=== PATIENT | female | born 1930 | race Caucasian/White ===

== ENCOUNTER 2016-11-13 15:21 | Emergency (ER) | payer BC, MEDICARE ==
[~2016-11-13] VITALS: Ht 142.2 cm; Wt 127.0 kg
[~2016-11-13 15:21] MED LIST: ALBU0.63 NEB; ASPI-482 PO; ATOR10TA60 PO; ATOR40TA59 PO; CETI10CA PO; CLIN150C14 PO; DOXY100C14 PO; FLUT16SP2 NS; FLUT1DIS3 IH; FURO20TA3 PO; FURO40TA4 PO; LISI-334 PO; LISI-338 PO; METO1TAB7 PO; METO25TA4 PO; NIFE10CA48 PO; NITR0.3T SL; POLY500P14 MC; PRAS5TAB3 PO
--- NOTE | 2016-11-13 15:41 | PHYS DOC ---
Past Medical History Past Medical History: Angina, Asthma, CHF, COPD, High Cholesterol, Heart Disease, Hypertension, Renal Failure, Other Additional Past Medical Histor: seasonal allergies, pacemaker Past Surgical History: Appendectomy, Cholecystectomy, Hysterectomy, Other Additional Past Surgical Histo: bilat shoulders,renal stents,CARDIAC STENTS, PACEMAKER Alcohol Use: None Drug Use: None Adult General Chief Complaint Chief Complaint: LOWER EXT PAIN HPI HPI Patient is a 86 year old female who presents with 3 week history of worsening right leg pain extending from ankle to hip; worsened with weightbearing which is become increasingly difficult; denies history of trauma; recently placed on antibiotics doxycycline for some erythema to the skin of the lower leg anteriorly. She has evidence of prior ulcers that are well-healed with scabs. Denies any history of peripheral vascular disease other than "circulation problems ". Has had a prior cardiac catheter may have stents, and has history of CHF. Denies prior history of knee replacement or hip replacement/fracture repair. Review of Systems Review of Systems Constitutional: Denies fever or chills [] Eyes: Denies change in visual acuity, redness, or eye pain [] HENT: Denies nasal congestion or sore throat [] Respiratory: Denies cough or shortness of breath [] Cardiovascular: No additional information not addressed in HPI [] GI: Denies abdominal pain, nausea, vomiting, bloody stools or diarrhea [] : Denies dysuria or hematuria [] Musculoskeletal: Denies back pain or joint pain [] Integument: Denies rash or skin lesions [] Neurologic: Denies headache, focal weakness or sensory changes [] Endocrine: Denies polyuria or polydipsia All review systems are negative except as mentioned in the history of present illness. [] Allergies Allergies Allergies Coded Allergies Type Severity Reaction Last Updated Verified Penicillins Allergy Severe Anaphylaxis 09/08/15 Yes Sulfa (Sulfonamide Antibiotics) Allergy Intermediate 09/08/15 Yes codeine Adverse Reaction Intermediate 09/08/15 Yes Physical Exam Physical Exam Constitutional: Well developed, well nourished, no acute distress, non-toxic appearance. [] HENT: Normocephalic, atraumatic, bilateral external ears normal, oropharynx moist, no oral exudates, nose normal. [] Eyes: PERRLA, EOMI, conjunctiva normal, no discharge. [] Neck: Normal range of motion, no tenderness, supple, no stridor. [] Cardiovascular:Heart rate regular rhythm, no murmur [] Lungs & Thorax: Bilateral breath sounds clear to auscultation [] Abdomen: Bowel sounds normal, soft, no tenderness, no masses, no pulsatile masses. [] Skin: Warm, dry, no erythema, no rash. [] Back: No tenderness, no CVA tenderness. [] Extremities: No tenderness, no cyanosis, no clubbing, ROM intact, no edema. Except for right lower extremity: Patient appears to have some discomfort with movement of the ankle knee and hip but is difficult to discern which is really bothering her more. There are some chronic skin changes in the lower extremity consistent with some venous stasis. She is morbidly obese which also makes the exam more difficult. The skin and the foot is somewhat discolored which is considered chronic the right and left foot are warm to touch. No palpable pulses in the foot or ankle.] Neurologic: Alert and oriented X 3, normal motor function, normal sensory function, no focal deficits noted. [] Psychologic: Affect normal, judgement normal, mood normal. [] Current Patient Data Vital Signs Vital Signs Date Time Temp Pulse Resp B/P (MAP) Pulse Ox O2 Delivery O2 Flow Rate FiO2 11/13/16 18:19 65 216/80 (125) 99 Room Air 11/13/16 15:25 97.9 18 97.9 Lab Values Laboratory Tests Test 11/13/16 16:20 11/13/16 16:50 White Blood Count 10.7 x10^3/uL (4.0-11.0) Red Blood Count 4.28 x10^6/uL (3.50-5.40) Hemoglobin 12.5 g/dL (12.0-15.5) Hematocrit 37.8 % (36.0-47.0) Mean Corpuscular Volume 88 fL (79-100) Mean Corpuscular Hemoglobin 29 pg (25-35) Mean Corpuscular Hemoglobin Concent 33 g/dL (31-37) Red Cell Distribution Width 15.0 % (11.5-14.5) H Platelet Count 269 x10^3/uL (140-400) Neutrophils (%) (Auto) 71 % (31-73) Lymphocytes (%) (Auto) 16 % (24-48) L Monocytes (%) (Auto) 9 % (0-9) Eosinophils (%) (Auto) 4 % (0-3) H Basophils (%) (Auto) 1 % (0-3) Neutrophils # (Auto) 7.7 x10^3uL (1.8-7.7) Lymphocytes # (Auto) 1.7 x10^3/uL (1.0-4.8) Monocytes # (Auto) 1.0 x10^3/uL (0.0-1.1) Eosinophils # (Auto) 0.4 x10^3/uL (0.0-0.7) Basophils # (Auto) 0.1 x10^3/uL (0.0-0.2) Sodium Level 141 mmol/L (136-145) Potassium Level 4.9 mmol/L (3.5-5.1) Chloride Level 104 mmol/L (98-107) Carbon Dioxide Level 30 mmol/L (21-32) Anion Gap 7 (6-14) Blood Urea Nitrogen 40 mg/dL (7-20) H Creatinine 1.5 mg/dL (0.6-1.0) H Estimated GFR (Cockcroft-Gault) 32.9 BUN/Creatinine Ratio 27 (6-20) H Glucose Level 99 mg/dL (70-99) Calcium Level 9.1 mg/dL (8.5-10.1) Total Bilirubin 0.5 mg/dL (0.2-1.0) Aspartate Amino Transferase (AST) 15 U/L (15-37) Alanine Aminotransferase (ALT) 7 U/L (14-59) L Alkaline Phosphatase 74 U/L (46-116) Troponin I Quantitative < 0.017 ng/mL (0.000-0.055) Total Protein 6.7 g/dL (6.4-8.2) Albumin 3.3 g/dL (3.4-5.0) L Albumin/Globulin Ratio 1.0 (1.0-1.7) Laboratory Tests 11/13/16 16:20 Laboratory Tests 11/13/16 16:50 EKG EKG EKG [irregular rhythm rate of 98 no STEMI right bundle branch block QTC prolonged at 510 my interpretation Radiology/Procedures Radiology/Procedures Chest x-ray x-ray of pelvis right hip tib-fib femur: [All x-rays were negative for fracture there was DJD hip and knee and ankle Ultrasound venous of the right leg showed a Nguyen's cyst but no DVT Ultrasound of right lower extremity that arterial showed monophasic flow and lack of obvious lower imaging of the posterior tibia artery or dorsal pedal or artery however clinically the patient has a warm foot and is stable for outpatient follow-up of this problem.] Course & Med Decision Making Course & Med Decision Making Pertinent Labs and Imaging studies reviewed. (See chart for details) Since the entire right leg is hurting and she is having increasing trouble bearing weight we will x-ray the entire right leg including the hip and pelvis, we will ultrasound venous and arterial circulation of the right leg, and check labs. [] Dragon Disclaimer Dragon Disclaimer This electronic medical record was generated, in whole or in part, using a voice recognition dictation system. Departure Departure Impression: Primary Impression: Right leg pain Additional Impression: Synovial cyst of popliteal space [Nguyen], right knee Disposition: HOME, SELF-CARE Condition: STABLE Referrals: ALEXANDRIA PARKINSON (PCP) Additional Instructions: Please follow-up with your PCP get a referral to orthopedic surgery for evaluation of the Nguyen's cyst; please follow-up and get a referral from your PCP to vascular surgeon to consider options regarding decreased blood flow in that right lower extremity Scripts Oxycodone/Apap 5-325 (PERCOCET 5-325 MG TABLET) 1 Each Tablet 1 TAB PO QID for PAIN, #12 TAB Prov: MAIRA WHITEHEAD MD 11/13/16 Problem Qualifiers MAIRA WHITEHEAD MD Nov 13, 2016 15:41
[2016-11-13 16:29] LABS: BASO # 0.1 x10^3/uL (0.0-0.2); BASO % 1 % (0-3); EOS % 4 % (0-3); HEMATOCRIT 37.8 % (36.0-47.0); HEMOGLOBIN 12.5 g/dL (12.0-15.5); LYMPH # 1.7 x10^3/uL (1.0-4.8); LYMPH % 16 % (24-48); MEAN CORPUSCULAR HEMOGLOBIN 29 pg (25-35); MEAN CORPUSCULAR HGB CONC 33 g/dL (31-37); MEAN CORPUSCULAR VOLUME 88 fL (79-100); MONO % 9 % (0-9); NEUT % 71 % (31-73); PLATELET COUNT 269 x10^3/uL (140-400); RED BLOOD COUNT 4.28 x10^6/uL (3.50-5.40); WHITE BLOOD COUNT 10.7 x10^3/uL (4.0-11.0)
--- NOTE | 2016-11-13 16:30 | RAD ---
Pelvis with right hip, 3 views, 11/13/2016: History: Pain No fracture or dislocation is identified. The hip joint spaces are fairly well-maintained with mild marginal spurring. There are moderate scattered arterial calcifications. Degenerative changes are noted in the lumbar spine. IMPRESSION: No acute bony abnormality is detected. Right tibia and fibula, 2 views, 11/13/2016: There is patchy bony demineralization. No fracture is identified. There are mild degenerative changes at the knee joint and at the ankle joint. There appears to be a moderate size knee joint effusion. There is mild generalized subcutaneous edema. IMPRESSION: 1. Demineralization. 2. No acute bony abnormality is detected. 3. Degenerative changes at the knee and ankle.
--- NOTE | 2016-11-13 16:31 | RAD ---
Right femur, 2 views, 11/13/2016: History: Pain No fracture is identified. Moderate degenerative change is present at the knee. IMPRESSION: No acute right femoral abnormality is detected.
[2016-11-13 17:13] LABS: CALCIUM 9.1 mg/dL (8.5-10.1); CREATININE 1.5 mg/dL (0.6-1.0); GFR 32.9; POTASSIUM 4.9 mmol/L (3.5-5.1)
[2016-11-13 17:18] LABS: ALBUMIN 3.3 g/dL (3.4-5.0); TOTAL BILIRUBIN 0.5 mg/dL (0.2-1.0); TOTAL PROTEIN 6.7 g/dL (6.4-8.2)
[2016-11-13 18:19] VITALS: BP 216/80
--- NOTE | 2016-11-13 18:21 | RAD ---
Ultrasound right lower extremity Indication: rt leg pain/swelling. Limited by body habitus. Impression: Negative for thrombus RT leg. Nguyen's cyst 4.1cm. Technique: Multiple real-time grayscale images were obtained over the right lower extremity with use of color Doppler imaging. Static images were submitted for interpretation. Findings: There is no evidence for deep venous thrombosis. There is normal color fill-in on Doppler images. There is also normal response to compression and augmentation deep venous system. Spectral analysis is within normal limits. There is a popliteal fossa cyst that measures 4.1 x 1.2 x 2.2 cm in size. Impression: No evidence for deep venous thrombosis in the right lower extremity. Nguyen's cyst present measuring up to 4.1 cm. Electronically signed by: Luther Parker MD (11/13/2016 6:17 PM) [facility]
--- NOTE | 2016-11-13 18:46 | RAD ---
Ultrasound arterial doppler the right lower extremity Indication: RT leg pain/swelling. Impression:Limited by body habitus. Increase velocity RT SFA to 350cm/s. TECHNIQUE: Multiple real-time grayscale sonographic images are obtained over the right lower extremity with use of color Doppler imaging and spectral analysis. FINDINGS: There is biphasic waveform of the common femoral artery monophasic waveform of the deep femoral but no systolic acceleration delay. There is focal elevation of flow velocity in the proximal superficial femoral artery likely due to presence of atherosclerotic plaque resulting in moderate stenosis. Triphasic waveforms are noted in the mid and distal superficial femoral arteries however. Biphasic wave forms are noted in the popliteal artery with monophasic flow in the calf. Anterior tibial artery is not visualized. Dorsalis pedis artery is not visualized. IMPRESSION: There appears to be at least [id number] stenosis of the superficial femoral artery. There is nonvisualization of the anterior tibial and dorsalis pedis arteries which could be diminutive or occluded. Electronically signed by: Luther Parker MD (11/13/2016 6:43 PM) [facility]
[2016-11-13] MEDS ORDERED: OXYC-323 PO (19:50)
--- NOTE | 2016-11-13 20:39 | RAD ---
Single view chest Indication: ER PATIENT C/O RT LOWER EXTREMITY PAIN AND SWELLING. HX ANGINA, ASTHMA, CHF, COPD, HTN, RENAL FAILURE FINDINGS: Heart is enlarged. There is mild pulmonary vascular congestion. No pneumothorax or pleural effusion. IMPRESSION: Cardiomegaly with pulmonary vascular congestion. Electronically signed by: Luther Parker MD (11/13/2016 8:35 PM) [facility]
--- NOTE | 2016-11-14 06:38 | EKG ---
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
== END 2016-11-13 20:10 | disposition home or self-care (01) ==
LOC: ER 15:21
DX: M71.21 Synovial cyst of popliteal space [Baker], right knee (principal); J44.9 Chronic obstructive pulmonary disease, unspecified; E78.00 Pure hypercholesterolemia, unspecified; I13.0 Hypertensive heart and chronic kidney disease with heart failure and stage 1 through stage 4 chronic kidney disease, or unspecified chronic kidney disease; N18.9 Chronic kidney disease, unspecified; I50.9 Heart failure, unspecified; Z95.0 Presence of cardiac pacemaker; Z95.5 Presence of coronary angioplasty implant and graft; Z88.0 Allergy status to penicillin; Z90.49 Acquired absence of other specified parts of digestive tract; Z90.710 Acquired absence of both cervix and uterus; Z88.5 Allergy status to narcotic agent; Z88.2 Allergy status to sulfonamides
CPT/HCPCS: 36415; 71010; 73502; 73552; 73590; 80053; 84484; 85027; 93005; 93923; 93971; 99285-25

== ENCOUNTER 2016-11-26 10:20 | Inpatient (IN) | payer BC ==
[~2016-11-26] VITALS: Ht 147.3 cm; Wt 138.3 kg
[~2016-11-26 10:20] MED LIST changes: +OXYC-323 PO
--- NOTE | 2016-11-26 11:01 | EKG ---
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
[2016-11-26 11:26] LABS: BILIRUBIN,URINE NEGATIVE (NEG); GLUCOSE,URINE NEGATIVE (NEG); NITRITE,URINE NEGATIVE (NEG); PH,URINE 5.5; PROTEIN,URINE NEGATIVE (NEG-TRACE); UROBILINOGEN,URINE 0.2 mg/dL (0.2 mg/dL)
[2016-11-26 11:35] LABS: SQUAMOUS EPITHELIAL CELL,UR MANY /LPF
[2016-11-26 11:36] LABS: BACTERIA,URINE MANY /HPF (0-FEW); RBC,URINE OCC /HPF (0-2)
--- NOTE | 2016-11-26 11:38 | RAD ---
Indication shortness of breath. A single view of the chest was obtained and is compared to a study 13 days earlier. The study is limited by virtue of patient body habitus and lordotic positioning. There is generalized cardiomegaly similar. Gross congestive heart failure is not seen. There is increased density overlying the lower lung flores which is probably secondary to overlying soft tissues. A definite acute finding is not seen but again the study is limited. A two-view examination of the chest, in the department, should be considered. Postoperative changes about both shoulders are noted IMPRESSION: Limited study. No definite acute finding. A two-view examination of the chest, in the department, should be considered.
[2016-11-26 12:12] LABS: BASO % 0 % (0-3); EOS % 3 % (0-3); HEMATOCRIT 35.9 % (36.0-47.0); HEMOGLOBIN 11.7 g/dL (12.0-15.5); LYMPH # 1.4 x10^3/uL (1.0-4.8); LYMPH % 15 % (24-48); MEAN CORPUSCULAR HEMOGLOBIN 29 pg (25-35); MEAN CORPUSCULAR HGB CONC 33 g/dL (31-37); MEAN CORPUSCULAR VOLUME 88 fL (79-100); MONO % 8 % (0-9); NEUT % 73 % (31-73); PLATELET COUNT 267 x10^3/uL (140-400); RED BLOOD COUNT 4.07 x10^6/uL (3.50-5.40); RED CELL DISTRIBUTION WIDTH 15.1 % (11.5-14.5); WHITE BLOOD COUNT 9.1 x10^3/uL (4.0-11.0)
[2016-11-26 12:25] LABS: CALCIUM 8.7 mg/dL (8.5-10.1); CREATININE 1.6 mg/dL (0.6-1.0); GFR 30.6; POTASSIUM 5.1 mmol/L (3.5-5.1)
[2016-11-26 12:32] LABS: ALBUMIN 3.1 g/dL (3.4-5.0); ALBUMIN/GLOBULIN RATIO 0.8 (1.0-1.7); TOTAL BILIRUBIN 0.4 mg/dL (0.2-1.0); TOTAL PROTEIN 6.8 g/dL (6.4-8.2)
[2016-11-26] MEDS ORDERED: FUROSEMIDE 40 MG/4 ML VIAL. IVP ONE (13:15)
[2016-11-26] MEDS ORDERED: NITROGLYCERIN SUBLINGUAL 0.4 MG BOTTLE OF 25. SL PRN ×2 (14:00→19:30)
[2016-11-26] MEDS ORDERED: LISINOPRIL 10 MG TABLET PO ONE (14:00)
[2016-11-26] MEDS ORDERED: hydrALAZINE 20 MG/ML VIAL. IVP PRN (14:00)
[2016-11-26] MEDS ORDERED: ONDANSETRON PF 4 MG/2 ML VIAL. IV PRN (14:00)
[2016-11-26] MEDS ORDERED: ACETAMINOPHEN 325 MG TABLET. PO PRN (14:00)
--- NOTE | 2016-11-26 14:02 | RAD ---
Indication shortness of air. AP and lateral views were obtained. Note is made of a single portable examination earlier in the day and a previous single view examination 11/13/2016. Despite obtaining 2 views examination is compromised by patient body habitus. Cardiomegaly is unchanged. There is no gross congestive heart failure. Increased density overlying the lung bases is likely a reflection of overlying soft tissues. A definite acute finding in the chest is not seen. Significant pleural fluid is not suggested. No pneumothorax is seen. Calcified azygos nodes are noted. There is a bipolar cardiac pacing device and postoperative changes involving the shoulders are noted. IMPRESSION: Limited study. No definite acute finding seen
--- NOTE | 2016-11-26 15:43 | ED.ADGEN ---
Past Medical History Past Medical History: Angina, Asthma, CHF, COPD, High Cholesterol, Heart Disease, Hypertension, Renal Failure, Other Additional Past Medical Histor: seasonal allergies, pacemaker Past Surgical History: Appendectomy, Cholecystectomy, Hysterectomy, Other Additional Past Surgical Histo: bilat shoulders,renal stents,CARDIAC STENTS, PACEMAKER Alcohol Use: None Drug Use: None Adult General Chief Complaint Chief Complaint: SHORTNESS OF BREATH HPI HPI Patient is a 86 year old woman, history of CHF, COPD, hypertension, renal insufficiency, who presents to the emergency department via EMS with complaint of increased work of breathing and shortness of breath worsening over the past several days. Patient denies any heat exposure, denies any chest pain, any nausea or vomiting, any fevers or chills, any recent travel or surgery, any history of DVT or PE. She states that she's noted increasing swelling in her lower extremities over the past several days, and worsening shortness of breath. She states that she has been taking all medications as directed by her primary care provider and her sales route driver, Dr. Garza. No urinary complaints , or syncope, any lightheadedness or dizziness. States this feels like her congestive heart failure. Review of Systems Review of Systems Constitutional: Denies fever or chills. [] Eyes: Denies change in visual acuity. [] HENT: Denies nasal congestion or sore throat. [] Respiratory: Denies cough, increasing shortness of breath and lower extremity edema. Cardiovascular: Denies chest pain, complaining of increasing lower extremity edema.] GI: Denies abdominal pain, nausea, vomiting, bloody stools or diarrhea. [] : Denies dysuria. [] Musculoskeletal: Denies back pain or joint pain. [] Integument: Denies rash. [] Neurologic: Denies headache, focal weakness or sensory changes. [] Endocrine: Denies polyuria or polydipsia. [] Lymphatic: Denies swollen glands. [] Psychiatric: Denies depression or anxiety. [] Allergies Allergies Allergies Coded Allergies Type Severity Reaction Last Updated Verified Penicillins Allergy Severe Anaphylaxis 09/08/15 Yes Sulfa (Sulfonamide Antibiotics) Allergy Intermediate 09/08/15 Yes codeine Adverse Reaction Intermediate 09/08/15 Yes Physical Exam Physical Exam Constitutional: Well developed, well nourished, no acute distress, non-toxic appearance. [] HENT: Normocephalic, atraumatic, bilateral external ears normal, oropharynx moist, no oral exudates, nose normal. [] Eyes: PERRLA, EOMI, conjunctiva normal, no discharge. [] Neck: Normal range of motion, no tenderness, supple, no stridor. [] Cardiovascular:Heart rate regular rhythm, no murmur [] Lungs & Thorax: Bilateral breath sounds clear to auscultation [] Abdomen: Bowel sounds normal, soft, no tenderness, no masses, no pulsatile masses. [] Skin: Warm, dry, no erythema, no rash. [] Back: No tenderness, no CVA tenderness. [] Extremities: No tenderness, no cyanosis, no clubbing, ROM intact, no edema. [] Neurologic: Alert and oriented X 3, normal motor function, normal sensory function, no focal deficits noted. [] Psychologic: Affect normal, judgement normal, mood normal. [] Current Patient Data Vital Signs Vital Signs Date Time Temp Pulse Resp B/P (MAP) Pulse Ox O2 Delivery O2 Flow Rate FiO2 11/26/16 10:26 97.7 68 18 151/78 (102) 97 Room Air 97.7 Lab Values Laboratory Tests Test 11/26/16 11:17 11/26/16 12:00 Urine Collection Type Unknown Urine Color Other Urine Clarity Clear Urine pH 5.5 Urine Specific [place] <=1.005 Urine Protein Negative mg/dL (NEG-TRACE) Urine Glucose (UA) Negative mg/dL (NEG) Urine Ketones (Stick) Negative mg/dL (NEG) Urine Blood Negative (NEG) Urine Nitrite Negative (NEG) Urine Bilirubin Negative (NEG) Urine Urobilinogen Dipstick 0.2 mg/dL (0.2 mg/dL) Urine Leukocyte Esterase Moderate (NEG) Urine RBC Occ /HPF (0-2) Urine WBC 11-20 /HPF (0-4) Urine Squamous Epithelial Cells Many /LPF Urine Bacteria Many /HPF (0-FEW) Urine Mucus Slight /LPF White Blood Count 9.1 x10^3/uL (4.0-11.0) Red Blood Count 4.07 x10^6/uL (3.50-5.40) Hemoglobin 11.7 g/dL (12.0-15.5) L Hematocrit 35.9 % (36.0-47.0) L Mean Corpuscular Volume 88 fL (79-100) Mean Corpuscular Hemoglobin 29 pg (25-35) Mean Corpuscular Hemoglobin Concent 33 g/dL (31-37) Red Cell Distribution Width 15.1 % (11.5-14.5) H Platelet Count 267 x10^3/uL (140-400) Neutrophils (%) (Auto) 73 % (31-73) Lymphocytes (%) (Auto) 15 % (24-48) L Monocytes (%) (Auto) 8 % (0-9) Eosinophils (%) (Auto) 3 % (0-3) Basophils (%) (Auto) 0 % (0-3) Neutrophils # (Auto) 6.7 x10^3uL (1.8-7.7) Lymphocytes # (Auto) 1.4 x10^3/uL (1.0-4.8) Monocytes # (Auto) 0.7 x10^3/uL (0.0-1.1) Eosinophils # (Auto) 0.3 x10^3/uL (0.0-0.7) Basophils # (Auto) 0.0 x10^3/uL (0.0-0.2) Sodium Level 142 mmol/L (136-145) Potassium Level 5.1 mmol/L (3.5-5.1) Chloride Level 107 mmol/L (98-107) Carbon Dioxide Level 29 mmol/L (21-32) Anion Gap 6 (6-14) Blood Urea Nitrogen 41 mg/dL (7-20) H Creatinine 1.6 mg/dL (0.6-1.0) H Estimated GFR (Cockcroft-Gault) 30.6 BUN/Creatinine Ratio 26 (6-20) H Glucose Level 104 mg/dL (70-99) H Calcium Level 8.7 mg/dL (8.5-10.1) Total Bilirubin 0.4 mg/dL (0.2-1.0) Aspartate Amino Transferase (AST) 17 U/L (15-37) Alanine Aminotransferase (ALT) 20 U/L (14-59) Alkaline Phosphatase 62 U/L (46-116) Troponin I Quantitative < 0.017 ng/mL (0.000-0.055) MW-Zub-R-Type Natriuretic Peptide 2969 pg/mL (0-449) H Total Protein 6.8 g/dL (6.4-8.2) Albumin 3.1 g/dL (3.4-5.0) L Albumin/Globulin Ratio 0.8 (1.0-1.7) L Laboratory Tests 11/26/16 12:00 Laboratory Tests 11/26/16 12:00 EKG EKG EC: Rhythm, QTC of 473, QRS of 188, interpretation limited secondary to pacing, does not meet STEMI criteria. As interpreted by me. Radiology/Procedures Radiology/Procedures [][facility] [address] [place] [address] IMAGING REPORT Signed PATIENT: CHRISTIANO DE SOUZA ACCOUNT: [id number] : 1930 LOCATION: ER AGE: 86 SEX: F EXAM STATUS: REG ER ORD. PHYSICIAN: WOODY VARGAS DO REASON: SOB PROCEDURE: CHEST PA & LATERAL Indication shortness of air. AP and lateral views were obtained. Note is made of a single portable examination earlier in the day and a previous single view examination 11/13/2016. Despite obtaining 2 views examination is compromised by patient body habitus. Cardiomegaly is unchanged. There is no gross congestive heart failure. Increased density overlying the lung bases is likely a reflection of overlying soft tissues. A definite acute finding in the chest is not seen. Significant pleural fluid is not suggested. No pneumothorax is seen. Calcified azygos nodes are noted. There is a bipolar cardiac pacing device and postoperative changes involving the shoulders are noted. IMPRESSION: Limited study. No definite acute finding seen DICTATED and SIGNED BY: PETER GAMBOA MD DATE: 11/26/16 7096 CC: ALEXANDRIA PARKINSON; WOODY VARGAS DO ~ Course & Med Decision Making Course & Med Decision Making Pertinent Labs and Imaging studies reviewed. (See chart for details) Patient's history and examination concerning for CHF exacerbation. Chest x-ray reveals evidence of mild pulmonary congestion, proBNP is greater than 2900. Patient is agreeable with plan for admission to the hospital for management of CHF exacerbation, remained stable on the monitor in the ED, paced rhythm. Initial troponin is negative. Findings as above discussed with Dr. Corona of internal medicine, patient received IV Lasix in the emergency department, consultation for cardiology placed. Patient with hypertension in the ED, patient was administered her daily lisinopril, and additionally hydralazine when necessary was ordered. Bridge orders entered per discussion. Dragon Disclaimer Dragon Disclaimer This electronic medical record was generated, in whole or in part, using a voice recognition dictation system. Departure Impression: Primary Impression: CHF exacerbation Disposition: ADMITTED INPATIENT Admitting Physician: Other Condition: IMPROVED WOODY VARGAS DO Nov 26, 2016 15:43
[2016-11-26 19:00] VITALS: BP 153/48
[2016-11-26] MEDS ORDERED: ALBUTEROL SULFATE NEB PRN (19:00)
[2016-11-26] MEDS ORDERED: ALBUTEROL SULFATE 2.5 MG/3 ML NEBU. NEB PRN (19:30)
[2016-11-26] MEDS: ALBUTEROL SULFATE 2.5 MG/3 ML NEBU. NEB SCH (20:59)
[2016-11-26] MEDS: BUDESONIDE 0.5 MG/2 ML NEBU. NEB SCH (20:59)
[2016-11-26] MEDS ORDERED: NON FORMULARY ITEM (Fluticasone/Salmeterol (Advair 250-50 Diskus) 1 INH) IH SCH (21:00)
[2016-11-26] MEDS: METOPROLOL TART IMMED RELEASE 25 MG TABLET. PO SCH (21:35)
[2016-11-26] MEDS: ATORVASTATIN CALCIUM 10 MG TABLET. PO SCH (21:35)
[2016-11-26] MEDS: oxyCODONE/APAP 5/325 1 TAB TABLET PO SCH (21:36)
--- NOTE | 2016-11-26 21:37 | HP ---
ADMIT DATE: 11/26/2016 CHIEF COMPLAINT: Respiratory failure. HISTORY OF PRESENT ILLNESS: The patient is an 86-year-old morbidly obese woman with diastolic CHF, COPD, hypoventilation syndrome as well as CAD who presented to the Emergency Room with increased shortness of breath. She relates that she has always had trouble breathing, but about 3 days ago, she started getting worse and worse. She recalls that her friends actually had to pull her up out of a chair on Sunday, 3 days ago and she finally decided to come to the Emergency Room. She has been admitted for both COPD exacerbation as well as CHF in the past. She denies any chest pain, any diaphoresis, any nausea, vomiting, any cough or sputum production. In addition to her breathing problems, she also complains of severe knee pain. This apparently has been going on for a while as well. She had been seen in the ER, had been told she had a Nguyen cyst which to her was something ominous and she is worried that she will require a surgery. While she was here in the Emergency Room, she started having dysuria which she specifically denies prior to today. She apparently was found with UTI. She is now admitted for multiple acute issues. PAST MEDICAL HISTORY: COPD, CHF, diastolic; severe pulmonary artery hypertension and hypoventilation syndrome due to obesity, CAD, hypertension, hyperlipidemia, chronic kidney disease, chronic lymphedema. PAST SURGICAL HISTORY: She is status post pacemaker placement, cholecystectomy, appendectomy, hysterectomy as well as right renal artery stents and bilateral shoulder surgery. FAMILY HISTORY: Positive for hypertension. SOCIAL HISTORY: She lives by herself. No toxic habits. ALLERGIES: PENICILLIN, SULFA AND CODEINE. MEDICATIONS: MAR reconciled with home medications. REVIEW OF SYSTEMS: Positive as per HPI. Rest of organ system review is benign. PHYSICAL EXAMINATION: VITAL SIGNS: From today show a blood pressure of 180/78, heart rate of 68, respiratory rate of 18. She is afebrile. GENERAL: This is a morbidly obese 86-year-old woman, alert and oriented, in no acute distress, very pleasant and talkative. HEENT: Shows no scleral icterus. NECK: Thick with double chin. HEART: Has regular rate and rhythm. LUNGS: Fairly clear bilaterally without any appreciated rales. ABDOMEN: Massively obese. Organs could not be palpated. Bowel sounds are present. EXTREMITIES: Show 1-2+ lower extremity edema with chronic erythema over her distal right extremity. SKIN: Warm, soft and dry otherwise. LABORATORY DATA: CBC with a WBC of 9.1, hemoglobin 11.7, platelets of 267. Chemistries with a BUN and creatinine of 41 and 1.6, which is essentially her baseline. Electrolytes with a potassium of 5.1. LFTs within normal. ProBNP 2969. Troponin negative. Urine from today showed many bacteria and 11-20 wbc's. IMAGING STUDIES: Show a chest x-ray from today with no definite acute finding seen, although this was a limited study due to her body habitus. Bipolar cardiac pacing device and postoperative changes involving the shoulders were noted. ASSESSMENT AND PLAN: The patient is an 86-year-old woman who had a mild congestive heart failure and is already improved with Lasix received in the Emergency Room. We will admit her, monitor her electrolytes as well as enzymes to rule out any acute coronary syndrome. Her loan processing supervisor, Dr. Garza, will be notified. The patient does have a urinary tract infection which may be the etiology that actually caused her clinical symptoms. She has been started on empiric antibiotics, we will await culture. Her third acute issue is her knee pain that is fairly severe. On palpation, Nguyen's cyst is present. I advised her that it will take time to calm down. Heat will help. Given her renal function, we will try and avoid NSAIDs for now. We will continue all her other home medications including blood pressure. Hydralazine IV will be made available p.r.n. to get her accelerated hypertension under control. SANDRA ESPINOZA MD DR: CLARENCE/nts JOB#: [id number] / [id number] [place] William
[2016-11-26 23:00] VITALS: BP 127/42
--- NOTE | 2016-11-27 01:01 | ACF ---
Admission Forms Criteria HEART FAILURE: COMMON COMPLICATIONS (Place 'X' for any and all applicable criteria): Ongoing inpatient care may be indicated for heart failure with 1 or more of the following (1)(2)(3)(4)(5)(6)(7)(8): [ ]I. New-onset heart failure [ ]II. Acute cardiac ischemia causing or associated with failure [ ]III. Ongoing need for care for primary condition requiring frequent therapy adjustments because of changes in cardiac function (eg, drug dosage changes for drugs that are renally metabolized) [ X]IV. Complications of heart failure, including 1 or more of the following: [ ]a) Hemodynamic instability [ ]b) Pericardial effusion [ ]c) Symptomatic pleural effusion [ ]d) Hypoxemia [ ]e) Tachypnea [X ]f) Dyspnea [ ]g) Syncope [ ]h) Altered mental status [ ]i) Acute renal insufficiency that is severe (reduction of more than 50% in estimated glomerular filtration rate from baseline) or progressive reduction of more than 25% in estimated glomerular filtration rate from baseline, with creatinine continuing to rise) [ ]j) Debilitating anasarca (eg tissue breakdown with infection, inability to void due to edema) (E) [ ]k) Clinically significant metabolic abnormalities due to heart failure (eg, new-onset metabolic acidosis) Extended stay may be needed until ALL of the following are present (1)(3)(18)(41 )(55) [ ]a) Hemodynamic stability [ ]b) Stable and effective diuretic regimen established (or patient on stable dialysis regimen if in chronic renal failure) [ ]c) Volume status acceptable on oral medication [ ]d) Breathing comfortably at rest [ ]e) Saturation of arterial oxygen greater than 90% or at acceptable baseline [ ]f) Pulmonary edema absent or improved [ ]g) Peripheral or sacral edema absent or improved [ ]h) Renal function stable and manageable at a lower level of care [ ]i) Complications (eg, pleural effusion) resolved or manageable at a lower level of care [ ]g) Patient or caregiver has received written discharge instructions or educational material addressing activity level, diet, discharge medications, follow-up appointment, weight monitoring, and what to do if symptoms worsen.(25)(26) The original [email or web address] [employer] content created by [email or web address] has been revised. The portions of the content which have been revised are identified through the use of italic text, and [facility] has neither reviewed nor approved the modified material.All other unmodified content is copyright [facility]. Please see references footnoted in the original [facility] edition 2015 Admission Criteria Met?: Yes VIKTOR RAI Nov 27, 2016 01:01
[2016-11-27 01:46] LABS: BASO # 0.1 x10^3/uL (0.0-0.2); BASO % 1 % (0-3); EOS % 4 % (0-3); HEMATOCRIT 34.4 % (36.0-47.0); HEMOGLOBIN 11.2 g/dL (12.0-15.5); LYMPH # 1.4 x10^3/uL (1.0-4.8); LYMPH % 16 % (24-48); MEAN CORPUSCULAR HEMOGLOBIN 29 pg (25-35); MEAN CORPUSCULAR HGB CONC 33 g/dL (31-37); MEAN CORPUSCULAR VOLUME 88 fL (79-100); MONO % 7 % (0-9); NEUT % 72 % (31-73); PLATELET COUNT 252 x10^3/uL (140-400); RED BLOOD COUNT 3.91 x10^6/uL (3.50-5.40); RED CELL DISTRIBUTION WIDTH 14.8 % (11.5-14.5); WHITE BLOOD COUNT 8.8 x10^3/uL (4.0-11.0)
[2016-11-27 02:11] LABS: CALCIUM 8.3 mg/dL (8.5-10.1); CREATININE 1.6 mg/dL (0.6-1.0); GFR 30.6; POTASSIUM 4.7 mmol/L (3.5-5.1)
[2016-11-27 07:00] VITALS: BP 116/44
[2016-11-27] MEDS: ALBUTEROL SULFATE 2.5 MG/3 ML NEBU. NEB SCH ×5 (07:37→19:53)
[2016-11-27] MEDS: BUDESONIDE 0.5 MG/2 ML NEBU. NEB SCH ×2 (07:37→19:54)
--- NOTE | 2016-11-27 10:27 | PDOC ---
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, chronic leg paina nd foot pain and knee pain, OA, poor mobility morbid obesity, w/ concurrent mild malnutrition, hypoalbumin UTI CKD 3 History of Present Illness History of Present Illness her breathing is better, but she has terrible exertional tolerance, has been worsening Vitals Vitals Vital Signs Date Time Temp Pulse Resp B/P (MAP) Pulse Ox O2 Delivery O2 Flow Rate FiO2 11/27/16 07:37 94 Room Air 11/27/16 07:00 98.0 61 20 116/44 (68) 98.0 11/26/16 23:00 2.0 Physical Exam General: Alert, Oriented X3, Cooperative, No acute distress Heart: Regular rate, Normal S1, No murmurs Lungs: Other Abdomen: No tenderness, No hepatosplenomegaly Extremities: No clubbing, No cyanosis, Other (LE edema) Skin: No rashes Labs LABS Laboratory Tests Test 11/26/16 11:17 11/26/16 12:00 11/26/16 20:00 11/27/16 01:45 Urine Collection Type Unknown Urine Color Other Urine Clarity Clear Urine pH 5.5 Urine Specific [place] <=1.005 Urine Protein Negative mg/dL (NEG-TRACE) Urine Glucose (UA) Negative mg/dL (NEG) Urine Ketones (Stick) Negative mg/dL (NEG) Urine Blood Negative (NEG) Urine Nitrite Negative (NEG) Urine Bilirubin Negative (NEG) Urine Urobilinogen Dipstick 0.2 mg/dL (0.2 mg/dL) Urine Leukocyte Esterase Moderate (NEG) Urine RBC Occ /HPF (0-2) Urine WBC 11-20 /HPF (0-4) Urine Squamous Epithelial Cells Many /LPF Urine Bacteria Many /HPF (0-FEW) Urine Mucus Slight /LPF White Blood Count 9.1 x10^3/uL (4.0-11.0) 8.8 x10^3/uL (4.0-11.0) Red Blood Count 4.07 x10^6/uL (3.50-5.40) 3.91 x10^6/uL (3.50-5.40) Hemoglobin 11.7 g/dL (12.0-15.5) 11.2 g/dL (12.0-15.5) Hematocrit 35.9 % (36.0-47.0) 34.4 % (36.0-47.0) Mean Corpuscular Volume 88 fL (79-100) 88 fL (79-100) Mean Corpuscular Hemoglobin 29 pg (25-35) 29 pg (25-35) Mean Corpuscular Hemoglobin Concent 33 g/dL (31-37) 33 g/dL (31-37) Red Cell Distribution Width 15.1 % (11.5-14.5) 14.8 % (11.5-14.5) Platelet Count 267 x10^3/uL (140-400) 252 x10^3/uL (140-400) Neutrophils (%) (Auto) 73 % (31-73) 72 % (31-73) Lymphocytes (%) (Auto) 15 % (24-48) 16 % (24-48) Monocytes (%) (Auto) 8 % (0-9) 7 % (0-9) Eosinophils (%) (Auto) 3 % (0-3) 4 % (0-3) Basophils (%) (Auto) 0 % (0-3) 1 % (0-3) Neutrophils # (Auto) 6.7 x10^3uL (1.8-7.7) 6.3 x10^3uL (1.8-7.7) Lymphocytes # (Auto) 1.4 x10^3/uL (1.0-4.8) 1.4 x10^3/uL (1.0-4.8) Monocytes # (Auto) 0.7 x10^3/uL (0.0-1.1) 0.6 x10^3/uL (0.0-1.1) Eosinophils # (Auto) 0.3 x10^3/uL (0.0-0.7) 0.3 x10^3/uL (0.0-0.7) Basophils # (Auto) 0.0 x10^3/uL (0.0-0.2) 0.1 x10^3/uL (0.0-0.2) Sodium Level 142 mmol/L (136-145) 143 mmol/L (136-145) Potassium Level 5.1 mmol/L (3.5-5.1) 4.7 mmol/L (3.5-5.1) Chloride Level 107 mmol/L (98-107) 106 mmol/L (98-107) Carbon Dioxide Level 29 mmol/L (21-32) 29 mmol/L (21-32) Anion Gap 6 (6-14) 8 (6-14) Blood Urea Nitrogen 41 mg/dL (7-20) 40 mg/dL (7-20) Creatinine 1.6 mg/dL (0.6-1.0) 1.6 mg/dL (0.6-1.0) Estimated GFR (Cockcroft-Gault) 30.6 30.6 BUN/Creatinine Ratio 26 (6-20) Glucose Level 104 mg/dL (70-99) 105 mg/dL (70-99) Calcium Level 8.7 mg/dL (8.5-10.1) 8.3 mg/dL (8.5-10.1) Total Bilirubin 0.4 mg/dL (0.2-1.0) Aspartate Amino Transf (AST/SGOT) 17 U/L (15-37) Alanine Aminotransferase (ALT/SGPT) 20 U/L (14-59) Alkaline Phosphatase 62 U/L (46-116) Troponin I Quantitative < 0.017 ng/mL (0.000-0.055) < 0.017 ng/mL (0.000-0.055) 0.019 ng/mL (0.000-0.055) MO-Ldk-U-Type Natriuretic Peptide 2969 pg/mL (0-449) Total Protein 6.8 g/dL (6.4-8.2) Albumin 3.1 g/dL (3.4-5.0) Albumin/Globulin Ratio 0.8 (1.0-1.7) Review of Systems Review of Systems +orthopnea, + Contreras knee pain, ankle pain LE edema Assessment and Plan Assessmemt and Plan Problems Medical Problems: (1) CHF (congestive heart failure) Status: Acute Problems: Comment Review of Relevant I have reviewed the following items aaliyah (where applicable) has been applied. Labs Laboratory Tests Test 11/26/16 11:17 11/26/16 12:00 11/26/16 20:00 11/27/16 01:45 Urine Collection Type Unknown Urine Color Other Urine Clarity Clear Urine pH 5.5 Urine Specific [place] <=1.005 Urine Protein Negative mg/dL (NEG-TRACE) Urine Glucose (UA) Negative mg/dL (NEG) Urine Ketones (Stick) Negative mg/dL (NEG) Urine Blood Negative (NEG) Urine Nitrite Negative (NEG) Urine Bilirubin Negative (NEG) Urine Urobilinogen Dipstick 0.2 mg/dL (0.2 mg/dL) Urine Leukocyte Esterase Moderate (NEG) Urine RBC Occ /HPF (0-2) Urine WBC 11-20 /HPF (0-4) Urine Squamous Epithelial Cells Many /LPF Urine Bacteria Many /HPF (0-FEW) Urine Mucus Slight /LPF White Blood Count 9.1 x10^3/uL (4.0-11.0) 8.8 x10^3/uL (4.0-11.0) Red Blood Count 4.07 x10^6/uL (3.50-5.40) 3.91 x10^6/uL (3.50-5.40) Hemoglobin 11.7 g/dL (12.0-15.5) 11.2 g/dL (12.0-15.5) Hematocrit 35.9 % (36.0-47.0) 34.4 % (36.0-47.0) Mean Corpuscular Volume 88 fL (79-100) 88 fL (79-100) Mean Corpuscular Hemoglobin 29 pg (25-35) 29 pg (25-35) Mean Corpuscular Hemoglobin Concent 33 g/dL (31-37) 33 g/dL (31-37) Red Cell Distribution Width 15.1 % (11.5-14.5) 14.8 % (11.5-14.5) Platelet Count 267 x10^3/uL (140-400) 252 x10^3/uL (140-400) Neutrophils (%) (Auto) 73 % (31-73) 72 % (31-73) Lymphocytes (%) (Auto) 15 % (24-48) 16 % (24-48) Monocytes (%) (Auto) 8 % (0-9) 7 % (0-9) Eosinophils (%) (Auto) 3 % (0-3) 4 % (0-3) Basophils (%) (Auto) 0 % (0-3) 1 % (0-3) Neutrophils # (Auto) 6.7 x10^3uL (1.8-7.7) 6.3 x10^3uL (1.8-7.7) Lymphocytes # (Auto) 1.4 x10^3/uL (1.0-4.8) 1.4 x10^3/uL (1.0-4.8) Monocytes # (Auto) 0.7 x10^3/uL (0.0-1.1) 0.6 x10^3/uL (0.0-1.1) Eosinophils # (Auto) 0.3 x10^3/uL (0.0-0.7) 0.3 x10^3/uL (0.0-0.7) Basophils # (Auto) 0.0 x10^3/uL (0.0-0.2) 0.1 x10^3/uL (0.0-0.2) Sodium Level 142 mmol/L (136-145) 143 mmol/L (136-145) Potassium Level 5.1 mmol/L (3.5-5.1) 4.7 mmol/L (3.5-5.1) Chloride Level 107 mmol/L (98-107) 106 mmol/L (98-107) Carbon Dioxide Level 29 mmol/L (21-32) 29 mmol/L (21-32) Anion Gap 6 (6-14) 8 (6-14) Blood Urea Nitrogen 41 mg/dL (7-20) 40 mg/dL (7-20) Creatinine 1.6 mg/dL (0.6-1.0) 1.6 mg/dL (0.6-1.0) Estimated GFR (Cockcroft-Gault) 30.6 30.6 BUN/Creatinine Ratio 26 (6-20) Glucose Level 104 mg/dL (70-99) 105 mg/dL (70-99) Calcium Level 8.7 mg/dL (8.5-10.1) 8.3 mg/dL (8.5-10.1) Total Bilirubin 0.4 mg/dL (0.2-1.0) Aspartate Amino Transf (AST/SGOT) 17 U/L (15-37) Alanine Aminotransferase (ALT/SGPT) 20 U/L (14-59) Alkaline Phosphatase 62 U/L (46-116) Troponin I Quantitative < 0.017 ng/mL (0.000-0.055) < 0.017 ng/mL (0.000-0.055) 0.019 ng/mL (0.000-0.055) VP-Huh-F-Type Natriuretic Peptide 2969 pg/mL (0-449) Total Protein 6.8 g/dL (6.4-8.2) Albumin 3.1 g/dL (3.4-5.0) Albumin/Globulin Ratio 0.8 (1.0-1.7) Laboratory Tests Test 11/26/16 11:17 11/26/16 12:00 11/26/16 20:00 11/27/16 01:45 Urine Collection Type Unknown Urine Color Other Urine Clarity Clear Urine pH 5.5 Urine Specific [place] <=1.005 Urine Protein Negative mg/dL (NEG-TRACE) Urine Glucose (UA) Negative mg/dL (NEG) Urine Ketones (Stick) Negative mg/dL (NEG) Urine Blood Negative (NEG) Urine Nitrite Negative (NEG) Urine Bilirubin Negative (NEG) Urine Urobilinogen Dipstick 0.2 mg/dL (0.2 mg/dL) Urine Leukocyte Esterase Moderate (NEG) Urine RBC Occ /HPF (0-2) Urine WBC 11-20 /HPF (0-4) Urine Squamous Epithelial Cells Many /LPF Urine Bacteria Many /HPF (0-FEW) Urine Mucus Slight /LPF White Blood Count 9.1 x10^3/uL (4.0-11.0) 8.8 x10^3/uL (4.0-11.0) Red Blood Count 4.07 x10^6/uL (3.50-5.40) 3.91 x10^6/uL (3.50-5.40) Hemoglobin 11.7 g/dL (12.0-15.5) 11.2 g/dL (12.0-15.5) Hematocrit 35.9 % (36.0-47.0) 34.4 % (36.0-47.0) Mean Corpuscular Volume 88 fL (79-100) 88 fL (79-100) Mean Corpuscular Hemoglobin 29 pg (25-35) 29 pg (25-35) Mean Corpuscular Hemoglobin Concent 33 g/dL (31-37) 33 g/dL (31-37) Red Cell Distribution Width 15.1 % (11.5-14.5) 14.8 % (11.5-14.5) Platelet Count 267 x10^3/uL (140-400) 252 x10^3/uL (140-400) Neutrophils (%) (Auto) 73 % (31-73) 72 % (31-73) Lymphocytes (%) (Auto) 15 % (24-48) 16 % (24-48) Monocytes (%) (Auto) 8 % (0-9) 7 % (0-9) Eosinophils (%) (Auto) 3 % (0-3) 4 % (0-3) Basophils (%) (Auto) 0 % (0-3) 1 % (0-3) Neutrophils # (Auto) 6.7 x10^3uL (1.8-7.7) 6.3 x10^3uL (1.8-7.7) Lymphocytes # (Auto) 1.4 x10^3/uL (1.0-4.8) 1.4 x10^3/uL (1.0-4.8) Monocytes # (Auto) 0.7 x10^3/uL (0.0-1.1) 0.6 x10^3/uL (0.0-1.1) Eosinophils # (Auto) 0.3 x10^3/uL (0.0-0.7) 0.3 x10^3/uL (0.0-0.7) Basophils # (Auto) 0.0 x10^3/uL (0.0-0.2) 0.1 x10^3/uL (0.0-0.2) Sodium Level 142 mmol/L (136-145) 143 mmol/L (136-145) Potassium Level 5.1 mmol/L (3.5-5.1) 4.7 mmol/L (3.5-5.1) Chloride Level 107 mmol/L (98-107) 106 mmol/L (98-107) Carbon Dioxide Level 29 mmol/L (21-32) 29 mmol/L (21-32) Anion Gap 6 (6-14) 8 (6-14) Blood Urea Nitrogen 41 mg/dL (7-20) 40 mg/dL (7-20) Creatinine 1.6 mg/dL (0.6-1.0) 1.6 mg/dL (0.6-1.0) Estimated GFR (Cockcroft-Gault) 30.6 30.6 BUN/Creatinine Ratio 26 (6-20) Glucose Level 104 mg/dL (70-99) 105 mg/dL (70-99) Calcium Level 8.7 mg/dL (8.5-10.1) 8.3 mg/dL (8.5-10.1) Total Bilirubin 0.4 mg/dL (0.2-1.0) Aspartate Amino Transf (AST/SGOT) 17 U/L (15-37) Alanine Aminotransferase (ALT/SGPT) 20 U/L (14-59) Alkaline Phosphatase 62 U/L (46-116) Troponin I Quantitative < 0.017 ng/mL (0.000-0.055) < 0.017 ng/mL (0.000-0.055) 0.019 ng/mL (0.000-0.055) PP-Jxx-I-Type Natriuretic Peptide 2969 pg/mL (0-449) Total Protein 6.8 g/dL (6.4-8.2) Albumin 3.1 g/dL (3.4-5.0) Albumin/Globulin Ratio 0.8 (1.0-1.7) Medications Current Medications Furosemide (Lasix) 60 mg 1X ONCE IVP Last administered on 11/26/16 13:50; Start 11/26/16 at 13:15; Stop 11/26/16 at 13:16; Status DC Ondansetron HCl (Zofran) 4 mg PRN Q8HRS PRN IV NAUSEA/VOMITING; Start 11/26/16 at 14:00; Stop 11/27/16 at 13:59 Acetaminophen (Tylenol) 650 mg PRN Q4HRS PRN PO FEVER; Start 11/26/16 at 14:00 ; Stop 11/27/16 at 13:59 Nitroglycerin (Nitrostat) 0.4 mg PRN Q5MIN PRN SL CHEST PAIN; Start 11/26/16 at 14:00; Stop 11/27/16 at 13:59 Lisinopril (Prinivil) 5 mg 1X ONCE PO Last administered on 11/26/16 17:57; Start 11/26/16 at 14:00; Stop 11/26/16 at 14:10; Status DC Hydralazine HCl (Apresoline) 10 mg PRN Q6HRS PRN IVP HYPERTENSION, SEE COMMENTS ; Start 11/26/16 at 14:00 Aspirin (Ecotrin) 81 mg DAILYWBKFT PO ; Start 11/27/16 at 08:00 Atorvastatin Calcium (Lipitor) 20 mg QHS PO Last administered on 11/26/16 21: 35; Start 11/26/16 at 21:00 Fluticasone Propionate (Flonase) 1 spray DAILY NS ; Start 11/27/16 at 09:00 Furosemide (Lasix) 40 mg DAILY PO ; Start 11/27/16 at 09:00 Lisinopril (Prinivil) 5 mg DAILY PO ; Start 11/27/16 at 09:00 Metoprolol Tartrate (Lopressor) 12.5 mg BID PO Last administered on 11/26/16 21:35; Start 11/26/16 at 21:00 Oxycodone/ Acetaminophen (Percocet 5/325) 1 tab QID PO Last administered on 21:36; Start 11/26/16 at 21:00 Non-Formulary Medication 0.5 mg Q2HR PRN NEB SHORTNESS OF BREATH; Start at 19:00; Stop 11/26/16 at 19:23; Status DC Cetirizine HCl (ZyrTEC) 10 mg DAILY PO ; Start 11/27/16 at 09:00 Non-Formulary Medication 1 inh BID IH ; Start 11/26/16 at 21:00; Stop 11/26/16 at 21:00; Status DC Nitroglycerin (Nitrostat) 0.4 mg PRN Q5MIN PRN SL CHEST PAIN; Start 11/26/16 at 19:30 Polyethylene Glycol (miraLAX PACKET) 17 gm PRN DAILY PRN PO CONSTIPATION; Start 11/27/16 at 09:00 Albuterol Sulfate (Ventolin Neb Soln) 2.5 mg PRN Q2HRS PRN NEB SHORTNESS OF BREATH; Start 11/26/16 at 19:30 Albuterol Sulfate (Ventolin Neb Soln) 2.5 mg QID NEB Last administered on 07:37; Start 11/26/16 at 21:00 Budesonide (Pulmicort) 0.5 mg BID NEB Last administered on 11/27/16t 07:37; Start 11/26/16 at 21:00 Active Scripts Active Percocet 5-325 Mg Tablet (Oxycodone/Acetaminophen) 1 Each Tablet 1 Tab PO QID Furosemide 40 Mg Tablet 40 Mg PO DAILY Reported Lisinopril 5 Mg Tablet 1 Tab PO DAILY Albuterol Sulfate Neb Soln (Albuterol Sulfate) 0.63 Mg/3 Ml Vial.neb 0.5 Mg NEB Q2HR PRN Polyethylene Glycol (Polyethylene Glycol 8000) 500 Gm Powder 500 Gm MC DAILY PRN Advair 250-50 Diskus (Fluticasone/Salmeterol) 1 Each Disk.w.dev 1 Inh IH BID Metoprolol Tartrate 25 Mg Tablet 12.5 Mg PO BID Aspir 81 (Aspirin) 81 Mg Tablet.dr 81 Mg PO DAILY Nitrostat (Nitroglycerin) 0.3 Mg Tab.subl 0.3 Mg SL PRN Q5MIN PRN Flonase (Fluticasone Propionate) 16 Gm [place].susp 16 Gm NS DAILY Zyrtec (Cetirizine Hcl) 10 Mg Capsule 10 Mg PO DAILY Atorvastatin Calcium 10 Mg Tablet 20 Mg PO DAILY Vitals/I & O Vital Sign - Last 24 Hours 11/26/16 11/26/16 11/26/16 11/26/16 10:26 13:56 14:44 17:57 Temp 97.7 97.7 Pulse 68 68 Resp 18 B/P (MAP) 151/78 (102) 214/101 (138) 180/78 (112) 180/78 Pulse Ox 97 98 O2 Delivery Room Air 11/26/16 11/26/16 11/26/16 11/26/16 18:08 19:00 20:00 21:02 Temp 96.8 96.8 Pulse 71 Resp 20 B/P (MAP) 153/48 (83) Pulse Ox 95 94 O2 Delivery Room Air Nasal Cannula Room Air Room Air O2 Flow Rate 2.0 11/26/16 11/26/16 11/26/16 11/26/16 21:03 21:35 21:36 22:36 Pulse 71 B/P (MAP) 153/48 Pulse Ox 94 O2 Delivery Room Air Room Air Room Air 7/2311/27/16 11/27/16 11/27/16 23:00 03:00 07:00 07:37 Temp 97.2 98.0 97.2 98.0 Pulse 71 61 Resp 20 20 B/P (MAP) 127/42 (70) 116/44 (68) Pulse Ox 95 97 94 O2 Delivery Nasal Cannula Room Air Room Air Room Air O2 Flow Rate 2.0 Intake and Output 11/26/16 11/26/16 11/27/16 15:00 23:00 07:00 Intake Total 200 ml Balance 200 ml JIMENA JOHNS MD Nov 27, 2016 10:27
[2016-11-27] MEDS ORDERED: BUPIVACAINE MPF 0.25% 10 ML VIAL. IJ ONE (10:30)
[2016-11-27] MEDS ORDERED: methylPREDNISolone ACETATE 40 MG/ML VIAL. IM ONE (10:30)
[2016-11-27 11:00] VITALS: BP 131/49
[2016-11-27] MEDS: ASPIRIN ENTERIC COATED 81 MG TABLET.DR. PO SCH (11:02)
[2016-11-27] MEDS: oxyCODONE/APAP 5/325 1 TAB TABLET PO SCH ×4 (11:03→20:46)
[2016-11-27] MEDS: LISINOPRIL 5 MG TABLET. PO SCH (11:03)
[2016-11-27] MEDS: METOPROLOL TART IMMED RELEASE 25 MG TABLET. PO SCH ×2 (11:04→21:00)
[2016-11-27] MEDS: FUROSEMIDE 40 MG TABLET. PO SCH (11:04)
[2016-11-27] MEDS: FLUTICASONE 50MCG/NASAL SPRAY 16GM BOTTLE. NS SCH (11:05)
[2016-11-27] MEDS: CETIRIZINE HCL 10 MG TABLET. PO SCH (11:05)
--- NOTE | 2016-11-27 11:19 | PDOC2 ---
JUDY JIMÉNEZ FOOD SERVICE CASHIER 11/27/16 1119: CARDIAC CONSULT DATE OF CONSULT Date of Consult DATE: 11/27/16 TIME: 11:10 REASON FOR CONSULT Reason for Consult: CHF REFERRING PHYSICIAN Referring Physician: Anshul SOURCE Source: Chart review, Patient HISTORY OF PRESENT ILLNESS HISTORY OF PRESENT ILLNESS This is a pleasant 86 yo female admitted for complains of increasing SOA and leg swelling. Reports that she has taken extra doses of her diuretic. Sitting/ resting she does not have any SOA but with minimal exertion she does get SOA. She does not check her BP and weight and has minimal activity. She is deconditioned and currently lives in an assisted living by herself. She has been compliant with her medications. She denies any CP, palpitations. Her pacemaker was just recently checked and was noted to be functioning well. Presently she denies any discomfort nor SOA. She does howevere has been feeling some abdominal fullness but denies any decreased appetite. PAST MEDICAL HISTORY Past Medical History Cardiovascular: CAD (s/p PCI/stenting of LM, LAD, LCx, and RCA), CHF, HTN, Hyperlipidemia, Other (CHB s/p PPM implantation, PVD) Pulmonary: Asthma, COPD, Other (sleep apnea) CENTRAL NERVOUS SYSTEM: CVA GI: No pertinent hx Heme/Onc: No pertinent hx Hepatobiliary: No pertinent hx Psych: No pertinent hx Musculoskeletal: Osteoarthritis Infectious disease: No pertinent hx ENT: No pertinent hx Renal/: No pertinent hx Endocrine: No pertinent hx Dermatology: No pertinent hx PAST SURGICAL HISTORY Past Surgical History Pacemaker, Appendectomy, Cholecystectomy, Hysterectomy, Other (right renal artery stent, bilateral shoulder sx ) FAMILY HISTORY Family History: Hypertension SOCIAL HISTORY Smoke: No ALCOHOL: none Drugs: None Lives: with Family CURRENT MEDICATIONS CURRENT MEDICATIONS Current Medications Medications (Trade) Dose Ordered Sig/Felix Route PRN Reason Start Time Stop Time Status Last Admin Dose Admin Furosemide (Lasix) 60 mg 1X ONCE IVP 11/26/16 13:15 11/26/16 13:16 DC 11/26/16 13:50 Lisinopril (Prinivil) 5 mg 1X ONCE PO 11/26/16 14:00 11/26/16 14:10 DC 11/26/16 17:57 Aspirin (Ecotrin) 81 mg DAILYWBKFT PO 11/27/16 08:00 11/27/16 11:02 Atorvastatin Calcium (Lipitor) 20 mg QHS PO 11/26/16 21:00 11/26/16 21:35 Fluticasone Propionate (Flonase) 1 spray DAILY NS 11/27/16 09:00 11/27/16 11:05 Furosemide (Lasix) 40 mg DAILY PO 11/27/16 09:00 11/27/16 11:04 Lisinopril (Prinivil) 5 mg DAILY PO 11/27/16 09:00 11/27/16 11:03 Metoprolol Tartrate (Lopressor) 12.5 mg BID PO 11/26/16 21:00 11/27/16 11:04 Oxycodone/ Acetaminophen (Percocet 5/325) 1 tab QID PO 11/26/16 21:00 11/27/16 11:03 Cetirizine HCl (ZyrTEC) 10 mg DAILY PO 11/27/16 09:00 11/27/16 11:05 Albuterol Sulfate (Ventolin Neb Soln) 2.5 mg QID NEB 11/26/16 21:00 11/27/16 07:37 Budesonide (Pulmicort) 0.5 mg BID NEB 11/26/16 21:00 11/27/16 07:37 Methylprednisolone Acetate (DEPO-Medrol 40MG VIAL) 40 mg 1X ONCE IM 11/27/16 10:30 11/27/16 10:31 DC 11/27/16 10:30 Bupivacaine HCl (Sensorcaine-Mpf 0.25%) 10 ml 1X ONCE IJ 11/27/16 10:30 11/27/16 10:31 DC 11/27/16 10:30 Levofloxacin/ Dextrose 100 ml @ 100 mls/hr 1X ONCE IV 11/27/16 10:30 11/27/16 11:29 11/27/16 11:04 ALLERGIES ALLERGIES: Coded Allergies: Penicillins (Verified Allergy, Severe, Anaphylaxis, 09/08/15) causes airway to swell, pt states she was unable to breathe Sulfa (Sulfonamide Antibiotics) (Verified Allergy, Intermediate, 09/08/15) Pt states med caused a large area of her skin to swell and form a large darkened "lump" codeine (Verified Adverse Reaction, Intermediate, 09/08/15) Pt states med causes GI upset. ROS Review of System 14 point ROS evaluated with pertinent positives noted per HPI PHYSICAL EXAM General: Alert, Oriented X3, Cooperative, No acute distress HEENT: Atraumatic, Mucous membr. moist/pink Lungs: Clear to auscultation, Other Heart: Regular rate (V paced), Normal S1, Normal S2, Other (3/6 systolic murmur to LLS border) Abdomen: Soft, No tenderness Extremities: No cyanosis, Other (2+ bilateral LE pitting edema) Skin: No breakdown, No significant lesion Neuro: Normal speech, Sensation intact Psych/Mental Status: Mental status NL, Mood NL MUSCULOSKELETAL: Osteoarthritic changes both hands VITALS VITALS Vital Signs Date Time Temp Pulse Resp B/P (MAP) Pulse Ox O2 Delivery O2 Flow Rate FiO2 11/27/16 11:04 62 131/49 11/27/16 11:03 18 94 Room Air 11/27/16 07:00 98.0 98.0 11/26/16 23:00 2.0 LABS Lab: Laboratory Tests Test 11/26/16 11:17 11/26/16 12:00 11/26/16 20:00 11/27/16 01:45 Urine Collection Type Unknown Urine Color Other Urine Clarity Clear Urine pH 5.5 Urine Specific [facility] <=1.005 Urine Protein Negative mg/dL (NEG-TRACE) Urine Glucose (UA) Negative mg/dL (NEG) Urine Ketones (Stick) Negative mg/dL (NEG) Urine Blood Negative (NEG) Urine Nitrite Negative (NEG) Urine Bilirubin Negative (NEG) Urine Urobilinogen Dipstick 0.2 mg/dL (0.2 mg/dL) Urine Leukocyte Esterase Moderate (NEG) Urine RBC Occ /HPF (0-2) Urine WBC 11-20 /HPF (0-4) Urine Squamous Epithelial Cells Many /LPF Urine Bacteria Many /HPF (0-FEW) Urine Mucus Slight /LPF White Blood Count 9.1 x10^3/uL (4.0-11.0) 8.8 x10^3/uL (4.0-11.0) Red Blood Count 4.07 x10^6/uL (3.50-5.40) 3.91 x10^6/uL (3.50-5.40) Hemoglobin 11.7 g/dL (12.0-15.5) 11.2 g/dL (12.0-15.5) Hematocrit 35.9 % (36.0-47.0) 34.4 % (36.0-47.0) Mean Corpuscular Volume 88 fL (79-100) 88 fL (79-100) Mean Corpuscular Hemoglobin 29 pg (25-35) 29 pg (25-35) Mean Corpuscular Hemoglobin Concent 33 g/dL (31-37) 33 g/dL (31-37) Red Cell Distribution Width 15.1 % (11.5-14.5) 14.8 % (11.5-14.5) Platelet Count 267 x10^3/uL (140-400) 252 x10^3/uL (140-400) Neutrophils (%) (Auto) 73 % (31-73) 72 % (31-73) Lymphocytes (%) (Auto) 15 % (24-48) 16 % (24-48) Monocytes (%) (Auto) 8 % (0-9) 7 % (0-9) Eosinophils (%) (Auto) 3 % (0-3) 4 % (0-3) Basophils (%) (Auto) 0 % (0-3) 1 % (0-3) Neutrophils # (Auto) 6.7 x10^3uL (1.8-7.7) 6.3 x10^3uL (1.8-7.7) Lymphocytes # (Auto) 1.4 x10^3/uL (1.0-4.8) 1.4 x10^3/uL (1.0-4.8) Monocytes # (Auto) 0.7 x10^3/uL (0.0-1.1) 0.6 x10^3/uL (0.0-1.1) Eosinophils # (Auto) 0.3 x10^3/uL (0.0-0.7) 0.3 x10^3/uL (0.0-0.7) Basophils # (Auto) 0.0 x10^3/uL (0.0-0.2) 0.1 x10^3/uL (0.0-0.2) Sodium Level 142 mmol/L (136-145) 143 mmol/L (136-145) Potassium Level 5.1 mmol/L (3.5-5.1) 4.7 mmol/L (3.5-5.1) Chloride Level 107 mmol/L (98-107) 106 mmol/L (98-107) Carbon Dioxide Level 29 mmol/L (21-32) 29 mmol/L (21-32) Anion Gap 6 (6-14) 8 (6-14) Blood Urea Nitrogen 41 mg/dL (7-20) 40 mg/dL (7-20) Creatinine 1.6 mg/dL (0.6-1.0) 1.6 mg/dL (0.6-1.0) Estimated GFR (Cockcroft-Gault) 30.6 30.6 BUN/Creatinine Ratio 26 (6-20) Glucose Level 104 mg/dL (70-99) 105 mg/dL (70-99) Calcium Level 8.7 mg/dL (8.5-10.1) 8.3 mg/dL (8.5-10.1) Total Bilirubin 0.4 mg/dL (0.2-1.0) Aspartate Amino Transf (AST/SGOT) 17 U/L (15-37) Alanine Aminotransferase (ALT/SGPT) 20 U/L (14-59) Alkaline Phosphatase 62 U/L (46-116) Troponin I Quantitative < 0.017 ng/mL (0.000-0.055) < 0.017 ng/mL (0.000-0.055) 0.019 ng/mL (0.000-0.055) FF-Ipy-J-Type Natriuretic Peptide 2969 pg/mL (0-449) Total Protein 6.8 g/dL (6.4-8.2) Albumin 3.1 g/dL (3.4-5.0) Albumin/Globulin Ratio 0.8 (1.0-1.7) ECHOCARDIOGRAM ECHOCARDIOGRAM <Conclusion> Technically very difficult study due to body habitus. The left ventricular systolic function is normal. The Ejection Fraction is 60-65%. There is normal LV segmental wall motion. The left atrium is mildly dilated. Mild mitral regurgitation. Mild to moderate tricuspid regurgitation. Severe pulmonary hypertension with PA pressure 74 mmHg. There is no evidence of significant pericardial effusion. DATE: 05/30/16 9232 HEART CATH HEART CATH Angiographic findings: #1. Codominant coronary system is noted. #2. Mild to moderate coronary calcification noted. #3. Left main is normal with a widely patent stent noted extending into the LAD. #4. Anterior descending artery has disease present. The proximal LAD has a stent followed by another. Further down there is [id number] disease noted without any critical stenosis. Distal LAD is free of any critical disease and wraps around the apex. Diagonals are small vessels with diffuse [id number] disease noted. There is a large diagonal noted which appears to be the first diagonal. This has a long chronic total occlusion known historically which feels distally with grade 3 collaterals via LAD to diagonal collaterals. #5. Circumflex is free of any critical stenosis. There is a proximal patent stent noted. Further down there is patent vessels noted with moderate lesion noted in the a small obtuse marginal branch Left ventricular angiography: #1. Normal left ventricular function with ejection fraction of 55-60%. #2. Elevated left ventricular end-diastolic pressure of 32 millimeters of mercury #3. No gradients noted on LV aortic pullback Right heart catheterization: Using a balloon tip [place] catheter, advanced up into the right heart, right heart catheterization was performed. We proceeded to the wedge position. Wedge saturation pressures were obtained. The balloon was then let down and pullback was performed across the outflow tract. Pressures and saturations were drawn throughout and finally catheter was taken out. Following findings were noted. Hemodynamics: #1. Pulmonary capillary wedge pressure = 25/14/26 mmHg #2. Pulmonary artery pressure = 65/20/40 mmHg #3. Right ventricular pressure = 58/7/19 mmHg #4. Right atrial pressure = 14 mmHg Saturations: #1. Femoral artery saturation = 97% #2. Pulmonary capillary wedge saturation = 97.7% #3. Pulmonary artery saturation = 72% #4. Right ventricular saturation = 71.7% #5. Right atrial saturation = 72% Renal angiogram: Initially, nonselective angiography was first performed with a pigtail catheter. Once it was determined that there was bilateral stenosis present in the renal arteries selective angiographic performed. The right renal artery was critically stenosed at 80-90%. This was ostial with mild to moderate degree of calcification noted. The left renal artery has a 60-70% ostial stenosis. Both kidneys perfuse and empty adequately. Right kidney is smaller than the left. Both kidneys appear to be larger than 9 cm Intervention of right renal artery stenosis: Using an [facility] guide catheter the right renal artery was accessed. We initially tried "no touch" technique however given the position and angulation this was not feasible. Heparin was given for anticoagulation. Using a 190 cm run- through wire the 80-90% ostial lesion was crossed and the wire was placed distally. Using a 5.0 x 12 mm trek balloon, the ostial lesion was dilated at 6 river. This was stented with a 6.0 x 15 mm Herculink elite stent at 12 river. The balloon was then withdrawn beyond the ostium and the ostium of the renal artery was flared at 14 river with good stent expansion and excellent results. There were no complications during the postprocedure. <Conclusion> Conclusions: #1. Coronary artery disease with patent stents in left main, LAD circumflex and RCA #2. Elevated left ventricle end-diastolic pressure and wedge pressure suggestive of significant volume overload #3. Pulmonary hypertension secondary to elevated left-sided pressures #4. Bilateral renal artery stenosis #5. Successful PATIENT TRANSPORTER and stenting of right renal artery #6. Normal left ventricular function with ejection fraction of 55-60% #7. No intracardiac shunts noted. Recommendations: #1. Continue dual antiplatelet therapy. #2. Continue diuresis. #3. If indicated, will consider intervention of left renal artery stenosis as well down the road. DATE: 10/02/13 1634 ASSESSMENT/PLAN ASSESSMENT/PLAN 1. Acute on chronic diastolic CHF: mainly right sided. Now well compensated 2. COPD/RADHA/severe pulmonary HTN 3. Significant deconditioning/debility 4. CAD: CP free 5. PPM: recent interrogation with normal functioning device. V paced. 6. HTN: controlled 7. HLP 8. CKD 9. Possible UTI Recommendations 1. Medical therapy. Continue po lasix and will add low dose zaroxylyn. Caution with significant preload reduction. 2. Encouraged pt to check BP daily and daily weight and and to call office if beyond emphasized parameters 3. Continue secondary prevention 4. Will benefit brief SNU placement. Problems: FLIP CYR MD 11/27/162058: CARDIAC CONSULT ALLERGIES ALLERGIES: Coded Allergies: Penicillins (Verified Allergy, Severe, Anaphylaxis, 09/08/15) causes airway to swell, pt states she was unable to breathe Sulfa (Sulfonamide Antibiotics) (Verified Allergy, Intermediate, 09/08/15) Pt states med caused a large area of her skin to swell and form a large darkened "lump" codeine (Verified Adverse Reaction, Intermediate, 09/08/15) Pt states med causes GI upset. ASSESSMENT/PLAN ASSESSMENT/PLAN seen and examined. agree w above note plan as above Problems: JUDY JIMÉNEZ APRN Nov 27, 2016 11:19 FLIP CYR MD Nov 27, 2016 20:59
[2016-11-27 15:00] VITALS: BP 134/42
[2016-11-27] MEDS: metOLazone 2.5 MG TABLET PO SCH (15:30)
[2016-11-27 19:00] VITALS: BP 139/46
[2016-11-27] MEDS: ATORVASTATIN CALCIUM 10 MG TABLET. PO SCH (20:45)
[2016-11-27 23:00] VITALS: BP 132/50
--- NOTE | 2016-11-27 23:47 | CONS ---
DATE OF CONSULTATION: 11/27/2016 ATTENDING PHYSICIAN: Dr. Maria Del Carmen Corona. The patient was seen at the request of Dr. White for rehab evaluation about her right knee pain. HISTORY OF PRESENT ILLNESS: This is an 86-year-old right-handed female with morbid obesity, also with known diastolic congestive heart failure, chronic obstructive pulmonary disease, hypoventilation syndrome as well as coronary artery disease, admitted to the Emergency Room with increased shortness of breath and right knee pain. The patient had difficulty breathing for about 3 days, getting worse and worse. Her friend has to pull her up to get out of the chair on 11/24/2016. The patient was diagnosed as having COPD exacerbation as well as congestive heart failure in the past. The patient denies any chest pain, diaphoresis, nausea, vomiting, cough or sputum production. The patient also complained of pain in her right knee. She has been told in the ER that she had a Nguyen's cyst and she is worried about it. The patient started having dysuria while in the Emergency Room. She is being treated for urinary tract infection. The patient also with known hyperlipidemia, chronic kidney disease, chronic lymphedema, status post permanent pacemaker placement, cholecystectomy, appendectomy, hysterectomy as well as right renal artery stents and bilateral shoulder arthroplasty done by ____ some without any problems. Family history of hypertension. She lives in a high-rise apartment and has been independent with her mobility using a roller walker prior to the present hospitalization. SHE IS KNOWN ALLERGIC TO PENICILLIN, SULFA AND CODEINE. The patient had radiological studies including chest x-ray, which failed to reveal any acute abnormalities. PHYSICAL EXAMINATION: Today revealed an elderly female, she is alert, oriented to time, place, person and circumstance and follows commands appropriately, moves all 4 extremities voluntarily where she had 4+/5 grade muscle strength, deep tendon reflexes are decreased overall with absent knee and ankle jerks and she had equal perception of touch and pinprick sensation bilaterally. She had crepitus on range of motion of both knee joints with mild degree of knee joint effusion. She had redness of skin with associated edema of feet and distal parts of her legs, tenderness to palpation around that area. She had pain free range of motion of both hip joints. Overall, she had 4+/5 grade muscle strength and she had equal perception of touch and pinprick sensation bilaterally. She is independent with bed mobility and transfers and up walking using a roller walker. 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 RECOMMENDATION: To proceed with right knee joint injection with Depo-Medrol and Marcaine, which I performed under aseptic skin technique after skin prepped and using alcohol swab and she tolerated the procedure satisfactorily without any side effects to get her ____ to get rid of some of the redness and swelling of her feet and legs and home with outpatient followup when medically stable. Dr. White, I appreciate asking me to participate in the care of this interesting patient. I will be glad to follow her with you as needed for her rehabilitation. MARU PARADA MD DR: SRAVANI/shayan JOB#: [id number] / [id number]
[2016-11-28 03:00] VITALS: BP 132/50
[2016-11-28 06:19] LABS: BASO % 0 % (0-3); EOS % 0 % (0-3); HEMATOCRIT 35.5 % (36.0-47.0); HEMOGLOBIN 11.4 g/dL (12.0-15.5); LYMPH # 0.5 x10^3/uL (1.0-4.8); LYMPH % 4 % (24-48); MEAN CORPUSCULAR HEMOGLOBIN 28 pg (25-35); MEAN CORPUSCULAR HGB CONC 32 g/dL (31-37); MEAN CORPUSCULAR VOLUME 87 fL (79-100); MONO % 2 % (0-9); NEUT % 94 % (31-73); PLATELET COUNT 279 x10^3/uL (140-400); RED BLOOD COUNT 4.07 x10^6/uL (3.50-5.40); RED CELL DISTRIBUTION WIDTH 14.9 % (11.5-14.5); WHITE BLOOD COUNT 12.5 x10^3/uL (4.0-11.0)
[2016-11-28 06:43] LABS: ALBUMIN 2.9 g/dL (3.4-5.0); ALBUMIN/GLOBULIN RATIO 0.8 (1.0-1.7); CALCIUM 8.6 mg/dL (8.5-10.1); CREATININE 1.6 mg/dL (0.6-1.0); GFR 30.6; POTASSIUM 4.9 mmol/L (3.5-5.1); TOTAL BILIRUBIN 0.4 mg/dL (0.2-1.0); TOTAL PROTEIN 6.6 g/dL (6.4-8.2)
[2016-11-28 07:00] VITALS: BP 152/49
[2016-11-28] MEDS: CETIRIZINE HCL 10 MG TABLET. PO SCH (08:27)
[2016-11-28] MEDS: FLUTICASONE 50MCG/NASAL SPRAY 16GM BOTTLE. NS SCH (08:27)
[2016-11-28] MEDS: metOLazone 2.5 MG TABLET PO SCH (08:28)
[2016-11-28] MEDS: FUROSEMIDE 40 MG TABLET. PO SCH (08:28)
[2016-11-28] MEDS: METOPROLOL TART IMMED RELEASE 25 MG TABLET. PO SCH ×2 (08:31→21:00)
[2016-11-28] MEDS: LISINOPRIL 5 MG TABLET. PO SCH (08:32)
[2016-11-28] MEDS: ASPIRIN ENTERIC COATED 81 MG TABLET.DR. PO SCH (08:32)
[2016-11-28] MEDS: oxyCODONE/APAP 5/325 1 TAB TABLET PO SCH ×4 (08:33→21:00)
[2016-11-28] MEDS: BUDESONIDE 0.5 MG/2 ML NEBU. NEB SCH ×2 (09:13→18:13)
[2016-11-28] MEDS: ALBUTEROL SULFATE 2.5 MG/3 ML NEBU. NEB SCH ×2 (09:15→18:13)
--- NOTE | 2016-11-28 09:55 | PDOC ---
PROGRESS NOTES Subjective Subjective She feel better with right knee and some stiffness in her left knee and feels like rocks rolling. Objective Objective Vital Signs Date Time Temp Pulse Resp B/P (MAP) Pulse Ox O2 Delivery O2 Flow Rate FiO2 11/28/16 09:14 98 Room Air 11/28/16 08:33 16 11/28/16 08:32 68 152/49 11/28/16 03:00 97.4 97.4 11/27/16 21:46 2.0 Intake and Output 11/28/16 07:00 Intake Total 1100 ml Balance 1100 ml Intake Oral 1100 ml # Voids 6 Physical Exam Physical Exam She is comfortable sitting in bedside recliner without oxygen.She remains independent with her mobility at roller walker level. Assessment Assessment Problems Medical Problems: (1) CHF (congestive heart failure) Status: Acute Plan Plan of Care To home when medically stable Comment Review of Relevant I have reviewed the following items aaliyah (where applicable) has been applied. Labs Laboratory Tests Test 11/26/16 11:17 11/26/16 12:00 11/26/16 20:00 11/27/16 01:45 Urine Collection Type Unknown Urine Color Other Urine Clarity Clear Urine pH 5.5 Urine Specific Eliot <=1.005 Urine Protein Negative mg/dL (NEG-TRACE) Urine Glucose (UA) Negative mg/dL (NEG) Urine Ketones (Stick) Negative mg/dL (NEG) Urine Blood Negative (NEG) Urine Nitrite Negative (NEG) Urine Bilirubin Negative (NEG) Urine Urobilinogen Dipstick 0.2 mg/dL (0.2 mg/dL) Urine Leukocyte Esterase Moderate (NEG) Urine RBC Occ /HPF (0-2) Urine WBC 11-20 /HPF (0-4) Urine Squamous Epithelial Cells Many /LPF Urine Bacteria Many /HPF (0-FEW) Urine Mucus Slight /LPF White Blood Count 9.1 x10^3/uL (4.0-11.0) 8.8 x10^3/uL (4.0-11.0) Red Blood Count 4.07 x10^6/uL (3.50-5.40) 3.91 x10^6/uL (3.50-5.40) Hemoglobin 11.7 g/dL (12.0-15.5) 11.2 g/dL (12.0-15.5) Hematocrit 35.9 % (36.0-47.0) 34.4 % (36.0-47.0) Mean Corpuscular Volume 88 fL (79-100) 88 fL (79-100) Mean Corpuscular Hemoglobin 29 pg (25-35) 29 pg (25-35) Mean Corpuscular Hemoglobin Concent 33 g/dL (31-37) 33 g/dL (31-37) Red Cell Distribution Width 15.1 % (11.5-14.5) 14.8 % (11.5-14.5) Platelet Count 267 x10^3/uL (140-400) 252 x10^3/uL (140-400) Neutrophils (%) (Auto) 73 % (31-73) 72 % (31-73) Lymphocytes (%) (Auto) 15 % (24-48) 16 % (24-48) Monocytes (%) (Auto) 8 % (0-9) 7 % (0-9) Eosinophils (%) (Auto) 3 % (0-3) 4 % (0-3) Basophils (%) (Auto) 0 % (0-3) 1 % (0-3) Neutrophils # (Auto) 6.7 x10^3uL (1.8-7.7) 6.3 x10^3uL (1.8-7.7) Lymphocytes # (Auto) 1.4 x10^3/uL (1.0-4.8) 1.4 x10^3/uL (1.0-4.8) Monocytes # (Auto) 0.7 x10^3/uL (0.0-1.1) 0.6 x10^3/uL (0.0-1.1) Eosinophils # (Auto) 0.3 x10^3/uL (0.0-0.7) 0.3 x10^3/uL (0.0-0.7) Basophils # (Auto) 0.0 x10^3/uL (0.0-0.2) 0.1 x10^3/uL (0.0-0.2) Sodium Level 142 mmol/L (136-145) 143 mmol/L (136-145) Potassium Level 5.1 mmol/L (3.5-5.1) 4.7 mmol/L (3.5-5.1) Chloride Level 107 mmol/L (98-107) 106 mmol/L (98-107) Carbon Dioxide Level 29 mmol/L (21-32) 29 mmol/L (21-32) Anion Gap 6 (6-14) 8 (6-14) Blood Urea Nitrogen 41 mg/dL (7-20) 40 mg/dL (7-20) Creatinine 1.6 mg/dL (0.6-1.0) 1.6 mg/dL (0.6-1.0) Estimated GFR (Cockcroft-Gault) 30.6 30.6 BUN/Creatinine Ratio 26 (6-20) Glucose Level 104 mg/dL (70-99) 105 mg/dL (70-99) Calcium Level 8.7 mg/dL (8.5-10.1) 8.3 mg/dL (8.5-10.1) Total Bilirubin 0.4 mg/dL (0.2-1.0) Aspartate Amino Transf (AST/SGOT) 17 U/L (15-37) Alanine Aminotransferase (ALT/SGPT) 20 U/L (14-59) Alkaline Phosphatase 62 U/L (46-116) Troponin I Quantitative < 0.017 ng/mL (0.000-0.055) < 0.017 ng/mL (0.000-0.055) 0.019 ng/mL (0.000-0.055) LV-Zhg-A-Type Natriuretic Peptide 2969 pg/mL (0-449) Total Protein 6.8 g/dL (6.4-8.2) Albumin 3.1 g/dL (3.4-5.0) Albumin/Globulin Ratio 0.8 (1.0-1.7) Test 11/28/16 05:30 White Blood Count 12.5 x10^3/uL (4.0-11.0) Red Blood Count 4.07 x10^6/uL (3.50-5.40) Hemoglobin 11.4 g/dL (12.0-15.5) Hematocrit 35.5 % (36.0-47.0) Mean Corpuscular Volume 87 fL (79-100) Mean Corpuscular Hemoglobin 28 pg (25-35) Mean Corpuscular Hemoglobin Concent 32 g/dL (31-37) Red Cell Distribution Width 14.9 % (11.5-14.5) Platelet Count 279 x10^3/uL (140-400) Neutrophils (%) (Auto) 94 % (31-73) Lymphocytes (%) (Auto) 4 % (24-48) Monocytes (%) (Auto) 2 % (0-9) Eosinophils (%) (Auto) 0 % (0-3) Basophils (%) (Auto) 0 % (0-3) Neutrophils # (Auto) 11.7 x10^3uL (1.8-7.7) Lymphocytes # (Auto) 0.5 x10^3/uL (1.0-4.8) Monocytes # (Auto) 0.3 x10^3/uL (0.0-1.1) Eosinophils # (Auto) 0.0 x10^3/uL (0.0-0.7) Basophils # (Auto) 0.0 x10^3/uL (0.0-0.2) Sodium Level 139 mmol/L (136-145) Potassium Level 4.9 mmol/L (3.5-5.1) Chloride Level 104 mmol/L (98-107) Carbon Dioxide Level 28 mmol/L (21-32) Anion Gap 7 (6-14) Blood Urea Nitrogen 46 mg/dL (7-20) Creatinine 1.6 mg/dL (0.6-1.0) Estimated GFR (Cockcroft-Gault) 30.6 BUN/Creatinine Ratio 29 (6-20) Glucose Level 139 mg/dL (70-99) Calcium Level 8.6 mg/dL (8.5-10.1) Total Bilirubin 0.4 mg/dL (0.2-1.0) Aspartate Amino Transf (AST/SGOT) 13 U/L (15-37) Alanine Aminotransferase (ALT/SGPT) 17 U/L (14-59) Alkaline Phosphatase 60 U/L (46-116) Total Protein 6.6 g/dL (6.4-8.2) Albumin 2.9 g/dL (3.4-5.0) Albumin/Globulin Ratio 0.8 (1.0-1.7) Laboratory Tests Test 11/28/16 05:30 White Blood Count 12.5 x10^3/uL (4.0-11.0) Red Blood Count 4.07 x10^6/uL (3.50-5.40) Hemoglobin 11.4 g/dL (12.0-15.5) Hematocrit 35.5 % (36.0-47.0) Mean Corpuscular Volume 87 fL (79-100) Mean Corpuscular Hemoglobin 28 pg (25-35) Mean Corpuscular Hemoglobin Concent 32 g/dL (31-37) Red Cell Distribution Width 14.9 % (11.5-14.5) Platelet Count 279 x10^3/uL (140-400) Neutrophils (%) (Auto) 94 % (31-73) Lymphocytes (%) (Auto) 4 % (24-48) Monocytes (%) (Auto) 2 % (0-9) Eosinophils (%) (Auto) 0 % (0-3) Basophils (%) (Auto) 0 % (0-3) Neutrophils # (Auto) 11.7 x10^3uL (1.8-7.7) Lymphocytes # (Auto) 0.5 x10^3/uL (1.0-4.8) Monocytes # (Auto) 0.3 x10^3/uL (0.0-1.1) Eosinophils # (Auto) 0.0 x10^3/uL (0.0-0.7) Basophils # (Auto) 0.0 x10^3/uL (0.0-0.2) Sodium Level 139 mmol/L (136-145) Potassium Level 4.9 mmol/L (3.5-5.1) Chloride Level 104 mmol/L (98-107) Carbon Dioxide Level 28 mmol/L (21-32) Anion Gap 7 (6-14) Blood Urea Nitrogen 46 mg/dL (7-20) Creatinine 1.6 mg/dL (0.6-1.0) Estimated GFR (Cockcroft-Gault) 30.6 BUN/Creatinine Ratio 29 (6-20) Glucose Level 139 mg/dL (70-99) Calcium Level 8.6 mg/dL (8.5-10.1) Total Bilirubin 0.4 mg/dL (0.2-1.0) Aspartate Amino Transf (AST/SGOT) 13 U/L (15-37) Alanine Aminotransferase (ALT/SGPT) 17 U/L (14-59) Alkaline Phosphatase 60 U/L (46-116) Total Protein 6.6 g/dL (6.4-8.2) Albumin 2.9 g/dL (3.4-5.0) Albumin/Globulin Ratio 0.8 (1.0-1.7) Microbiology 11/26/16 Urine Culture - Preliminary, Resulted 11/26/16 Urine Culture Result 1 (KAELA) - Preliminary, Resulted Medications Current Medications Furosemide (Lasix) 60 mg 1X ONCE IVP Last administered on 11/26/16 13:50; Start 11/26/16 at 13:15; Stop 11/26/16 at 13:16; Status DC Ondansetron HCl (Zofran) 4 mg PRN Q8HRS PRN IV NAUSEA/VOMITING; Start 11/26/16 at 14:00; Stop 11/27/16 at 13:59; Status DC Acetaminophen (Tylenol) 650 mg PRN Q4HRS PRN PO FEVER; Start 11/26/16 at 14:00 ; Stop 11/27/16 at 13:59; Status DC Nitroglycerin (Nitrostat) 0.4 mg PRN Q5MIN PRN SL CHEST PAIN; Start 11/26/16 at 14:00; Stop 11/27/16 at 13:59; Status DC Lisinopril (Prinivil) 5 mg 1X ONCE PO Last administered on 11/26/16 17:57; Start 11/26/16 at 14:00; Stop 11/26/16 at 14:10; Status DC Hydralazine HCl (Apresoline) 10 mg PRN Q6HRS PRN IVP HYPERTENSION, SEE COMMENTS ; Start 11/26/16 at 14:00 Aspirin (Ecotrin) 81 mg DAILYWBKFT PO Last administered on 11/28/16 08:32; Start 11/27/16 at 08:00 Atorvastatin Calcium (Lipitor) 20 mg QHS PO Last administered on 11/27/16 20: 45; Start 11/26/16 at 21:00 Fluticasone Propionate (Flonase) 1 spray DAILY NS Last administered on 08:27; Start 11/27/16 at 09:00 Furosemide (Lasix) 40 mg DAILY PO Last administered on 11/28/16 08:28; Start 11/27/16 at 09:00 Lisinopril (Prinivil) 5 mg DAILY PO Last administered on 11/28/16 08:32; Start 11/27/16 at 09:00 Metoprolol Tartrate (Lopressor) 12.5 mg BID PO Last administered on 11/28/16 08:31; Start 11/26/16 at 21:00 Oxycodone/ Acetaminophen (Percocet 5/325) 1 tab QID PO Last administered on 08:33; Start 11/26/16 at 21:00 Non-Formulary Medication 0.5 mg Q2HR PRN NEB SHORTNESS OF BREATH; Start at 19:00; Stop 11/26/16 at 19:23; Status DC Cetirizine HCl (ZyrTEC) 10 mg DAILY PO Last administered on 11/28/16 08:27; Start 11/27/16 at 09:00 Non-Formulary Medication 1 inh BID IH ; Start 11/26/16 at 21:00; Stop 11/26/16 at 21:00; Status DC Nitroglycerin (Nitrostat) 0.4 mg PRN Q5MIN PRN SL CHEST PAIN; Start 11/26/16 at 19:30 Polyethylene Glycol (miraLAX PACKET) 17 gm PRN DAILY PRN PO CONSTIPATION; Start 11/27/16 at 09:00 Albuterol Sulfate (Ventolin Neb Soln) 2.5 mg PRN Q2HRS PRN NEB SHORTNESS OF BREATH; Start 11/26/16 at 19:30 Albuterol Sulfate (Ventolin Neb Soln) 2.5 mg QID NEB Last administered on 12:26; Start 11/26/16 at 21:00; Stop 11/27/16 at 15:21; Status DC Budesonide (Pulmicort) 0.5 mg BID NEB Last administered on 11/28/16 09:13; Start 11/26/16 at 21:00 Ceftriaxone Sodium 1 gm/ Sodium Chloride 50 ml @ 100 mls/hr Q24H IV ; Start at 10:15; Status UNV Methylprednisolone Acetate (DEPO-Medrol 40MG VIAL) 40 mg 1X ONCE IM Last administered on 11/27/16 10:30; Start 11/27/16 at 10:30; Stop 11/27/16 at 10:31 ; Status DC Bupivacaine HCl (Sensorcaine-Mpf 0.25%) 10 ml 1X ONCE IJ Last administered on 11/27/16 10:30; Start 11/27/16 at 10:30; Stop 11/27/16 at 10:31; Status DC Levofloxacin/ Dextrose 100 ml @ 100 mls/hr 1X ONCE IV Last administered on 11:04; Start 11/27/16 at 10:30; Stop 11/27/16 at 11:29; Status DC Levofloxacin (Levaquin) 250 mg DAILY06 PO Last administered on 11/28/16 08:32 ; Start 11/28/16 at 08:00 Metolazone (Zaroxolyn) 2.5 mg DAILY PO Last administered on 11/28/16 08:28; Start 11/27/16 at 12:30 Albuterol Sulfate (Ventolin Neb Soln) 2.5 mg BID NEB Last administered on 09:15; Start 11/27/16 at 21:00 Active Scripts Active Percocet 5-325 Mg Tablet (Oxycodone/Acetaminophen) 1 Each Tablet 1 Tab PO QID Furosemide 40 Mg Tablet 40 Mg PO DAILY Reported Lisinopril 5 Mg Tablet 1 Tab PO DAILY Albuterol Sulfate Neb Soln (Albuterol Sulfate) 0.63 Mg/3 Ml Vial.neb 0.5 Mg NEB Q2HR PRN Polyethylene Glycol (Polyethylene Glycol 8000) 500 Gm Powder 500 Gm MC DAILY PRN Advair 250-50 Diskus (Fluticasone/Salmeterol) 1 Each Disk.w.dev 1 Inh IH BID Metoprolol Tartrate 25 Mg Tablet 12.5 Mg PO BID Aspir 81 (Aspirin) 81 Mg Tablet.dr 81 Mg PO DAILY Nitrostat (Nitroglycerin) 0.3 Mg Tab.subl 0.3 Mg SL PRN Q5MIN PRN Flonase (Fluticasone Propionate) 16 Gm [place].susp 16 Gm NS DAILY Zyrtec (Cetirizine Hcl) 10 Mg Capsule 10 Mg PO DAILY Atorvastatin Calcium 10 Mg Tablet 20 Mg PO DAILY Vitals/I & O Vital Sign - Last 24 Hours 11/27/16 11/27/16 11/27/16 11/27/16 11:00 11:03 11:03 11:04 Temp 98.4 98.4 Pulse 62 62 62 Resp 20 18 B/P (MAP) 131/49 (76) 131/49 131/49 Pulse Ox 95 94 O2 Delivery Room Air Room Air 11/27/16 11/27/16 11/27/16 11/27/16 12:27 15:00 15:30 18:42 Temp 97.5 97.5 Pulse 63 Resp 20 20 16 B/P (MAP) 134/42 (72) Pulse Ox 96 O2 Delivery Room Air Room Air 11/27/16 11/27/16 11/27/16 11/27/16 19:00 19:55 20:00 20:46 Temp 97.5 97.5 Pulse 64 Resp 19 B/P (MAP) 139/46 (77) Pulse Ox 93 95 95 O2 Delivery Room Air Room Air Room Air Room Air O2 Flow Rate 2.0 2.0 11/27/16 11/27/16 11/28/16 11/28/16 21:46 23:00 03:00 07:00 Temp 97.5 97.4 97.5 97.4 Pulse 69 62 68 Resp 19 19 22 B/P (MAP) 132/50 (77) 132/50 (77) 152/49 (83) Pulse Ox 95 95 96 93 O2 Delivery Room Air Room Air Room Air Room Air O2 Flow Rate 2.0 11/28/16 11/28/16 11/28/16 11/28/16 08:31 08:32 08:33 09:14 Pulse 68 68 Resp 16 B/P (MAP) 152/49 152/49 Pulse Ox 98 O2 Delivery Room Air Room Air Intake and Output 11/27/16 11/27/16 11/28/16 15:00 23:00 07:00 Intake Total 200 ml 900 ml Balance 200 ml 900 ml MARU PARADA MD Nov 28, 2016 09:55
[2016-11-28 10:58] VITALS: BP 141/45
[2016-11-28 11:21] LABS: PLT ESTIMATE ADEQUATE (ADEQUATE)
[2016-11-28 11:22] LABS: OVALOCYTES FEW
[2016-11-28 15:00] VITALS: BP 95/32
--- NOTE | 2016-11-28 15:26 | PDOC ---
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, chronic leg paina nd foot pain and knee pain, OA, poor mobility morbid obesity, w/ concurrent mild malnutrition, hypoalbumin UTI CKD 3 History of Present Illness History of Present Illness her breathing is better, but she has terrible exertional tolerance, has been worsening still feels weak, lethargic cleared by physiatry, try to DC in AM Vitals Vitals Vital Signs Date Time Temp Pulse Resp B/P (MAP) Pulse Ox O2 Delivery O2 Flow Rate FiO2 11/28/16 15:00 98.1 62 20 95/32 (53) 95 Room Air 98.1 11/28/16 14:50 2.0 Physical Exam General: Alert, Oriented X3, Cooperative, No acute distress Heart: Regular rate (V paced), Normal S1, Normal S2, Other (3/6 systolic murmur to LLS border) Lungs: Other Abdomen: Soft, No tenderness Extremities: No cyanosis, Other (2+ bilateral LE pitting edema) Skin: No breakdown, No significant lesion Labs LABS Laboratory Tests Test 11/28/16 05:30 White Blood Count 12.5 x10^3/uL (4.0-11.0) Red Blood Count 4.07 x10^6/uL (3.50-5.40) Hemoglobin 11.4 g/dL (12.0-15.5) Hematocrit 35.5 % (36.0-47.0) Mean Corpuscular Volume 87 fL (79-100) Mean Corpuscular Hemoglobin 28 pg (25-35) Mean Corpuscular Hemoglobin Concent 32 g/dL (31-37) Red Cell Distribution Width 14.9 % (11.5-14.5) Platelet Count 279 x10^3/uL (140-400) Neutrophils (%) (Auto) 94 % (31-73) Lymphocytes (%) (Auto) 4 % (24-48) Monocytes (%) (Auto) 2 % (0-9) Eosinophils (%) (Auto) 0 % (0-3) Basophils (%) (Auto) 0 % (0-3) Neutrophils # (Auto) 11.7 x10^3uL (1.8-7.7) Lymphocytes # (Auto) 0.5 x10^3/uL (1.0-4.8) Monocytes # (Auto) 0.3 x10^3/uL (0.0-1.1) Eosinophils # (Auto) 0.0 x10^3/uL (0.0-0.7) Basophils # (Auto) 0.0 x10^3/uL (0.0-0.2) Segmented Neutrophils % 95 % (35-66) Band Neutrophils % 2 % (0-9) Lymphocytes % 2 % (24-48) Monocytes % 1 % (0-10) Platelet Estimate Adequate (ADEQUATE) Ovalocytes Few Sodium Level 139 mmol/L (136-145) Potassium Level 4.9 mmol/L (3.5-5.1) Chloride Level 104 mmol/L (98-107) Carbon Dioxide Level 28 mmol/L (21-32) Anion Gap 7 (6-14) Blood Urea Nitrogen 46 mg/dL (7-20) Creatinine 1.6 mg/dL (0.6-1.0) Estimated GFR (Cockcroft-Gault) 30.6 BUN/Creatinine Ratio 29 (6-20) Glucose Level 139 mg/dL (70-99) Calcium Level 8.6 mg/dL (8.5-10.1) Total Bilirubin 0.4 mg/dL (0.2-1.0) Aspartate Amino Transf (AST/SGOT) 13 U/L (15-37) Alanine Aminotransferase (ALT/SGPT) 17 U/L (14-59) Alkaline Phosphatase 60 U/L (46-116) Total Protein 6.6 g/dL (6.4-8.2) Albumin 2.9 g/dL (3.4-5.0) Albumin/Globulin Ratio 0.8 (1.0-1.7) Review of Systems Review of Systems no n.vd Assessment and Plan Assessmemt and Plan Problems Medical Problems: (1) CHF (congestive heart failure) Status: Acute Problems: Comment Review of Relevant I have reviewed the following items aaliyah (where applicable) has been applied. Labs Laboratory Tests Test 11/26/16 20:00 11/27/16 01:45 11/28/16 05:30 Troponin I Quantitative < 0.017 ng/mL (0.000-0.055) 0.019 ng/mL (0.000-0.055) White Blood Count 8.8 x10^3/uL (4.0-11.0) 12.5 x10^3/uL (4.0-11.0) Red Blood Count 3.91 x10^6/uL (3.50-5.40) 4.07 x10^6/uL (3.50-5.40) Hemoglobin 11.2 g/dL (12.0-15.5) 11.4 g/dL (12.0-15.5) Hematocrit 34.4 % (36.0-47.0) 35.5 % (36.0-47.0) Mean Corpuscular Volume 88 fL (79-100) 87 fL (79-100) Mean Corpuscular Hemoglobin 29 pg (25-35) 28 pg (25-35) Mean Corpuscular Hemoglobin Concent 33 g/dL (31-37) 32 g/dL (31-37) Red Cell Distribution Width 14.8 % (11.5-14.5) 14.9 % (11.5-14.5) Platelet Count 252 x10^3/uL (140-400) 279 x10^3/uL (140-400) Neutrophils (%) (Auto) 72 % (31-73) 94 % (31-73) Lymphocytes (%) (Auto) 16 % (24-48) 4 % (24-48) Monocytes (%) (Auto) 7 % (0-9) 2 % (0-9) Eosinophils (%) (Auto) 4 % (0-3) 0 % (0-3) Basophils (%) (Auto) 1 % (0-3) 0 % (0-3) Neutrophils # (Auto) 6.3 x10^3uL (1.8-7.7) 11.7 x10^3uL (1.8-7.7) Lymphocytes # (Auto) 1.4 x10^3/uL (1.0-4.8) 0.5 x10^3/uL (1.0-4.8) Monocytes # (Auto) 0.6 x10^3/uL (0.0-1.1) 0.3 x10^3/uL (0.0-1.1) Eosinophils # (Auto) 0.3 x10^3/uL (0.0-0.7) 0.0 x10^3/uL (0.0-0.7) Basophils # (Auto) 0.1 x10^3/uL (0.0-0.2) 0.0 x10^3/uL (0.0-0.2) Sodium Level 143 mmol/L (136-145) 139 mmol/L (136-145) Potassium Level 4.7 mmol/L (3.5-5.1) 4.9 mmol/L (3.5-5.1) Chloride Level 106 mmol/L (98-107) 104 mmol/L (98-107) Carbon Dioxide Level 29 mmol/L (21-32) 28 mmol/L (21-32) Anion Gap 8 (6-14) 7 (6-14) Blood Urea Nitrogen 40 mg/dL (7-20) 46 mg/dL (7-20) Creatinine 1.6 mg/dL (0.6-1.0) 1.6 mg/dL (0.6-1.0) Estimated GFR (Cockcroft-Gault) 30.6 30.6 Glucose Level 105 mg/dL (70-99) 139 mg/dL (70-99) Calcium Level 8.3 mg/dL (8.5-10.1) 8.6 mg/dL (8.5-10.1) Segmented Neutrophils % 95 % (35-66) Band Neutrophils % 2 % (0-9) Lymphocytes % 2 % (24-48) Monocytes % 1 % (0-10) Platelet Estimate Adequate (ADEQUATE) Ovalocytes Few BUN/Creatinine Ratio 29 (6-20) Total Bilirubin 0.4 mg/dL (0.2-1.0) Aspartate Amino Transf (AST/SGOT) 13 U/L (15-37) Alanine Aminotransferase (ALT/SGPT) 17 U/L (14-59) Alkaline Phosphatase 60 U/L (46-116) Total Protein 6.6 g/dL (6.4-8.2) Albumin 2.9 g/dL (3.4-5.0) Albumin/Globulin Ratio 0.8 (1.0-1.7) Laboratory Tests Test 11/28/16 05:30 White Blood Count 12.5 x10^3/uL (4.0-11.0) Red Blood Count 4.07 x10^6/uL (3.50-5.40) Hemoglobin 11.4 g/dL (12.0-15.5) Hematocrit 35.5 % (36.0-47.0) Mean Corpuscular Volume 87 fL (79-100) Mean Corpuscular Hemoglobin 28 pg (25-35) Mean Corpuscular Hemoglobin Concent 32 g/dL (31-37) Red Cell Distribution Width 14.9 % (11.5-14.5) Platelet Count 279 x10^3/uL (140-400) Neutrophils (%) (Auto) 94 % (31-73) Lymphocytes (%) (Auto) 4 % (24-48) Monocytes (%) (Auto) 2 % (0-9) Eosinophils (%) (Auto) 0 % (0-3) Basophils (%) (Auto) 0 % (0-3) Neutrophils # (Auto) 11.7 x10^3uL (1.8-7.7) Lymphocytes # (Auto) 0.5 x10^3/uL (1.0-4.8) Monocytes # (Auto) 0.3 x10^3/uL (0.0-1.1) Eosinophils # (Auto) 0.0 x10^3/uL (0.0-0.7) Basophils # (Auto) 0.0 x10^3/uL (0.0-0.2) Segmented Neutrophils % 95 % (35-66) Band Neutrophils % 2 % (0-9) Lymphocytes % 2 % (24-48) Monocytes % 1 % (0-10) Platelet Estimate Adequate (ADEQUATE) Ovalocytes Few Sodium Level 139 mmol/L (136-145) Potassium Level 4.9 mmol/L (3.5-5.1) Chloride Level 104 mmol/L (98-107) Carbon Dioxide Level 28 mmol/L (21-32) Anion Gap 7 (6-14) Blood Urea Nitrogen 46 mg/dL (7-20) Creatinine 1.6 mg/dL (0.6-1.0) Estimated GFR (Cockcroft-Gault) 30.6 BUN/Creatinine Ratio 29 (6-20) Glucose Level 139 mg/dL (70-99) Calcium Level 8.6 mg/dL (8.5-10.1) Total Bilirubin 0.4 mg/dL (0.2-1.0) Aspartate Amino Transf (AST/SGOT) 13 U/L (15-37) Alanine Aminotransferase (ALT/SGPT) 17 U/L (14-59) Alkaline Phosphatase 60 U/L (46-116) Total Protein 6.6 g/dL (6.4-8.2) Albumin 2.9 g/dL (3.4-5.0) Albumin/Globulin Ratio 0.8 (1.0-1.7) Microbiology 11/26/16 Urine Culture - Final, Complete 11/26/16 Urine Culture Result 1 (KAELA) - Final, Complete Medications Current Medications Furosemide (Lasix) 60 mg 1X ONCE IVP Last administered on 11/26/16 13:50; Start 11/26/16 at 13:15; Stop 11/26/16 at 13:16; Status DC Ondansetron HCl (Zofran) 4 mg PRN Q8HRS PRN IV NAUSEA/VOMITING; Start 11/26/16 at 14:00; Stop 11/27/16 at 13:59; Status DC Acetaminophen (Tylenol) 650 mg PRN Q4HRS PRN PO FEVER; Start 11/26/16 at 14:00 ; Stop 11/27/16 at 13:59; Status DC Nitroglycerin (Nitrostat) 0.4 mg PRN Q5MIN PRN SL CHEST PAIN; Start 11/26/16 at 14:00; Stop 11/27/16 at 13:59; Status DC Lisinopril (Prinivil) 5 mg 1X ONCE PO Last administered on 11/26/16 17:57; Start 11/26/16 at 14:00; Stop 11/26/16 at 14:10; Status DC Hydralazine HCl (Apresoline) 10 mg PRN Q6HRS PRN IVP HYPERTENSION, SEE COMMENTS ; Start 11/26/16 at 14:00 Aspirin (Ecotrin) 81 mg DAILYWBKFT PO Last administered on 11/28/16 08:32; Start 11/27/16 at 08:00 Atorvastatin Calcium (Lipitor) 20 mg QHS PO Last administered on 11/27/16 20: 45; Start 11/26/16 at 21:00 Fluticasone Propionate (Flonase) 1 spray DAILY NS Last administered on 08:27; Start 11/27/16 at 09:00 Furosemide (Lasix) 40 mg DAILY PO Last administered on 11/28/16 08:28; Start 11/27/16 at 09:00 Lisinopril (Prinivil) 5 mg DAILY PO Last administered on 11/28/16 08:32; Start 11/27/16 at 09:00 Metoprolol Tartrate (Lopressor) 12.5 mg BID PO Last administered on 11/28/16 08:31; Start 11/26/16 at 21:00 Oxycodone/ Acetaminophen (Percocet 5/325) 1 tab QID PO Last administered on 13:50; Start 11/26/16 at 21:00 Non-Formulary Medication 0.5 mg Q2HR PRN NEB SHORTNESS OF BREATH; Start at 19:00; Stop 11/26/16 at 19:23; Status DC Cetirizine HCl (ZyrTEC) 10 mg DAILY PO Last administered on 11/28/16 08:27; Start 11/27/16 at 09:00 Non-Formulary Medication 1 inh BID IH ; Start 11/26/16 at 21:00; Stop 11/26/16 at 21:00; Status DC Nitroglycerin (Nitrostat) 0.4 mg PRN Q5MIN PRN SL CHEST PAIN; Start 11/26/16 at 19:30 Polyethylene Glycol (miraLAX PACKET) 17 gm PRN DAILY PRN PO CONSTIPATION; Start 11/27/16 at 09:00 Albuterol Sulfate (Ventolin Neb Soln) 2.5 mg PRN Q2HRS PRN NEB SHORTNESS OF BREATH; Start 11/26/16 at 19:30 Albuterol Sulfate (Ventolin Neb Soln) 2.5 mg QID NEB Last administered on 12:26; Start 11/26/16 at 21:00; Stop 11/27/16 at 15:21; Status DC Budesonide (Pulmicort) 0.5 mg BID NEB Last administered on 11/28/16 09:13; Start 11/26/16 at 21:00 Ceftriaxone Sodium 1 gm/ Sodium Chloride 50 ml @ 100 mls/hr Q24H IV ; Start at 10:15; Status UNV Methylprednisolone Acetate (DEPO-Medrol 40MG VIAL) 40 mg 1X ONCE IM Last administered on 11/27/16 10:30; Start 11/27/16 at 10:30; Stop 11/27/16 at 10:31 ; Status DC Bupivacaine HCl (Sensorcaine-Mpf 0.25%) 10 ml 1X ONCE IJ Last administered on 11/27/16 10:30; Start 11/27/16 at 10:30; Stop 11/27/16 at 10:31; Status DC Levofloxacin/ Dextrose 100 ml @ 100 mls/hr 1X ONCE IV Last administered on 11:04; Start 11/27/16 at 10:30; Stop 11/27/16 at 11:29; Status DC Levofloxacin (Levaquin) 250 mg DAILY06 PO Last administered on 11/28/16 08:32 ; Start 11/28/16 at 08:00 Metolazone (Zaroxolyn) 2.5 mg DAILY PO Last administered on 11/28/16 08:28; Start 11/27/16 at 12:30 Albuterol Sulfate (Ventolin Neb Soln) 2.5 mg BID NEB Last administered on 09:15; Start 11/27/16 at 21:00 Active Scripts Active Percocet 5-325 Mg Tablet (Oxycodone/Acetaminophen) 1 Each Tablet 1 Tab PO QID Furosemide 40 Mg Tablet 40 Mg PO DAILY Reported Lisinopril 5 Mg Tablet 1 Tab PO DAILY Albuterol Sulfate Neb Soln (Albuterol Sulfate) 0.63 Mg/3 Ml Vial.neb 0.5 Mg NEB Q2HR PRN Polyethylene Glycol (Polyethylene Glycol 8000) 500 Gm Powder 500 Gm MC DAILY PRN Advair 250-50 Diskus (Fluticasone/Salmeterol) 1 Each Disk.w.dev 1 Inh IH BID Metoprolol Tartrate 25 Mg Tablet 12.5 Mg PO BID Aspir 81 (Aspirin) 81 Mg Tablet.dr 81 Mg PO DAILY Nitrostat (Nitroglycerin) 0.3 Mg Tab.subl 0.3 Mg SL PRN Q5MIN PRN Flonase (Fluticasone Propionate) 16 Gm [place].susp 16 Gm NS DAILY Zyrtec (Cetirizine Hcl) 10 Mg Capsule 10 Mg PO DAILY Atorvastatin Calcium 10 Mg Tablet 20 Mg PO DAILY Vitals/I & O Vital Sign - Last 24 Hours 11/27/16 11/27/16 11/27/16 11/27/16 15:30 18:42 19:00 19:55 Temp 97.5 97.5 Pulse 64 Resp 20 16 19 B/P (MAP) 139/46 (77) Pulse Ox 93 95 O2 Delivery Room Air Room Air 11/27/16 11/27/16 11/27/16 11/28/16 20:00 20:46 23:00 03:00 Temp 97.5 97.4 97.5 97.4 Pulse 69 62 Resp 19 19 B/P (MAP) 132/50 (77) 132/50 (77) Pulse Ox 95 95 96 O2 Delivery Room Air Room Air Room Air Room Air O2 Flow Rate 2.0 2.0 11/28/16 11/28/16 11/28/16 11/28/16 07:00 08:20 08:31 08:32 Pulse 68 68 68 Resp 22 B/P (MAP) 152/49 (83) 152/49 152/49 Pulse Ox 93 O2 Delivery Room Air Room Air 11/28/16 11/28/16 11/28/16 11/28/16 08:33 09:14 10:58 13:50 Temp 98.1 98.1 Pulse 65 Resp 16 20 18 B/P (MAP) 141/45 (77) Pulse Ox 98 97 O2 Delivery Room Air Room Air Room Air Room Air 11/28/16 11/28/16 14:50 15:00 Temp 98.1 98.1 Pulse 62 Resp 20 B/P (MAP) 95/32 (53) Pulse Ox 95 95 O2 Delivery Room Air Room Air O2 Flow Rate 2.0 Intake and Output 11/27/16 11/27/16 11/28/16 15:00 23:00 07:00 Intake Total 200 ml 900 ml Balance 200 ml 900 ml JIMENA JOHNS MD Nov 28, 2016 15:26
--- NOTE | 2016-11-28 17:45 | PDOC ---
CARDIOLOGY PROGRESS NOTE SUBJECTIVE: No acute events overnight. Still has exertional dyspnea. OBJECTIVE: Vital SIgns: Vital Signs Date Time Temp Pulse Resp B/P (MAP) Pulse Ox O2 Delivery O2 Flow Rate FiO2 11/28/16 15:00 98.1 62 20 95/32 (53) 95 Room Air 98.1 11/28/16 14:50 2.0 I & O Intake and Output 11/28/16 07:00 Intake Total 1100 ml Balance 1100 ml Intake Oral 1100 ml # Voids 6 Objective: GEN.: No apparent distress. Alert and oriented. HEENT: Head is normocephalic, atraumatic NECK: Supple. LUNGS: Clear to auscultation. HEART: RRR, S1, S2 present. Peripheral pulses diminished. ABDOMEN: Morbidly obese and distended EXTREMITIES: 2+ stable pitting edema. NEUROLOGIC: Normal speech, normal tone PSYCHIATRIC: Normal affect, normal mood. SKIN: No ulcerations CURRENT MEDICATIONS: Current Medications Medications (Trade) Dose Ordered Sig/Felix Start Time Stop Time Status Last Admin Dose Admin Acetaminophen (Tylenol) 650 mg PRN Q4HRS PRN 11/26/16 14:00 11/27/16 13:59 DC Albuterol Sulfate (Ventolin Neb Soln) 2.5 mg BID 11/27/16 21:00 11/28/16 09:15 2.5 MG Aspirin (Ecotrin) 81 mg DAILYWBKFT 11/27/16 08:00 11/28/16 08:32 81 MG Atorvastatin Calcium (Lipitor) 20 mg QHS 11/26/16 21:00 11/27/16 20:45 20 MG Budesonide (Pulmicort) 0.5 mg BID 11/26/16 21:00 11/28/16 09:13 0.5 MG Bupivacaine HCl (Sensorcaine-Mpf 0.25%) 10 ml 1X ONCE 11/27/16 10:30 11/27/16 10:31 DC 11/27/16 10:30 10 ML Ceftriaxone Sodium 1 gm/ Sodium Chloride 50 ml @ 100 mls/hr Q24H 11/27/16 10:15 UNV Cetirizine HCl (ZyrTEC) 10 mg DAILY 11/27/16 09:00 11/28/16 08:27 10 MG Fluticasone Propionate (Flonase) 1 spray DAILY 11/27/16 09:00 11/28/16 08:27 1 SPRAY Furosemide (Lasix) 40 mg DAILY 11/27/16 09:00 11/28/16 08:28 40 MG Hydralazine HCl (Apresoline) 10 mg PRN Q6HRS PRN 11/26/16 14:00 Levofloxacin (Levaquin) 250 mg DAILY06 11/28/16 08:00 11/28/16 08:32 250 MG Levofloxacin/ Dextrose 100 ml @ 100 mls/hr 1X ONCE 11/27/16 10:30 11/27/16 11:29 DC 11/27/16 11:04 100 MLS/HR Lisinopril (Prinivil) 5 mg DAILY 11/27/16 09:00 11/28/16 08:32 5 MG Methylprednisolone Acetate (DEPO-Medrol 40MG VIAL) 40 mg 1X ONCE 11/27/16 10:30 11/27/16 10:31 DC 11/27/16 10:30 40 MG Metolazone (Zaroxolyn) 2.5 mg DAILY 11/27/16 12:30 11/28/16 08:28 2.5 MG Metoprolol Tartrate (Lopressor) 12.5 mg BID 11/26/16 21:00 11/28/16 08:31 12.5 MG Nitroglycerin (Nitrostat) 0.4 mg PRN Q5MIN PRN 11/26/16 19:30 Non-Formulary Medication 1 inh BID 11/26/16 21:00 11/26/16 21:00 DC Ondansetron HCl (Zofran) 4 mg PRN Q8HRS PRN 11/26/16 14:00 11/27/16 13:59 DC Oxycodone/ Acetaminophen (Percocet 5/325) 1 tab QID 11/26/16 21:00 11/28/16 13:50 1 TAB Polyethylene Glycol (miraLAX PACKET) 17 gm PRN DAILY PRN 11/27/16 09:00 DIAGNOSTIC TESTING: Echo 05/2016 - Normal EF, severe pulm HTN ASSESSMENT: 1. Acute on chronic diastolic HF 2. Severe pulmonary HTN 3. Morbid obesity with BMI of 59 4. Dyslipidemia Problems: PLAN: 1. Agree with current medical regimen. Her dyspnea is multifactorial, including but not limited to above diagnoses. She has had prior CAD but given her age and obesity and other comorbidities in light of a normal LV function, cath was deferred in the past. 2. Would favor some aggressive diuresis as tolerated and conservative mgmt. If refractory issues present, will again discuss cath with patient but in the past she has been reluctant and her case this might be low yield in any case. FLIP CYR MD Nov 28, 2016 17:45
[2016-11-28] MEDS: POLYETHYLENE GLYCOL 3350 17 GM PACKET. PO PRN (18:00)
[2016-11-28 19:00] VITALS: BP 115/33
[2016-11-28] MEDS: ATORVASTATIN CALCIUM 10 MG TABLET. PO SCH (21:03)
[2016-11-28 23:00] VITALS: BP 111/38
[2016-11-29 03:00] VITALS: BP 136/48
[2016-11-29 07:00] VITALS: BP 135/45
[2016-11-29] MEDS: ALBUTEROL SULFATE 2.5 MG/3 ML NEBU. NEB SCH ×2 (07:25→19:58)
[2016-11-29] MEDS: BUDESONIDE 0.5 MG/2 ML NEBU. NEB SCH ×2 (07:25→19:57)
[2016-11-29] MEDS: metOLazone 2.5 MG TABLET PO SCH (09:03)
[2016-11-29] MEDS: oxyCODONE/APAP 5/325 1 TAB TABLET PO SCH ×4 (09:03→20:50)
[2016-11-29] MEDS: ASPIRIN ENTERIC COATED 81 MG TABLET.DR. PO SCH (09:03)
[2016-11-29] MEDS: FUROSEMIDE 40 MG TABLET. PO SCH (09:04)
[2016-11-29] MEDS: CETIRIZINE HCL 10 MG TABLET. PO SCH (09:04)
[2016-11-29] MEDS: LISINOPRIL 5 MG TABLET. PO SCH (09:04)
[2016-11-29] MEDS: FLUTICASONE 50MCG/NASAL SPRAY 16GM BOTTLE. NS SCH (09:05)
[2016-11-29] MEDS: METOPROLOL TART IMMED RELEASE 25 MG TABLET. PO SCH ×2 (09:05→20:43)
--- NOTE | 2016-11-29 10:18 | PDOC ---
PROGRESS NOTES Subjective Subjective She admits continued knee pain and stiffness. Objective Objective Vital Signs Date Time Temp Pulse Resp B/P (MAP) Pulse Ox O2 Delivery O2 Flow Rate FiO2 11/29/16 09:05 86 135/45 11/29/16 09:03 Room Air 11/29/16 07:26 95 11/29/16 07:00 97.7 22 97.7 11/28/16 20:00 2.0 Intake and Output 11/29/16 07:00 Intake Total 880 ml Output Total 500 ml Balance 380 ml Intake Oral 880 ml Output Urine Total 500 ml # Voids 4 Physical Exam Physical Exam She is sitting in bedside recliner and continues with crepitus on ROM of her knees and clinical evidence of chronic venous insufficiency with edema and redness of her distal parts of her legs. Assessment Assessment Problems Medical Problems: (1) CHF (congestive heart failure) Status: Acute Plan Plan of Care To ask physical and occupational therapy follow up while here. Comment Review of Relevant I have reviewed the following items aaliyah (where applicable) has been applied. Labs Laboratory Tests Test 11/28/16 05:30 White Blood Count 12.5 x10^3/uL (4.0-11.0) Red Blood Count 4.07 x10^6/uL (3.50-5.40) Hemoglobin 11.4 g/dL (12.0-15.5) Hematocrit 35.5 % (36.0-47.0) Mean Corpuscular Volume 87 fL (79-100) Mean Corpuscular Hemoglobin 28 pg (25-35) Mean Corpuscular Hemoglobin Concent 32 g/dL (31-37) Red Cell Distribution Width 14.9 % (11.5-14.5) Platelet Count 279 x10^3/uL (140-400) Neutrophils (%) (Auto) 94 % (31-73) Lymphocytes (%) (Auto) 4 % (24-48) Monocytes (%) (Auto) 2 % (0-9) Eosinophils (%) (Auto) 0 % (0-3) Basophils (%) (Auto) 0 % (0-3) Neutrophils # (Auto) 11.7 x10^3uL (1.8-7.7) Lymphocytes # (Auto) 0.5 x10^3/uL (1.0-4.8) Monocytes # (Auto) 0.3 x10^3/uL (0.0-1.1) Eosinophils # (Auto) 0.0 x10^3/uL (0.0-0.7) Basophils # (Auto) 0.0 x10^3/uL (0.0-0.2) Segmented Neutrophils % 95 % (35-66) Band Neutrophils % 2 % (0-9) Lymphocytes % 2 % (24-48) Monocytes % 1 % (0-10) Platelet Estimate Adequate (ADEQUATE) Ovalocytes Few Sodium Level 139 mmol/L (136-145) Potassium Level 4.9 mmol/L (3.5-5.1) Chloride Level 104 mmol/L (98-107) Carbon Dioxide Level 28 mmol/L (21-32) Anion Gap 7 (6-14) Blood Urea Nitrogen 46 mg/dL (7-20) Creatinine 1.6 mg/dL (0.6-1.0) Estimated GFR (Cockcroft-Gault) 30.6 BUN/Creatinine Ratio 29 (6-20) Glucose Level 139 mg/dL (70-99) Calcium Level 8.6 mg/dL (8.5-10.1) Total Bilirubin 0.4 mg/dL (0.2-1.0) Aspartate Amino Transf (AST/SGOT) 13 U/L (15-37) Alanine Aminotransferase (ALT/SGPT) 17 U/L (14-59) Alkaline Phosphatase 60 U/L (46-116) Total Protein 6.6 g/dL (6.4-8.2) Albumin 2.9 g/dL (3.4-5.0) Albumin/Globulin Ratio 0.8 (1.0-1.7) Microbiology 11/26/16 Urine Culture - Final, Complete 11/26/16 Urine Culture Result 1 (KAELA) - Final, Complete Medications Current Medications Furosemide (Lasix) 60 mg 1X ONCE IVP Last administered on 11/26/16t 13:50; Start 11/26/16 at 13:15; Stop 11/26/16 at 13:16; Status DC Ondansetron HCl (Zofran) 4 mg PRN Q8HRS PRN IV NAUSEA/VOMITING; Start 11/26/16 at 14:00; Stop 11/27/16 at 13:59; Status DC Acetaminophen (Tylenol) 650 mg PRN Q4HRS PRN PO FEVER; Start 11/26/16 at 14:00 ; Stop 11/27/16 at 13:59; Status DC Nitroglycerin (Nitrostat) 0.4 mg PRN Q5MIN PRN SL CHEST PAIN; Start 11/26/16 at 14:00; Stop 11/27/16 at 13:59; Status DC Lisinopril (Prinivil) 5 mg 1X ONCE PO Last administered on 11/26/16 17:57; Start 11/26/16 at 14:00; Stop 11/26/16 at 14:10; Status DC Hydralazine HCl (Apresoline) 10 mg PRN Q6HRS PRN IVP HYPERTENSION, SEE COMMENTS ; Start 11/26/16 at 14:00 Aspirin (Ecotrin) 81 mg DAILYWBKFT PO Last administered on 11/29/16 09:03; Start 11/27/16 at 08:00 Atorvastatin Calcium (Lipitor) 20 mg QHS PO Last administered on 11/28/16 21: 03; Start 11/26/16 at 21:00 Fluticasone Propionate (Flonase) 1 spray DAILY NS Last administered on 09:05; Start 11/27/16 at 09:00 Furosemide (Lasix) 40 mg DAILY PO Last administered on 11/29/16 09:04; Start 11/27/16 at 09:00 Lisinopril (Prinivil) 5 mg DAILY PO Last administered on 11/29/16 09:04; Start 11/27/16 at 09:00 Metoprolol Tartrate (Lopressor) 12.5 mg BID PO Last administered on 11/29/16 09:05; Start 11/26/16 at 21:00 Oxycodone/ Acetaminophen (Percocet 5/325) 1 tab QID PO Last administered on 09:03; Start 11/26/16 at 21:00 Non-Formulary Medication 0.5 mg Q2HR PRN NEB SHORTNESS OF BREATH; Start at 19:00; Stop 11/26/16 at 19:23; Status DC Cetirizine HCl (ZyrTEC) 10 mg DAILY PO Last administered on 11/29/16 09:04; Start 11/27/16 at 09:00 Non-Formulary Medication 1 inh BID IH ; Start 11/26/16 at 21:00; Stop 11/26/16 at 21:00; Status DC Nitroglycerin (Nitrostat) 0.4 mg PRN Q5MIN PRN SL CHEST PAIN; Start 11/26/16 at 19:30 Polyethylene Glycol (miraLAX PACKET) 17 gm PRN DAILY PRN PO CONSTIPATION Last administered on 11/28/16 18:00; Start 11/27/16 at 09:00 Albuterol Sulfate (Ventolin Neb Soln) 2.5 mg PRN Q2HRS PRN NEB SHORTNESS OF BREATH; Start 11/26/16 at 19:30 Albuterol Sulfate (Ventolin Neb Soln) 2.5 mg QID NEB Last administered on 12:26; Start 11/26/16 at 21:00; Stop 11/27/16 at 15:21; Status DC Budesonide (Pulmicort) 0.5 mg BID NEB Last administered on 11/29/16 07:25; Start 11/26/16 at 21:00 Ceftriaxone Sodium 1 gm/ Sodium Chloride 50 ml @ 100 mls/hr Q24H IV ; Start at 10:15; Status UNV Methylprednisolone Acetate (DEPO-Medrol 40MG VIAL) 40 mg 1X ONCE IM Last administered on 11/27/16 10:30; Start 11/27/16 at 10:30; Stop 11/27/16 at 10:31 ; Status DC Bupivacaine HCl (Sensorcaine-Mpf 0.25%) 10 ml 1X ONCE IJ Last administered on 11/27/16 10:30; Start 11/27/16 at 10:30; Stop 11/27/16 at 10:31; Status DC Levofloxacin/ Dextrose 100 ml @ 100 mls/hr 1X ONCE IV Last administered on 11:04; Start 11/27/16 at 10:30; Stop 11/27/16 at 11:29; Status DC Levofloxacin (Levaquin) 250 mg DAILY06 PO Last administered on 11/29/16 05:58 ; Start 11/28/16 at 08:00 Metolazone (Zaroxolyn) 2.5 mg DAILY PO Last administered on 7/26/17at 09:03; Start 11/27/16 at 12:30 Albuterol Sulfate (Ventolin Neb Soln) 2.5 mg BID NEB Last administered on t 07:25; Start 11/27/16 at 21:00 Active Scripts Active Percocet 5-325 Mg Tablet (Oxycodone/Acetaminophen) 1 Each Tablet 1 Tab PO QID Furosemide 40 Mg Tablet 40 Mg PO DAILY Reported Lisinopril 5 Mg Tablet 1 Tab PO DAILY Albuterol Sulfate Neb Soln (Albuterol Sulfate) 0.63 Mg/3 Ml Vial.neb 0.5 Mg NEB Q2HR PRN Polyethylene Glycol (Polyethylene Glycol 8000) 500 Gm Powder 500 Gm MC DAILY PRN Advair 250-50 Diskus (Fluticasone/Salmeterol) 1 Each Disk.w.dev 1 Inh IH BID Metoprolol Tartrate 25 Mg Tablet 12.5 Mg PO BID Aspir 81 (Aspirin) 81 Mg Tablet.dr 81 Mg PO DAILY Nitrostat (Nitroglycerin) 0.3 Mg Tab.subl 0.3 Mg SL PRN Q5MIN PRN Flonase (Fluticasone Propionate) 16 Gm [place].susp 16 Gm NS DAILY Zyrtec (Cetirizine Hcl) 10 Mg Capsule 10 Mg PO DAILY Atorvastatin Calcium 10 Mg Tablet 20 Mg PO DAILY Vitals/I & O Vital Sign - Last 24 Hours 11/28/16 11/28/16 11/28/16 11/28/16 10:58 13:50 14:50 15:00 Temp 98.1 98.1 98.1 98.1 Pulse 65 62 Resp 20 18 20 B/P (MAP) 141/45 (77) 95/32 (53) Pulse Ox 97 95 95 O2 Delivery Room Air Room Air Room Air O2 Flow Rate 2.0 11/28/16 11/28/16 11/28/16 11/28/16 18:00 18:15 19:00 19:15 Temp 99.0 99.0 Pulse 63 Resp 18 B/P (MAP) 115/33 (60) Pulse Ox 96 92 O2 Delivery Room Air Room Air Room Air Room Air 11/28/16 11/28/16 11/29/16 11/29/16 20:00 23:00 03:00 07:00 Temp 95.9 97.8 97.7 95.9 97.8 97.7 Pulse 63 63 86 Resp 18 19 22 B/P (MAP) 111/38 (62) 136/48 (77) 135/45 (75) Pulse Ox 95 98 94 O2 Delivery Room Air Room Air Room Air Room Air O2 Flow Rate 2.0 11/29/16 11/29/16 11/29/16 11/29/16 07:26 09:03 09:04 09:05 Pulse 86 86 B/P (MAP) 135/45 135/45 Pulse Ox 95 O2 Delivery Room Air Room Air Intake and Output 11/28/16 11/28/16 11/29/16 15:00 23:00 07:00 Intake Total 280 ml 600 ml Output Total 500 ml Balance 280 ml 100 ml MARU PARADA MD Nov 29, 2016 10:17
[2016-11-29 11:00] VITALS: BP_SYST 103; BP_SYST 104; BP_DIAS 24
--- NOTE | 2016-11-29 12:38 | PDOC ---
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, chronic leg paina nd foot pain and knee pain, OA, poor mobility morbid obesity, w/ concurrent mild malnutrition, hypoalbumin UTI CKD 3 History of Present Illness History of Present Illness her breathing is better, but she has terrible exertional tolerance, has been worsening still feels weak, lethargic need PT and OT eval she does not feel well enough to do home Vitals Vitals Vital Signs Date Time Temp Pulse Resp B/P (MAP) Pulse Ox O2 Delivery O2 Flow Rate FiO2 11/29/16 11:00 104/24 (50) 11/29/16 11:00 97.7 64 20 97 Room Air 97.7 11/28/16 20:00 2.0 Physical Exam General: Alert, Oriented X3, Cooperative, No acute distress Heart: Regular rate (V paced), Normal S1, Normal S2, Other (3/6 systolic murmur to LLS border) Lungs: Other Abdomen: Soft, No tenderness Extremities: No cyanosis, Other (2+ bilateral LE pitting edema) Skin: No breakdown, No significant lesion Review of Systems Review of Systems no n.vd + Le edema (better) Assessment and Plan Assessmemt and Plan Problems Medical Problems: (1) CHF (congestive heart failure) Status: Acute Problems: Comment Review of Relevant I have reviewed the following items aaliyah (where applicable) has been applied. Labs Laboratory Tests Test 11/28/16 05:30 White Blood Count 12.5 x10^3/uL (4.0-11.0) Red Blood Count 4.07 x10^6/uL (3.50-5.40) Hemoglobin 11.4 g/dL (12.0-15.5) Hematocrit 35.5 % (36.0-47.0) Mean Corpuscular Volume 87 fL (79-100) Mean Corpuscular Hemoglobin 28 pg (25-35) Mean Corpuscular Hemoglobin Concent 32 g/dL (31-37) Red Cell Distribution Width 14.9 % (11.5-14.5) Platelet Count 279 x10^3/uL (140-400) Neutrophils (%) (Auto) 94 % (31-73) Lymphocytes (%) (Auto) 4 % (24-48) Monocytes (%) (Auto) 2 % (0-9) Eosinophils (%) (Auto) 0 % (0-3) Basophils (%) (Auto) 0 % (0-3) Neutrophils # (Auto) 11.7 x10^3uL (1.8-7.7) Lymphocytes # (Auto) 0.5 x10^3/uL (1.0-4.8) Monocytes # (Auto) 0.3 x10^3/uL (0.0-1.1) Eosinophils # (Auto) 0.0 x10^3/uL (0.0-0.7) Basophils # (Auto) 0.0 x10^3/uL (0.0-0.2) Segmented Neutrophils % 95 % (35-66) Band Neutrophils % 2 % (0-9) Lymphocytes % 2 % (24-48) Monocytes % 1 % (0-10) Platelet Estimate Adequate (ADEQUATE) Ovalocytes Few Sodium Level 139 mmol/L (136-145) Potassium Level 4.9 mmol/L (3.5-5.1) Chloride Level 104 mmol/L (98-107) Carbon Dioxide Level 28 mmol/L (21-32) Anion Gap 7 (6-14) Blood Urea Nitrogen 46 mg/dL (7-20) Creatinine 1.6 mg/dL (0.6-1.0) Estimated GFR (Cockcroft-Gault) 30.6 BUN/Creatinine Ratio 29 (6-20) Glucose Level 139 mg/dL (70-99) Calcium Level 8.6 mg/dL (8.5-10.1) Total Bilirubin 0.4 mg/dL (0.2-1.0) Aspartate Amino Transf (AST/SGOT) 13 U/L (15-37) Alanine Aminotransferase (ALT/SGPT) 17 U/L (14-59) Alkaline Phosphatase 60 U/L (46-116) Total Protein 6.6 g/dL (6.4-8.2) Albumin 2.9 g/dL (3.4-5.0) Albumin/Globulin Ratio 0.8 (1.0-1.7) Microbiology 11/26/16 Urine Culture - Final, Complete 11/26/16 Urine Culture Result 1 (KAELA) - Final, Complete Medications Current Medications Furosemide (Lasix) 60 mg 1X ONCE IVP Last administered on 11/26/16t 13:50; Start 11/26/16 at 13:15; Stop 11/26/16 at 13:16; Status DC Ondansetron HCl (Zofran) 4 mg PRN Q8HRS PRN IV NAUSEA/VOMITING; Start 11/26/16 at 14:00; Stop 11/27/16 at 13:59; Status DC Acetaminophen (Tylenol) 650 mg PRN Q4HRS PRN PO FEVER; Start 11/26/16 at 14:00 ; Stop 11/27/16 at 13:59; Status DC Nitroglycerin (Nitrostat) 0.4 mg PRN Q5MIN PRN SL CHEST PAIN; Start 11/26/16 at 14:00; Stop 11/27/16 at 13:59; Status DC Lisinopril (Prinivil) 5 mg 1X ONCE PO Last administered on 11/26/16 17:57; Start 11/26/16 at 14:00; Stop 11/26/16 at 14:10; Status DC Hydralazine HCl (Apresoline) 10 mg PRN Q6HRS PRN IVP HYPERTENSION, SEE COMMENTS ; Start 11/26/16 at 14:00 Aspirin (Ecotrin) 81 mg DAILYWBKFT PO Last administered on 11/29/16 09:03; Start 11/27/16 at 08:00 Atorvastatin Calcium (Lipitor) 20 mg QHS PO Last administered on 11/28/16 21: 03; Start 11/26/16 at 21:00 Fluticasone Propionate (Flonase) 1 spray DAILY NS Last administered on 09:05; Start 11/27/16 at 09:00 Furosemide (Lasix) 40 mg DAILY PO Last administered on 11/29/16 09:04; Start 11/27/16 at 09:00 Lisinopril (Prinivil) 5 mg DAILY PO Last administered on 11/29/16 09:04; Start 11/27/16 at 09:00 Metoprolol Tartrate (Lopressor) 12.5 mg BID PO Last administered on 11/29/16 09:05; Start 11/26/16 at 21:00 Oxycodone/ Acetaminophen (Percocet 5/325) 1 tab QID PO Last administered on 09:03; Start 11/26/16 at 21:00 Non-Formulary Medication 0.5 mg Q2HR PRN NEB SHORTNESS OF BREATH; Start at 19:00; Stop 11/26/16 at 19:23; Status DC Cetirizine HCl (ZyrTEC) 10 mg DAILY PO Last administered on 11/29/16 09:04; Start 11/27/16 at 09:00 Non-Formulary Medication 1 inh BID IH ; Start 11/26/16 at 21:00; Stop 11/26/16 at 21:00; Status DC Nitroglycerin (Nitrostat) 0.4 mg PRN Q5MIN PRN SL CHEST PAIN; Start 11/26/16 at 19:30 Polyethylene Glycol (miraLAX PACKET) 17 gm PRN DAILY PRN PO CONSTIPATION Last administered on 11/28/16 18:00; Start 11/27/16 at 09:00 Albuterol Sulfate (Ventolin Neb Soln) 2.5 mg PRN Q2HRS PRN NEB SHORTNESS OF BREATH; Start 11/26/16 at 19:30 Albuterol Sulfate (Ventolin Neb Soln) 2.5 mg QID NEB Last administered on 12:26; Start 11/26/16 at 21:00; Stop 11/27/16 at 15:21; Status DC Budesonide (Pulmicort) 0.5 mg BID NEB Last administered on 11/29/16 07:25; Start 11/26/16 at 21:00 Ceftriaxone Sodium 1 gm/ Sodium Chloride 50 ml @ 100 mls/hr Q24H IV ; Start at 10:15; Status UNV Methylprednisolone Acetate (DEPO-Medrol 40MG VIAL) 40 mg 1X ONCE IM Last administered on 11/27/16 10:30; Start 11/27/16 at 10:30; Stop 11/27/16 at 10:31 ; Status DC Bupivacaine HCl (Sensorcaine-Mpf 0.25%) 10 ml 1X ONCE IJ Last administered on 11/27/16 10:30; Start 11/27/16 at 10:30; Stop 11/27/16 at 10:31; Status DC Levofloxacin/ Dextrose 100 ml @ 100 mls/hr 1X ONCE IV Last administered on 11:04; Start 11/27/16 at 10:30; Stop 11/27/16 at 11:29; Status DC Levofloxacin (Levaquin) 250 mg DAILY06 PO Last administered on 11/29/16 05:58 ; Start 11/28/16 at 08:00 Metolazone (Zaroxolyn) 2.5 mg DAILY PO Last administered on 11/29/16 09:03; Start 11/27/16 at 12:30 Albuterol Sulfate (Ventolin Neb Soln) 2.5 mg BID NEB Last administered on 07:25; Start 11/27/16 at 21:00 Active Scripts Active Percocet 5-325 Mg Tablet (Oxycodone/Acetaminophen) 1 Each Tablet 1 Tab PO QID Furosemide 40 Mg Tablet 40 Mg PO DAILY Reported Lisinopril 5 Mg Tablet 1 Tab PO DAILY Albuterol Sulfate Neb Soln (Albuterol Sulfate) 0.63 Mg/3 Ml Vial.neb 0.5 Mg NEB Q2HR PRN Polyethylene Glycol (Polyethylene Glycol 8000) 500 Gm Powder 500 Gm MC DAILY PRN Advair 250-50 Diskus (Fluticasone/Salmeterol) 1 Each Disk.w.dev 1 Inh IH BID Metoprolol Tartrate 25 Mg Tablet 12.5 Mg PO BID Aspir 81 (Aspirin) 81 Mg Tablet.dr 81 Mg PO DAILY Nitrostat (Nitroglycerin) 0.3 Mg Tab.subl 0.3 Mg SL PRN Q5MIN PRN Flonase (Fluticasone Propionate) 16 Gm [place].susp 16 Gm NS DAILY Zyrtec (Cetirizine Hcl) 10 Mg Capsule 10 Mg PO DAILY Atorvastatin Calcium 10 Mg Tablet 20 Mg PO DAILY Vitals/I & O Vital Sign - Last 24 Hours 11/28/16 11/28/16 11/28/16 11/28/16 13:50 14:50 15:00 18:00 Temp 98.1 98.1 Pulse 62 Resp 18 20 B/P (MAP) 95/32 (53) Pulse Ox 95 95 O2 Delivery Room Air Room Air Room Air O2 Flow Rate 2.0 11/28/16 11/28/16 11/28/16 11/28/16 18:15 19:00 19:15 20:00 Temp 99.0 99.0 Pulse 63 Resp 18 B/P (MAP) 115/33 (60) Pulse Ox 96 92 O2 Delivery Room Air Room Air Room Air Room Air O2 Flow Rate 2.0 11/28/16 11/29/16 11/29/16 11/29/16 23:00 03:00 07:00 07:26 Temp 95.9 97.8 97.7 95.9 97.8 97.7 Pulse 63 63 86 Resp 18 19 22 B/P (MAP) 111/38 (62) 136/48 (77) 135/45 (75) Pulse Ox 95 98 94 95 O2 Delivery Room Air Room Air Room Air Room Air 11/29/16 11/29/16 11/29/16 11/29/16 09:03 09:04 09:05 11:00 Temp 97.7 97.7 Pulse 86 86 64 Resp 20 B/P (MAP) 135/45 135/45 103/24 (50) Pulse Ox 97 O2 Delivery Room Air Room Air 11/29/16 11:00 B/P (MAP) 104/24 (50) Intake and Output 11/28/16 11/28/16 11/29/16 15:00 23:00 07:00 Intake Total 280 ml 600 ml Output Total 500 ml Balance 280 ml 100 ml JIMENA JOHNS MD Nov 29, 2016 12:38
[2016-11-29 15:00] VITALS: BP_SYST 90; BP_SYST 98; BP_DIAS 32; BP_DIAS 34
[2016-11-29] MEDS: POLYETHYLENE GLYCOL 3350 17 GM PACKET. PO PRN (17:24)
[2016-11-29 19:00] VITALS: BP 81/35
[2016-11-29] MEDS: ATORVASTATIN CALCIUM 10 MG TABLET. PO SCH (20:43)
[2016-11-29 23:00] VITALS: BP 94/31
[2016-11-30] VITALS (8 sets, daily range): BP systolic 67–151; BP diastolic 27–49
[2016-11-30] MEDS: BUDESONIDE 0.5 MG/2 ML NEBU. NEB SCH ×2 (07:41→20:13)
[2016-11-30] MEDS: ALBUTEROL SULFATE 2.5 MG/3 ML NEBU. NEB SCH ×2 (07:41→20:13)
[2016-11-30 07:43] LABS: CALCIUM 8.5 mg/dL (8.5-10.1); CREATININE 3.1 mg/dL (0.6-1.0); GFR 14.2; POTASSIUM 5.7 mmol/L (3.5-5.1)
[2016-11-30] MEDS: ASPIRIN ENTERIC COATED 81 MG TABLET.DR. PO SCH (08:11)
[2016-11-30] MEDS: oxyCODONE/APAP 5/325 1 TAB TABLET PO SCH ×4 (08:11→21:34)
[2016-11-30] MEDS: CETIRIZINE HCL 10 MG TABLET. PO SCH (08:11)
[2016-11-30] MEDS: FLUTICASONE 50MCG/NASAL SPRAY 16GM BOTTLE. NS SCH (08:11)
[2016-11-30] MEDS: metOLazone 2.5 MG TABLET PO SCH (08:11)
[2016-11-30] MEDS: POLYETHYLENE GLYCOL 3350 17 GM PACKET. PO PRN (08:12)
[2016-11-30] MEDS: METOPROLOL TART IMMED RELEASE 25 MG TABLET. PO SCH ×2 (09:00→21:00)
[2016-11-30] MEDS: FUROSEMIDE 40 MG TABLET. PO SCH (09:00)
[2016-11-30] MEDS: LISINOPRIL 5 MG TABLET. PO SCH (09:00)
--- NOTE | 2016-11-30 09:48 | PDOC ---
PROGRESS NOTES Subjective Subjective She woke up with numbness in her left hand this AM. She denies any neck pain. Objective Objective Vital Signs Date Time Temp Pulse Resp B/P (MAP) Pulse Ox O2 Delivery O2 Flow Rate FiO2 11/30/16 09:11 Room Air 11/30/16 07:50 96 11/30/16 07:00 98.2 98 18 90/44 (59) 98.2 11/29/16 22:22 2.0 Intake and Output 11/30/16 07:00 Intake Total 1340 ml Output Total 3 ml Balance 1337 ml Intake Oral 1340 ml Output Urine Total 3 ml # Voids 1 # Bowel Movements 2 Physical Exam Physical Exam She is sitting up in bedside recliner and continues with stiffness of her knees and evidence of chronic venous insufficiency of both lower extremities. Assessment Assessment Problems Medical Problems: (1) CHF (congestive heart failure) Status: Acute Plan Plan of Care To continue present physical and occupational therapy follow up as tolerated. Comment Review of Relevant I have reviewed the following items aaliyah (where applicable) has been applied. Labs Laboratory Tests Test 11/30/16 07:00 Sodium Level 134 mmol/L (136-145) Potassium Level 5.7 mmol/L (3.5-5.1) Chloride Level 98 mmol/L (98-107) Carbon Dioxide Level 26 mmol/L (21-32) Anion Gap 10 (6-14) Blood Urea Nitrogen 85 mg/dL (7-20) Creatinine 3.1 mg/dL (0.6-1.0) Estimated GFR (Cockcroft-Gault) 14.2 Glucose Level 95 mg/dL (70-99) Calcium Level 8.5 mg/dL (8.5-10.1) Laboratory Tests Test 11/30/16 07:00 Sodium Level 134 mmol/L (136-145) Potassium Level 5.7 mmol/L (3.5-5.1) Chloride Level 98 mmol/L (98-107) Carbon Dioxide Level 26 mmol/L (21-32) Anion Gap 10 (6-14) Blood Urea Nitrogen 85 mg/dL (7-20) Creatinine 3.1 mg/dL (0.6-1.0) Estimated GFR (Cockcroft-Gault) 14.2 Glucose Level 95 mg/dL (70-99) Calcium Level 8.5 mg/dL (8.5-10.1) Microbiology 7/23/17 Urine Culture - Final, Complete 11/26/16 Urine Culture Result 1 (KAELA) - Final, Complete Medications Current Medications Furosemide (Lasix) 60 mg 1X ONCE IVP Last administered on 11/26/16 13:50; Start 11/26/16 at 13:15; Stop 11/26/16 at 13:16; Status DC Ondansetron HCl (Zofran) 4 mg PRN Q8HRS PRN IV NAUSEA/VOMITING; Start 11/26/16 at 14:00; Stop 11/27/16 at 13:59; Status DC Acetaminophen (Tylenol) 650 mg PRN Q4HRS PRN PO FEVER; Start 11/26/16 at 14:00 ; Stop 11/27/16 at 13:59; Status DC Nitroglycerin (Nitrostat) 0.4 mg PRN Q5MIN PRN SL CHEST PAIN; Start 11/26/16 at 14:00; Stop 11/27/16 at 13:59; Status DC Lisinopril (Prinivil) 5 mg 1X ONCE PO Last administered on 11/26/16 17:57; Start 11/26/16 at 14:00; Stop 11/26/16 at 14:10; Status DC Hydralazine HCl (Apresoline) 10 mg PRN Q6HRS PRN IVP HYPERTENSION, SEE COMMENTS ; Start 11/26/16 at 14:00 Aspirin (Ecotrin) 81 mg DAILYWBKFT PO Last administered on 11/30/16 08:11; Start 11/27/16 at 08:00 Atorvastatin Calcium (Lipitor) 20 mg QHS PO Last administered on 11/29/16 20: 43; Start 11/26/16 at 21:00 Fluticasone Propionate (Flonase) 1 spray DAILY NS Last administered on 08:11; Start 11/27/16 at 09:00 Furosemide (Lasix) 40 mg DAILY PO Last administered on 11/29/16 09:04; Start 11/27/16 at 09:00 Lisinopril (Prinivil) 5 mg DAILY PO Last administered on 11/29/16 09:04; Start 11/27/16 at 09:00 Metoprolol Tartrate (Lopressor) 12.5 mg BID PO Last administered on 11/29/16 09:05; Start 11/26/16 at 21:00 Oxycodone/ Acetaminophen (Percocet 5/325) 1 tab QID PO Last administered on 08:11; Start 11/26/16 at 21:00 Non-Formulary Medication 0.5 mg Q2HR PRN NEB SHORTNESS OF BREATH; Start at 19:00; Stop 11/26/16 at 19:23; Status DC Cetirizine HCl (ZyrTEC) 10 mg DAILY PO Last administered on 11/30/16 08:11; Start 11/27/16 at 09:00 Non-Formulary Medication 1 inh BID IH ; Start 11/26/16 at 21:00; Stop 11/26/16 at 21:00; Status DC Nitroglycerin (Nitrostat) 0.4 mg PRN Q5MIN PRN SL CHEST PAIN; Start 11/26/16 at 19:30 Polyethylene Glycol (miraLAX PACKET) 17 gm PRN DAILY PRN PO CONSTIPATION Last administered on 11/30/16 08:12; Start 11/27/16 at 09:00 Albuterol Sulfate (Ventolin Neb Soln) 2.5 mg PRN Q2HRS PRN NEB SHORTNESS OF BREATH; Start 11/26/16 at 19:30 Albuterol Sulfate (Ventolin Neb Soln) 2.5 mg QID NEB Last administered on 12:26; Start 11/26/16 at 21:00; Stop 11/27/16 at 15:21; Status DC Budesonide (Pulmicort) 0.5 mg BID NEB Last administered on 11/30/16 07:41; Start 11/26/16 at 21:00 Ceftriaxone Sodium 1 gm/ Sodium Chloride 50 ml @ 100 mls/hr Q24H IV ; Start at 10:15; Status UNV Methylprednisolone Acetate (DEPO-Medrol 40MG VIAL) 40 mg 1X ONCE IM Last administered on 11/27/16 10:30; Start 11/27/16 at 10:30; Stop 11/27/16 at 10:31 ; Status DC Bupivacaine HCl (Sensorcaine-Mpf 0.25%) 10 ml 1X ONCE IJ Last administered on 11/27/16 10:30; Start 11/27/16 at 10:30; Stop 11/27/16 at 10:31; Status DC Levofloxacin/ Dextrose 100 ml @ 100 mls/hr 1X ONCE IV Last administered on 11:04; Start 11/27/16 at 10:30; Stop 11/27/16 at 11:29; Status DC Levofloxacin (Levaquin) 250 mg DAILY06 PO Last administered on 11/30/16 06:33 ; Start 11/28/16 at 08:00 Metolazone (Zaroxolyn) 2.5 mg DAILY PO Last administered on 11/30/16 08:11; Start 11/27/16 at 12:30 Albuterol Sulfate (Ventolin Neb Soln) 2.5 mg BID NEB Last administered on 07:41; Start 11/27/16 at 21:00 Active Scripts Active Percocet 5-325 Mg Tablet (Oxycodone/Acetaminophen) 1 Each Tablet 1 Tab PO QID Furosemide 40 Mg Tablet 40 Mg PO DAILY Reported Lisinopril 5 Mg Tablet 1 Tab PO DAILY Albuterol Sulfate Neb Soln (Albuterol Sulfate) 0.63 Mg/3 Ml Vial.neb 0.5 Mg NEB Q2HR PRN Polyethylene Glycol (Polyethylene Glycol 8000) 500 Gm Powder 500 Gm MC DAILY PRN Advair 250-50 Diskus (Fluticasone/Salmeterol) 1 Each Disk.w.dev 1 Inh IH BID Metoprolol Tartrate 25 Mg Tablet 12.5 Mg PO BID Aspir 81 (Aspirin) 81 Mg Tablet.dr 81 Mg PO DAILY Nitrostat (Nitroglycerin) 0.3 Mg Tab.subl 0.3 Mg SL PRN Q5MIN PRN Flonase (Fluticasone Propionate) 16 Gm [place].susp 16 Gm NS DAILY Zyrtec (Cetirizine Hcl) 10 Mg Capsule 10 Mg PO DAILY Atorvastatin Calcium 10 Mg Tablet 20 Mg PO DAILY Vitals/I & O Vital Sign - Last 24 Hours 11/29/16 11/29/16 11/29/16 11/29/16 11:00 11:00 12:51 15:00 Temp 97.7 97.7 Pulse 64 61 Resp 20 B/P (MAP) 103/24 (50) 104/24 (50) 98/32 (54) Pulse Ox 97 O2 Delivery Room Air Room Air 11/29/16 11/29/16 11/29/16 11/29/16 15:00 17:21 19:00 19:59 Temp 97.9 97.9 97.9 97.9 Pulse 65 61 Resp 18 18 B/P (MAP) 90/34 (52) 81/35 (50) Pulse Ox 94 91 95 O2 Delivery Room Air Room Air Room Air Room Air 11/29/16 11/29/16 11/29/16 11/29/16 20:00 20:50 22:22 23:00 Temp 97.7 97.7 Pulse 63 Resp 20 18 18 B/P (MAP) 94/31 (52) Pulse Ox 95 95 91 O2 Delivery Room Air Room Air Room Air O2 Flow Rate 2.0 2.0 11/30/16 11/30/16 11/30/16 11/30/16 02:59 07:00 07:43 07:50 Temp 97.9 98.2 97.9 98.2 Pulse 60 98 Resp 18 18 B/P (MAP) 89/30 (49) 90/44 (59) Pulse Ox 92 94 96 96 O2 Delivery Room Air Room Air Room Air Room Air 11/30/16 11/30/16 08:11 09:11 O2 Delivery Room Air Room Air Intake and Output 11/29/16 11/29/16 11/30/16 15:00 23:00 07:00 Intake Total 240 ml 1100 ml 0 ml Output Total 3 ml 0 ml Balance 240 ml 1097 ml 0 ml MARU PARADA MD Nov 30, 2016 09:48
--- NOTE | 2016-11-30 11:17 | PDOC ---
PROGRESS NOTES Chief Complaint Chief Complaint acute vasomotor nephropathy on CKD, ? 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, chronic leg pain and foot pain and knee pain, OA, poor mobility morbid obesity, BMI 61, w/ concurrent mild malnutrition, hypoalbumin UTI CKD 3 orthostasis History of Present Illness History of Present Illness hold lasix, consult renal BP low now, give small amt iv fluid check orthostatics she feels her breathing is better, but she has terrible exertional tolerance, now new weakness, she is concerned about low BP, does not seem motivated for DC, and she does not want SNU or home health still feels weak, lethargic PT and OT she again does not feel well enough to do home Vitals Vitals Vital Signs Date Time Temp Pulse Resp B/P (MAP) Pulse Ox O2 Delivery O2 Flow Rate FiO2 11/30/16 10:55 73 151/49 (83) 11/30/16 10:45 97.6 16 96 Room Air 97.6 11/29/16 22:22 2.0 Physical Exam General: Alert, Oriented X3, Cooperative, No acute distress Heart: Regular rate (V paced), Normal S1, Normal S2, Other (3/6 systolic murmur to LLS border) Lungs: Other Abdomen: Soft, No tenderness Extremities: No cyanosis, Other (2+ bilateral LE pitting edema) Skin: No breakdown, No significant lesion Labs LABS Laboratory Tests Test 11/30/16 07:00 Sodium Level 134 mmol/L (136-145) Potassium Level 5.7 mmol/L (3.5-5.1) Chloride Level 98 mmol/L (98-107) Carbon Dioxide Level 26 mmol/L (21-32) Anion Gap 10 (6-14) Blood Urea Nitrogen 85 mg/dL (7-20) Creatinine 3.1 mg/dL (0.6-1.0) Estimated GFR (Cockcroft-Gault) 14.2 Glucose Level 95 mg/dL (70-99) Calcium Level 8.5 mg/dL (8.5-10.1) Review of Systems Review of Systems weakness lethargy dyspnea with min exertion Assessment and Plan Assessmemt and Plan Problems Medical Problems: (1) CHF (congestive heart failure) Status: Acute Problems: Comment Review of Relevant I have reviewed the following items aaliyah (where applicable) has been applied. Labs Laboratory Tests Test 11/30/16 07:00 Sodium Level 134 mmol/L (136-145) Potassium Level 5.7 mmol/L (3.5-5.1) Chloride Level 98 mmol/L (98-107) Carbon Dioxide Level 26 mmol/L (21-32) Anion Gap 10 (6-14) Blood Urea Nitrogen 85 mg/dL (7-20) Creatinine 3.1 mg/dL (0.6-1.0) Estimated GFR (Cockcroft-Gault) 14.2 Glucose Level 95 mg/dL (70-99) Calcium Level 8.5 mg/dL (8.5-10.1) Laboratory Tests Test 11/30/16 07:00 Sodium Level 134 mmol/L (136-145) Potassium Level 5.7 mmol/L (3.5-5.1) Chloride Level 98 mmol/L (98-107) Carbon Dioxide Level 26 mmol/L (21-32) Anion Gap 10 (6-14) Blood Urea Nitrogen 85 mg/dL (7-20) Creatinine 3.1 mg/dL (0.6-1.0) Estimated GFR (Cockcroft-Gault) 14.2 Glucose Level 95 mg/dL (70-99) Calcium Level 8.5 mg/dL (8.5-10.1) Microbiology 11/26/16 Urine Culture - Final, Complete 11/26/16 Urine Culture Result 1 (KAELA) - Final, Complete Medications Current Medications Furosemide (Lasix) 60 mg 1X ONCE IVP Last administered on 11/26/16t 13:50; Start 11/26/16 at 13:15; Stop 11/26/16 at 13:16; Status DC Ondansetron HCl (Zofran) 4 mg PRN Q8HRS PRN IV NAUSEA/VOMITING; Start 11/26/16 at 14:00; Stop 11/27/16 at 13:59; Status DC Acetaminophen (Tylenol) 650 mg PRN Q4HRS PRN PO FEVER; Start 11/26/16 at 14:00 ; Stop 11/27/16 at 13:59; Status DC Nitroglycerin (Nitrostat) 0.4 mg PRN Q5MIN PRN SL CHEST PAIN; Start 11/26/16 at 14:00; Stop 11/27/16 at 13:59; Status DC Lisinopril (Prinivil) 5 mg 1X ONCE PO Last administered on 11/26/16 17:57; Start 11/26/16 at 14:00; Stop 11/26/16 at 14:10; Status DC Hydralazine HCl (Apresoline) 10 mg PRN Q6HRS PRN IVP HYPERTENSION, SEE COMMENTS ; Start 11/26/16 at 14:00 Aspirin (Ecotrin) 81 mg DAILYWBKFT PO Last administered on 11/30/16 08:11; Start 11/27/16 at 08:00 Atorvastatin Calcium (Lipitor) 20 mg QHS PO Last administered on 11/29/16 20: 43; Start 11/26/16 at 21:00 Fluticasone Propionate (Flonase) 1 spray DAILY NS Last administered on 08:11; Start 11/27/16 at 09:00 Furosemide (Lasix) 40 mg DAILY PO Last administered on 11/29/16 09:04; Start 11/27/16 at 09:00 Lisinopril (Prinivil) 5 mg DAILY PO Last administered on 11/29/16 09:04; Start 11/27/16 at 09:00 Metoprolol Tartrate (Lopressor) 12.5 mg BID PO Last administered on 11/29/16 09:05; Start 11/26/16 at 21:00 Oxycodone/ Acetaminophen (Percocet 5/325) 1 tab QID PO Last administered on 08:11; Start 11/26/16 at 21:00 Non-Formulary Medication 0.5 mg Q2HR PRN NEB SHORTNESS OF BREATH; Start at 19:00; Stop 11/26/16 at 19:23; Status DC Cetirizine HCl (ZyrTEC) 10 mg DAILY PO Last administered on 11/30/16 08:11; Start 11/27/16 at 09:00 Non-Formulary Medication 1 inh BID IH ; Start 11/26/16 at 21:00; Stop 11/26/16 at 21:00; Status DC Nitroglycerin (Nitrostat) 0.4 mg PRN Q5MIN PRN SL CHEST PAIN; Start 11/26/16 at 19:30 Polyethylene Glycol (miraLAX PACKET) 17 gm PRN DAILY PRN PO CONSTIPATION Last administered on 11/30/16 08:12; Start 11/27/16 at 09:00 Albuterol Sulfate (Ventolin Neb Soln) 2.5 mg PRN Q2HRS PRN NEB SHORTNESS OF BREATH; Start 11/26/16 at 19:30 Albuterol Sulfate (Ventolin Neb Soln) 2.5 mg QID NEB Last administered on 12:26; Start 11/26/16 at 21:00; Stop 11/27/16 at 15:21; Status DC Budesonide (Pulmicort) 0.5 mg BID NEB Last administered on 11/30/16 07:41; Start 11/26/16 at 21:00 Ceftriaxone Sodium 1 gm/ Sodium Chloride 50 ml @ 100 mls/hr Q24H IV ; Start at 10:15; Status UNV Methylprednisolone Acetate (DEPO-Medrol 40MG VIAL) 40 mg 1X ONCE IM Last administered on 11/27/16 10:30; Start 11/27/16 at 10:30; Stop 11/27/16 at 10:31 ; Status DC Bupivacaine HCl (Sensorcaine-Mpf 0.25%) 10 ml 1X ONCE IJ Last administered on 11/27/16 10:30; Start 11/27/16 at 10:30; Stop 11/27/16 at 10:31; Status DC Levofloxacin/ Dextrose 100 ml @ 100 mls/hr 1X ONCE IV Last administered on 11:04; Start 11/27/16 at 10:30; Stop 11/27/16 at 11:29; Status DC Levofloxacin (Levaquin) 250 mg DAILY06 PO Last administered on 11/30/16 06:33 ; Start 11/28/16 at 08:00 Metolazone (Zaroxolyn) 2.5 mg DAILY PO Last administered on 11/30/16 08:11; Start 11/27/16 at 12:30 Albuterol Sulfate (Ventolin Neb Soln) 2.5 mg BID NEB Last administered on 07:41; Start 11/27/16 at 21:00 Active Scripts Active Percocet 5-325 Mg Tablet (Oxycodone/Acetaminophen) 1 Each Tablet 1 Tab PO QID Furosemide 40 Mg Tablet 40 Mg PO DAILY Reported Lisinopril 5 Mg Tablet 1 Tab PO DAILY Albuterol Sulfate Neb Soln (Albuterol Sulfate) 0.63 Mg/3 Ml Vial.neb 0.5 Mg NEB Q2HR PRN Polyethylene Glycol (Polyethylene Glycol 8000) 500 Gm Powder 500 Gm MC DAILY PRN Advair 250-50 Diskus (Fluticasone/Salmeterol) 1 Each Disk.w.dev 1 Inh IH BID Metoprolol Tartrate 25 Mg Tablet 12.5 Mg PO BID Aspir 81 (Aspirin) 81 Mg Tablet.dr 81 Mg PO DAILY Nitrostat (Nitroglycerin) 0.3 Mg Tab.subl 0.3 Mg SL PRN Q5MIN PRN Flonase (Fluticasone Propionate) 16 Gm [place].susp 16 Gm NS DAILY Zyrtec (Cetirizine Hcl) 10 Mg Capsule 10 Mg PO DAILY Atorvastatin Calcium 10 Mg Tablet 20 Mg PO DAILY Vitals/I & O Vital Sign - Last 24 Hours 11/29/16 11/29/16 11/29/16 11/29/16 12:51 15:00 15:00 17:21 Temp 97.9 97.9 Pulse 61 65 Resp 18 B/P (MAP) 98/32 (54) 90/34 (52) Pulse Ox 94 O2 Delivery Room Air Room Air Room Air 11/29/16 11/29/16 11/29/16 11/29/16 19:00 19:59 20:00 20:50 Temp 97.9 97.9 Pulse 61 Resp 18 20 B/P (MAP) 81/35 (50) Pulse Ox 91 95 95 O2 Delivery Room Air Room Air Room Air Room Air O2 Flow Rate 2.0 11/29/16 11/29/16 11/30/16 11/30/16 22:22 23:00 02:59 07:00 Temp 97.7 97.9 98.2 97.7 97.9 98.2 Pulse 63 60 98 Resp 18 18 18 18 B/P (MAP) 94/31 (52) 89/30 (49) 90/44 (59) Pulse Ox 95 91 92 94 O2 Delivery Room Air Room Air Room Air O2 Flow Rate 2.0 7/27/17 7/27/17 7/27/17 7/27/17 07:43 07:50 08:00 08:11 Pulse Ox 96 96 O2 Delivery Room Air Room Air Room Air Room Air 11/30/16 11/30/16 11/30/16 11/30/16 09:11 10:45 10:50 10:55 Temp 97.6 97.6 Pulse 63 61 73 Resp 16 B/P (MAP) 85/32 (49) 67/38 (48) 151/49 (83) Pulse Ox 96 O2 Delivery Room Air Room Air Intake and Output 11/29/16 11/29/16 11/30/16 15:00 23:00 07:00 Intake Total 240 ml 1100 ml 0 ml Output Total 3 ml 0 ml Balance 240 ml 1097 ml 0 ml JIMENA JOHNS MD Nov 30, 2016 11:17
[2016-11-30] MEDS ORDERED: IV NORMAL SALINE 1000ML BAG 1,000 ML IV ONE (15:00)
[2016-11-30] MEDS: ATORVASTATIN CALCIUM 10 MG TABLET. PO SCH (21:31)
[2016-12-01 03:00] VITALS: BP 78/34
[2016-12-01 05:19] LABS: BASO # 0.1 x10^3/uL (0.0-0.2); BASO % 1 % (0-3); EOS % 3 % (0-3); HEMATOCRIT 31.9 % (36.0-47.0); HEMOGLOBIN 10.8 g/dL (12.0-15.5); LYMPH # 1.7 x10^3/uL (1.0-4.8); LYMPH % 18 % (24-48); MEAN CORPUSCULAR HEMOGLOBIN 29 pg (25-35); MEAN CORPUSCULAR HGB CONC 34 g/dL (31-37); MEAN CORPUSCULAR VOLUME 86 fL (79-100); MONO % 9 % (0-9); NEUT % 70 % (31-73); PLATELET COUNT 235 x10^3/uL (140-400); RED BLOOD COUNT 3.72 x10^6/uL (3.50-5.40); RED CELL DISTRIBUTION WIDTH 14.6 % (11.5-14.5); WHITE BLOOD COUNT 9.6 x10^3/uL (4.0-11.0)
[2016-12-01 05:39] LABS: CALCIUM 7.6 mg/dL (8.5-10.1); CREATININE 4.3 mg/dL (0.6-1.0); GFR 9.8; MAGNESIUM 2.8 mg/dL (1.8-2.4)
[2016-12-01 05:43] LABS: POTASSIUM 6.2 mmol/L (3.5-5.1)
[2016-12-01 07:00] VITALS: BP_SYST 76; BP_SYST 84; BP_DIAS 27; BP_DIAS 29
[2016-12-01] MEDS: IV NORMAL SALINE 1000ML BAG 1,000 ML IV SCH ×2 (07:25→19:19)
[2016-12-01] MEDS ORDERED: SODIUM POLYSTYRENE SULFONATE 15 GM/60 ML ORAL.SUSP. PO ONE (07:30)
[2016-12-01] MEDS: BUDESONIDE 0.5 MG/2 ML NEBU. NEB SCH ×2 (07:36→19:33)
[2016-12-01] MEDS: ALBUTEROL SULFATE 2.5 MG/3 ML NEBU. NEB SCH ×2 (07:36→19:33)
[2016-12-01] MEDS: LISINOPRIL 5 MG TABLET. PO SCH (08:06)
[2016-12-01] MEDS: METOPROLOL TART IMMED RELEASE 25 MG TABLET. PO SCH ×2 (08:06→20:36)
[2016-12-01] MEDS: oxyCODONE/APAP 5/325 1 TAB TABLET PO SCH ×4 (08:20→20:42)
[2016-12-01] MEDS: CETIRIZINE HCL 10 MG TABLET. PO SCH (08:20)
[2016-12-01] MEDS: FLUTICASONE 50MCG/NASAL SPRAY 16GM BOTTLE. NS SCH (08:20)
[2016-12-01] MEDS: ASPIRIN ENTERIC COATED 81 MG TABLET.DR. PO SCH (08:21)
--- NOTE | 2016-12-01 09:40 | PDOC ---
PROGRESS NOTES Subjective Subjective She c/o numbness in both hands and also admits pain in her neck. Objective Objective Vital Signs Date Time Temp Pulse Resp B/P (MAP) Pulse Ox O2 Delivery O2 Flow Rate FiO2 12/01/16 09:27 94 Room Air 2.0 12/01/16 08:06 67 84/39 12/01/16 07:00 98.1 20 98.1 Intake and Output 12/01/16 07:00 Intake Total 360 ml Balance 360 ml Intake Oral 360 ml # Voids 8 Physical Exam Physical Exam She had positive Tinel's sign over right median nerve at wrist and positive Phalen's sign at both wrists. Assessment Assessment Problems Medical Problems: (1) CHF (congestive heart failure) Status: Acute Bilateral carpal tunel syndrome. Plan Plan of Care To obtain x-rays of cervical spine and to try her with cock up wrist splints for use at night. Comment Review of Relevant I have reviewed the following items aaliyah (where applicable) has been applied. Labs Laboratory Tests Test 11/30/16 07:00 12/01/16 04:55 Sodium Level 134 mmol/L (136-145) 132 mmol/L (136-145) Potassium Level 5.7 mmol/L (3.5-5.1) 6.2 mmol/L (3.5-5.1) Chloride Level 98 mmol/L (98-107) 98 mmol/L (98-107) Carbon Dioxide Level 26 mmol/L (21-32) 25 mmol/L (21-32) Anion Gap 10 (6-14) 9 (6-14) Blood Urea Nitrogen 85 mg/dL (7-20) 108 mg/dL (7-20) Creatinine 3.1 mg/dL (0.6-1.0) 4.3 mg/dL (0.6-1.0) Estimated GFR (Cockcroft-Gault) 14.2 9.8 Glucose Level 95 mg/dL (70-99) 101 mg/dL (70-99) Calcium Level 8.5 mg/dL (8.5-10.1) 7.6 mg/dL (8.5-10.1) White Blood Count 9.6 x10^3/uL (4.0-11.0) Red Blood Count 3.72 x10^6/uL (3.50-5.40) Hemoglobin 10.8 g/dL (12.0-15.5) Hematocrit 31.9 % (36.0-47.0) Mean Corpuscular Volume 86 fL (79-100) Mean Corpuscular Hemoglobin 29 pg (25-35) Mean Corpuscular Hemoglobin Concent 34 g/dL (31-37) Red Cell Distribution Width 14.6 % (11.5-14.5) Platelet Count 235 x10^3/uL (140-400) Neutrophils (%) (Auto) 70 % (31-73) Lymphocytes (%) (Auto) 18 % (24-48) Monocytes (%) (Auto) 9 % (0-9) Eosinophils (%) (Auto) 3 % (0-3) Basophils (%) (Auto) 1 % (0-3) Neutrophils # (Auto) 6.7 x10^3uL (1.8-7.7) Lymphocytes # (Auto) 1.7 x10^3/uL (1.0-4.8) Monocytes # (Auto) 0.8 x10^3/uL (0.0-1.1) Eosinophils # (Auto) 0.3 x10^3/uL (0.0-0.7) Basophils # (Auto) 0.1 x10^3/uL (0.0-0.2) Phosphorus Level 7.8 mg/dL (2.6-4.7) Magnesium Level 2.8 mg/dL (1.8-2.4) Laboratory Tests Test 12/01/16 04:55 White Blood Count 9.6 x10^3/uL (4.0-11.0) Red Blood Count 3.72 x10^6/uL (3.50-5.40) Hemoglobin 10.8 g/dL (12.0-15.5) Hematocrit 31.9 % (36.0-47.0) Mean Corpuscular Volume 86 fL (79-100) Mean Corpuscular Hemoglobin 29 pg (25-35) Mean Corpuscular Hemoglobin Concent 34 g/dL (31-37) Red Cell Distribution Width 14.6 % (11.5-14.5) Platelet Count 235 x10^3/uL (140-400) Neutrophils (%) (Auto) 70 % (31-73) Lymphocytes (%) (Auto) 18 % (24-48) Monocytes (%) (Auto) 9 % (0-9) Eosinophils (%) (Auto) 3 % (0-3) Basophils (%) (Auto) 1 % (0-3) Neutrophils # (Auto) 6.7 x10^3uL (1.8-7.7) Lymphocytes # (Auto) 1.7 x10^3/uL (1.0-4.8) Monocytes # (Auto) 0.8 x10^3/uL (0.0-1.1) Eosinophils # (Auto) 0.3 x10^3/uL (0.0-0.7) Basophils # (Auto) 0.1 x10^3/uL (0.0-0.2) Sodium Level 132 mmol/L (136-145) Potassium Level 6.2 mmol/L (3.5-5.1) Chloride Level 98 mmol/L (98-107) Carbon Dioxide Level 25 mmol/L (21-32) Anion Gap 9 (6-14) Blood Urea Nitrogen 108 mg/dL (7-20) Creatinine 4.3 mg/dL (0.6-1.0) Estimated GFR (Cockcroft-Gault) 9.8 Glucose Level 101 mg/dL (70-99) Calcium Level 7.6 mg/dL (8.5-10.1) Phosphorus Level 7.8 mg/dL (2.6-4.7) Magnesium Level 2.8 mg/dL (1.8-2.4) Microbiology 11/26/16 Urine Culture - Final, Complete 11/26/16 Urine Culture Result 1 (KAELA) - Final, Complete Medications Current Medications Furosemide (Lasix) 60 mg 1X ONCE IVP Last administered on 11/26/16t 13:50; Start 11/26/16 at 13:15; Stop 11/26/16 at 13:16; Status DC Ondansetron HCl (Zofran) 4 mg PRN Q8HRS PRN IV NAUSEA/VOMITING; Start 11/26/16 at 14:00; Stop 11/27/16 at 13:59; Status DC Acetaminophen (Tylenol) 650 mg PRN Q4HRS PRN PO FEVER; Start 11/26/16 at 14:00 ; Stop 11/27/16 at 13:59; Status DC Nitroglycerin (Nitrostat) 0.4 mg PRN Q5MIN PRN SL CHEST PAIN; Start 11/26/16 at 14:00; Stop 11/27/16 at 13:59; Status DC Lisinopril (Prinivil) 5 mg 1X ONCE PO Last administered on 11/26/16 17:57; Start 11/26/16 at 14:00; Stop 11/26/16 at 14:10; Status DC Hydralazine HCl (Apresoline) 10 mg PRN Q6HRS PRN IVP HYPERTENSION, SEE COMMENTS ; Start 11/26/16 at 14:00 Aspirin (Ecotrin) 81 mg DAILYWBKFT PO Last administered on 12/01/16 08:21; Start 11/27/16 at 08:00 Atorvastatin Calcium (Lipitor) 20 mg QHS PO Last administered on 11/30/16 21: 31; Start 11/26/16 at 21:00 Fluticasone Propionate (Flonase) 1 spray DAILY NS Last administered on 08:20; Start 11/27/16 at 09:00 Furosemide (Lasix) 40 mg DAILY PO Last administered on 11/29/16 09:04; Start 11/27/16 at 09:00; Stop 11/30/16 at 14:24; Status DC Lisinopril (Prinivil) 5 mg DAILY PO Last administered on 11/29/16 09:04; Start 11/27/16 at 09:00 Metoprolol Tartrate (Lopressor) 12.5 mg BID PO Last administered on 11/29/16 09:05; Start 11/26/16 at 21:00 Oxycodone/ Acetaminophen (Percocet 5/325) 1 tab QID PO Last administered on 08:20; Start 11/26/16 at 21:00 Non-Formulary Medication 0.5 mg Q2HR PRN NEB SHORTNESS OF BREATH; Start at 19:00; Stop 11/26/16 at 19:23; Status DC Cetirizine HCl (ZyrTEC) 10 mg DAILY PO Last administered on 12/01/16 08:20; Start 11/27/16 at 09:00 Non-Formulary Medication 1 inh BID IH ; Start 11/26/16 at 21:00; Stop 11/26/16 at 21:00; Status DC Nitroglycerin (Nitrostat) 0.4 mg PRN Q5MIN PRN SL CHEST PAIN; Start 11/26/16 at 19:30 Polyethylene Glycol (miraLAX PACKET) 17 gm PRN DAILY PRN PO CONSTIPATION Last administered on 11/30/16 08:12; Start 11/27/16 at 09:00 Albuterol Sulfate (Ventolin Neb Soln) 2.5 mg PRN Q2HRS PRN NEB SHORTNESS OF BREATH; Start 11/26/16 at 19:30 Albuterol Sulfate (Ventolin Neb Soln) 2.5 mg QID NEB Last administered on 12:26; Start 11/26/16 at 21:00; Stop 11/27/16 at 15:21; Status DC Budesonide (Pulmicort) 0.5 mg BID NEB Last administered on 12/01/16 07:36; Start 11/26/16 at 21:00 Ceftriaxone Sodium 1 gm/ Sodium Chloride 50 ml @ 100 mls/hr Q24H IV ; Start at 10:15; Status UNV Methylprednisolone Acetate (DEPO-Medrol 40MG VIAL) 40 mg 1X ONCE IM Last administered on 11/27/16 10:30; Start 11/27/16 at 10:30; Stop 11/27/16 at 10:31 ; Status DC Bupivacaine HCl (Sensorcaine-Mpf 0.25%) 10 ml 1X ONCE IJ Last administered on 11/27/16 10:30; Start 11/27/16 at 10:30; Stop 11/27/16 at 10:31; Status DC Levofloxacin/ Dextrose 100 ml @ 100 mls/hr 1X ONCE IV Last administered on 11:04; Start 11/27/16 at 10:30; Stop 11/27/16 at 11:29; Status DC Levofloxacin (Levaquin) 250 mg DAILY06 PO Last administered on 12/01/16 06:05 ; Start 11/28/16 at 08:00 Metolazone (Zaroxolyn) 2.5 mg DAILY PO Last administered on 11/30/16 08:11; Start 11/27/16 at 12:30; Stop 11/30/16 at 14:24; Status DC Albuterol Sulfate (Ventolin Neb Soln) 2.5 mg BID NEB Last administered on 07:36; Start 11/27/16 at 21:00 Sodium Chloride 1,000 ml @ 60 mls/hr 1X ONCE IV Last administered on 15:03; Start 11/30/16 at 15:00; Stop 12/01/16 at 07:39; Status DC Sodium Polystyrene Sulfonate (Kayexalate) 30 gm 1X ONCE PO Last administered on 12/01/16 07:47; Start 12/01/16 at 07:30; Stop 12/01/16 at 07:31; Status DC Sodium Chloride 1,000 ml @ 75 mls/hr [id number] IV Last administered on 07:25; Start 12/01/16 at 07:15 Active Scripts Active Percocet 5-325 Mg Tablet (Oxycodone/Acetaminophen) 1 Each Tablet 1 Tab PO QID Furosemide 40 Mg Tablet 40 Mg PO DAILY Reported Lisinopril 5 Mg Tablet 1 Tab PO DAILY Albuterol Sulfate Neb Soln (Albuterol Sulfate) 0.63 Mg/3 Ml Vial.neb 0.5 Mg NEB Q2HR PRN Polyethylene Glycol (Polyethylene Glycol 8000) 500 Gm Powder 500 Gm MC DAILY PRN Advair 250-50 Diskus (Fluticasone/Salmeterol) 1 Each Disk.w.dev 1 Inh IH BID Metoprolol Tartrate 25 Mg Tablet 12.5 Mg PO BID Aspir 81 (Aspirin) 81 Mg Tablet.dr 81 Mg PO DAILY Nitrostat (Nitroglycerin) 0.3 Mg Tab.subl 0.3 Mg SL PRN Q5MIN PRN Flonase (Fluticasone Propionate) 16 Gm [place].susp 16 Gm NS DAILY Zyrtec (Cetirizine Hcl) 10 Mg Capsule 10 Mg PO DAILY Atorvastatin Calcium 10 Mg Tablet 20 Mg PO DAILY Vitals/I & O Vital Sign - Last 24 Hours 11/30/16 11/30/16 11/30/16 11/30/16 10:45 10:50 10:55 11:58 Temp 97.6 97.6 Pulse 63 61 73 Resp 16 B/P (MAP) 85/32 (49) 67/38 (48) 151/49 (83) Pulse Ox 96 O2 Delivery Room Air Room Air 11/30/16 11/30/16 11/30/16 11/30/16 15:09 17:16 19:00 19:35 Temp 97.9 98.4 97.9 98.4 Pulse 64 61 Resp 17 17 B/P (MAP) 90/35 (53) 73/27 (42) Pulse Ox 98 94 O2 Delivery Room Air Room Air Room Air Room Air 11/30/16 11/30/16 11/30/16 11/30/16 20:16 20:17 21:00 21:34 Pulse 64 Resp 18 B/P (MAP) 73/27 Pulse Ox 98 98 98 O2 Delivery Room Air Room Air Room Air O2 Flow Rate 2.0 11/30/16 11/30/16 12/01/16 12/01/16 22:42 23:00 03:00 07:00 Temp 98.4 98.4 98.4 98.4 Pulse 63 63 Resp 18 20 20 B/P (MAP) 104/36 (58) 78/34 (49) 76/27 (43) Pulse Ox 91 92 O2 Delivery Room Air Room Air 12/01/16 12/01/16 12/01/16 12/01/16 07:00 07:36 08:00 08:06 Temp 98.1 98.1 Pulse 69 67 Resp 20 B/P (MAP) 84/29 (47) 84/39 Pulse Ox 95 94 O2 Delivery Room Air Room Air Room Air O2 Flow Rate 2.0 12/01/16 12/01/16 12/01/16 08:06 08:20 09:27 Pulse 67 B/P (MAP) 84/39 Pulse Ox 94 94 O2 Delivery Room Air Room Air O2 Flow Rate 2.0 2.0 Intake and Output 11/30/16 11/30/16 12/01/16 15:00 23:00 07:00 Intake Total 360 ml 0 ml Balance 360 ml 0 ml MARU PARADA MD Dec 01, 2016 09:40
--- NOTE | 2016-12-01 09:54 | PDOC2 ---
CONSULT Date of Consult Date of Consult DATE: 12/01/16 TIME: 09:47 Reason for Consult Reason for Consult: HAFSA Referring Physician Referring Physician: ALEXIS Identification/Chief Complaint Chief Complaint SOB Problems: Source Source: Chart review, Patient History of Present Illness Reason for Visit: THIS IS AN 86 YR OLD ADMITTED WITH SOB. SHE IS NOTED TO HAVE MILD DIASTOLIC CHF ON ADMIT AND SHE HAS BEEN WELL DIURESED. HER CR WAS ABOUT 1.6 ON ADMIT BUT NOW OVER THE LAST SEVERAL DAYS HAS CONTINUED TO INCREASE TO NOW IT IS 4.3. SHE HAS CKD STAGE 3 WITH A BASELINE CR IN THE RANGE OF 1.5-1.8. NO HX OF ANY KIDNEY OR BLADDER SURGERIES HEMATURIA DYSURIA OR FREQUENCY NOTED Past Medical History Cardiovascular: CAD, CHF, HTN, Hyperlipidemia, Other Pulmonary: Asthma, COPD, Other CENTRAL NERVOUS SYSTEM: CVA GI: No pertinent hx Heme/Onc: No pertinent hx Hepatobiliary: No pertinent hx Psych: No pertinent hx Rheumatologic: Other Infectious disease: No pertinent hx Renal/: Chronic renal insuff Endocrine: No pertinent hx Past Surgical History Past Surgical History: Pacemaker, Appendectomy, Cholecystectomy, Hysterectomy, Other Family History Family History: No Significant, Hypertension Social History No ALCOHOL: none Drugs: None Lives: with Family Domestic Violence: Neg Current Problem List Problem List Problems Medical Problems: (1) CHF (congestive heart failure) Status: Acute Current Medications Current Medications Current Medications Furosemide (Lasix) 60 mg 1X ONCE IVP Last administered on 11/26/16 13:50; Start 11/26/16 at 13:15; Stop 11/26/16 at 13:16; Status DC Ondansetron HCl (Zofran) 4 mg PRN Q8HRS PRN IV NAUSEA/VOMITING; Start 11/26/16 at 14:00; Stop 11/27/16 at 13:59; Status DC Acetaminophen (Tylenol) 650 mg PRN Q4HRS PRN PO FEVER; Start 11/26/16 at 14:00 ; Stop 11/27/16 at 13:59; Status DC Nitroglycerin (Nitrostat) 0.4 mg PRN Q5MIN PRN SL CHEST PAIN; Start 11/26/16 at 14:00; Stop 11/27/16 at 13:59; Status DC Lisinopril (Prinivil) 5 mg 1X ONCE PO Last administered on 11/26/16 17:57; Start 11/26/16 at 14:00; Stop 11/26/16 at 14:10; Status DC Hydralazine HCl (Apresoline) 10 mg PRN Q6HRS PRN IVP HYPERTENSION, SEE COMMENTS ; Start 11/26/16 at 14:00 Aspirin (Ecotrin) 81 mg DAILYWBKFT PO Last administered on 12/01/16 08:21; Start 11/27/16 at 08:00 Atorvastatin Calcium (Lipitor) 20 mg QHS PO Last administered on 11/30/16 21: 31; Start 11/26/16 at 21:00 Fluticasone Propionate (Flonase) 1 spray DAILY NS Last administered on 08:20; Start 11/27/16 at 09:00 Furosemide (Lasix) 40 mg DAILY PO Last administered on 11/29/16 09:04; Start 11/27/16 at 09:00; Stop 11/30/16 at 14:24; Status DC Lisinopril (Prinivil) 5 mg DAILY PO Last administered on 11/29/16 09:04; Start 11/27/16 at 09:00 Metoprolol Tartrate (Lopressor) 12.5 mg BID PO Last administered on 11/29/16 09:05; Start 11/26/16 at 21:00 Oxycodone/ Acetaminophen (Percocet 5/325) 1 tab QID PO Last administered on 08:20; Start 11/26/16 at 21:00 Non-Formulary Medication 0.5 mg Q2HR PRN NEB SHORTNESS OF BREATH; Start at 19:00; Stop 11/26/16 at 19:23; Status DC Cetirizine HCl (ZyrTEC) 10 mg DAILY PO Last administered on 12/01/16 08:20; Start 11/27/16 at 09:00 Non-Formulary Medication 1 inh BID IH ; Start 11/26/16 at 21:00; Stop 11/26/16 at 21:00; Status DC Nitroglycerin (Nitrostat) 0.4 mg PRN Q5MIN PRN SL CHEST PAIN; Start 11/26/16 at 19:30 Polyethylene Glycol (miraLAX PACKET) 17 gm PRN DAILY PRN PO CONSTIPATION Last administered on 11/30/16 08:12; Start 11/27/16 at 09:00 Albuterol Sulfate (Ventolin Neb Soln) 2.5 mg PRN Q2HRS PRN NEB SHORTNESS OF BREATH; Start 11/26/16 at 19:30 Albuterol Sulfate (Ventolin Neb Soln) 2.5 mg QID NEB Last administered on 12:26; Start 11/26/16 at 21:00; Stop 11/27/16 at 15:21; Status DC Budesonide (Pulmicort) 0.5 mg BID NEB Last administered on 12/01/16 07:36; Start 11/26/16 at 21:00 Ceftriaxone Sodium 1 gm/ Sodium Chloride 50 ml @ 100 mls/hr Q24H IV ; Start at 10:15; Status UNV Methylprednisolone Acetate (DEPO-Medrol 40MG VIAL) 40 mg 1X ONCE IM Last administered on 11/27/16 10:30; Start 11/27/16 at 10:30; Stop 11/27/16 at 10:31 ; Status DC Bupivacaine HCl (Sensorcaine-Mpf 0.25%) 10 ml 1X ONCE IJ Last administered on 11/27/16 10:30; Start 11/27/16 at 10:30; Stop 11/27/16 at 10:31; Status DC Levofloxacin/ Dextrose 100 ml @ 100 mls/hr 1X ONCE IV Last administered on 11:04; Start 11/27/16 at 10:30; Stop 11/27/16 at 11:29; Status DC Levofloxacin (Levaquin) 250 mg DAILY06 PO Last administered on 12/01/16 06:05 ; Start 11/28/16 at 08:00 Metolazone (Zaroxolyn) 2.5 mg DAILY PO Last administered on 11/30/16 08:11; Start 11/27/16 at 12:30; Stop 11/30/16 at 14:24; Status DC Albuterol Sulfate (Ventolin Neb Soln) 2.5 mg BID NEB Last administered on 07:36; Start 11/27/16 at 21:00 Sodium Chloride 1,000 ml @ 60 mls/hr 1X ONCE IV Last administered on 15:03; Start 11/30/16 at 15:00; Stop 12/01/16 at 07:39; Status DC Sodium Polystyrene Sulfonate (Kayexalate) 30 gm 1X ONCE PO Last administered on 12/01/16 07:47; Start 12/01/16 at 07:30; Stop 12/01/16 at 07:31; Status DC Sodium Chloride 1,000 ml @ 75 mls/hr [id number] IV Last administered on 07:25; Start 12/01/16 at 07:15 Active Scripts Active Percocet 5-325 Mg Tablet (Oxycodone/Acetaminophen) 1 Each Tablet 1 Tab PO QID Furosemide 40 Mg Tablet 40 Mg PO DAILY Reported Lisinopril 5 Mg Tablet 1 Tab PO DAILY Albuterol Sulfate Neb Soln (Albuterol Sulfate) 0.63 Mg/3 Ml Vial.neb 0.5 Mg NEB Q2HR PRN Polyethylene Glycol (Polyethylene Glycol 8000) 500 Gm Powder 500 Gm MC DAILY PRN Advair 250-50 Diskus (Fluticasone/Salmeterol) 1 Each Disk.w.dev 1 Inh IH BID Metoprolol Tartrate 25 Mg Tablet 12.5 Mg PO BID Aspir 81 (Aspirin) 81 Mg Tablet.dr 81 Mg PO DAILY Nitrostat (Nitroglycerin) 0.3 Mg Tab.subl 0.3 Mg SL PRN Q5MIN PRN Flonase (Fluticasone Propionate) 16 Gm [place].susp 16 Gm NS DAILY Zyrtec (Cetirizine Hcl) 10 Mg Capsule 10 Mg PO DAILY Atorvastatin Calcium 10 Mg Tablet 20 Mg PO DAILY Allergies Allergies: Coded Allergies: Penicillins (Verified Allergy, Severe, Anaphylaxis, 09/08/15) causes airway to swell, pt states she was unable to breathe Sulfa (Sulfonamide Antibiotics) (Verified Allergy, Intermediate, 09/08/15) Pt states med caused a large area of her skin to swell and form a large darkened "lump" codeine (Verified Adverse Reaction, Intermediate, 09/08/15) Pt states med causes GI upset. ROS General: YES: Fatigue, Malaise PSYCHOLOGICAL ROS: YES: Anxiety Eyes: Yes Decreased vision HEENT: YES: Heacaches Respiratory: YES: Cough, Shortness of breath Cardiovascular: yes Paroxysmal Noc. Dyspnea Gastrointestinal: Yes Constipation Genitourinary: YES Incontinence Musculoskeletal: Yes Muscular Weakness Neurological: Yes Weakness Skin: Yes Dry Skin Physical Exam General: Alert, Oriented X3, Cooperative, No acute distress HEENT: Atraumatic, PERRLA Lungs: Clear to auscultation Heart: Regular rate, Normal S1, No murmurs Abdomen: Normal bowel sounds, No tenderness Extremities: No clubbing Neuro: Normal speech, Cranial nerves 3-12 NL Psych/Mental Status: Mental status NL, Mood NL MUSCULOSKELETAL: No joint tenderness, No deformity, No swelling Vitals VITALS Vital Signs Date Time Temp Pulse Resp B/P (MAP) Pulse Ox O2 Delivery O2 Flow Rate FiO2 12/01/16 09:27 94 Room Air 2.0 12/01/16 08:06 67 84/39 12/01/16 07:00 98.1 20 98.1 Labs Labs Laboratory Tests Test 11/30/16 07:00 12/01/16 04:55 Sodium Level 134 mmol/L (136-145) 132 mmol/L (136-145) Potassium Level 5.7 mmol/L (3.5-5.1) 6.2 mmol/L (3.5-5.1) Chloride Level 98 mmol/L (98-107) 98 mmol/L (98-107) Carbon Dioxide Level 26 mmol/L (21-32) 25 mmol/L (21-32) Anion Gap 10 (6-14) 9 (6-14) Blood Urea Nitrogen 85 mg/dL (7-20) 108 mg/dL (7-20) Creatinine 3.1 mg/dL (0.6-1.0) 4.3 mg/dL (0.6-1.0) Estimated GFR (Cockcroft-Gault) 14.2 9.8 Glucose Level 95 mg/dL (70-99) 101 mg/dL (70-99) Calcium Level 8.5 mg/dL (8.5-10.1) 7.6 mg/dL (8.5-10.1) White Blood Count 9.6 x10^3/uL (4.0-11.0) Red Blood Count 3.72 x10^6/uL (3.50-5.40) Hemoglobin 10.8 g/dL (12.0-15.5) Hematocrit 31.9 % (36.0-47.0) Mean Corpuscular Volume 86 fL (79-100) Mean Corpuscular Hemoglobin 29 pg (25-35) Mean Corpuscular Hemoglobin Concent 34 g/dL (31-37) Red Cell Distribution Width 14.6 % (11.5-14.5) Platelet Count 235 x10^3/uL (140-400) Neutrophils (%) (Auto) 70 % (31-73) Lymphocytes (%) (Auto) 18 % (24-48) Monocytes (%) (Auto) 9 % (0-9) Eosinophils (%) (Auto) 3 % (0-3) Basophils (%) (Auto) 1 % (0-3) Neutrophils # (Auto) 6.7 x10^3uL (1.8-7.7) Lymphocytes # (Auto) 1.7 x10^3/uL (1.0-4.8) Monocytes # (Auto) 0.8 x10^3/uL (0.0-1.1) Eosinophils # (Auto) 0.3 x10^3/uL (0.0-0.7) Basophils # (Auto) 0.1 x10^3/uL (0.0-0.2) Phosphorus Level 7.8 mg/dL (2.6-4.7) Magnesium Level 2.8 mg/dL (1.8-2.4) Laboratory Tests Test 12/01/16 04:55 White Blood Count 9.6 x10^3/uL (4.0-11.0) Red Blood Count 3.72 x10^6/uL (3.50-5.40) Hemoglobin 10.8 g/dL (12.0-15.5) Hematocrit 31.9 % (36.0-47.0) Mean Corpuscular Volume 86 fL (79-100) Mean Corpuscular Hemoglobin 29 pg (25-35) Mean Corpuscular Hemoglobin Concent 34 g/dL (31-37) Red Cell Distribution Width 14.6 % (11.5-14.5) Platelet Count 235 x10^3/uL (140-400) Neutrophils (%) (Auto) 70 % (31-73) Lymphocytes (%) (Auto) 18 % (24-48) Monocytes (%) (Auto) 9 % (0-9) Eosinophils (%) (Auto) 3 % (0-3) Basophils (%) (Auto) 1 % (0-3) Neutrophils # (Auto) 6.7 x10^3uL (1.8-7.7) Lymphocytes # (Auto) 1.7 x10^3/uL (1.0-4.8) Monocytes # (Auto) 0.8 x10^3/uL (0.0-1.1) Eosinophils # (Auto) 0.3 x10^3/uL (0.0-0.7) Basophils # (Auto) 0.1 x10^3/uL (0.0-0.2) Sodium Level 132 mmol/L (136-145) Potassium Level 6.2 mmol/L (3.5-5.1) Chloride Level 98 mmol/L (98-107) Carbon Dioxide Level 25 mmol/L (21-32) Anion Gap 9 (6-14) Blood Urea Nitrogen 108 mg/dL (7-20) Creatinine 4.3 mg/dL (0.6-1.0) Estimated GFR (Cockcroft-Gault) 9.8 Glucose Level 101 mg/dL (70-99) Calcium Level 7.6 mg/dL (8.5-10.1) Phosphorus Level 7.8 mg/dL (2.6-4.7) Magnesium Level 2.8 mg/dL (1.8-2.4) Assessment/Plan Assessment/Plan 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
[2016-12-01 11:00] VITALS: BP 104/30
--- NOTE | 2016-12-01 11:16 | RAD ---
Cervical spine 3 views 12/01/2016 Indication: Neck pain and hand numbness. Comparison: CT cervical spine January 13, 2016. Findings: There is reversal of the normal cervical lordosis to the level of C6-C7, and below is limited by overlying soft tissues. There is diffuse bony demineralization. No acute cervical spine fracture or subluxation. There is multilevel cervical disc degeneration most prominent to moderate degree at C5-C6 and C6-C7 and to a mild to moderate degree at C3-C4 and C4-C5 with disc space narrowing and marginal osteophyte formation. No significant prevertebral soft tissue thickening. There are calcifications at the level of the internal carotid arteries. Impression: 1. Reversal of the normal cervical lordosis to the C6-C7 level, below not visualized due to overlying soft tissues. 2. Multilevel cervical disc degeneration greatest to moderate degree at C5-C6 and C6-C7.
--- NOTE | 2016-12-01 11:43 | PDOC ---
PROGRESS NOTES Chief Complaint Chief Complaint CHF, acute on chronic systolic Acute vasomotor nephropathy on CKD, ? overdiuresis Hyperkalemia, on lasix and metalozone Pickwickian syndrome, Chronic leg pain and foot pain and knee pain, OA, poor mobility Morbid obesity, BMI 61, w/ concurrent mild malnutrition, hypoalbumin UTI CKD 3 Orthostasis History of Present Illness History of Present Illness Patient was up in chair but with purssed lip respirations K+ critically high. BRADY RN Reviewed other labs and chart States she lives at home with family. Refuses rehabilitation. Vitals Vitals Vital Signs Date Time Temp Pulse Resp B/P (MAP) Pulse Ox O2 Delivery O2 Flow Rate FiO2 12/01/16 09:27 94 Room Air 2.0 12/01/16 08:06 67 84/39 12/01/16 07:00 98.1 20 98.1 Physical Exam General: Alert, Oriented X3, Cooperative, No acute distress Heart: Regular rate, Normal S1, No murmurs Lungs: Other Abdomen: Normal bowel sounds, No tenderness Extremities: No clubbing, Other (2+ lower extremity edema) Skin: No breakdown, No significant lesion Labs LABS Laboratory Tests Test 12/01/16 04:55 White Blood Count 9.6 x10^3/uL (4.0-11.0) Red Blood Count 3.72 x10^6/uL (3.50-5.40) Hemoglobin 10.8 g/dL (12.0-15.5) Hematocrit 31.9 % (36.0-47.0) Mean Corpuscular Volume 86 fL (79-100) Mean Corpuscular Hemoglobin 29 pg (25-35) Mean Corpuscular Hemoglobin Concent 34 g/dL (31-37) Red Cell Distribution Width 14.6 % (11.5-14.5) Platelet Count 235 x10^3/uL (140-400) Neutrophils (%) (Auto) 70 % (31-73) Lymphocytes (%) (Auto) 18 % (24-48) Monocytes (%) (Auto) 9 % (0-9) Eosinophils (%) (Auto) 3 % (0-3) Basophils (%) (Auto) 1 % (0-3) Neutrophils # (Auto) 6.7 x10^3uL (1.8-7.7) Lymphocytes # (Auto) 1.7 x10^3/uL (1.0-4.8) Monocytes # (Auto) 0.8 x10^3/uL (0.0-1.1) Eosinophils # (Auto) 0.3 x10^3/uL (0.0-0.7) Basophils # (Auto) 0.1 x10^3/uL (0.0-0.2) Sodium Level 132 mmol/L (136-145) Potassium Level 6.2 mmol/L (3.5-5.1) Chloride Level 98 mmol/L (98-107) Carbon Dioxide Level 25 mmol/L (21-32) Anion Gap 9 (6-14) Blood Urea Nitrogen 108 mg/dL (7-20) Creatinine 4.3 mg/dL (0.6-1.0) Estimated GFR (Cockcroft-Gault) 9.8 Glucose Level 101 mg/dL (70-99) Calcium Level 7.6 mg/dL (8.5-10.1) Phosphorus Level 7.8 mg/dL (2.6-4.7) Magnesium Level 2.8 mg/dL (1.8-2.4) Review of Systems Review of Systems Complains of mild shortness of breath Complains of weakness Assessment and Plan Assessmemt and Plan Problems Medical Problems: (1) CHF (congestive heart failure) Status: Acute CHF, acute on chronic systolic Acute vasomotor nephropathy on CKD, ? 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 Labs Laboratory Tests Test 11/30/16 07:00 12/01/16 04:55 Sodium Level 134 mmol/L (136-145) 132 mmol/L (136-145) Potassium Level 5.7 mmol/L (3.5-5.1) 6.2 mmol/L (3.5-5.1) Chloride Level 98 mmol/L (98-107) 98 mmol/L (98-107) Carbon Dioxide Level 26 mmol/L (21-32) 25 mmol/L (21-32) Anion Gap 10 (6-14) 9 (6-14) Blood Urea Nitrogen 85 mg/dL (7-20) 108 mg/dL (7-20) Creatinine 3.1 mg/dL (0.6-1.0) 4.3 mg/dL (0.6-1.0) Estimated GFR (Cockcroft-Gault) 14.2 9.8 Glucose Level 95 mg/dL (70-99) 101 mg/dL (70-99) Calcium Level 8.5 mg/dL (8.5-10.1) 7.6 mg/dL (8.5-10.1) White Blood Count 9.6 x10^3/uL (4.0-11.0) Red Blood Count 3.72 x10^6/uL (3.50-5.40) Hemoglobin 10.8 g/dL (12.0-15.5) Hematocrit 31.9 % (36.0-47.0) Mean Corpuscular Volume 86 fL (79-100) Mean Corpuscular Hemoglobin 29 pg (25-35) Mean Corpuscular Hemoglobin Concent 34 g/dL (31-37) Red Cell Distribution Width 14.6 % (11.5-14.5) Platelet Count 235 x10^3/uL (140-400) Neutrophils (%) (Auto) 70 % (31-73) Lymphocytes (%) (Auto) 18 % (24-48) Monocytes (%) (Auto) 9 % (0-9) Eosinophils (%) (Auto) 3 % (0-3) Basophils (%) (Auto) 1 % (0-3) Neutrophils # (Auto) 6.7 x10^3uL (1.8-7.7) Lymphocytes # (Auto) 1.7 x10^3/uL (1.0-4.8) Monocytes # (Auto) 0.8 x10^3/uL (0.0-1.1) Eosinophils # (Auto) 0.3 x10^3/uL (0.0-0.7) Basophils # (Auto) 0.1 x10^3/uL (0.0-0.2) Phosphorus Level 7.8 mg/dL (2.6-4.7) Magnesium Level 2.8 mg/dL (1.8-2.4) Laboratory Tests Test 12/01/16 04:55 White Blood Count 9.6 x10^3/uL (4.0-11.0) Red Blood Count 3.72 x10^6/uL (3.50-5.40) Hemoglobin 10.8 g/dL (12.0-15.5) Hematocrit 31.9 % (36.0-47.0) Mean Corpuscular Volume 86 fL (79-100) Mean Corpuscular Hemoglobin 29 pg (25-35) Mean Corpuscular Hemoglobin Concent 34 g/dL (31-37) Red Cell Distribution Width 14.6 % (11.5-14.5) Platelet Count 235 x10^3/uL (140-400) Neutrophils (%) (Auto) 70 % (31-73) Lymphocytes (%) (Auto) 18 % (24-48) Monocytes (%) (Auto) 9 % (0-9) Eosinophils (%) (Auto) 3 % (0-3) Basophils (%) (Auto) 1 % (0-3) Neutrophils # (Auto) 6.7 x10^3uL (1.8-7.7) Lymphocytes # (Auto) 1.7 x10^3/uL (1.0-4.8) Monocytes # (Auto) 0.8 x10^3/uL (0.0-1.1) Eosinophils # (Auto) 0.3 x10^3/uL (0.0-0.7) Basophils # (Auto) 0.1 x10^3/uL (0.0-0.2) Sodium Level 132 mmol/L (136-145) Potassium Level 6.2 mmol/L (3.5-5.1) Chloride Level 98 mmol/L (98-107) Carbon Dioxide Level 25 mmol/L (21-32) Anion Gap 9 (6-14) Blood Urea Nitrogen 108 mg/dL (7-20) Creatinine 4.3 mg/dL (0.6-1.0) Estimated GFR (Cockcroft-Gault) 9.8 Glucose Level 101 mg/dL (70-99) Calcium Level 7.6 mg/dL (8.5-10.1) Phosphorus Level 7.8 mg/dL (2.6-4.7) Magnesium Level 2.8 mg/dL (1.8-2.4) Microbiology 11/26/16 Urine Culture - Final, Complete 11/26/16 Urine Culture Result 1 (KAELA) - Final, Complete Medications Current Medications Furosemide (Lasix) 60 mg 1X ONCE IVP Last administered on 11/26/16 13:50; Start 11/26/16 at 13:15; Stop 11/26/16 at 13:16; Status DC Ondansetron HCl (Zofran) 4 mg PRN Q8HRS PRN IV NAUSEA/VOMITING; Start 11/26/16 at 14:00; Stop 11/27/16 at 13:59; Status DC Acetaminophen (Tylenol) 650 mg PRN Q4HRS PRN PO FEVER; Start 11/26/16 at 14:00 ; Stop 11/27/16 at 13:59; Status DC Nitroglycerin (Nitrostat) 0.4 mg PRN Q5MIN PRN SL CHEST PAIN; Start 11/26/16 at 14:00; Stop 11/27/16 at 13:59; Status DC Lisinopril (Prinivil) 5 mg 1X ONCE PO Last administered on 11/26/16 17:57; Start 11/26/16 at 14:00; Stop 11/26/16 at 14:10; Status DC Hydralazine HCl (Apresoline) 10 mg PRN Q6HRS PRN IVP HYPERTENSION, SEE COMMENTS ; Start 11/26/16 at 14:00 Aspirin (Ecotrin) 81 mg DAILYWBKFT PO Last administered on 12/01/16 08:21; Start 11/27/16 at 08:00 Atorvastatin Calcium (Lipitor) 20 mg QHS PO Last administered on 11/30/16 21: 31; Start 11/26/16 at 21:00 Fluticasone Propionate (Flonase) 1 spray DAILY NS Last administered on 08:20; Start 11/27/16 at 09:00 Furosemide (Lasix) 40 mg DAILY PO Last administered on 11/29/16 09:04; Start 11/27/16 at 09:00; Stop 11/30/16 at 14:24; Status DC Lisinopril (Prinivil) 5 mg DAILY PO Last administered on 11/29/16 09:04; Start 11/27/16 at 09:00; Stop 12/01/16 at 09:55; Status DC Metoprolol Tartrate (Lopressor) 12.5 mg BID PO Last administered on 11/29/16 09:05; Start 11/26/16 at 21:00 Oxycodone/ Acetaminophen (Percocet 5/325) 1 tab QID PO Last administered on 08:20; Start 11/26/16 at 21:00 Non-Formulary Medication 0.5 mg Q2HR PRN NEB SHORTNESS OF BREATH; Start at 19:00; Stop 11/26/16 at 19:23; Status DC Cetirizine HCl (ZyrTEC) 10 mg DAILY PO Last administered on 12/01/16 08:20; Start 11/27/16 at 09:00 Non-Formulary Medication 1 inh BID IH ; Start 11/26/16 at 21:00; Stop 11/26/16 at 21:00; Status DC Nitroglycerin (Nitrostat) 0.4 mg PRN Q5MIN PRN SL CHEST PAIN; Start 11/26/16 at 19:30 Polyethylene Glycol (miraLAX PACKET) 17 gm PRN DAILY PRN PO CONSTIPATION Last administered on 11/30/16 08:12; Start 11/27/16 at 09:00 Albuterol Sulfate (Ventolin Neb Soln) 2.5 mg PRN Q2HRS PRN NEB SHORTNESS OF BREATH; Start 11/26/16 at 19:30 Albuterol Sulfate (Ventolin Neb Soln) 2.5 mg QID NEB Last administered on 12:26; Start 11/26/16 at 21:00; Stop 11/27/16 at 15:21; Status DC Budesonide (Pulmicort) 0.5 mg BID NEB Last administered on 12/01/16 07:36; Start 11/26/16 at 21:00 Ceftriaxone Sodium 1 gm/ Sodium Chloride 50 ml @ 100 mls/hr Q24H IV ; Start at 10:15; Status UNV Methylprednisolone Acetate (DEPO-Medrol 40MG VIAL) 40 mg 1X ONCE IM Last administered on 11/27/16 10:30; Start 11/27/16 at 10:30; Stop 11/27/16 at 10:31 ; Status DC Bupivacaine HCl (Sensorcaine-Mpf 0.25%) 10 ml 1X ONCE IJ Last administered on 11/27/16 10:30; Start 11/27/16 at 10:30; Stop 11/27/16 at 10:31; Status DC Levofloxacin/ Dextrose 100 ml @ 100 mls/hr 1X ONCE IV Last administered on 11:04; Start 11/27/16 at 10:30; Stop 11/27/16 at 11:29; Status DC Levofloxacin (Levaquin) 250 mg DAILY06 PO Last administered on 12/01/16 06:05 ; Start 11/28/16 at 08:00 Metolazone (Zaroxolyn) 2.5 mg DAILY PO Last administered on 11/30/16 08:11; Start 11/27/16 at 12:30; Stop 11/30/16 at 14:24; Status DC Albuterol Sulfate (Ventolin Neb Soln) 2.5 mg BID NEB Last administered on 07:36; Start 11/27/16 at 21:00 Sodium Chloride 1,000 ml @ 60 mls/hr 1X ONCE IV Last administered on 15:03; Start 11/30/16 at 15:00; Stop 12/01/16 at 07:39; Status DC Sodium Polystyrene Sulfonate (Kayexalate) 30 gm 1X ONCE PO Last administered on 12/01/16 07:47; Start 12/01/16 at 07:30; Stop 12/01/16 at 07:31; Status DC Sodium Chloride 1,000 ml @ 100 mls/hr Q10H IV Last administered on 12/01/16 07:25; Start 12/01/16 at 07:15 Active Scripts Active Percocet 5-325 Mg Tablet (Oxycodone/Acetaminophen) 1 Each Tablet 1 Tab PO QID Furosemide 40 Mg Tablet 40 Mg PO DAILY Reported Lisinopril 5 Mg Tablet 1 Tab PO DAILY Albuterol Sulfate Neb Soln (Albuterol Sulfate) 0.63 Mg/3 Ml Vial.neb 0.5 Mg NEB Q2HR PRN Polyethylene Glycol (Polyethylene Glycol 8000) 500 Gm Powder 500 Gm MC DAILY PRN Advair 250-50 Diskus (Fluticasone/Salmeterol) 1 Each Disk.w.dev 1 Inh IH BID Metoprolol Tartrate 25 Mg Tablet 12.5 Mg PO BID Aspir 81 (Aspirin) 81 Mg Tablet.dr 81 Mg PO DAILY Nitrostat (Nitroglycerin) 0.3 Mg Tab.subl 0.3 Mg SL PRN Q5MIN PRN Flonase (Fluticasone Propionate) 16 Gm [place].susp 16 Gm NS DAILY Zyrtec (Cetirizine Hcl) 10 Mg Capsule 10 Mg PO DAILY Atorvastatin Calcium 10 Mg Tablet 20 Mg PO DAILY Vitals/I & O Vital Sign - Last 24 Hours 11/30/16 11/30/16 11/30/16 11/30/16 11:58 15:09 17:16 19:00 Temp 97.9 98.4 97.9 98.4 Pulse 64 61 Resp 17 17 B/P (MAP) 90/35 (53) 73/27 (42) Pulse Ox 98 94 O2 Delivery Room Air Room Air Room Air Room Air 11/30/16 11/30/16 11/30/16 11/30/16 19:35 20:16 20:17 21:00 Pulse 64 B/P (MAP) 73/27 Pulse Ox 98 98 O2 Delivery Room Air Room Air Room Air 11/30/16 11/30/16 11/30/16 12/01/16 21:34 22:42 23:00 03:00 Temp 98.4 98.4 98.4 98.4 Pulse 63 63 Resp 18 18 20 20 B/P (MAP) 104/36 (58) 78/34 (49) Pulse Ox 98 91 92 O2 Delivery Room Air Room Air Room Air O2 Flow Rate 2.0 12/01/16 12/01/16 12/01/16 12/01/16 07:00 07:00 07:36 08:00 Temp 98.1 98.1 Pulse 69 Resp 20 B/P (MAP) 76/27 (43) 84/29 (47) Pulse Ox 95 94 O2 Delivery Room Air Room Air Room Air O2 Flow Rate 2.0 12/01/16 12/01/16 12/01/16 12/01/16 08:06 08:06 08:20 09:27 Pulse 67 67 B/P (MAP) 84/39 84/39 Pulse Ox 94 94 O2 Delivery Room Air Room Air O2 Flow Rate 2.0 2.0 Intake and Output 11/30/16 11/30/16 12/01/16 15:00 23:00 07:00 Intake Total 360 ml 0 ml Balance 360 ml 0 ml DEBORA BOUDREAUX III DO Dec 01, 2016 11:43
[2016-12-01 14:37] VITALS: BP 95/33
[2016-12-01 19:00] VITALS: BP 101/28
[2016-12-01] MEDS: ATORVASTATIN CALCIUM 10 MG TABLET. PO SCH (20:37)
[2016-12-01 23:00] VITALS: BP 129/35
[2016-12-02] VITALS (7 sets, daily range): BP systolic 109–136; BP diastolic 32–61
[2016-12-02] MEDS: IV NORMAL SALINE 1000ML BAG 1,000 ML IV SCH ×2 (05:27→15:42)
[2016-12-02] MEDS: ALBUTEROL SULFATE 2.5 MG/3 ML NEBU. NEB SCH ×2 (07:28→18:58)
[2016-12-02] MEDS: BUDESONIDE 0.5 MG/2 ML NEBU. NEB SCH ×2 (07:28→18:57)
[2016-12-02 07:57] LABS: CALCIUM 6.9 mg/dL (8.5-10.1); CREATININE 4.2 mg/dL (0.6-1.0)
[2016-12-02] MEDS: FLUTICASONE 50MCG/NASAL SPRAY 16GM BOTTLE. NS SCH (09:03)
[2016-12-02] MEDS: METOPROLOL TART IMMED RELEASE 25 MG TABLET. PO SCH ×2 (09:04→20:59)
[2016-12-02] MEDS: ASPIRIN ENTERIC COATED 81 MG TABLET.DR. PO SCH (09:05)
[2016-12-02] MEDS: oxyCODONE/APAP 5/325 1 TAB TABLET PO SCH ×4 (09:05→20:58)
[2016-12-02] MEDS: CETIRIZINE HCL 10 MG TABLET. PO SCH (09:05)
--- NOTE | 2016-12-02 10:17 | PDOC ---
PROGRESS NOTES Subjective Subjective She admits continued numbness in her hands and she did not receive wrist cock up splints yet. Objective Objective Vital Signs Date Time Temp Pulse Resp B/P (MAP) Pulse Ox O2 Delivery O2 Flow Rate FiO2 12/02/16 09:05 20 Room Air 12/02/16 09:04 65 109/42 12/02/16 07:28 93 12/02/16 03:00 97.7 97.7 12/01/16 21:46 2.0 Intake and Output 12/02/16 07:00 Intake Total 4534 ml Balance 4534 ml Intake Oral 1500 ml IV Total 100 ml Other 2934 ml # Voids 5 # Bowel Movements 1 Physical Exam Physical Exam She is sitting up in bedside chair and she apparently does not like to wear [place] boots to help ease her leg redness and edema. Assessment Assessment Problems Medical Problems: (1) CHF (congestive heart failure) Status: Acute Plan Plan of Care To get her up as tolerated. Comment Review of Relevant I have reviewed the following items aaliyah (where applicable) has been applied. Labs Laboratory Tests Test 12/01/16 04:55 12/02/16 07:25 White Blood Count 9.6 x10^3/uL (4.0-11.0) Red Blood Count 3.72 x10^6/uL (3.50-5.40) Hemoglobin 10.8 g/dL (12.0-15.5) Hematocrit 31.9 % (36.0-47.0) Mean Corpuscular Volume 86 fL (79-100) Mean Corpuscular Hemoglobin 29 pg (25-35) Mean Corpuscular Hemoglobin Concent 34 g/dL (31-37) Red Cell Distribution Width 14.6 % (11.5-14.5) Platelet Count 235 x10^3/uL (140-400) Neutrophils (%) (Auto) 70 % (31-73) Lymphocytes (%) (Auto) 18 % (24-48) Monocytes (%) (Auto) 9 % (0-9) Eosinophils (%) (Auto) 3 % (0-3) Basophils (%) (Auto) 1 % (0-3) Neutrophils # (Auto) 6.7 x10^3uL (1.8-7.7) Lymphocytes # (Auto) 1.7 x10^3/uL (1.0-4.8) Monocytes # (Auto) 0.8 x10^3/uL (0.0-1.1) Eosinophils # (Auto) 0.3 x10^3/uL (0.0-0.7) Basophils # (Auto) 0.1 x10^3/uL (0.0-0.2) Sodium Level 132 mmol/L (136-145) 134 mmol/L (136-145) Potassium Level 6.2 mmol/L (3.5-5.1) 5.0 mmol/L (3.5-5.1) Chloride Level 98 mmol/L (98-107) 100 mmol/L (98-107) Carbon Dioxide Level 25 mmol/L (21-32) 23 mmol/L (21-32) Anion Gap 9 (6-14) 11 (6-14) Blood Urea Nitrogen 108 mg/dL (7-20) 118 mg/dL (7-20) Creatinine 4.3 mg/dL (0.6-1.0) 4.2 mg/dL (0.6-1.0) Estimated GFR (Cockcroft-Gault) 9.8 10.0 Glucose Level 101 mg/dL (70-99) 103 mg/dL (70-99) Calcium Level 7.6 mg/dL (8.5-10.1) 6.9 mg/dL (8.5-10.1) Phosphorus Level 7.8 mg/dL (2.6-4.7) Magnesium Level 2.8 mg/dL (1.8-2.4) Laboratory Tests Test 12/02/16 07:25 Sodium Level 134 mmol/L (136-145) Potassium Level 5.0 mmol/L (3.5-5.1) Chloride Level 100 mmol/L (98-107) Carbon Dioxide Level 23 mmol/L (21-32) Anion Gap 11 (6-14) Blood Urea Nitrogen 118 mg/dL (7-20) Creatinine 4.2 mg/dL (0.6-1.0) Estimated GFR (Cockcroft-Gault) 10.0 Glucose Level 103 mg/dL (70-99) Calcium Level 6.9 mg/dL (8.5-10.1) Microbiology 11/26/16 Urine Culture - Final, Complete 11/26/16 Urine Culture Result 1 (KAELA) - Final, Complete Medications Current Medications Furosemide (Lasix) 60 mg 1X ONCE IVP Last administered on 11/26/16 13:50; Start 11/26/16 at 13:15; Stop 11/26/16 at 13:16; Status DC Ondansetron HCl (Zofran) 4 mg PRN Q8HRS PRN IV NAUSEA/VOMITING; Start 11/26/16 at 14:00; Stop 11/27/16 at 13:59; Status DC Acetaminophen (Tylenol) 650 mg PRN Q4HRS PRN PO FEVER; Start 11/26/16 at 14:00 ; Stop 11/27/16 at 13:59; Status DC Nitroglycerin (Nitrostat) 0.4 mg PRN Q5MIN PRN SL CHEST PAIN; Start 11/26/16 at 14:00; Stop 11/27/16 at 13:59; Status DC Lisinopril (Prinivil) 5 mg 1X ONCE PO Last administered on 11/26/16 17:57; Start 11/26/16 at 14:00; Stop 11/26/16 at 14:10; Status DC Hydralazine HCl (Apresoline) 10 mg PRN Q6HRS PRN IVP HYPERTENSION, SEE COMMENTS ; Start 11/26/16 at 14:00 Aspirin (Ecotrin) 81 mg DAILYWBKFT PO Last administered on 12/02/16 09:05; Start 11/27/16 at 08:00 Atorvastatin Calcium (Lipitor) 20 mg QHS PO Last administered on 12/01/16 20: 37; Start 11/26/16 at 21:00 Fluticasone Propionate (Flonase) 1 spray DAILY NS Last administered on 09:03; Start 11/27/16 at 09:00 Furosemide (Lasix) 40 mg DAILY PO Last administered on 11/29/16 09:04; Start 11/27/16 at 09:00; Stop 11/30/16 at 14:24; Status DC Lisinopril (Prinivil) 5 mg DAILY PO Last administered on 11/29/16 09:04; Start 11/27/16 at 09:00; Stop 12/01/16 at 09:55; Status DC Metoprolol Tartrate (Lopressor) 12.5 mg BID PO Last administered on 12/02/16 09:04; Start 11/26/16 at 21:00 Oxycodone/ Acetaminophen (Percocet 5/325) 1 tab QID PO Last administered on 09:05; Start 11/26/16 at 21:00 Non-Formulary Medication 0.5 mg Q2HR PRN NEB SHORTNESS OF BREATH; Start at 19:00; Stop 11/26/16 at 19:23; Status DC Cetirizine HCl (ZyrTEC) 10 mg DAILY PO Last administered on 12/02/16 09:05; Start 11/27/16 at 09:00 Non-Formulary Medication 1 inh BID IH ; Start 11/26/16 at 21:00; Stop 11/26/16 at 21:00; Status DC Nitroglycerin (Nitrostat) 0.4 mg PRN Q5MIN PRN SL CHEST PAIN; Start 11/26/16 at 19:30 Polyethylene Glycol (miraLAX PACKET) 17 gm PRN DAILY PRN PO CONSTIPATION Last administered on 11/30/16 08:12; Start 11/27/16 at 09:00 Albuterol Sulfate (Ventolin Neb Soln) 2.5 mg PRN Q2HRS PRN NEB SHORTNESS OF BREATH; Start 11/26/16 at 19:30 Albuterol Sulfate (Ventolin Neb Soln) 2.5 mg QID NEB Last administered on 12:26; Start 11/26/16 at 21:00; Stop 11/27/16 at 15:21; Status DC Budesonide (Pulmicort) 0.5 mg BID NEB Last administered on 12/02/16 07:28; Start 11/26/16 at 21:00 Ceftriaxone Sodium 1 gm/ Sodium Chloride 50 ml @ 100 mls/hr Q24H IV ; Start at 10:15; Status UNV Methylprednisolone Acetate (DEPO-Medrol 40MG VIAL) 40 mg 1X ONCE IM Last administered on 11/27/16 10:30; Start 11/27/16 at 10:30; Stop 11/27/16 at 10:31 ; Status DC Bupivacaine HCl (Sensorcaine-Mpf 0.25%) 10 ml 1X ONCE IJ Last administered on 11/27/16 10:30; Start 11/27/16 at 10:30; Stop 11/27/16 at 10:31; Status DC Levofloxacin/ Dextrose 100 ml @ 100 mls/hr 1X ONCE IV Last administered on 11:04; Start 11/27/16 at 10:30; Stop 11/27/16 at 11:29; Status DC Levofloxacin (Levaquin) 250 mg DAILY06 PO Last administered on 12/02/16 05:27 ; Start 11/28/16 at 08:00 Metolazone (Zaroxolyn) 2.5 mg DAILY PO Last administered on 11/30/16 08:11; Start 11/27/16 at 12:30; Stop 11/30/16 at 14:24; Status DC Albuterol Sulfate (Ventolin Neb Soln) 2.5 mg BID NEB Last administered on 07:28; Start 11/27/16 at 21:00 Sodium Chloride 1,000 ml @ 60 mls/hr 1X ONCE IV Last administered on 15:03; Start 11/30/16 at 15:00; Stop 12/01/16 at 07:39; Status DC Sodium Polystyrene Sulfonate (Kayexalate) 30 gm 1X ONCE PO Last administered on 12/01/16 07:47; Start 12/01/16 at 07:30; Stop 12/01/16 at 07:31; Status DC Sodium Chloride 1,000 ml @ 100 mls/hr Q10H IV Last administered on 12/02/16 05:27; Start 12/01/16 at 07:15 Active Scripts Active Percocet 5-325 Mg Tablet (Oxycodone/Acetaminophen) 1 Each Tablet 1 Tab PO QID Furosemide 40 Mg Tablet 40 Mg PO DAILY Reported Lisinopril 5 Mg Tablet 1 Tab PO DAILY Albuterol Sulfate Neb Soln (Albuterol Sulfate) 0.63 Mg/3 Ml Vial.neb 0.5 Mg NEB Q2HR PRN Polyethylene Glycol (Polyethylene Glycol 8000) 500 Gm Powder 500 Gm MC DAILY PRN Advair 250-50 Diskus (Fluticasone/Salmeterol) 1 Each Disk.w.dev 1 Inh IH BID Metoprolol Tartrate 25 Mg Tablet 12.5 Mg PO BID Aspir 81 (Aspirin) 81 Mg Tablet.dr 81 Mg PO DAILY Nitrostat (Nitroglycerin) 0.3 Mg Tab.subl 0.3 Mg SL PRN Q5MIN PRN Flonase (Fluticasone Propionate) 16 Gm [place].susp 16 Gm NS DAILY Zyrtec (Cetirizine Hcl) 10 Mg Capsule 10 Mg PO DAILY Atorvastatin Calcium 10 Mg Tablet 20 Mg PO DAILY Vitals/I & O Vital Sign - Last 24 Hours 12/01/16 12/01/16 12/01/16 12/01/16 11:00 13:27 14:37 19:00 Temp 97.6 97.9 97.9 97.6 97.9 97.9 Pulse 62 61 56 Resp 20 20 21 B/P (MAP) 104/30 (54) 95/33 (53) 101/28 (52) Pulse Ox 95 95 96 93 O2 Delivery Room Air Room Air Room Air Room Air O2 Flow Rate 2.0 12/01/16 12/01/16 12/01/16 12/01/16 19:34 19:44 20:36 20:42 Pulse 56 Resp 20 B/P (MAP) 101/28 Pulse Ox 96 96 O2 Delivery Room Air Room Air Room Air O2 Flow Rate 2.0 2.0 12/01/16 12/01/16 12/02/16 12/02/16 21:46 23:00 03:00 07:28 Temp 97.7 97.7 97.7 97.7 Pulse 64 60 Resp 18 20 19 B/P (MAP) 129/35 (66) 115/33 (60) Pulse Ox 96 95 93 93 O2 Delivery Room Air Room Air Room Air Room Air O2 Flow Rate 2.0 12/02/16 12/02/16 12/02/16 08:00 09:04 09:05 Pulse 65 Resp 20 B/P (MAP) 109/42 O2 Delivery Room Air Room Air Intake and Output 12/01/16 12/01/16 12/02/16 15:00 23:00 07:00 Intake Total 600 ml 1000 ml 2934 ml Balance 600 ml 1000 ml 2934 ml MARU PARADA MD Dec 02, 2016 10:17
--- NOTE | 2016-12-02 10:21 | PDOC ---
PROGRESS NOTES Objective Objective Vital Signs Date Time Temp Pulse Resp B/P (MAP) Pulse Ox O2 Delivery O2 Flow Rate FiO2 12/02/16 09:05 20 Room Air 12/02/16 09:04 65 109/42 12/02/16 07:28 93 12/02/16 03:00 97.7 97.7 12/01/16 21:46 2.0 Intake and Output 12/02/16 07:00 Intake Total 4534 ml Balance 4534 ml Intake Oral 1500 ml IV Total 100 ml Other 2934 ml # Voids 5 # Bowel Movements 1 Physical Exam Physical Exam She also had significant DDD and DJD of cervical vertebrae as for x-rays bu still does not have any significant neck pain or radicular pain. Assessment Assessment Problems Medical Problems: (1) CHF (congestive heart failure) Status: Acute Plan Plan of Care She could not have mri scan of her neck as she had pace maker and we can do ct scan but hold off as she is not having any significant neck pain at present and to try wrist cock up splints does not help with her hand numbness then she may need ct scan of cervical spine. Comment Review of Relevant I have reviewed the following items aaliyah (where applicable) has been applied. Labs Laboratory Tests Test 12/01/16 04:55 12/02/16 07:25 White Blood Count 9.6 x10^3/uL (4.0-11.0) Red Blood Count 3.72 x10^6/uL (3.50-5.40) Hemoglobin 10.8 g/dL (12.0-15.5) Hematocrit 31.9 % (36.0-47.0) Mean Corpuscular Volume 86 fL (79-100) Mean Corpuscular Hemoglobin 29 pg (25-35) Mean Corpuscular Hemoglobin Concent 34 g/dL (31-37) Red Cell Distribution Width 14.6 % (11.5-14.5) Platelet Count 235 x10^3/uL (140-400) Neutrophils (%) (Auto) 70 % (31-73) Lymphocytes (%) (Auto) 18 % (24-48) Monocytes (%) (Auto) 9 % (0-9) Eosinophils (%) (Auto) 3 % (0-3) Basophils (%) (Auto) 1 % (0-3) Neutrophils # (Auto) 6.7 x10^3uL (1.8-7.7) Lymphocytes # (Auto) 1.7 x10^3/uL (1.0-4.8) Monocytes # (Auto) 0.8 x10^3/uL (0.0-1.1) Eosinophils # (Auto) 0.3 x10^3/uL (0.0-0.7) Basophils # (Auto) 0.1 x10^3/uL (0.0-0.2) Sodium Level 132 mmol/L (136-145) 134 mmol/L (136-145) Potassium Level 6.2 mmol/L (3.5-5.1) 5.0 mmol/L (3.5-5.1) Chloride Level 98 mmol/L (98-107) 100 mmol/L (98-107) Carbon Dioxide Level 25 mmol/L (21-32) 23 mmol/L (21-32) Anion Gap 9 (6-14) 11 (6-14) Blood Urea Nitrogen 108 mg/dL (7-20) 118 mg/dL (7-20) Creatinine 4.3 mg/dL (0.6-1.0) 4.2 mg/dL (0.6-1.0) Estimated GFR (Cockcroft-Gault) 9.8 10.0 Glucose Level 101 mg/dL (70-99) 103 mg/dL (70-99) Calcium Level 7.6 mg/dL (8.5-10.1) 6.9 mg/dL (8.5-10.1) Phosphorus Level 7.8 mg/dL (2.6-4.7) Magnesium Level 2.8 mg/dL (1.8-2.4) Laboratory Tests Test 12/02/16 07:25 Sodium Level 134 mmol/L (136-145) Potassium Level 5.0 mmol/L (3.5-5.1) Chloride Level 100 mmol/L (98-107) Carbon Dioxide Level 23 mmol/L (21-32) Anion Gap 11 (6-14) Blood Urea Nitrogen 118 mg/dL (7-20) Creatinine 4.2 mg/dL (0.6-1.0) Estimated GFR (Cockcroft-Gault) 10.0 Glucose Level 103 mg/dL (70-99) Calcium Level 6.9 mg/dL (8.5-10.1) Microbiology 11/26/16 Urine Culture - Final, Complete 11/26/16 Urine Culture Result 1 (KAELA) - Final, Complete Medications Current Medications Furosemide (Lasix) 60 mg 1X ONCE IVP Last administered on 11/26/16 13:50; Start 11/26/16 at 13:15; Stop 11/26/16 at 13:16; Status DC Ondansetron HCl (Zofran) 4 mg PRN Q8HRS PRN IV NAUSEA/VOMITING; Start 11/26/16 at 14:00; Stop 11/27/16 at 13:59; Status DC Acetaminophen (Tylenol) 650 mg PRN Q4HRS PRN PO FEVER; Start 11/26/16 at 14:00 ; Stop 11/27/16 at 13:59; Status DC Nitroglycerin (Nitrostat) 0.4 mg PRN Q5MIN PRN SL CHEST PAIN; Start 11/26/16 at 14:00; Stop 11/27/16 at 13:59; Status DC Lisinopril (Prinivil) 5 mg 1X ONCE PO Last administered on 11/26/16 17:57; Start 11/26/16 at 14:00; Stop 11/26/16 at 14:10; Status DC Hydralazine HCl (Apresoline) 10 mg PRN Q6HRS PRN IVP HYPERTENSION, SEE COMMENTS ; Start 11/26/16 at 14:00 Aspirin (Ecotrin) 81 mg DAILYWBKFT PO Last administered on 12/02/16 09:05; Start 11/27/16 at 08:00 Atorvastatin Calcium (Lipitor) 20 mg QHS PO Last administered on 12/01/16 20: 37; Start 11/26/16 at 21:00 Fluticasone Propionate (Flonase) 1 spray DAILY NS Last administered on 09:03; Start 11/27/16 at 09:00 Furosemide (Lasix) 40 mg DAILY PO Last administered on 11/29/16 09:04; Start 11/27/16 at 09:00; Stop 11/30/16 at 14:24; Status DC Lisinopril (Prinivil) 5 mg DAILY PO Last administered on 11/29/16 09:04; Start 11/27/16 at 09:00; Stop 12/01/16 at 09:55; Status DC Metoprolol Tartrate (Lopressor) 12.5 mg BID PO Last administered on 12/02/16 09:04; Start 11/26/16 at 21:00 Oxycodone/ Acetaminophen (Percocet 5/325) 1 tab QID PO Last administered on 09:05; Start 11/26/16 at 21:00 Non-Formulary Medication 0.5 mg Q2HR PRN NEB SHORTNESS OF BREATH; Start at 19:00; Stop 11/26/16 at 19:23; Status DC Cetirizine HCl (ZyrTEC) 10 mg DAILY PO Last administered on 12/02/16 09:05; Start 11/27/16 at 09:00 Non-Formulary Medication 1 inh BID IH ; Start 11/26/16 at 21:00; Stop 11/26/16 at 21:00; Status DC Nitroglycerin (Nitrostat) 0.4 mg PRN Q5MIN PRN SL CHEST PAIN; Start 11/26/16 at 19:30 Polyethylene Glycol (miraLAX PACKET) 17 gm PRN DAILY PRN PO CONSTIPATION Last administered on 11/30/16 08:12; Start 11/27/16 at 09:00 Albuterol Sulfate (Ventolin Neb Soln) 2.5 mg PRN Q2HRS PRN NEB SHORTNESS OF BREATH; Start 11/26/16 at 19:30 Albuterol Sulfate (Ventolin Neb Soln) 2.5 mg QID NEB Last administered on 12:26; Start 11/26/16 at 21:00; Stop 11/27/16 at 15:21; Status DC Budesonide (Pulmicort) 0.5 mg BID NEB Last administered on 12/02/16 07:28; Start 11/26/16 at 21:00 Ceftriaxone Sodium 1 gm/ Sodium Chloride 50 ml @ 100 mls/hr Q24H IV ; Start at 10:15; Status UNV Methylprednisolone Acetate (DEPO-Medrol 40MG VIAL) 40 mg 1X ONCE IM Last administered on 11/27/16 10:30; Start 11/27/16 at 10:30; Stop 11/27/16 at 10:31 ; Status DC Bupivacaine HCl (Sensorcaine-Mpf 0.25%) 10 ml 1X ONCE IJ Last administered on 11/27/16 10:30; Start 11/27/16 at 10:30; Stop 11/27/16 at 10:31; Status DC Levofloxacin/ Dextrose 100 ml @ 100 mls/hr 1X ONCE IV Last administered on 11:04; Start 11/27/16 at 10:30; Stop 11/27/16 at 11:29; Status DC Levofloxacin (Levaquin) 250 mg DAILY06 PO Last administered on 12/02/16 05:27 ; Start 11/28/16 at 08:00 Metolazone (Zaroxolyn) 2.5 mg DAILY PO Last administered on 11/30/16 08:11; Start 11/27/16 at 12:30; Stop 11/30/16 at 14:24; Status DC Albuterol Sulfate (Ventolin Neb Soln) 2.5 mg BID NEB Last administered on 07:28; Start 11/27/16 at 21:00 Sodium Chloride 1,000 ml @ 60 mls/hr 1X ONCE IV Last administered on 15:03; Start 11/30/16 at 15:00; Stop 12/01/16 at 07:39; Status DC Sodium Polystyrene Sulfonate (Kayexalate) 30 gm 1X ONCE PO Last administered on 12/01/16 07:47; Start 12/01/16 at 07:30; Stop 12/01/16 at 07:31; Status DC Sodium Chloride 1,000 ml @ 100 mls/hr Q10H IV Last administered on 12/02/16 05:27; Start 12/01/16 at 07:15 Active Scripts Active Percocet 5-325 Mg Tablet (Oxycodone/Acetaminophen) 1 Each Tablet 1 Tab PO QID Furosemide 40 Mg Tablet 40 Mg PO DAILY Reported Lisinopril 5 Mg Tablet 1 Tab PO DAILY Albuterol Sulfate Neb Soln (Albuterol Sulfate) 0.63 Mg/3 Ml Vial.neb 0.5 Mg NEB Q2HR PRN Polyethylene Glycol (Polyethylene Glycol 8000) 500 Gm Powder 500 Gm MC DAILY PRN Advair 250-50 Diskus (Fluticasone/Salmeterol) 1 Each Disk.w.dev 1 Inh IH BID Metoprolol Tartrate 25 Mg Tablet 12.5 Mg PO BID Aspir 81 (Aspirin) 81 Mg Tablet.dr 81 Mg PO DAILY Nitrostat (Nitroglycerin) 0.3 Mg Tab.subl 0.3 Mg SL PRN Q5MIN PRN Flonase (Fluticasone Propionate) 16 Gm [place].susp 16 Gm NS DAILY Zyrtec (Cetirizine Hcl) 10 Mg Capsule 10 Mg PO DAILY Atorvastatin Calcium 10 Mg Tablet 20 Mg PO DAILY Vitals/I & O Vital Sign - Last 24 Hours 12/01/16 12/01/16 12/01/16 12/01/16 11:00 13:27 14:37 19:00 Temp 97.6 97.9 97.9 97.6 97.9 97.9 Pulse 62 61 56 Resp 20 20 21 B/P (MAP) 104/30 (54) 95/33 (53) 101/28 (52) Pulse Ox 95 95 96 93 O2 Delivery Room Air Room Air Room Air Room Air O2 Flow Rate 2.0 12/01/16 12/01/16 12/01/16 12/01/16 19:34 19:44 20:36 20:42 Pulse 56 Resp 20 B/P (MAP) 101/28 Pulse Ox 96 96 O2 Delivery Room Air Room Air Room Air O2 Flow Rate 2.0 2.0 12/01/16 12/01/16 12/02/16 12/02/16 21:46 23:00 03:00 07:28 Temp 97.7 97.7 97.7 97.7 Pulse 64 60 Resp 18 20 19 B/P (MAP) 129/35 (66) 115/33 (60) Pulse Ox 96 95 93 93 O2 Delivery Room Air Room Air Room Air Room Air O2 Flow Rate 2.0 12/02/16 12/02/16 12/02/16 08:00 09:04 09:05 Pulse 65 Resp 20 B/P (MAP) 109/42 O2 Delivery Room Air Room Air Intake and Output 12/01/16 12/01/16 12/02/16 15:00 23:00 07:00 Intake Total 600 ml 1000 ml 2934 ml Balance 600 ml 1000 ml 2934 ml MARU PARADA MD Dec 02, 2016 10:21
--- NOTE | 2016-12-02 12:57 | PDOC ---
PROGRESS NOTES Chief Complaint Chief Complaint CHF, acute on chronic systolic Acute vasomotor nephropathy on CKD, ? overdiuresis Hyperkalemia, on lasix and metalozone Pickwickian syndrome, Chronic leg pain and foot pain and knee pain, OA, poor mobility Morbid obesity, BMI 61, w/ concurrent mild malnutrition, hypoalbumin UTI CKD 3 Orthostasis History of Present Illness History of Present Illness Patient was seated in chair with pursed lip respirations. Discussed desire to talk with Dr. Pham to discuss the possibility of cardiac catheterization. Vitals Vitals Vital Signs Date Time Temp Pulse Resp B/P (MAP) Pulse Ox O2 Delivery O2 Flow Rate FiO2 12/02/16 10:05 20 Room Air 12/02/16 09:04 65 109/42 12/02/16 07:28 93 12/02/16 03:00 97.7 97.7 12/01/16 21:46 2.0 Physical Exam General: Alert, Oriented X3, Cooperative, No acute distress Heart: Regular rate, Normal S1, No murmurs Lungs: Wheezing, Other Abdomen: Normal bowel sounds, No tenderness Extremities: No clubbing, Other (2+ lower extremity edema) Skin: No breakdown, No significant lesion Labs LABS Laboratory Tests Test 12/02/16 07:25 Sodium Level 134 mmol/L (136-145) Potassium Level 5.0 mmol/L (3.5-5.1) Chloride Level 100 mmol/L (98-107) Carbon Dioxide Level 23 mmol/L (21-32) Anion Gap 11 (6-14) Blood Urea Nitrogen 118 mg/dL (7-20) Creatinine 4.2 mg/dL (0.6-1.0) Estimated GFR (Cockcroft-Gault) 10.0 Glucose Level 103 mg/dL (70-99) Calcium Level 6.9 mg/dL (8.5-10.1) Review of Systems Review of Systems Complains of mild shortness of breath Complains of weakness Assessment and Plan Assessmemt and Plan Problems Medical Problems: (1) CHF (congestive heart failure) Status: Acute Assessment: CHF, acute on chronic systolic Acute vasomotor nephropathy on CKD, ? overdiuresis Hyperkalemia, on lasix and metalozone Pickwickian syndrome, Chronic leg pain and foot pain and knee pain, OA, poor mobility Morbid obesity, BMI 61, w/ concurrent mild malnutrition, hypoalbumin UTI CKD 3 Orthostasis Plan: 1. Consult Dr. Moss (pulmonology) 2. Discussed desire for cardiac catheterization 3. PT/OT 4. Recheck labs 5. Continue diuresis 6. Continue home meds 7. 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 Labs Laboratory Tests Test 12/01/16 04:55 12/02/16 07:25 White Blood Count 9.6 x10^3/uL (4.0-11.0) Red Blood Count 3.72 x10^6/uL (3.50-5.40) Hemoglobin 10.8 g/dL (12.0-15.5) Hematocrit 31.9 % (36.0-47.0) Mean Corpuscular Volume 86 fL (79-100) Mean Corpuscular Hemoglobin 29 pg (25-35) Mean Corpuscular Hemoglobin Concent 34 g/dL (31-37) Red Cell Distribution Width 14.6 % (11.5-14.5) Platelet Count 235 x10^3/uL (140-400) Neutrophils (%) (Auto) 70 % (31-73) Lymphocytes (%) (Auto) 18 % (24-48) Monocytes (%) (Auto) 9 % (0-9) Eosinophils (%) (Auto) 3 % (0-3) Basophils (%) (Auto) 1 % (0-3) Neutrophils # (Auto) 6.7 x10^3uL (1.8-7.7) Lymphocytes # (Auto) 1.7 x10^3/uL (1.0-4.8) Monocytes # (Auto) 0.8 x10^3/uL (0.0-1.1) Eosinophils # (Auto) 0.3 x10^3/uL (0.0-0.7) Basophils # (Auto) 0.1 x10^3/uL (0.0-0.2) Sodium Level 132 mmol/L (136-145) 134 mmol/L (136-145) Potassium Level 6.2 mmol/L (3.5-5.1) 5.0 mmol/L (3.5-5.1) Chloride Level 98 mmol/L (98-107) 100 mmol/L (98-107) Carbon Dioxide Level 25 mmol/L (21-32) 23 mmol/L (21-32) Anion Gap 9 (6-14) 11 (6-14) Blood Urea Nitrogen 108 mg/dL (7-20) 118 mg/dL (7-20) Creatinine 4.3 mg/dL (0.6-1.0) 4.2 mg/dL (0.6-1.0) Estimated GFR (Cockcroft-Gault) 9.8 10.0 Glucose Level 101 mg/dL (70-99) 103 mg/dL (70-99) Calcium Level 7.6 mg/dL (8.5-10.1) 6.9 mg/dL (8.5-10.1) Phosphorus Level 7.8 mg/dL (2.6-4.7) Magnesium Level 2.8 mg/dL (1.8-2.4) Laboratory Tests Test 12/02/16 07:25 Sodium Level 134 mmol/L (136-145) Potassium Level 5.0 mmol/L (3.5-5.1) Chloride Level 100 mmol/L (98-107) Carbon Dioxide Level 23 mmol/L (21-32) Anion Gap 11 (6-14) Blood Urea Nitrogen 118 mg/dL (7-20) Creatinine 4.2 mg/dL (0.6-1.0) Estimated GFR (Cockcroft-Gault) 10.0 Glucose Level 103 mg/dL (70-99) Calcium Level 6.9 mg/dL (8.5-10.1) Microbiology 11/26/16 Urine Culture - Final, Complete 11/26/16 Urine Culture Result 1 (KAELA) - Final, Complete Medications Current Medications Furosemide (Lasix) 60 mg 1X ONCE IVP Last administered on 11/26/16t 13:50; Start 11/26/16 at 13:15; Stop 11/26/16 at 13:16; Status DC Ondansetron HCl (Zofran) 4 mg PRN Q8HRS PRN IV NAUSEA/VOMITING; Start 11/26/16 at 14:00; Stop 11/27/16 at 13:59; Status DC Acetaminophen (Tylenol) 650 mg PRN Q4HRS PRN PO FEVER; Start 11/26/16 at 14:00 ; Stop 11/27/16 at 13:59; Status DC Nitroglycerin (Nitrostat) 0.4 mg PRN Q5MIN PRN SL CHEST PAIN; Start 11/26/16 at 14:00; Stop 11/27/16 at 13:59; Status DC Lisinopril (Prinivil) 5 mg 1X ONCE PO Last administered on 11/26/16 17:57; Start 11/26/16 at 14:00; Stop 11/26/16 at 14:10; Status DC Hydralazine HCl (Apresoline) 10 mg PRN Q6HRS PRN IVP HYPERTENSION, SEE COMMENTS ; Start 11/26/16 at 14:00 Aspirin (Ecotrin) 81 mg DAILYWBKFT PO Last administered on 12/02/16 09:05; Start 11/27/16 at 08:00 Atorvastatin Calcium (Lipitor) 20 mg QHS PO Last administered on 12/01/16 20: 37; Start 11/26/16 at 21:00 Fluticasone Propionate (Flonase) 1 spray DAILY NS Last administered on 09:03; Start 11/27/16 at 09:00 Furosemide (Lasix) 40 mg DAILY PO Last administered on 11/29/16 09:04; Start 11/27/16 at 09:00; Stop 11/30/16 at 14:24; Status DC Lisinopril (Prinivil) 5 mg DAILY PO Last administered on 11/29/16 09:04; Start 11/27/16 at 09:00; Stop 12/01/16 at 09:55; Status DC Metoprolol Tartrate (Lopressor) 12.5 mg BID PO Last administered on 12/02/16 09:04; Start 11/26/16 at 21:00 Oxycodone/ Acetaminophen (Percocet 5/325) 1 tab QID PO Last administered on 09:05; Start 11/26/16 at 21:00 Non-Formulary Medication 0.5 mg Q2HR PRN NEB SHORTNESS OF BREATH; Start at 19:00; Stop 11/26/16 at 19:23; Status DC Cetirizine HCl (ZyrTEC) 10 mg DAILY PO Last administered on 12/02/16 09:05; Start 11/27/16 at 09:00 Non-Formulary Medication 1 inh BID IH ; Start 11/26/16 at 21:00; Stop 11/26/16 at 21:00; Status DC Nitroglycerin (Nitrostat) 0.4 mg PRN Q5MIN PRN SL CHEST PAIN; Start 11/26/16 at 19:30 Polyethylene Glycol (miraLAX PACKET) 17 gm PRN DAILY PRN PO CONSTIPATION Last administered on 11/30/16 08:12; Start 11/27/16 at 09:00 Albuterol Sulfate (Ventolin Neb Soln) 2.5 mg PRN Q2HRS PRN NEB SHORTNESS OF BREATH; Start 11/26/16 at 19:30 Albuterol Sulfate (Ventolin Neb Soln) 2.5 mg QID NEB Last administered on 12:26; Start 11/26/16 at 21:00; Stop 11/27/16 at 15:21; Status DC Budesonide (Pulmicort) 0.5 mg BID NEB Last administered on 12/02/16 07:28; Start 11/26/16 at 21:00 Ceftriaxone Sodium 1 gm/ Sodium Chloride 50 ml @ 100 mls/hr Q24H IV ; Start at 10:15; Status UNV Methylprednisolone Acetate (DEPO-Medrol 40MG VIAL) 40 mg 1X ONCE IM Last administered on 11/27/16 10:30; Start 11/27/16 at 10:30; Stop 11/27/16 at 10:31 ; Status DC Bupivacaine HCl (Sensorcaine-Mpf 0.25%) 10 ml 1X ONCE IJ Last administered on 11/27/16 10:30; Start 11/27/16 at 10:30; Stop 11/27/16 at 10:31; Status DC Levofloxacin/ Dextrose 100 ml @ 100 mls/hr 1X ONCE IV Last administered on 11:04; Start 11/27/16 at 10:30; Stop 11/27/16 at 11:29; Status DC Levofloxacin (Levaquin) 250 mg DAILY06 PO Last administered on 12/02/16 05:27 ; Start 11/28/16 at 08:00 Metolazone (Zaroxolyn) 2.5 mg DAILY PO Last administered on 11/30/16 08:11; Start 11/27/16 at 12:30; Stop 11/30/16 at 14:24; Status DC Albuterol Sulfate (Ventolin Neb Soln) 2.5 mg BID NEB Last administered on 07:28; Start 11/27/16 at 21:00 Sodium Chloride 1,000 ml @ 60 mls/hr 1X ONCE IV Last administered on 15:03; Start 11/30/16 at 15:00; Stop 12/01/16 at 07:39; Status DC Sodium Polystyrene Sulfonate (Kayexalate) 30 gm 1X ONCE PO Last administered on 12/01/16 07:47; Start 12/01/16 at 07:30; Stop 12/01/16 at 07:31; Status DC Sodium Chloride 1,000 ml @ 100 mls/hr Q10H IV Last administered on 12/02/16 05:27; Start 12/01/16 at 07:15 Active Scripts Active Percocet 5-325 Mg Tablet (Oxycodone/Acetaminophen) 1 Each Tablet 1 Tab PO QID Furosemide 40 Mg Tablet 40 Mg PO DAILY Reported Lisinopril 5 Mg Tablet 1 Tab PO DAILY Albuterol Sulfate Neb Soln (Albuterol Sulfate) 0.63 Mg/3 Ml Vial.neb 0.5 Mg NEB Q2HR PRN Polyethylene Glycol (Polyethylene Glycol 8000) 500 Gm Powder 500 Gm MC DAILY PRN Advair 250-50 Diskus (Fluticasone/Salmeterol) 1 Each Disk.w.dev 1 Inh IH BID Metoprolol Tartrate 25 Mg Tablet 12.5 Mg PO BID Aspir 81 (Aspirin) 81 Mg Tablet.dr 81 Mg PO DAILY Nitrostat (Nitroglycerin) 0.3 Mg Tab.subl 0.3 Mg SL PRN Q5MIN PRN Flonase (Fluticasone Propionate) 16 Gm [place].susp 16 Gm NS DAILY Zyrtec (Cetirizine Hcl) 10 Mg Capsule 10 Mg PO DAILY Atorvastatin Calcium 10 Mg Tablet 20 Mg PO DAILY Vitals/I & O Vital Sign - Last 24 Hours 12/01/16 12/01/16 12/01/16 12/01/16 13:27 14:37 19:00 19:34 Temp 97.9 97.9 97.9 97.9 Pulse 61 56 Resp 20 21 B/P (MAP) 95/33 (53) 101/28 (52) Pulse Ox 95 96 93 96 O2 Delivery Room Air Room Air Room Air Room Air O2 Flow Rate 2.0 12/01/16 12/01/16 12/01/16 12/01/16 19:44 20:36 20:42 21:46 Pulse 56 Resp 20 B/P (MAP) 101/28 Pulse Ox 96 96 O2 Delivery Room Air Room Air O2 Flow Rate 2.0 2.0 2.0 12/01/16 12/02/16 12/02/16 12/02/16 23:00 03:00 07:28 08:00 Temp 97.7 97.7 97.7 97.7 Pulse 64 60 Resp 20 19 B/P (MAP) 129/35 (66) 115/33 (60) Pulse Ox 95 93 93 O2 Delivery Room Air Room Air Room Air Room Air 12/02/16 12/02/16 12/02/16 09:04 09:05 10:05 Pulse 65 Resp 20 20 B/P (MAP) 109/42 O2 Delivery Room Air Room Air Intake and Output 12/01/16 12/01/16 12/02/16 15:00 23:00 07:00 Intake Total 600 ml 1000 ml 2934 ml Balance 600 ml 1000 ml 2934 ml DEBORA BOUDREAUX III DO Dec 02, 2016 12:57
--- NOTE | 2016-12-02 13:05 | PDOC ---
PROGRESS NOTES Subjective Subjective SEEN IN FOLLOW UP OF ARF Objective Objective Vital Signs Date Time Temp Pulse Resp B/P (MAP) Pulse Ox O2 Delivery O2 Flow Rate FiO2 12/02/16 10:05 20 Room Air 12/02/16 09:04 65 109/42 12/02/16 07:28 93 12/02/16 03:00 97.7 97.7 12/01/16 21:46 2.0 Intake and Output 12/02/16 07:00 Intake Total 4534 ml Balance 4534 ml Intake Oral 1500 ml IV Total 100 ml Other 2934 ml # Voids 5 # Bowel Movements 1 Physical Exam Abdomen: Normal bowel sounds, Soft, No tenderness, No hepatosplenomegaly, No masses Heart: Regular rate, Normal S1, Normal S2, No murmurs, Gallops Extremities: No clubbing, No cyanosis, No edema, Normal pulses, No tenderness/ swelling General: Alert, Oriented X3, Cooperative, No acute distress Lungs: Clear to auscultation, Normal air movement Psych/Mental Status: Mental status NL, Mood NL Diagnosis RENAL FAILURE: Acute, Other (DEHYDRATION) Assessment Assessment Problems Medical Problems: (1) CHF (congestive heart failure) Status: Acute Plan Plan of Care CONT IVF RENAL FUNCTION IS SLOWLY IMPROVING. SHE STATES BREATHING IS BETTER ! Comment Review of Relevant I have reviewed the following items aaliyah (where applicable) has been applied. Labs Laboratory Tests Test 12/01/16 04:55 12/02/16 07:25 White Blood Count 9.6 x10^3/uL (4.0-11.0) Red Blood Count 3.72 x10^6/uL (3.50-5.40) Hemoglobin 10.8 g/dL (12.0-15.5) Hematocrit 31.9 % (36.0-47.0) Mean Corpuscular Volume 86 fL (79-100) Mean Corpuscular Hemoglobin 29 pg (25-35) Mean Corpuscular Hemoglobin Concent 34 g/dL (31-37) Red Cell Distribution Width 14.6 % (11.5-14.5) Platelet Count 235 x10^3/uL (140-400) Neutrophils (%) (Auto) 70 % (31-73) Lymphocytes (%) (Auto) 18 % (24-48) Monocytes (%) (Auto) 9 % (0-9) Eosinophils (%) (Auto) 3 % (0-3) Basophils (%) (Auto) 1 % (0-3) Neutrophils # (Auto) 6.7 x10^3uL (1.8-7.7) Lymphocytes # (Auto) 1.7 x10^3/uL (1.0-4.8) Monocytes # (Auto) 0.8 x10^3/uL (0.0-1.1) Eosinophils # (Auto) 0.3 x10^3/uL (0.0-0.7) Basophils # (Auto) 0.1 x10^3/uL (0.0-0.2) Sodium Level 132 mmol/L (136-145) 134 mmol/L (136-145) Potassium Level 6.2 mmol/L (3.5-5.1) 5.0 mmol/L (3.5-5.1) Chloride Level 98 mmol/L (98-107) 100 mmol/L (98-107) Carbon Dioxide Level 25 mmol/L (21-32) 23 mmol/L (21-32) Anion Gap 9 (6-14) 11 (6-14) Blood Urea Nitrogen 108 mg/dL (7-20) 118 mg/dL (7-20) Creatinine 4.3 mg/dL (0.6-1.0) 4.2 mg/dL (0.6-1.0) Estimated GFR (Cockcroft-Gault) 9.8 10.0 Glucose Level 101 mg/dL (70-99) 103 mg/dL (70-99) Calcium Level 7.6 mg/dL (8.5-10.1) 6.9 mg/dL (8.5-10.1) Phosphorus Level 7.8 mg/dL (2.6-4.7) Magnesium Level 2.8 mg/dL (1.8-2.4) Laboratory Tests Test 12/02/16 07:25 Sodium Level 134 mmol/L (136-145) Potassium Level 5.0 mmol/L (3.5-5.1) Chloride Level 100 mmol/L (98-107) Carbon Dioxide Level 23 mmol/L (21-32) Anion Gap 11 (6-14) Blood Urea Nitrogen 118 mg/dL (7-20) Creatinine 4.2 mg/dL (0.6-1.0) Estimated GFR (Cockcroft-Gault) 10.0 Glucose Level 103 mg/dL (70-99) Calcium Level 6.9 mg/dL (8.5-10.1) Microbiology 11/26/16 Urine Culture - Final, Complete 11/26/16 Urine Culture Result 1 (KAELA) - Final, Complete Medications Current Medications Furosemide (Lasix) 60 mg 1X ONCE IVP Last administered on 11/26/16 13:50; Start 11/26/16 at 13:15; Stop 11/26/16 at 13:16; Status DC Ondansetron HCl (Zofran) 4 mg PRN Q8HRS PRN IV NAUSEA/VOMITING; Start 11/26/16 at 14:00; Stop 11/27/16 at 13:59; Status DC Acetaminophen (Tylenol) 650 mg PRN Q4HRS PRN PO FEVER; Start 11/26/16 at 14:00 ; Stop 11/27/16 at 13:59; Status DC Nitroglycerin (Nitrostat) 0.4 mg PRN Q5MIN PRN SL CHEST PAIN; Start 11/26/16 at 14:00; Stop 11/27/16 at 13:59; Status DC Lisinopril (Prinivil) 5 mg 1X ONCE PO Last administered on 11/26/16 17:57; Start 11/26/16 at 14:00; Stop 11/26/16 at 14:10; Status DC Hydralazine HCl (Apresoline) 10 mg PRN Q6HRS PRN IVP HYPERTENSION, SEE COMMENTS ; Start 11/26/16 at 14:00 Aspirin (Ecotrin) 81 mg DAILYWBKFT PO Last administered on 12/02/16 09:05; Start 11/27/16 at 08:00 Atorvastatin Calcium (Lipitor) 20 mg QHS PO Last administered on 12/01/16 20: 37; Start 11/26/16 at 21:00 Fluticasone Propionate (Flonase) 1 spray DAILY NS Last administered on 09:03; Start 11/27/16 at 09:00 Furosemide (Lasix) 40 mg DAILY PO Last administered on 11/29/16 09:04; Start 11/27/16 at 09:00; Stop 11/30/16 at 14:24; Status DC Lisinopril (Prinivil) 5 mg DAILY PO Last administered on 11/29/16 09:04; Start 11/27/16 at 09:00; Stop 12/01/16 at 09:55; Status DC Metoprolol Tartrate (Lopressor) 12.5 mg BID PO Last administered on 12/02/16 09:04; Start 11/26/16 at 21:00 Oxycodone/ Acetaminophen (Percocet 5/325) 1 tab QID PO Last administered on 09:05; Start 11/26/16 at 21:00 Non-Formulary Medication 0.5 mg Q2HR PRN NEB SHORTNESS OF BREATH; Start at 19:00; Stop 11/26/16 at 19:23; Status DC Cetirizine HCl (ZyrTEC) 10 mg DAILY PO Last administered on 12/02/16 09:05; Start 11/27/16 at 09:00 Non-Formulary Medication 1 inh BID IH ; Start 11/26/16 at 21:00; Stop 11/26/16 at 21:00; Status DC Nitroglycerin (Nitrostat) 0.4 mg PRN Q5MIN PRN SL CHEST PAIN; Start 11/26/16 at 19:30 Polyethylene Glycol (miraLAX PACKET) 17 gm PRN DAILY PRN PO CONSTIPATION Last administered on 11/30/16 08:12; Start 11/27/16 at 09:00 Albuterol Sulfate (Ventolin Neb Soln) 2.5 mg PRN Q2HRS PRN NEB SHORTNESS OF BREATH; Start 11/26/16 at 19:30 Albuterol Sulfate (Ventolin Neb Soln) 2.5 mg QID NEB Last administered on 12:26; Start 11/26/16 at 21:00; Stop 11/27/16 at 15:21; Status DC Budesonide (Pulmicort) 0.5 mg BID NEB Last administered on 12/02/16 07:28; Start 11/26/16 at 21:00 Ceftriaxone Sodium 1 gm/ Sodium Chloride 50 ml @ 100 mls/hr Q24H IV ; Start at 10:15; Status UNV Methylprednisolone Acetate (DEPO-Medrol 40MG VIAL) 40 mg 1X ONCE IM Last administered on 11/27/16 10:30; Start 11/27/16 at 10:30; Stop 11/27/16 at 10:31 ; Status DC Bupivacaine HCl (Sensorcaine-Mpf 0.25%) 10 ml 1X ONCE IJ Last administered on 11/27/16 10:30; Start 11/27/16 at 10:30; Stop 11/27/16 at 10:31; Status DC Levofloxacin/ Dextrose 100 ml @ 100 mls/hr 1X ONCE IV Last administered on 11:04; Start 11/27/16 at 10:30; Stop 11/27/16 at 11:29; Status DC Levofloxacin (Levaquin) 250 mg DAILY06 PO Last administered on 12/02/16 05:27 ; Start 11/28/16 at 08:00 Metolazone (Zaroxolyn) 2.5 mg DAILY PO Last administered on 11/30/16 08:11; Start 11/27/16 at 12:30; Stop 11/30/16 at 14:24; Status DC Albuterol Sulfate (Ventolin Neb Soln) 2.5 mg BID NEB Last administered on 07:28; Start 11/27/16 at 21:00 Sodium Chloride 1,000 ml @ 60 mls/hr 1X ONCE IV Last administered on 15:03; Start 11/30/16 at 15:00; Stop 12/01/16 at 07:39; Status DC Sodium Polystyrene Sulfonate (Kayexalate) 30 gm 1X ONCE PO Last administered on 12/01/16 07:47; Start 12/01/16 at 07:30; Stop 12/01/16 at 07:31; Status DC Sodium Chloride 1,000 ml @ 100 mls/hr Q10H IV Last administered on 12/02/16 05:27; Start 12/01/16 at 07:15 Active Scripts Active Percocet 5-325 Mg Tablet (Oxycodone/Acetaminophen) 1 Each Tablet 1 Tab PO QID Furosemide 40 Mg Tablet 40 Mg PO DAILY Reported Lisinopril 5 Mg Tablet 1 Tab PO DAILY Albuterol Sulfate Neb Soln (Albuterol Sulfate) 0.63 Mg/3 Ml Vial.neb 0.5 Mg NEB Q2HR PRN Polyethylene Glycol (Polyethylene Glycol 8000) 500 Gm Powder 500 Gm MC DAILY PRN Advair 250-50 Diskus (Fluticasone/Salmeterol) 1 Each Disk.w.dev 1 Inh IH BID Metoprolol Tartrate 25 Mg Tablet 12.5 Mg PO BID Aspir 81 (Aspirin) 81 Mg Tablet.dr 81 Mg PO DAILY Nitrostat (Nitroglycerin) 0.3 Mg Tab.subl 0.3 Mg SL PRN Q5MIN PRN Flonase (Fluticasone Propionate) 16 Gm [place].susp 16 Gm NS DAILY Zyrtec (Cetirizine Hcl) 10 Mg Capsule 10 Mg PO DAILY Atorvastatin Calcium 10 Mg Tablet 20 Mg PO DAILY Vitals/I & O Vital Sign - Last 24 Hours 12/01/16 12/01/16 12/01/16 12/01/16 13:27 14:37 19:00 19:34 Temp 97.9 97.9 97.9 97.9 Pulse 61 56 Resp 20 21 B/P (MAP) 95/33 (53) 101/28 (52) Pulse Ox 95 96 93 96 O2 Delivery Room Air Room Air Room Air Room Air O2 Flow Rate 2.0 12/01/16 12/01/16 12/01/16 12/01/16 19:44 20:36 20:42 21:46 Pulse 56 Resp 20 B/P (MAP) 101/28 Pulse Ox 96 96 O2 Delivery Room Air Room Air O2 Flow Rate 2.0 2.0 2.0 12/01/16 12/02/16 12/02/16 12/02/16 23:00 03:00 07:28 08:00 Temp 97.7 97.7 97.7 97.7 Pulse 64 60 Resp 20 19 B/P (MAP) 129/35 (66) 115/33 (60) Pulse Ox 95 93 93 O2 Delivery Room Air Room Air Room Air Room Air 12/02/16 12/02/16 12/02/16 09:04 09:05 10:05 Pulse 65 Resp 20 20 B/P (MAP) 109/42 O2 Delivery Room Air Room Air Intake and Output 12/01/16 12/01/16 12/02/16 15:00 23:00 07:00 Intake Total 600 ml 1000 ml 2934 ml Balance 600 ml 1000 ml 2934 ml LIBORIO TANG MD Dec 02, 2016 13:05
[2016-12-02] MEDS: ATORVASTATIN CALCIUM 10 MG TABLET. PO SCH (20:58)
[2016-12-03] MEDS: IV NORMAL SALINE 1000ML BAG 1,000 ML IV SCH ×3 (01:28→22:14)
[2016-12-03] MEDS: oxyCODONE/APAP 5/325 1 TAB TABLET PO SCH ×3 (01:44→22:13)
[2016-12-03 02:53] VITALS: BP 112/48
[2016-12-03 07:00] VITALS: BP 126/52
[2016-12-03 07:46] LABS: CALCIUM 7.6 mg/dL (8.5-10.1); CREATININE 3.2 mg/dL (0.6-1.0); GFR 13.7; POTASSIUM 4.7 mmol/L (3.5-5.1)
[2016-12-03] MEDS: ALBUTEROL SULFATE 2.5 MG/3 ML NEBU. NEB SCH (08:09)
[2016-12-03] MEDS: BUDESONIDE 0.5 MG/2 ML NEBU. NEB SCH (08:10)
[2016-12-03] MEDS: ASPIRIN ENTERIC COATED 81 MG TABLET.DR. PO SCH (08:52)
[2016-12-03] MEDS: CETIRIZINE HCL 10 MG TABLET. PO SCH (08:55)
[2016-12-03] MEDS: METOPROLOL TART IMMED RELEASE 25 MG TABLET. PO SCH ×2 (08:59→22:14)
--- NOTE | 2016-12-03 09:25 | PDOC ---
Provider Note Provider Note [id number] dyspnea 2nd pulm htn copd acute diastolic chf prob andrea see orders. MINOO COLUNGA MD Dec 03, 2016 09:25
[2016-12-03 11:00] VITALS: BP 125/57
--- NOTE | 2016-12-03 11:18 | PDOC ---
PROGRESS NOTES Subjective Subjective SEEN IN FOLLOW UP OF ARF DUE TO DEHYDRATION Objective Objective Vital Signs Date Time Temp Pulse Resp B/P (MAP) Pulse Ox O2 Delivery O2 Flow Rate FiO2 12/03/16 08:59 61 126/52 12/03/16 08:15 96 Room Air 12/03/16 02:53 97.0 18 97.0 12/02/16 21:58 2.0 Intake and Output 12/03/16 07:00 Intake Total 2240 ml Output Total 300 ml Balance 1940 ml Intake Oral 240 ml IV Total 2000 ml Output Urine Total 300 ml # Voids 1 Physical Exam Abdomen: Normal bowel sounds, Soft, No tenderness, No hepatosplenomegaly, No masses Heart: Regular rate, Normal S1, Normal S2, No murmurs, Gallops General: Alert, Oriented X3, Cooperative, No acute distress Lungs: Clear to auscultation, Normal air movement Psych/Mental Status: Mental status NL, Mood NL Diagnosis HYPERTENSION: Other (PULMONARY) RENAL FAILURE: Acute, Other (DEHYDRATION) Assessment Assessment Problems Medical Problems: (1) CHF (congestive heart failure) Status: Acute Plan Plan of Care BETTER DAILY. CONT IVF AND FOLLOW Comment Review of Relevant I have reviewed the following items aaliyah (where applicable) has been applied. Labs Laboratory Tests Test 12/02/16 07:25 12/03/16 07:28 Sodium Level 134 mmol/L (136-145) 135 mmol/L (136-145) Potassium Level 5.0 mmol/L (3.5-5.1) 4.7 mmol/L (3.5-5.1) Chloride Level 100 mmol/L (98-107) 101 mmol/L (98-107) Carbon Dioxide Level 23 mmol/L (21-32) 22 mmol/L (21-32) Anion Gap 11 (6-14) 12 (6-14) Blood Urea Nitrogen 118 mg/dL (7-20) 106 mg/dL (7-20) Creatinine 4.2 mg/dL (0.6-1.0) 3.2 mg/dL (0.6-1.0) Estimated GFR (Cockcroft-Gault) 10.0 13.7 Glucose Level 103 mg/dL (70-99) 97 mg/dL (70-99) Calcium Level 6.9 mg/dL (8.5-10.1) 7.6 mg/dL (8.5-10.1) Laboratory Tests Test 12/03/16 07:28 Sodium Level 135 mmol/L (136-145) Potassium Level 4.7 mmol/L (3.5-5.1) Chloride Level 101 mmol/L (98-107) Carbon Dioxide Level 22 mmol/L (21-32) Anion Gap 12 (6-14) Blood Urea Nitrogen 106 mg/dL (7-20) Creatinine 3.2 mg/dL (0.6-1.0) Estimated GFR (Cockcroft-Gault) 13.7 Glucose Level 97 mg/dL (70-99) Calcium Level 7.6 mg/dL (8.5-10.1) Microbiology 11/26/16 Urine Culture - Final, Complete 11/26/16 Urine Culture Result 1 (KAELA) - Final, Complete Medications Current Medications Furosemide (Lasix) 60 mg 1X ONCE IVP Last administered on 11/26/16 13:50; Start 11/26/16 at 13:15; Stop 11/26/16 at 13:16; Status DC Ondansetron HCl (Zofran) 4 mg PRN Q8HRS PRN IV NAUSEA/VOMITING; Start 11/26/16 at 14:00; Stop 11/27/16 at 13:59; Status DC Acetaminophen (Tylenol) 650 mg PRN Q4HRS PRN PO FEVER; Start 11/26/16 at 14:00 ; Stop 11/27/16 at 13:59; Status DC Nitroglycerin (Nitrostat) 0.4 mg PRN Q5MIN PRN SL CHEST PAIN; Start 11/26/16 at 14:00; Stop 11/27/16 at 13:59; Status DC Lisinopril (Prinivil) 5 mg 1X ONCE PO Last administered on 11/26/16 17:57; Start 11/26/16 at 14:00; Stop 11/26/16 at 14:10; Status DC Hydralazine HCl (Apresoline) 10 mg PRN Q6HRS PRN IVP HYPERTENSION, SEE COMMENTS ; Start 11/26/16 at 14:00 Aspirin (Ecotrin) 81 mg DAILYWBKFT PO Last administered on 12/03/16 08:52; Start 11/27/16 at 08:00 Atorvastatin Calcium (Lipitor) 20 mg QHS PO Last administered on 12/02/16 20: 58; Start 11/26/16 at 21:00 Fluticasone Propionate (Flonase) 1 spray DAILY NS Last administered on 09:03; Start 11/27/16 at 09:00 Furosemide (Lasix) 40 mg DAILY PO Last administered on 11/29/16 09:04; Start 11/27/16 at 09:00; Stop 11/30/16 at 14:24; Status DC Lisinopril (Prinivil) 5 mg DAILY PO Last administered on 11/29/16 09:04; Start 11/27/16 at 09:00; Stop 12/01/16 at 09:55; Status DC Metoprolol Tartrate (Lopressor) 12.5 mg BID PO Last administered on 12/03/16 08:59; Start 11/26/16 at 21:00 Oxycodone/ Acetaminophen (Percocet 5/325) 1 tab QID PO Last administered on 01:44; Start 11/26/16 at 21:00 Non-Formulary Medication 0.5 mg Q2HR PRN NEB SHORTNESS OF BREATH; Start at 19:00; Stop 11/26/16 at 19:23; Status DC Cetirizine HCl (ZyrTEC) 10 mg DAILY PO Last administered on 12/03/16 08:55; Start 11/27/16 at 09:00 Non-Formulary Medication 1 inh BID IH ; Start 11/26/16 at 21:00; Stop 11/26/16 at 21:00; Status DC Nitroglycerin (Nitrostat) 0.4 mg PRN Q5MIN PRN SL CHEST PAIN; Start 11/26/16 at 19:30 Polyethylene Glycol (miraLAX PACKET) 17 gm PRN DAILY PRN PO CONSTIPATION Last administered on 11/30/16 08:12; Start 11/27/16 at 09:00 Albuterol Sulfate (Ventolin Neb Soln) 2.5 mg PRN Q2HRS PRN NEB SHORTNESS OF BREATH; Start 11/26/16 at 19:30 Albuterol Sulfate (Ventolin Neb Soln) 2.5 mg QID NEB Last administered on 12:26; Start 11/26/16 at 21:00; Stop 11/27/16 at 15:21; Status DC Budesonide (Pulmicort) 0.5 mg BID NEB Last administered on 12/03/16 08:10; Start 11/26/16 at 21:00; Stop 12/03/16 at 09:17; Status DC Ceftriaxone Sodium 1 gm/ Sodium Chloride 50 ml @ 100 mls/hr Q24H IV ; Start at 10:15; Status UNV Methylprednisolone Acetate (DEPO-Medrol 40MG VIAL) 40 mg 1X ONCE IM Last administered on 11/27/16 10:30; Start 11/27/16 at 10:30; Stop 11/27/16 at 10:31 ; Status DC Bupivacaine HCl (Sensorcaine-Mpf 0.25%) 10 ml 1X ONCE IJ Last administered on 11/27/16 10:30; Start 11/27/16 at 10:30; Stop 11/27/16 at 10:31; Status DC Levofloxacin/ Dextrose 100 ml @ 100 mls/hr 1X ONCE IV Last administered on 11:04; Start 11/27/16 at 10:30; Stop 11/27/16 at 11:29; Status DC Levofloxacin (Levaquin) 250 mg DAILY06 PO Last administered on 12/03/16 05:01 ; Start 11/28/16 at 08:00 Metolazone (Zaroxolyn) 2.5 mg DAILY PO Last administered on 11/30/16 08:11; Start 11/27/16 at 12:30; Stop 11/30/16 at 14:24; Status DC Albuterol Sulfate (Ventolin Neb Soln) 2.5 mg BID NEB Last administered on 08:09; Start 11/27/16 at 21:00; Stop 12/03/16 at 09:17; Status DC Sodium Chloride 1,000 ml @ 60 mls/hr 1X ONCE IV Last administered on 15:03; Start 11/30/16 at 15:00; Stop 12/01/16 at 07:39; Status DC Sodium Polystyrene Sulfonate (Kayexalate) 30 gm 1X ONCE PO Last administered on 12/01/16 07:47; Start 12/01/16 at 07:30; Stop 12/01/16 at 07:31; Status DC Sodium Chloride 1,000 ml @ 100 mls/hr Q10H IV Last administered on 12/03/16t 01:28; Start 12/01/16 at 07:15 Albuterol/ Ipratropium (Duoneb) 3 ml RTQID NEB ; Start 12/03/16 at 12:00 Enoxaparin Sodium (Lovenox 30mg Syringe) 30 mg Q24H SQ ; Start 12/03/16 at 09:30 Active Scripts Active Percocet 5-325 Mg Tablet (Oxycodone/Acetaminophen) 1 Each Tablet 1 Tab PO QID Furosemide 40 Mg Tablet 40 Mg PO DAILY Reported Lisinopril 5 Mg Tablet 1 Tab PO DAILY Albuterol Sulfate Neb Soln (Albuterol Sulfate) 0.63 Mg/3 Ml Vial.neb 0.5 Mg NEB Q2HR PRN Polyethylene Glycol (Polyethylene Glycol 8000) 500 Gm Powder 500 Gm MC DAILY PRN Advair 250-50 Diskus (Fluticasone/Salmeterol) 1 Each Disk.w.dev 1 Inh IH BID Metoprolol Tartrate 25 Mg Tablet 12.5 Mg PO BID Aspir 81 (Aspirin) 81 Mg Tablet.dr 81 Mg PO DAILY Nitrostat (Nitroglycerin) 0.3 Mg Tab.subl 0.3 Mg SL PRN Q5MIN PRN Flonase (Fluticasone Propionate) 16 Gm [place].susp 16 Gm NS DAILY Zyrtec (Cetirizine Hcl) 10 Mg Capsule 10 Mg PO DAILY Atorvastatin Calcium 10 Mg Tablet 20 Mg PO DAILY Vitals/I & O Vital Sign - Last 24 Hours 12/02/16 12/02/16 12/02/16 12/02/16 13:18 15:00 17:19 18:59 Temp 97.5 97.5 Pulse 69 Resp 18 18 20 B/P (MAP) 120/35 (63) Pulse Ox 96 O2 Delivery Room Air Room Air Room Air 12/02/16 12/02/16 12/02/16 12/02/16 19:00 19:35 20:58 20:59 Temp 97.5 97.5 Pulse 61 80 Resp 18 18 B/P (MAP) 120/32 (61) 136/61 Pulse Ox 99 96 O2 Delivery Room Air Room Air Room Air 12/02/16 12/02/16 12/02/16 7/30/17 21:17 21:58 23:00 01:44 Temp 98.1 98.1 Pulse 80 65 Resp 18 18 18 B/P (MAP) 136/61 (86) 132/48 (76) Pulse Ox 96 96 96 O2 Delivery Room Air Room Air Room Air O2 Flow Rate 2.0 12/03/16 12/03/16 12/03/16 12/03/16 02:53 08:12 08:15 08:59 Temp 97.0 97.0 Pulse 63 61 Resp 18 B/P (MAP) 112/48 (69) 126/52 Pulse Ox 96 96 96 O2 Delivery Room Air Room Air Room Air Intake and Output 12/02/16 12/02/16 12/03/16 15:00 23:00 07:00 Intake Total 120 ml 1120 ml 1000 ml Output Total 300 ml Balance 120 ml 1120 ml 700 ml LIBORIO TANG MD Dec 03, 2016 11:18
[2016-12-03] MEDS: IPRATRPIUM/ALBUTEROL 0.5/2.5MG 3 ML NEBU. NEB SCH ×3 (11:28→19:35)
--- NOTE | 2016-12-03 12:10 | CONS ---
DATE OF CONSULTATION: 12/03/2016 REASON FOR CONSULTATION: I was asked to see this 86-year-old lady for shortness of breath, pulmonary hypertension. HISTORY OF PRESENT ILLNESS: She has a history of [id number] smoking, stopped smoking 40 years ago. She has had shortness of breath with exertion for many years and has been getting worse gradually. She was admitted with increased shortness of breath. She has cough with a small amount of sputum production. She has a runny nose, but denies gastroesophageal reflux symptoms. She has snoring and excessive daytime sleepiness and she was advised to have a sleep study, but she does not want to have that. PAST MEDICAL HISTORY: Coronary artery disease status post stent, diastolic CHF, hypertension, hyperlipidemia, status post pacemaker placement for complete heart block. She had a right and left cardiac catheterization, which did show pulmonary hypertension. Pulmonary capillary wedge pressure was 25. Her echocardiogram did show ejection fraction 60%, [id number] tricuspid regurgitation, severe pulmonary hypertension with PA pressure of 74, COPD. ALLERGIES: PENICILLIN, SULFA AND CODEINE. MEDICATIONS: She is on IV fluid, albuterol nebulizer b.i.d., aspirin, Lipitor, Pulmicort, cetirizine, Flonase, hydralazine, levofloxacin, metoprolol and nitroglycerin. SOCIAL HISTORY: History of [id number] smoking, stopped smoking 40 years ago. FAMILY HISTORY: There is no history of lung disease. REVIEW OF SYSTEMS: As mentioned as above. She has gained weight. Her activity is limited. She uses a walker. Her exercise tolerance is from room to room. Other systems are otherwise negative. PHYSICAL EXAMINATION: GENERAL: This is a morbidly obese lady. VITAL SIGNS: Her O2 saturation is 96%, respiratory rate 18, heart rate 61. Blood pressure 126/52, temperature 97. HEENT: Normocephalic, atraumatic. Pupils are equal, round, reactive to light. Nose is clear. There is shallow oropharynx. NECK: She has a short, thick neck. She has double chin. CARDIOVASCULAR: Distant sounds. Regular rate and rhythm. CHEST: Inspection is normal. LUNGS: Few end expiratory wheezing. Bibasilar crackles, dullness at the bases. ABDOMEN: Soft and obese. Bowel sounds are good. There is no mass. EXTREMITIES: There is no edema. LYMPHATICS: There is no lymphadenopathy. NEUROLOGIC: Alert and oriented. SKIN: Chronic changes. Review to follow laboratory chest x-ray shows cardiomegaly, bilateral infiltrate. LABORATORY DATA: WBC 9.6, hemoglobin 10.8, platelets 235. Sodium 135, potassium 4.7, chloride 101, CO2 of 22, glucose 97, BUN 106, creatinine 3.2. BNP on 11/26/2016 is 2969. Troponin 0.019. IMPRESSION: 1. Dyspnea, multifactorial in etiology including acute diastolic congestive heart failure, chronic obstructive pulmonary disease, morbid obesity, deconditioning, probable obstructive sleep apnea-hypopnea syndrome, rule out thromboembolic disease versus others. 2. Abnormal chest x-ray. 3. Acute diastolic congestive heart failure. 4. Chronic obstructive pulmonary disease. 5. Secondary pulmonary hypertension due to diastolic congestive heart failure, probable obstructive sleep apnea-hypopnea syndrome, chronic obstructive pulmonary disease, hypoxemia, rule out thromboembolic disease vs others. 6. Morbid obesity, snoring and excessive daytime sleepiness, probable obstructive sleep apnea-hypopnea syndrome. 7. Coronary artery disease. 8. Status post pacemaker placement. 9. Acute kidney injury. 10. Chronic kidney disease. PLAN AND RECOMMENDATIONS: 1. Titrate FiO2 to keep O2 saturation 92%. 2. ABG. 3. Change bronchodilator to DuoNeb q.i.d. 4. Continue Pulmicort. 5. Start Lovenox for DVT prophylaxis. 6. VQ scan. 7. I have discussed obstructive sleep apnea-hypopnea syndrome, the importance of the diagnosis and treatment. If untreated, increased cardiovascular and [employer] [place] [employer] morbidity and mortality. She understands but is not willing to do that. I will rediscuss it with her again. 8. The findings and recommendations were discussed with the patient. She understood and agreed to proceed with the plan. I have answered all of her questions. Thank you very much for allowing me to participate in care of this very nice lady . MINOO COLUNGA M.D. : PATRICA/shayan JOB#: [id number] / [id number]
--- NOTE | 2016-12-03 14:07 | PDOC ---
PROGRESS NOTES Chief Complaint Chief Complaint CHF, acute on chronic systolic Acute vasomotor nephropathy on CKD, ? overdiuresis Hyperkalemia, on lasix and metalozone Pickwickian syndrome, Chronic leg pain and foot pain and knee pain, OA, poor mobility Morbid obesity, BMI 61, w/ concurrent mild malnutrition, hypoalbumin UTI CKD 3 Orthostasis History of Present Illness History of Present Illness Patient was seated in chair with pursed lip respirations. Discussed with patient regarding her normal labs. States she feels much better. Heel proctors on. Vitals Vitals Vital Signs Date Time Temp Pulse Resp B/P (MAP) Pulse Ox O2 Delivery O2 Flow Rate FiO2 12/03/16 11:29 98 Room Air 12/03/16 08:59 61 126/52 12/03/16 02:53 97.0 18 97.0 12/02/16 21:58 2.0 Physical Exam General: Alert, Oriented X3, Cooperative, No acute distress Heart: Regular rate, Normal S1, Normal S2, No murmurs, Gallops Lungs: Wheezing, Other Abdomen: Normal bowel sounds, Soft, No tenderness, No hepatosplenomegaly, No masses Extremities: No clubbing, No cyanosis, No edema, Normal pulses, No tenderness/ swelling Skin: No breakdown, No significant lesion Labs LABS Laboratory Tests Test 12/03/16 07:28 Sodium Level 135 mmol/L (136-145) Potassium Level 4.7 mmol/L (3.5-5.1) Chloride Level 101 mmol/L (98-107) Carbon Dioxide Level 22 mmol/L (21-32) Anion Gap 12 (6-14) Blood Urea Nitrogen 106 mg/dL (7-20) Creatinine 3.2 mg/dL (0.6-1.0) Estimated GFR (Cockcroft-Gault) 13.7 Glucose Level 97 mg/dL (70-99) Calcium Level 7.6 mg/dL (8.5-10.1) Review of Systems Review of Systems Weakness. Mild SOB. Assessment and Plan Assessmemt and Plan Problems Medical Problems: (1) CHF (congestive heart failure) Status: Acute Assessment: CHF, acute on chronic systolic Acute vasomotor nephropathy on CKD, ? overdiuresis Hyperkalemia, on lasix and metalozone Pickwickian syndrome, Chronic leg pain and foot pain and knee pain, OA, poor mobility Morbid obesity, BMI 61, w/ concurrent mild malnutrition, hypoalbumin UTI CKD 3 Orthostasis Plan: 1. Consulting with Dr. Moss (pulmonology) 2. Following up with nephrology 3. PT/OT 4. Recheck labs 5. Continue diuresis 6. Continue home meds 7. Cardiac diet 8. 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 Labs Laboratory Tests Test 12/02/16 07:25 12/03/16 07:28 Sodium Level 134 mmol/L (136-145) 135 mmol/L (136-145) Potassium Level 5.0 mmol/L (3.5-5.1) 4.7 mmol/L (3.5-5.1) Chloride Level 100 mmol/L (98-107) 101 mmol/L (98-107) Carbon Dioxide Level 23 mmol/L (21-32) 22 mmol/L (21-32) Anion Gap 11 (6-14) 12 (6-14) Blood Urea Nitrogen 118 mg/dL (7-20) 106 mg/dL (7-20) Creatinine 4.2 mg/dL (0.6-1.0) 3.2 mg/dL (0.6-1.0) Estimated GFR (Cockcroft-Gault) 10.0 13.7 Glucose Level 103 mg/dL (70-99) 97 mg/dL (70-99) Calcium Level 6.9 mg/dL (8.5-10.1) 7.6 mg/dL (8.5-10.1) Laboratory Tests Test 12/03/16 07:28 Sodium Level 135 mmol/L (136-145) Potassium Level 4.7 mmol/L (3.5-5.1) Chloride Level 101 mmol/L (98-107) Carbon Dioxide Level 22 mmol/L (21-32) Anion Gap 12 (6-14) Blood Urea Nitrogen 106 mg/dL (7-20) Creatinine 3.2 mg/dL (0.6-1.0) Estimated GFR (Cockcroft-Gault) 13.7 Glucose Level 97 mg/dL (70-99) Calcium Level 7.6 mg/dL (8.5-10.1) Microbiology 11/26/16 Urine Culture - Final, Complete 11/26/16 Urine Culture Result 1 (KAELA) - Final, Complete Medications Current Medications Furosemide (Lasix) 60 mg 1X ONCE IVP Last administered on 11/26/16 13:50; Start 11/26/16 at 13:15; Stop 11/26/16 at 13:16; Status DC Ondansetron HCl (Zofran) 4 mg PRN Q8HRS PRN IV NAUSEA/VOMITING; Start 11/26/16 at 14:00; Stop 11/27/16 at 13:59; Status DC Acetaminophen (Tylenol) 650 mg PRN Q4HRS PRN PO FEVER; Start 11/26/16 at 14:00 ; Stop 11/27/16 at 13:59; Status DC Nitroglycerin (Nitrostat) 0.4 mg PRN Q5MIN PRN SL CHEST PAIN; Start 11/26/16 at 14:00; Stop 11/27/16 at 13:59; Status DC Lisinopril (Prinivil) 5 mg 1X ONCE PO Last administered on 11/26/16 17:57; Start 11/26/16 at 14:00; Stop 11/26/16 at 14:10; Status DC Hydralazine HCl (Apresoline) 10 mg PRN Q6HRS PRN IVP HYPERTENSION, SEE COMMENTS ; Start 11/26/16 at 14:00 Aspirin (Ecotrin) 81 mg DAILYWBKFT PO Last administered on 12/03/16 08:52; Start 11/27/16 at 08:00 Atorvastatin Calcium (Lipitor) 20 mg QHS PO Last administered on 12/02/16 20: 58; Start 11/26/16 at 21:00 Fluticasone Propionate (Flonase) 1 spray DAILY NS Last administered on 09:03; Start 11/27/16 at 09:00 Furosemide (Lasix) 40 mg DAILY PO Last administered on 11/29/16 09:04; Start 11/27/16 at 09:00; Stop 11/30/16 at 14:24; Status DC Lisinopril (Prinivil) 5 mg DAILY PO Last administered on 11/29/16 09:04; Start 11/27/16 at 09:00; Stop 12/01/16 at 09:55; Status DC Metoprolol Tartrate (Lopressor) 12.5 mg BID PO Last administered on 12/03/16 08:59; Start 11/26/16 at 21:00 Oxycodone/ Acetaminophen (Percocet 5/325) 1 tab QID PO Last administered on 01:44; Start 11/26/16 at 21:00 Non-Formulary Medication 0.5 mg Q2HR PRN NEB SHORTNESS OF BREATH; Start at 19:00; Stop 11/26/16 at 19:23; Status DC Cetirizine HCl (ZyrTEC) 10 mg DAILY PO Last administered on 12/03/16 08:55; Start 11/27/16 at 09:00 Non-Formulary Medication 1 inh BID IH ; Start 11/26/16 at 21:00; Stop 11/26/16 at 21:00; Status DC Nitroglycerin (Nitrostat) 0.4 mg PRN Q5MIN PRN SL CHEST PAIN; Start 11/26/16 at 19:30 Polyethylene Glycol (miraLAX PACKET) 17 gm PRN DAILY PRN PO CONSTIPATION Last administered on 11/30/16 08:12; Start 11/27/16 at 09:00 Albuterol Sulfate (Ventolin Neb Soln) 2.5 mg PRN Q2HRS PRN NEB SHORTNESS OF BREATH; Start 11/26/16 at 19:30 Albuterol Sulfate (Ventolin Neb Soln) 2.5 mg QID NEB Last administered on 12:26; Start 11/26/16 at 21:00; Stop 11/27/16 at 15:21; Status DC Budesonide (Pulmicort) 0.5 mg BID NEB Last administered on 12/03/16 08:10; Start 11/26/16 at 21:00; Stop 12/03/16 at 09:17; Status DC Ceftriaxone Sodium 1 gm/ Sodium Chloride 50 ml @ 100 mls/hr Q24H IV ; Start at 10:15; Status UNV Methylprednisolone Acetate (DEPO-Medrol 40MG VIAL) 40 mg 1X ONCE IM Last administered on 11/27/16 10:30; Start 11/27/16 at 10:30; Stop 11/27/16 at 10:31 ; Status DC Bupivacaine HCl (Sensorcaine-Mpf 0.25%) 10 ml 1X ONCE IJ Last administered on 11/27/16 10:30; Start 11/27/16 at 10:30; Stop 11/27/16 at 10:31; Status DC Levofloxacin/ Dextrose 100 ml @ 100 mls/hr 1X ONCE IV Last administered on 11:04; Start 11/27/16 at 10:30; Stop 11/27/16 at 11:29; Status DC Levofloxacin (Levaquin) 250 mg DAILY06 PO Last administered on 12/03/16 05:01 ; Start 11/28/16 at 08:00 Metolazone (Zaroxolyn) 2.5 mg DAILY PO Last administered on 11/30/16 08:11; Start 11/27/16 at 12:30; Stop 11/30/16 at 14:24; Status DC Albuterol Sulfate (Ventolin Neb Soln) 2.5 mg BID NEB Last administered on 08:09; Start 11/27/16 at 21:00; Stop 12/03/16 at 09:17; Status DC Sodium Chloride 1,000 ml @ 60 mls/hr 1X ONCE IV Last administered on 15:03; Start 11/30/16 at 15:00; Stop 12/01/16 at 07:39; Status DC Sodium Polystyrene Sulfonate (Kayexalate) 30 gm 1X ONCE PO Last administered on 12/01/16 07:47; Start 12/01/16 at 07:30; Stop 12/01/16 at 07:31; Status DC Sodium Chloride 1,000 ml @ 100 mls/hr Q10H IV Last administered on 12/03/16 01:28; Start 12/01/16 at 07:15 Albuterol/ Ipratropium (Duoneb) 3 ml RTQID NEB Last administered on 12/03/16 11:28; Start 12/03/16 at 12:00 Enoxaparin Sodium (Lovenox 30mg Syringe) 30 mg Q24H SQ ; Start 12/03/16 at 09:30 Active Scripts Active Percocet 5-325 Mg Tablet (Oxycodone/Acetaminophen) 1 Each Tablet 1 Tab PO QID Furosemide 40 Mg Tablet 40 Mg PO DAILY Reported Lisinopril 5 Mg Tablet 1 Tab PO DAILY Albuterol Sulfate Neb Soln (Albuterol Sulfate) 0.63 Mg/3 Ml Vial.neb 0.5 Mg NEB Q2HR PRN Polyethylene Glycol (Polyethylene Glycol 8000) 500 Gm Powder 500 Gm MC DAILY PRN Advair 250-50 Diskus (Fluticasone/Salmeterol) 1 Each Disk.w.dev 1 Inh IH BID Metoprolol Tartrate 25 Mg Tablet 12.5 Mg PO BID Aspir 81 (Aspirin) 81 Mg Tablet.dr 81 Mg PO DAILY Nitrostat (Nitroglycerin) 0.3 Mg Tab.subl 0.3 Mg SL PRN Q5MIN PRN Flonase (Fluticasone Propionate) 16 Gm [place].susp 16 Gm NS DAILY Zyrtec (Cetirizine Hcl) 10 Mg Capsule 10 Mg PO DAILY Atorvastatin Calcium 10 Mg Tablet 20 Mg PO DAILY Vitals/I & O Vital Sign - Last 24 Hours 12/02/16 12/02/16 12/02/16 12/02/16 15:00 17:19 18:59 19:00 Temp 97.5 97.5 97.5 97.5 Pulse 69 61 Resp 18 20 18 B/P (MAP) 120/35 (63) 120/32 (61) Pulse Ox 96 99 O2 Delivery Room Air Room Air Room Air 12/02/16 12/02/16 12/02/16 12/02/16 19:35 20:58 20:59 21:17 Pulse 80 80 Resp 18 B/P (MAP) 136/61 136/61 (86) Pulse Ox 96 O2 Delivery Room Air Room Air 12/02/16 12/02/16 12/03/16 12/03/16 21:58 23:00 01:44 02:53 Temp 98.1 97.0 98.1 97.0 Pulse 65 63 Resp 18 18 18 18 B/P (MAP) 132/48 (76) 112/48 (69) Pulse Ox 96 96 96 96 O2 Delivery Room Air Room Air Room Air Room Air O2 Flow Rate 2.0 12/03/16 12/03/16 12/03/16 12/03/16 08:00 08:12 08:15 08:59 Pulse 61 B/P (MAP) 126/52 Pulse Ox 96 96 O2 Delivery Room Air Room Air Room Air 12/03/16 11:29 Pulse Ox 98 O2 Delivery Room Air Intake and Output 12/02/16 12/02/16 12/03/16 15:00 23:00 07:00 Intake Total 120 ml 1120 ml 1000 ml Output Total 300 ml Balance 120 ml 1120 ml 700 ml DEBORA BOUDREAUX III DO Dec 03, 2016 14:07
[2016-12-03] MEDS: ENOXAPARIN 30 MG/0.3 ML SYRINGE. SQ SCH (14:13)
[2016-12-03] MEDS: FLUTICASONE 50MCG/NASAL SPRAY 16GM BOTTLE. NS SCH (14:16)
[2016-12-03 14:36] LABS: HCO3 ABG 21 mmol/L (21-28); PCO2 ABG 41 mmHg (35-46); PH ABG 7.33 (7.35-7.45); PO2 ABG 79 mmHg (65-108); SAT O2 ABG 94 % (92-99)
[2016-12-03 14:37] LABS: FIO2 ABG 21%
[2016-12-03 15:00] VITALS: BP 122/35
[2016-12-03 19:00] VITALS: BP 117/30
[2016-12-03] MEDS: ATORVASTATIN CALCIUM 10 MG TABLET. PO SCH (22:13)
[2016-12-03 23:00] VITALS: BP 130/45
[2016-12-04] MEDS: oxyCODONE/APAP 5/325 1 TAB TABLET PO SCH ×5 (02:23→19:47)
[2016-12-04 03:17] VITALS: BP 144/41
[2016-12-04 05:01] LABS: BASO # 0.1 x10^3/uL (0.0-0.2); BASO % 1 % (0-3); EOS % 3 % (0-3); HEMATOCRIT 36.2 % (36.0-47.0); HEMOGLOBIN 11.5 g/dL (12.0-15.5); LYMPH # 0.9 x10^3/uL (1.0-4.8); LYMPH % 12 % (24-48); MEAN CORPUSCULAR HEMOGLOBIN 28 pg (25-35); MEAN CORPUSCULAR HGB CONC 32 g/dL (31-37); MEAN CORPUSCULAR VOLUME 88 fL (79-100); MONO % 9 % (0-9); NEUT % 75 % (31-73); PLATELET COUNT 207 x10^3/uL (140-400); RED CELL DISTRIBUTION WIDTH 14.9 % (11.5-14.5); WHITE BLOOD COUNT 7.3 x10^3/uL (4.0-11.0)
[2016-12-04 05:50] LABS: CALCIUM 7.6 mg/dL (8.5-10.1); CREATININE 2.5 mg/dL (0.6-1.0); GFR 18.3; POTASSIUM 4.7 mmol/L (3.5-5.1)
[2016-12-04] MEDS: IV NORMAL SALINE 1000ML BAG 1,000 ML IV SCH (05:58)
[2016-12-04] MEDS: IPRATRPIUM/ALBUTEROL 0.5/2.5MG 3 ML NEBU. NEB SCH ×4 (07:43→20:00)
[2016-12-04 07:46] VITALS: BP 145/43
[2016-12-04] MEDS: ENOXAPARIN 30 MG/0.3 ML SYRINGE. SQ SCH (07:53)
[2016-12-04] MEDS: FLUTICASONE 50MCG/NASAL SPRAY 16GM BOTTLE. NS SCH (07:53)
[2016-12-04] MEDS: ASPIRIN ENTERIC COATED 81 MG TABLET.DR. PO SCH (07:54)
[2016-12-04] MEDS: METOPROLOL TART IMMED RELEASE 25 MG TABLET. PO SCH ×2 (07:54→19:45)
[2016-12-04] MEDS: CETIRIZINE HCL 10 MG TABLET. PO SCH (07:54)
--- NOTE | 2016-12-04 09:23 | PDOC ---
PROGRESS NOTES Subjective Subjective No new complaints. Objective Objective Vital Signs Date Time Temp Pulse Resp B/P (MAP) Pulse Ox O2 Delivery O2 Flow Rate FiO2 12/04/16 08:58 98 Room Air 2.0 12/04/16 07:54 60 145/43 12/04/16 07:46 96.4 20 96.4 Intake and Output 12/04/16 07:00 Intake Total 2720 ml Output Total 902 ml Balance 1818 ml Intake Oral 720 ml IV Total 2000 ml Output Urine Total 900 ml Stool Total 2 ml # Voids 8 Physical Exam Physical Exam She is sitting up in bedside recliner with Rooke boots on and she remains independent with her mobility at roller walker level and low physical endurance secondary to SOB. Assessment Assessment Problems Medical Problems: (1) CHF (congestive heart failure) Status: Acute Plan Plan of Care To continue present physical and occupational therapy follow up. Comment Review of Relevant I have reviewed the following items aaliyah (where applicable) has been applied. Labs Laboratory Tests Test 12/03/16 07:28 12/03/16 09:20 12/04/16 04:50 Sodium Level 135 mmol/L (136-145) 138 mmol/L (136-145) Potassium Level 4.7 mmol/L (3.5-5.1) 4.7 mmol/L (3.5-5.1) Chloride Level 101 mmol/L (98-107) 107 mmol/L (98-107) Carbon Dioxide Level 22 mmol/L (21-32) 22 mmol/L (21-32) Anion Gap 12 (6-14) 9 (6-14) Blood Urea Nitrogen 106 mg/dL (7-20) 93 mg/dL (7-20) Creatinine 3.2 mg/dL (0.6-1.0) 2.5 mg/dL (0.6-1.0) Estimated GFR (Cockcroft-Gault) 13.7 18.3 Glucose Level 97 mg/dL (70-99) 101 mg/dL (70-99) Calcium Level 7.6 mg/dL (8.5-10.1) 7.6 mg/dL (8.5-10.1) O2 Saturation 94 % (92-99) Arterial Blood pH 7.33 (7.35-7.45) Arterial Blood pCO2 at Patient Temp 41 mmHg (35-46) Arterial Blood pO2 at Patient Temp 79 mmHg (65-108) Arterial Blood HCO3 21 mmol/L (21-28) Arterial Blood Base Excess -5 mmol/L (-3-3) FiO2 21% White Blood Count 7.3 x10^3/uL (4.0-11.0) Red Blood Count 4.10 x10^6/uL (3.50-5.40) Hemoglobin 11.5 g/dL (12.0-15.5) Hematocrit 36.2 % (36.0-47.0) Mean Corpuscular Volume 88 fL (79-100) Mean Corpuscular Hemoglobin 28 pg (25-35) Mean Corpuscular Hemoglobin Concent 32 g/dL (31-37) Red Cell Distribution Width 14.9 % (11.5-14.5) Platelet Count 207 x10^3/uL (140-400) Neutrophils (%) (Auto) 75 % (31-73) Lymphocytes (%) (Auto) 12 % (24-48) Monocytes (%) (Auto) 9 % (0-9) Eosinophils (%) (Auto) 3 % (0-3) Basophils (%) (Auto) 1 % (0-3) Neutrophils # (Auto) 5.5 x10^3uL (1.8-7.7) Lymphocytes # (Auto) 0.9 x10^3/uL (1.0-4.8) Monocytes # (Auto) 0.6 x10^3/uL (0.0-1.1) Eosinophils # (Auto) 0.2 x10^3/uL (0.0-0.7) Basophils # (Auto) 0.1 x10^3/uL (0.0-0.2) Laboratory Tests Test 12/04/16 04:50 White Blood Count 7.3 x10^3/uL (4.0-11.0) Red Blood Count 4.10 x10^6/uL (3.50-5.40) Hemoglobin 11.5 g/dL (12.0-15.5) Hematocrit 36.2 % (36.0-47.0) Mean Corpuscular Volume 88 fL (79-100) Mean Corpuscular Hemoglobin 28 pg (25-35) Mean Corpuscular Hemoglobin Concent 32 g/dL (31-37) Red Cell Distribution Width 14.9 % (11.5-14.5) Platelet Count 207 x10^3/uL (140-400) Neutrophils (%) (Auto) 75 % (31-73) Lymphocytes (%) (Auto) 12 % (24-48) Monocytes (%) (Auto) 9 % (0-9) Eosinophils (%) (Auto) 3 % (0-3) Basophils (%) (Auto) 1 % (0-3) Neutrophils # (Auto) 5.5 x10^3uL (1.8-7.7) Lymphocytes # (Auto) 0.9 x10^3/uL (1.0-4.8) Monocytes # (Auto) 0.6 x10^3/uL (0.0-1.1) Eosinophils # (Auto) 0.2 x10^3/uL (0.0-0.7) Basophils # (Auto) 0.1 x10^3/uL (0.0-0.2) Sodium Level 138 mmol/L (136-145) Potassium Level 4.7 mmol/L (3.5-5.1) Chloride Level 107 mmol/L (98-107) Carbon Dioxide Level 22 mmol/L (21-32) Anion Gap 9 (6-14) Blood Urea Nitrogen 93 mg/dL (7-20) Creatinine 2.5 mg/dL (0.6-1.0) Estimated GFR (Cockcroft-Gault) 18.3 Glucose Level 101 mg/dL (70-99) Calcium Level 7.6 mg/dL (8.5-10.1) Microbiology 11/26/16 Urine Culture - Final, Complete 11/26/16 Urine Culture Result 1 (KAELA) - Final, Complete Medications Current Medications Furosemide (Lasix) 60 mg 1X ONCE IVP Last administered on 11/26/16t 13:50; Start 11/26/16 at 13:15; Stop 11/26/16 at 13:16; Status DC Ondansetron HCl (Zofran) 4 mg PRN Q8HRS PRN IV NAUSEA/VOMITING; Start 11/26/16 at 14:00; Stop 11/27/16 at 13:59; Status DC Acetaminophen (Tylenol) 650 mg PRN Q4HRS PRN PO FEVER; Start 11/26/16 at 14:00 ; Stop 11/27/16 at 13:59; Status DC Nitroglycerin (Nitrostat) 0.4 mg PRN Q5MIN PRN SL CHEST PAIN; Start 11/26/16 at 14:00; Stop 11/27/16 at 13:59; Status DC Lisinopril (Prinivil) 5 mg 1X ONCE PO Last administered on 11/26/16 17:57; Start 11/26/16 at 14:00; Stop 11/26/16 at 14:10; Status DC Hydralazine HCl (Apresoline) 10 mg PRN Q6HRS PRN IVP HYPERTENSION, SEE COMMENTS ; Start 11/26/16 at 14:00 Aspirin (Ecotrin) 81 mg DAILYWBKFT PO Last administered on 12/04/16 07:54; Start 11/27/16 at 08:00 Atorvastatin Calcium (Lipitor) 20 mg QHS PO Last administered on 12/03/16 22: 13; Start 11/26/16 at 21:00 Fluticasone Propionate (Flonase) 1 spray DAILY NS Last administered on 07:53; Start 11/27/16 at 09:00 Furosemide (Lasix) 40 mg DAILY PO Last administered on 11/29/16 09:04; Start 11/27/16 at 09:00; Stop 11/30/16 at 14:24; Status DC Lisinopril (Prinivil) 5 mg DAILY PO Last administered on 11/29/16 09:04; Start 11/27/16 at 09:00; Stop 12/01/16 at 09:55; Status DC Metoprolol Tartrate (Lopressor) 12.5 mg BID PO Last administered on 12/04/16 07:54; Start 11/26/16 at 21:00 Oxycodone/ Acetaminophen (Percocet 5/325) 1 tab QID PO Last administered on 07:54; Start 11/26/16 at 21:00 Non-Formulary Medication 0.5 mg Q2HR PRN NEB SHORTNESS OF BREATH; Start at 19:00; Stop 11/26/16 at 19:23; Status DC Cetirizine HCl (ZyrTEC) 10 mg DAILY PO Last administered on 12/04/16 07:54; Start 11/27/16 at 09:00 Non-Formulary Medication 1 inh BID IH ; Start 11/26/16 at 21:00; Stop 11/26/16 at 21:00; Status DC Nitroglycerin (Nitrostat) 0.4 mg PRN Q5MIN PRN SL CHEST PAIN; Start 11/26/16 at 19:30 Polyethylene Glycol (miraLAX PACKET) 17 gm PRN DAILY PRN PO CONSTIPATION Last administered on 11/30/16 08:12; Start 11/27/16 at 09:00 Albuterol Sulfate (Ventolin Neb Soln) 2.5 mg PRN Q2HRS PRN NEB SHORTNESS OF BREATH; Start 11/26/16 at 19:30 Albuterol Sulfate (Ventolin Neb Soln) 2.5 mg QID NEB Last administered on 12:26; Start 11/26/16 at 21:00; Stop 11/27/16 at 15:21; Status DC Budesonide (Pulmicort) 0.5 mg BID NEB Last administered on 12/03/16 08:10; Start 11/26/16 at 21:00; Stop 12/03/16 at 09:17; Status DC Ceftriaxone Sodium 1 gm/ Sodium Chloride 50 ml @ 100 mls/hr Q24H IV ; Start at 10:15; Status UNV Methylprednisolone Acetate (DEPO-Medrol 40MG VIAL) 40 mg 1X ONCE IM Last administered on 11/27/16 10:30; Start 11/27/16 at 10:30; Stop 11/27/16 at 10:31 ; Status DC Bupivacaine HCl (Sensorcaine-Mpf 0.25%) 10 ml 1X ONCE IJ Last administered on 11/27/16 10:30; Start 11/27/16 at 10:30; Stop 11/27/16 at 10:31; Status DC Levofloxacin/ Dextrose 100 ml @ 100 mls/hr 1X ONCE IV Last administered on 11:04; Start 11/27/16 at 10:30; Stop 11/27/16 at 11:29; Status DC Levofloxacin (Levaquin) 250 mg DAILY06 PO Last administered on 12/04/16 04:59 ; Start 11/28/16 at 08:00 Metolazone (Zaroxolyn) 2.5 mg DAILY PO Last administered on 11/30/16 08:11; Start 11/27/16 at 12:30; Stop 11/30/16 at 14:24; Status DC Albuterol Sulfate (Ventolin Neb Soln) 2.5 mg BID NEB Last administered on 08:09; Start 11/27/16 at 21:00; Stop 12/03/16 at 09:17; Status DC Sodium Chloride 1,000 ml @ 60 mls/hr 1X ONCE IV Last administered on 15:03; Start 11/30/16 at 15:00; Stop 12/01/16 at 07:39; Status DC Sodium Polystyrene Sulfonate (Kayexalate) 30 gm 1X ONCE PO Last administered on 12/01/16 07:47; Start 12/01/16 at 07:30; Stop 12/01/16 at 07:31; Status DC Sodium Chloride 1,000 ml @ 100 mls/hr Q10H IV Last administered on 12/04/16 05:58; Start 12/01/16 at 07:15 Albuterol/ Ipratropium (Duoneb) 3 ml RTQID NEB Last administered on 12/04/16 07:43; Start 12/03/16 at 12:00 Enoxaparin Sodium (Lovenox 30mg Syringe) 30 mg Q24H SQ Last administered on 07:53; Start 12/03/16 at 09:30 Active Scripts Active Percocet 5-325 Mg Tablet (Oxycodone/Acetaminophen) 1 Each Tablet 1 Tab PO QID Furosemide 40 Mg Tablet 40 Mg PO DAILY Reported Lisinopril 5 Mg Tablet 1 Tab PO DAILY Albuterol Sulfate Neb Soln (Albuterol Sulfate) 0.63 Mg/3 Ml Vial.neb 0.5 Mg NEB Q2HR PRN Polyethylene Glycol (Polyethylene Glycol 8000) 500 Gm Powder 500 Gm MC DAILY PRN Advair 250-50 Diskus (Fluticasone/Salmeterol) 1 Each Disk.w.dev 1 Inh IH BID Metoprolol Tartrate 25 Mg Tablet 12.5 Mg PO BID Aspir 81 (Aspirin) 81 Mg Tablet.dr 81 Mg PO DAILY Nitrostat (Nitroglycerin) 0.3 Mg Tab.subl 0.3 Mg SL PRN Q5MIN PRN Flonase (Fluticasone Propionate) 16 Gm [place].susp 16 Gm NS DAILY Zyrtec (Cetirizine Hcl) 10 Mg Capsule 10 Mg PO DAILY Atorvastatin Calcium 10 Mg Tablet 20 Mg PO DAILY Vitals/I & O Vital Sign - Last 24 Hours 12/03/16 12/03/16 12/03/16 12/03/16 11:00 11:29 14:15 15:00 Temp 98.1 97.9 98.1 97.9 Pulse 69 70 Resp 20 20 20 B/P (MAP) 125/57 (79) 122/35 (64) Pulse Ox 94 98 98 98 O2 Delivery Room Air Room Air Room Air Room Air 12/03/16 12/03/16 12/03/16 12/03/16 15:21 19:00 19:30 20:00 Temp 99.0 99.0 Pulse 64 Resp 20 B/P (MAP) 117/30 (59) Pulse Ox 98 94 93 O2 Delivery Room Air Nasal Cannula Room Air Room Air 12/03/16 12/03/16 12/03/16 12/03/16 22:13 22:14 23:00 23:13 Temp 97.5 97.5 Pulse 64 61 Resp 18 20 18 B/P (MAP) 117/30 130/45 (73) Pulse Ox 93 96 O2 Delivery Room Air Room Air 12/04/16 12/04/16 12/04/16 12/04/16 02:23 03:17 07:46 07:47 Temp 97.2 96.4 97.2 96.4 Pulse 64 60 Resp 18 20 20 B/P (MAP) 144/41 (75) 145/43 (77) Pulse Ox 96 98 100 O2 Delivery Room Air Room Air Room Air Room Air 12/04/16 12/04/16 12/04/16 12/04/16 07:54 07:54 08:00 08:58 Pulse 60 B/P (MAP) 145/43 Pulse Ox 98 98 O2 Delivery Room Air Room Air Room Air O2 Flow Rate 2.0 2.0 Intake and Output 12/03/16 12/03/16 12/04/16 15:00 23:00 07:00 Intake Total 1000 ml 1360 ml 360 ml Output Total 2 ml 900 ml Balance 1000 ml 1358 ml -540 ml MARU PARADA MD Dec 04, 2016 09:23
--- NOTE | 2016-12-04 10:21 | PDOC ---
PULMONARY PROGRESS NOTES Subjective PT FEELS BETTER WITH DIURESES Vitals Vital Signs Date Time Temp Pulse Resp B/P (MAP) Pulse Ox O2 Delivery O2 Flow Rate FiO2 12/04/16 08:58 98 Room Air 2.0 12/04/16 07:54 60 145/43 12/04/16 07:46 96.4 20 96.4 ROS: No Nausea, No Chest Pain, No Abdominal Pain, No Increase Cough General: Alert Lungs: Wheezing, Other Cardiovascular: S1, S2 Abdomen: Soft, Non-tender, Other Neuro Exam: Alert Extremities: Other Skin: Warm Labs Laboratory Tests Test 12/03/16 07:28 12/03/16 09:20 12/04/16 04:50 Sodium Level 135 mmol/L (136-145) 138 mmol/L (136-145) Potassium Level 4.7 mmol/L (3.5-5.1) 4.7 mmol/L (3.5-5.1) Chloride Level 101 mmol/L (98-107) 107 mmol/L (98-107) Carbon Dioxide Level 22 mmol/L (21-32) 22 mmol/L (21-32) Anion Gap 12 (6-14) 9 (6-14) Blood Urea Nitrogen 106 mg/dL (7-20) 93 mg/dL (7-20) Creatinine 3.2 mg/dL (0.6-1.0) 2.5 mg/dL (0.6-1.0) Estimated GFR (Cockcroft-Gault) 13.7 18.3 Glucose Level 97 mg/dL (70-99) 101 mg/dL (70-99) Calcium Level 7.6 mg/dL (8.5-10.1) 7.6 mg/dL (8.5-10.1) O2 Saturation 94 % (92-99) Arterial Blood pH 7.33 (7.35-7.45) Arterial Blood pCO2 at Patient Temp 41 mmHg (35-46) Arterial Blood pO2 at Patient Temp 79 mmHg (65-108) Arterial Blood HCO3 21 mmol/L (21-28) Arterial Blood Base Excess -5 mmol/L (-3-3) FiO2 21% White Blood Count 7.3 x10^3/uL (4.0-11.0) Red Blood Count 4.10 x10^6/uL (3.50-5.40) Hemoglobin 11.5 g/dL (12.0-15.5) Hematocrit 36.2 % (36.0-47.0) Mean Corpuscular Volume 88 fL (79-100) Mean Corpuscular Hemoglobin 28 pg (25-35) Mean Corpuscular Hemoglobin Concent 32 g/dL (31-37) Red Cell Distribution Width 14.9 % (11.5-14.5) Platelet Count 207 x10^3/uL (140-400) Neutrophils (%) (Auto) 75 % (31-73) Lymphocytes (%) (Auto) 12 % (24-48) Monocytes (%) (Auto) 9 % (0-9) Eosinophils (%) (Auto) 3 % (0-3) Basophils (%) (Auto) 1 % (0-3) Neutrophils # (Auto) 5.5 x10^3uL (1.8-7.7) Lymphocytes # (Auto) 0.9 x10^3/uL (1.0-4.8) Monocytes # (Auto) 0.6 x10^3/uL (0.0-1.1) Eosinophils # (Auto) 0.2 x10^3/uL (0.0-0.7) Basophils # (Auto) 0.1 x10^3/uL (0.0-0.2) Laboratory Tests Test 12/04/16 04:50 White Blood Count 7.3 x10^3/uL (4.0-11.0) Red Blood Count 4.10 x10^6/uL (3.50-5.40) Hemoglobin 11.5 g/dL (12.0-15.5) Hematocrit 36.2 % (36.0-47.0) Mean Corpuscular Volume 88 fL (79-100) Mean Corpuscular Hemoglobin 28 pg (25-35) Mean Corpuscular Hemoglobin Concent 32 g/dL (31-37) Red Cell Distribution Width 14.9 % (11.5-14.5) Platelet Count 207 x10^3/uL (140-400) Neutrophils (%) (Auto) 75 % (31-73) Lymphocytes (%) (Auto) 12 % (24-48) Monocytes (%) (Auto) 9 % (0-9) Eosinophils (%) (Auto) 3 % (0-3) Basophils (%) (Auto) 1 % (0-3) Neutrophils # (Auto) 5.5 x10^3uL (1.8-7.7) Lymphocytes # (Auto) 0.9 x10^3/uL (1.0-4.8) Monocytes # (Auto) 0.6 x10^3/uL (0.0-1.1) Eosinophils # (Auto) 0.2 x10^3/uL (0.0-0.7) Basophils # (Auto) 0.1 x10^3/uL (0.0-0.2) Sodium Level 138 mmol/L (136-145) Potassium Level 4.7 mmol/L (3.5-5.1) Chloride Level 107 mmol/L (98-107) Carbon Dioxide Level 22 mmol/L (21-32) Anion Gap 9 (6-14) Blood Urea Nitrogen 93 mg/dL (7-20) Creatinine 2.5 mg/dL (0.6-1.0) Estimated GFR (Cockcroft-Gault) 18.3 Glucose Level 101 mg/dL (70-99) Calcium Level 7.6 mg/dL (8.5-10.1) Medications Active Scripts Medications Dose Route/Sig Max Daily Dose Days Date Category Percocet 5-325 Mg Tablet (Oxycodone/Acetaminophen) 1 Each Tablet 1 Tab PO QID 11/13/16 Rx Lisinopril 5 Mg Tablet 1 Tab PO DAILY 01/13/16 Reported Furosemide 40 Mg Tablet 40 Mg PO DAILY 11/23/15 Rx Albuterol Sulfate Neb Soln (Albuterol Sulfate) 0.63 Mg/3 Ml Vial.neb 0.5 Mg NEB Q2HR PRN 11/09/13 Reported Polyethylene Glycol (Polyethylene Glycol 8000) 500 Gm Powder 500 Gm MC DAILY PRN 11/09/13 Reported Advair 250-50 Diskus (Fluticasone/Salmeterol) 1 Each Disk.w.dev 1 Inh IH BID 11/09/13 Reported Metoprolol Tartrate 25 Mg Tablet 12.5 Mg PO BID 11/09/13 Reported Aspir 81 (Aspirin) 81 Mg Tablet.dr 81 Mg PO DAILY 11/09/13 Reported Nitrostat (Nitroglycerin) 0.3 Mg Tab.subl 0.3 Mg SL PRN Q5MIN PRN 07/17/13 Reported Flonase (Fluticasone Propionate) 16 Gm [place].susp 16 Gm NS DAILY 07/17/13 Reported Zyrtec (Cetirizine Hcl) 10 Mg Capsule 10 Mg PO DAILY 07/17/13 Reported Atorvastatin Calcium 10 Mg Tablet 20 Mg PO DAILY 07/17/13 Reported Impression . 1. ACUTE RESP DISTRESS MULTIFACTORIAL 2. Abnormal chest x-ray. COMPATIBLE WITH CHF 3. Acute diastolic congestive heart failure. 4. Chronic obstructive pulmonary disease. 5. Secondary pulmonary hypertension 6. ASA 7. Coronary artery disease. 8. Status post pacemaker placement. 9. Acute kidney injury. 10. Chronic kidney disease. Plan . NEEDS A SLEEP STUDY 02 DIURESE 6 MIN WALK DARVIN RENO MD Dec 04, 2016 10:21
[2016-12-04 10:35] VITALS: BP 130/36
--- NOTE | 2016-12-04 11:41 | PDOC ---
SUBJECTIVE ROS HAFSA/ CKD III doing well CVS: no Orthopnea, no CP RESP: no SOB, no MASSEY GI: no Nausea, no Vomiting : no Dysuria, no Urgency OBJECTIVE Vital Signs Vital Signs Date Time Temp Pulse Resp B/P (MAP) Pulse Ox O2 Delivery O2 Flow Rate FiO2 12/04/16 10:35 97.5 71 20 130/36 (67) 96 Room Air 97.5 12/04/16 08:58 2.0 I & 0 Intake and Output 12/04/16 07:00 Intake Total 2720 ml Output Total 902 ml Balance 1818 ml Intake Oral 720 ml IV Total 2000 ml Output Urine Total 900 ml Stool Total 2 ml # Voids 8 PHYSICAL EXAM Physical Exam GEN: Awake, Oriented x 3, In no distress; morbidly obese EYES: Vision Unchanged, Conjunctiva Normal EN: No EN Drainage, Mucous Membranes moist NECK: no JVD, + JVP, Supple, no Thyromegaly CVS: S1S2, + Murmur, No Gallop, No Rub,Tr Edema RESP: no Rales, no Rhonchi,no Acc. Muscle Use GI: BS + ve, NO Bruit, Non Tender, Non Distended : no CVA tenderness, no Suprapubic Tenderness DIAGNOSIS/ASSESSMENT Assessment & Plan After Review of available labs/ radiology as reported - following is my Assessment and Plan ARF: better off of Diuretics and ARTURO-i. Current fluid and E-lyte status does not necessitate emergent need for dialysis. 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 check Nuc Med scan - may need reval for same. ^ed K - Pt is not sure when Arturo-i was started. Better off of ARTURO-i ANEMIA; Aranap as ordered, Transfuse as needed for Hgb < 7 Renovascular HTN: Current BP meds as reviewed. See orders for changes. ^ed Phos - watch trend with labs as ordered Lowish irish - see w/up as ordered Discussed Plan of Care with pt at bedside Problems: COMMENT/RELEVANT DATA Meds Current Medications Medications (Trade) Dose Ordered Sig/Felix Start Time Stop Time Status Last Admin Dose Admin Acetaminophen (Tylenol) 650 mg PRN Q4HRS PRN 11/26/16 14:00 11/27/16 13:59 DC Albuterol Sulfate (Ventolin Neb Soln) 2.5 mg BID 11/27/16 21:00 12/03/16 09:17 DC 12/03/16 08:09 2.5 MG Albuterol/ Ipratropium (Duoneb) 3 ml RTQID 12/03/16 12:00 12/04/16 07:43 3 ML Aspirin (Ecotrin) 81 mg DAILYWBKFT 11/27/16 08:00 12/04/16 07:54 81 MG Atorvastatin Calcium (Lipitor) 20 mg QHS 11/26/16 21:00 12/03/16 22:13 20 MG Budesonide (Pulmicort) 0.5 mg BID 11/26/16 21:00 12/03/16 09:17 DC 12/03/16 08:10 0.5 MG Bupivacaine HCl (Sensorcaine-Mpf 0.25%) 10 ml 1X ONCE 11/27/16 10:30 11/27/16 10:31 DC 11/27/16 10:30 10 ML Ceftriaxone Sodium 1 gm/ Sodium Chloride 50 ml @ 100 mls/hr Q24H 11/27/16 10:15 UNV Cetirizine HCl (ZyrTEC) 10 mg DAILY 11/27/16 09:00 12/04/16 07:54 10 MG Enoxaparin Sodium (Lovenox 30mg Syringe) 30 mg Q24H 12/03/16 09:30 12/04/16 07:53 30 MG Fluticasone Propionate (Flonase) 1 spray DAILY 11/27/16 09:00 12/04/16 07:53 1 SPRAY Furosemide (Lasix) 40 mg DAILY 11/27/16 09:00 11/30/16 14:24 DC 11/29/16 09:04 40 MG Hydralazine HCl (Apresoline) 10 mg PRN Q6HRS PRN 11/26/16 14:00 Levofloxacin (Levaquin) 250 mg DAILY06 11/28/16 08:00 12/04/16 04:59 250 MG Levofloxacin/ Dextrose 100 ml @ 100 mls/hr 1X ONCE 11/27/16 10:30 11/27/16 11:29 DC 11/27/16 11:04 100 MLS/HR Lisinopril (Prinivil) 5 mg DAILY 11/27/16 09:00 12/01/16 09:55 DC 11/29/16 09:04 5 MG Methylprednisolone Acetate (DEPO-Medrol 40MG VIAL) 40 mg 1X ONCE 11/27/16 10:30 11/27/16 10:31 DC 11/27/16 10:30 40 MG Metolazone (Zaroxolyn) 2.5 mg DAILY 11/27/16 12:30 11/30/16 14:24 DC 11/30/16 08:11 2.5 MG Metoprolol Tartrate (Lopressor) 12.5 mg BID 11/26/16 21:00 12/04/16 07:54 12.5 MG Nitroglycerin (Nitrostat) 0.4 mg PRN Q5MIN PRN 11/26/16 19:30 Non-Formulary Medication 1 inh BID 11/26/16 21:00 11/26/16 21:00 DC Ondansetron HCl (Zofran) 4 mg PRN Q8HRS PRN 11/26/16 14:00 11/27/16 13:59 DC Oxycodone/ Acetaminophen (Percocet 5/325) 1 tab QID 11/26/16 21:00 12/04/16 07:54 1 TAB Polyethylene Glycol (miraLAX PACKET) 17 gm PRN DAILY PRN 11/27/16 09:00 11/30/16 08:12 17 GM Sodium Polystyrene Sulfonate (Kayexalate) 30 gm 1X ONCE 12/01/16 07:30 12/01/16 07:31 DC 12/01/16 07:47 30 GM Sodium Chloride 1,000 ml @ 100 mls/hr Q10H 12/01/16 07:15 12/04/16 05:58 100 MLS/HR Lab Laboratory Tests Test 12/04/16 04:50 White Blood Count 7.3 x10^3/uL (4.0-11.0) Red Blood Count 4.10 x10^6/uL (3.50-5.40) Hemoglobin 11.5 g/dL (12.0-15.5) Hematocrit 36.2 % (36.0-47.0) Mean Corpuscular Volume 88 fL (79-100) Mean Corpuscular Hemoglobin 28 pg (25-35) Mean Corpuscular Hemoglobin Concent 32 g/dL (31-37) Red Cell Distribution Width 14.9 % (11.5-14.5) Platelet Count 207 x10^3/uL (140-400) Neutrophils (%) (Auto) 75 % (31-73) Lymphocytes (%) (Auto) 12 % (24-48) Monocytes (%) (Auto) 9 % (0-9) Eosinophils (%) (Auto) 3 % (0-3) Basophils (%) (Auto) 1 % (0-3) Neutrophils # (Auto) 5.5 x10^3uL (1.8-7.7) Lymphocytes # (Auto) 0.9 x10^3/uL (1.0-4.8) Monocytes # (Auto) 0.6 x10^3/uL (0.0-1.1) Eosinophils # (Auto) 0.2 x10^3/uL (0.0-0.7) Basophils # (Auto) 0.1 x10^3/uL (0.0-0.2) Sodium Level 138 mmol/L (136-145) Potassium Level 4.7 mmol/L (3.5-5.1) Chloride Level 107 mmol/L (98-107) Carbon Dioxide Level 22 mmol/L (21-32) Anion Gap 9 (6-14) Blood Urea Nitrogen 93 mg/dL (7-20) Creatinine 2.5 mg/dL (0.6-1.0) Estimated GFR (Cockcroft-Gault) 18.3 Glucose Level 101 mg/dL (70-99) Calcium Level 7.6 mg/dL (8.5-10.1) ANDREE ARMAS MD Dec 04, 2016 11:41
[2016-12-04] MEDS ORDERED: MAGNESIUM SULFATE 2GM 50 ML IV PRN (12:15)
--- NOTE | 2016-12-04 12:54 | RAD ---
Renal ultrasound complete 12/04/2016 Clinical indication: Acute on chronic kidney injury Comparison: 09/09/2015 renal ultrasound Findings: Evaluation of the kidneys is limited due to body habitus, especially for solid renal lesions. Right kidney is present measuring up to 9.1 cm in length without collecting system dilatation or abnormal perinephric fluid collection. Left kidney is present measuring up to 9.2 cm without collecting system dilatation. Scans of the partially distended urinary bladder within normal limits. Impression: 1. Examination is limited by body habitus, specially for contour deforming lesions. 2. No hydronephrosis.
--- NOTE | 2016-12-04 13:58 | PDOC ---
PROGRESS NOTES Chief Complaint Chief Complaint CHF exacerbation: systolic; resolved Acute vasomotor nephropathy on CKD3: prob 2/2 overdiuresis. improving, not back to baseline yet Hyperkalemia: on lasix and metalozone. remains borderline high UTI: on levaquin since 11/28. stop OA: chronic diffuse pain, poor mobility Pickwickian syndrome: obesity induced hypoventilation/RADHA Dispo: PT rec for SNU History of Present Illness History of Present Illness no breathing problems, feels ok Vitals Vitals Vital Signs Date Time Temp Pulse Resp B/P (MAP) Pulse Ox O2 Delivery O2 Flow Rate FiO2 12/04/16 11:58 Room Air 12/04/16 10:35 97.5 71 20 130/36 (67) 96 97.5 12/04/16 08:58 2.0 Physical Exam General: Alert, Oriented X3, Cooperative, No acute distress Heart: Regular rate, No murmurs Lungs: Clear Abdomen: Normal bowel sounds, Soft, No tenderness Extremities: No clubbing, Other (2-3+ bilat edema) Skin: No rashes, No significant lesion Labs LABS Laboratory Tests Test 12/04/16 04:50 White Blood Count 7.3 x10^3/uL (4.0-11.0) Red Blood Count 4.10 x10^6/uL (3.50-5.40) Hemoglobin 11.5 g/dL (12.0-15.5) Hematocrit 36.2 % (36.0-47.0) Mean Corpuscular Volume 88 fL (79-100) Mean Corpuscular Hemoglobin 28 pg (25-35) Mean Corpuscular Hemoglobin Concent 32 g/dL (31-37) Red Cell Distribution Width 14.9 % (11.5-14.5) Platelet Count 207 x10^3/uL (140-400) Neutrophils (%) (Auto) 75 % (31-73) Lymphocytes (%) (Auto) 12 % (24-48) Monocytes (%) (Auto) 9 % (0-9) Eosinophils (%) (Auto) 3 % (0-3) Basophils (%) (Auto) 1 % (0-3) Neutrophils # (Auto) 5.5 x10^3uL (1.8-7.7) Lymphocytes # (Auto) 0.9 x10^3/uL (1.0-4.8) Monocytes # (Auto) 0.6 x10^3/uL (0.0-1.1) Eosinophils # (Auto) 0.2 x10^3/uL (0.0-0.7) Basophils # (Auto) 0.1 x10^3/uL (0.0-0.2) Sodium Level 138 mmol/L (136-145) Potassium Level 4.7 mmol/L (3.5-5.1) Chloride Level 107 mmol/L (98-107) Carbon Dioxide Level 22 mmol/L (21-32) Anion Gap 9 (6-14) Blood Urea Nitrogen 93 mg/dL (7-20) Creatinine 2.5 mg/dL (0.6-1.0) Estimated GFR (Cockcroft-Gault) 18.3 Glucose Level 101 mg/dL (70-99) Calcium Level 7.6 mg/dL (8.5-10.1) SANDRA ESPINOZA MD Dec 04, 2016 13:58
[2016-12-04 14:30] VITALS: BP 107/66
[2016-12-04 19:03] VITALS: BP 109/36
[2016-12-04] MEDS: ATORVASTATIN CALCIUM 10 MG TABLET. PO SCH (19:45)
[2016-12-04 22:23] VITALS: BP 112/43
[2016-12-05 03:23] VITALS: BP 118/36
[2016-12-05 04:46] LABS: BASO # 0.1 x10^3/uL (0.0-0.2); BASO % 1 % (0-3); EOS % 4 % (0-3); HEMATOCRIT 34.3 % (36.0-47.0); HEMOGLOBIN 11.2 g/dL (12.0-15.5); LYMPH # 1.3 x10^3/uL (1.0-4.8); LYMPH % 17 % (24-48); MEAN CORPUSCULAR HEMOGLOBIN 29 pg (25-35); MEAN CORPUSCULAR HGB CONC 33 g/dL (31-37); MEAN CORPUSCULAR VOLUME 88 fL (79-100); MONO % 8 % (0-9); NEUT % 70 % (31-73); PLATELET COUNT 217 x10^3/uL (140-400); RED CELL DISTRIBUTION WIDTH 14.9 % (11.5-14.5); WHITE BLOOD COUNT 7.5 x10^3/uL (4.0-11.0)
[2016-12-05 05:05] LABS: MAGNESIUM 2.5 mg/dL (1.8-2.4); PHOSPHORUS 4.5 mg/dL (2.6-4.7)
[2016-12-05 07:20] VITALS: BP 129/51
[2016-12-05] MEDS: IPRATRPIUM/ALBUTEROL 0.5/2.5MG 3 ML NEBU. NEB SCH ×4 (07:38→19:21)
[2016-12-05] MEDS: FLUTICASONE 50MCG/NASAL SPRAY 16GM BOTTLE. NS SCH (07:50)
[2016-12-05] MEDS: oxyCODONE/APAP 5/325 1 TAB TABLET PO SCH ×4 (07:50→20:38)
[2016-12-05] MEDS: ASPIRIN ENTERIC COATED 81 MG TABLET.DR. PO SCH (07:50)
[2016-12-05] MEDS: CETIRIZINE HCL 10 MG TABLET. PO SCH (07:51)
[2016-12-05] MEDS: METOPROLOL TART IMMED RELEASE 25 MG TABLET. PO SCH ×2 (07:51→20:39)
--- NOTE | 2016-12-05 08:59 | PDOC ---
PROGRESS NOTES Subjective Subjective She had no new complaints. Objective Objective Vital Signs Date Time Temp Pulse Resp B/P (MAP) Pulse Ox O2 Delivery O2 Flow Rate FiO2 12/05/16 08:16 Room Air 2.0 12/05/16 07:51 60 118/36 12/05/16 07:50 96 12/05/16 07:20 98.0 18 98.0 Intake and Output 12/05/16 07:00 Intake Total 1600 ml Output Total 1425 ml Balance 175 ml Intake Oral 600 ml IV Total 1000 ml Output Urine Total 1425 ml # Voids 1 # Bowel Movements 2 Physical Exam Physical Exam She is alert and walking with roller walker in her room without any difficulty and she continues with SOB on exertion. Assessment Assessment Problems Medical Problems: (1) CHF (congestive heart failure) Status: Acute Plan Plan of Longterm when medically stable. Comment Review of Relevant I have reviewed the following items aaliyah (where applicable) has been applied. Labs Laboratory Tests Test 12/03/16 09:20 12/04/16 04:50 12/04/16 14:35 12/05/16 04:10 O2 Saturation 94 % (92-99) Arterial Blood pH 7.33 (7.35-7.45) Arterial Blood pCO2 at Patient Temp 41 mmHg (35-46) Arterial Blood pO2 at Patient Temp 79 mmHg (65-108) Arterial Blood HCO3 21 mmol/L (21-28) Arterial Blood Base Excess -5 mmol/L (-3-3) FiO2 21% White Blood Count 7.3 x10^3/uL (4.0-11.0) 7.5 x10^3/uL (4.0-11.0) Red Blood Count 4.10 x10^6/uL (3.50-5.40) 3.90 x10^6/uL (3.50-5.40) Hemoglobin 11.5 g/dL (12.0-15.5) 11.2 g/dL (12.0-15.5) Hematocrit 36.2 % (36.0-47.0) 34.3 % (36.0-47.0) Mean Corpuscular Volume 88 fL (79-100) 88 fL (79-100) Mean Corpuscular Hemoglobin 28 pg (25-35) 29 pg (25-35) Mean Corpuscular Hemoglobin Concent 32 g/dL (31-37) 33 g/dL (31-37) Red Cell Distribution Width 14.9 % (11.5-14.5) 14.9 % (11.5-14.5) Platelet Count 207 x10^3/uL (140-400) 217 x10^3/uL (140-400) Neutrophils (%) (Auto) 75 % (31-73) 70 % (31-73) Lymphocytes (%) (Auto) 12 % (24-48) 17 % (24-48) Monocytes (%) (Auto) 9 % (0-9) 8 % (0-9) Eosinophils (%) (Auto) 3 % (0-3) 4 % (0-3) Basophils (%) (Auto) 1 % (0-3) 1 % (0-3) Neutrophils # (Auto) 5.5 x10^3uL (1.8-7.7) 5.2 x10^3uL (1.8-7.7) Lymphocytes # (Auto) 0.9 x10^3/uL (1.0-4.8) 1.3 x10^3/uL (1.0-4.8) Monocytes # (Auto) 0.6 x10^3/uL (0.0-1.1) 0.6 x10^3/uL (0.0-1.1) Eosinophils # (Auto) 0.2 x10^3/uL (0.0-0.7) 0.3 x10^3/uL (0.0-0.7) Basophils # (Auto) 0.1 x10^3/uL (0.0-0.2) 0.1 x10^3/uL (0.0-0.2) Sodium Level 138 mmol/L (136-145) Potassium Level 4.7 mmol/L (3.5-5.1) Chloride Level 107 mmol/L (98-107) Carbon Dioxide Level 22 mmol/L (21-32) Anion Gap 9 (6-14) Blood Urea Nitrogen 93 mg/dL (7-20) Creatinine 2.5 mg/dL (0.6-1.0) Estimated GFR (Cockcroft-Gault) 18.3 Glucose Level 101 mg/dL (70-99) Calcium Level 7.6 mg/dL (8.5-10.1) Albumin 2.7 g/dL (3.4-5.0) Phosphorus Level 4.5 mg/dL (2.6-4.7) Magnesium Level 2.5 mg/dL (1.8-2.4) Creatine Kinase 87 U/L (26-192) Laboratory Tests Test 12/04/16 14:35 12/05/16 04:10 Albumin 2.7 g/dL (3.4-5.0) White Blood Count 7.5 x10^3/uL (4.0-11.0) Red Blood Count 3.90 x10^6/uL (3.50-5.40) Hemoglobin 11.2 g/dL (12.0-15.5) Hematocrit 34.3 % (36.0-47.0) Mean Corpuscular Volume 88 fL (79-100) Mean Corpuscular Hemoglobin 29 pg (25-35) Mean Corpuscular Hemoglobin Concent 33 g/dL (31-37) Red Cell Distribution Width 14.9 % (11.5-14.5) Platelet Count 217 x10^3/uL (140-400) Neutrophils (%) (Auto) 70 % (31-73) Lymphocytes (%) (Auto) 17 % (24-48) Monocytes (%) (Auto) 8 % (0-9) Eosinophils (%) (Auto) 4 % (0-3) Basophils (%) (Auto) 1 % (0-3) Neutrophils # (Auto) 5.2 x10^3uL (1.8-7.7) Lymphocytes # (Auto) 1.3 x10^3/uL (1.0-4.8) Monocytes # (Auto) 0.6 x10^3/uL (0.0-1.1) Eosinophils # (Auto) 0.3 x10^3/uL (0.0-0.7) Basophils # (Auto) 0.1 x10^3/uL (0.0-0.2) Phosphorus Level 4.5 mg/dL (2.6-4.7) Magnesium Level 2.5 mg/dL (1.8-2.4) Creatine Kinase 87 U/L (26-192) Microbiology 11/26/16 Urine Culture - Final, Complete 11/26/16 Urine Culture Result 1 (KAELA) - Final, Complete Medications Current Medications Furosemide (Lasix) 60 mg 1X ONCE IVP Last administered on 11/26/16 13:50; Start 11/26/16 at 13:15; Stop 11/26/16 at 13:16; Status DC Ondansetron HCl (Zofran) 4 mg PRN Q8HRS PRN IV NAUSEA/VOMITING; Start 11/26/16 at 14:00; Stop 11/27/16 at 13:59; Status DC Acetaminophen (Tylenol) 650 mg PRN Q4HRS PRN PO FEVER; Start 11/26/16 at 14:00 ; Stop 11/27/16 at 13:59; Status DC Nitroglycerin (Nitrostat) 0.4 mg PRN Q5MIN PRN SL CHEST PAIN; Start 11/26/16 at 14:00; Stop 11/27/16 at 13:59; Status DC Lisinopril (Prinivil) 5 mg 1X ONCE PO Last administered on 11/26/16 17:57; Start 11/26/16 at 14:00; Stop 11/26/16 at 14:10; Status DC Hydralazine HCl (Apresoline) 10 mg PRN Q6HRS PRN IVP HYPERTENSION, SEE COMMENTS ; Start 11/26/16 at 14:00 Aspirin (Ecotrin) 81 mg DAILYWBKFT PO Last administered on 12/05/16 07:50; Start 11/27/16 at 08:00 Atorvastatin Calcium (Lipitor) 20 mg QHS PO Last administered on 12/04/16 19: 45; Start 11/26/16 at 21:00 Fluticasone Propionate (Flonase) 1 spray DAILY NS Last administered on 07:50; Start 11/27/16 at 09:00 Furosemide (Lasix) 40 mg DAILY PO Last administered on 11/29/16 09:04; Start 11/27/16 at 09:00; Stop 11/30/16 at 14:24; Status DC Lisinopril (Prinivil) 5 mg DAILY PO Last administered on 11/29/16 09:04; Start 11/27/16 at 09:00; Stop 12/01/16 at 09:55; Status DC Metoprolol Tartrate (Lopressor) 12.5 mg BID PO Last administered on 12/05/16 07 :51; Start 11/26/16 at 21:00 Oxycodone/ Acetaminophen (Percocet 5/325) 1 tab QID PO Last administered on 12/05 07:50; Start 11/26/16 at 21:00 Non-Formulary Medication 0.5 mg Q2HR PRN NEB SHORTNESS OF BREATH; Start at 19:00; Stop 11/26/16 at 19:23; Status DC Cetirizine HCl (ZyrTEC) 10 mg DAILY PO Last administered on 12/05/16 07:51; Start 11/27/16 at 09:00 Non-Formulary Medication 1 inh BID IH ; Start 11/26/16 at 21:00; Stop 11/26/16 at 21:00; Status DC Nitroglycerin (Nitrostat) 0.4 mg PRN Q5MIN PRN SL CHEST PAIN; Start 11/26/16 at 19:30 Polyethylene Glycol (miraLAX PACKET) 17 gm PRN DAILY PRN PO CONSTIPATION Last administered on 11/30/16 08:12; Start 11/27/16 at 09:00 Albuterol Sulfate (Ventolin Neb Soln) 2.5 mg PRN Q2HRS PRN NEB SHORTNESS OF BREATH; Start 11/26/16 at 19:30 Albuterol Sulfate (Ventolin Neb Soln) 2.5 mg QID NEB Last administered on 12:26; Start 11/26/16 at 21:00; Stop 11/27/16 at 15:21; Status DC Budesonide (Pulmicort) 0.5 mg BID NEB Last administered on 12/03/16 08:10; Start 11/26/16 at 21:00; Stop 12/03/16 at 09:17; Status DC Ceftriaxone Sodium 1 gm/ Sodium Chloride 50 ml @ 100 mls/hr Q24H IV ; Start at 10:15; Status UNV Methylprednisolone Acetate (DEPO-Medrol 40MG VIAL) 40 mg 1X ONCE IM Last administered on 11/27/16 10:30; Start 11/27/16 at 10:30; Stop 11/27/16 at 10:31 ; Status DC Bupivacaine HCl (Sensorcaine-Mpf 0.25%) 10 ml 1X ONCE IJ Last administered on 11/27/16 10:30; Start 11/27/16 at 10:30; Stop 11/27/16 at 10:31; Status DC Levofloxacin/ Dextrose 100 ml @ 100 mls/hr 1X ONCE IV Last administered on 11:04; Start 11/27/16 at 10:30; Stop 11/27/16 at 11:29; Status DC Levofloxacin (Levaquin) 250 mg DAILY06 PO Last administered on 12/05/16 05:08; Start 11/28/16 at 08:00 Metolazone (Zaroxolyn) 2.5 mg DAILY PO Last administered on 11/30/16 08:11; Start 11/27/16 at 12:30; Stop 11/30/16 at 14:24; Status DC Albuterol Sulfate (Ventolin Neb Soln) 2.5 mg BID NEB Last administered on 08:09; Start 11/27/16 at 21:00; Stop 12/03/16 at 09:17; Status DC Sodium Chloride 1,000 ml @ 60 mls/hr 1X ONCE IV Last administered on 15:03; Start 11/30/16 at 15:00; Stop 12/01/16 at 07:39; Status DC Sodium Polystyrene Sulfonate (Kayexalate) 30 gm 1X ONCE PO Last administered on 12/01/16 07:47; Start 12/01/16 at 07:30; Stop 12/01/16 at 07:31; Status DC Sodium Chloride 1,000 ml @ 100 mls/hr Q10H IV Last administered on 12/04/16 05:58; Start 12/01/16 at 07:15; Stop 12/04/16 at 12:06; Status DC Albuterol/ Ipratropium (Duoneb) 3 ml RTQID NEB Last administered on 12/05/16 07 :38; Start 12/03/16 at 12:00 Enoxaparin Sodium (Lovenox 30mg Syringe) 30 mg Q24H SQ Last administered on 07:53; Start 12/03/16 at 09:30; Stop 12/04/16 at 14:47; Status DC Magnesium Sulfate/ Dextrose 50 ml @ 25 mls/hr PRN DAILY PRN IV for Mag < 1.7 on am labs; Start 12/04/16 at 12:15 Enoxaparin Sodium (Lovenox 60mg Syringe) 60 mg DAILY SQ ; Start 12/05/16 at 09:00 Active Scripts Active Percocet 5-325 Mg Tablet (Oxycodone/Acetaminophen) 1 Each Tablet 1 Tab PO QID Furosemide 40 Mg Tablet 40 Mg PO DAILY Reported Lisinopril 5 Mg Tablet 1 Tab PO DAILY Albuterol Sulfate Neb Soln (Albuterol Sulfate) 0.63 Mg/3 Ml Vial.neb 0.5 Mg NEB Q2HR PRN Polyethylene Glycol (Polyethylene Glycol 8000) 500 Gm Powder 500 Gm MC DAILY PRN Advair 250-50 Diskus (Fluticasone/Salmeterol) 1 Each Disk.w.dev 1 Inh IH BID Metoprolol Tartrate 25 Mg Tablet 12.5 Mg PO BID Aspir 81 (Aspirin) 81 Mg Tablet.dr 81 Mg PO DAILY Nitrostat (Nitroglycerin) 0.3 Mg Tab.subl 0.3 Mg SL PRN Q5MIN PRN Flonase (Fluticasone Propionate) 16 Gm [place].susp 16 Gm NS DAILY Zyrtec (Cetirizine Hcl) 10 Mg Capsule 10 Mg PO DAILY Atorvastatin Calcium 10 Mg Tablet 20 Mg PO DAILY Vitals/I & O Vital Sign - Last 24 Hours 12/04/16 12/04/16 12/04/16 12/04/16 10:35 11:58 14:30 15:54 Temp 97.5 98.4 97.5 98.4 Pulse 71 63 Resp 20 20 B/P (MAP) 130/36 (67) 107/66 (80) Pulse Ox 96 96 97 O2 Delivery Room Air Room Air Room Air Room Air 12/04/16 12/04/16 12/04/16 12/04/16 17:02 17:55 19:03 19:45 Temp 98.7 98.7 Pulse 61 61 Resp 18 B/P (MAP) 109/36 (60) 110/67 Pulse Ox 97 96 O2 Delivery Room Air Room Air O2 Flow Rate 2.0 2.0 12/04/16 12/04/16 12/04/16 12/04/16 19:47 20:00 20:47 22:23 Temp 98.7 98.7 Pulse 63 Resp 18 18 16 B/P (MAP) 112/43 (66) Pulse Ox 97 97 97 O2 Delivery Room Air Room Air Room Air Room Air 12/05/16 12/05/16 12/05/16 12/05/16 03:23 07:20 07:39 07:50 Temp 97.8 98.0 97.8 98.0 Pulse 60 60 Resp 18 18 B/P (MAP) 118/36 (63) 129/51 (77) Pulse Ox 97 94 96 96 O2 Delivery Room Air Room Air Room Air Room Air O2 Flow Rate 2.0 12/05/16 12/05/16 07:51 08:16 Pulse 60 B/P (MAP) 118/36 O2 Delivery Room Air O2 Flow Rate 2.0 Intake and Output 12/04/16 12/04/16 12/05/16 15:00 23:00 07:00 Intake Total 1600 ml 0 ml Output Total 700 ml 500 ml 225 ml Balance -700 ml 1100 ml -225 ml MARU PARADA MD Dec 05, 2016 08:59
--- NOTE | 2016-12-05 10:18 | PDOC ---
SUBJECTIVE ROS HAFSA/ CKD III/ IV Doing same overall ; no new complaints CVS: no Orthopnea, no CP RESP: no SOB, no MASSEY GI: no Nausea, no Vomiting : no Dysuria, no Urgency OBJECTIVE Vital Signs Vital Signs Date Time Temp Pulse Resp B/P (MAP) Pulse Ox O2 Delivery O2 Flow Rate FiO2 12/05/16 08:16 Room Air 2.0 12/05/16 07:51 60 118/36 12/05/16 07:50 96 12/05/16 07:20 98.0 18 98.0 I & 0 Intake and Output 12/05/16 07:00 Intake Total 1600 ml Output Total 1425 ml Balance 175 ml Intake Oral 600 ml IV Total 1000 ml Output Urine Total 1425 ml # Voids 1 # Bowel Movements 2 PHYSICAL EXAM Physical Exam GEN: Awake, Oriented x 3, In no distress; morbidly obese EYES: Vision Unchanged, Conjunctiva Normal EN: No EN Drainage, Mucous Membranes moist NECK: no JVD, + JVP, Supple, no Thyromegaly CVS: S1S2, + Murmur, No Gallop, No Rub,Tr Edema RESP: no Rales, no Rhonchi,no Acc. Muscle Use GI: BS + ve, NO Bruit, Non Tender, Non Distended : no CVA tenderness, no Suprapubic Tenderness DIAGNOSIS/ASSESSMENT Assessment & Plan After Review of available labs/ radiology as reported - following is my Assessment and Plan (Labs NA yet despite ordered) ARF: better off of Diuretics and ARTURO-i. Await todays labs. Current fluid and E-lyte status does not necessitate emergent need for dialysis. Will re- evaluate for dialysis in the am CKD III - noted Renal US as below H/o CHANTE - S/p Rt PTCA in 2013 - Left had > 70% Stenosis per report. check Nuc Med scan - may need reval for same. ^ed K - Pt is not sure when Arturo-i was started. Better off of ARTURO-i ANEMIA; no Aranesp for hgb > 11, Transfuse as needed for Hgb < 7 Renovascular HTN: Current BP meds as reviewed. See orders for changes. ^ed Phos - resolved - suspect due to HAFSA Lowish irish - barely corrects for Alb, await w/up as ordered Discussed Plan of Care with pt at bedside COMMENT/RELEVANT DATA Meds Current Medications Medications (Trade) Dose Ordered Sig/Felix Start Time Stop Time Status Last Admin Dose Admin Acetaminophen (Tylenol) 650 mg PRN Q4HRS PRN 11/26/16 14:00 11/27/16 13:59 DC Albuterol Sulfate (Ventolin Neb Soln) 2.5 mg BID 11/27/16 21:00 12/03/16 09:17 DC 12/03/16 08:09 2.5 MG Albuterol/ Ipratropium (Duoneb) 3 ml RTQID 12/03/16 12:00 12/05/16 07:38 3 ML Aspirin (Ecotrin) 81 mg DAILYWBKFT 11/27/16 08:00 12/05/16 07:50 81 MG Atorvastatin Calcium (Lipitor) 20 mg QHS 11/26/16 21:00 12/04/16 19:45 20 MG Budesonide (Pulmicort) 0.5 mg BID 11/26/16 21:00 12/03/16 09:17 DC 12/03/16 08:10 0.5 MG Bupivacaine HCl (Sensorcaine-Mpf 0.25%) 10 ml 1X ONCE 11/27/16 10:30 11/27/16 10:31 DC 11/27/16 10:30 10 ML Ceftriaxone Sodium 1 gm/ Sodium Chloride 50 ml @ 100 mls/hr Q24H 11/27/16 10:15 UNV Cetirizine HCl (ZyrTEC) 10 mg DAILY 11/27/16 09:00 12/05/16 07:51 10 MG Enoxaparin Sodium (Lovenox 30mg Syringe) 30 mg Q24H 12/03/16 09:30 12/04/16 14:47 DC 12/04/16 07:53 30 MG Enoxaparin Sodium (Lovenox 60mg Syringe) 60 mg DAILY 12/05/16 09:00 Fluticasone Propionate (Flonase) 1 spray DAILY 11/27/16 09:00 12/05/16 07:50 1 SPRAY Furosemide (Lasix) 40 mg DAILY 11/27/16 09:00 11/30/16 14:24 DC 11/29/16 09:04 40 MG Hydralazine HCl (Apresoline) 10 mg PRN Q6HRS PRN 11/26/16 14:00 Levofloxacin (Levaquin) 250 mg DAILY06 11/28/16 08:00 12/05/16 05:08 250 MG Levofloxacin/ Dextrose 100 ml @ 100 mls/hr 1X ONCE 11/27/16 10:30 11/27/16 11:29 DC 11/27/16 11:04 100 MLS/HR Lisinopril (Prinivil) 5 mg DAILY 11/27/16 09:00 12/01/16 09:55 DC 11/29/16 09:04 5 MG Magnesium Sulfate/ Dextrose 50 ml @ 25 mls/hr PRN DAILY PRN 12/04/16 12:15 Methylprednisolone Acetate (DEPO-Medrol 40MG VIAL) 40 mg 1X ONCE 11/27/16 10:30 11/27/16 10:31 DC 11/27/16 10:30 40 MG Metolazone (Zaroxolyn) 2.5 mg DAILY 11/27/16 12:30 11/30/16 14:24 DC 11/30/16 08:11 2.5 MG Metoprolol Tartrate (Lopressor) 12.5 mg BID 11/26/16 21:00 12/05/16 07:51 12.5 MG Nitroglycerin (Nitrostat) 0.4 mg PRN Q5MIN PRN 11/26/16 19:30 Non-Formulary Medication 1 inh BID 11/26/16 21:00 11/26/16 21:00 DC Ondansetron HCl (Zofran) 4 mg PRN Q8HRS PRN 11/26/16 14:00 11/27/16 13:59 DC Oxycodone/ Acetaminophen (Percocet 5/325) 1 tab QID 11/26/16 21:00 12/05/16 07:50 1 TAB Polyethylene Glycol (miraLAX PACKET) 17 gm PRN DAILY PRN 11/27/16 09:00 11/30/16 08:12 17 GM Sodium Polystyrene Sulfonate (Kayexalate) 30 gm 1X ONCE 12/01/16 07:30 12/01/16 07:31 DC 12/01/16 07:47 30 GM Sodium Chloride 1,000 ml @ 100 mls/hr Q10H 12/01/16 07:15 12/04/16 12:06 DC 12/04/16 05:58 100 MLS/HR Lab Laboratory Tests Test 12/04/16 14:35 12/05/16 04:10 Albumin 2.7 g/dL (3.4-5.0) White Blood Count 7.5 x10^3/uL (4.0-11.0) Red Blood Count 3.90 x10^6/uL (3.50-5.40) Hemoglobin 11.2 g/dL (12.0-15.5) Hematocrit 34.3 % (36.0-47.0) Mean Corpuscular Volume 88 fL (79-100) Mean Corpuscular Hemoglobin 29 pg (25-35) Mean Corpuscular Hemoglobin Concent 33 g/dL (31-37) Red Cell Distribution Width 14.9 % (11.5-14.5) Platelet Count 217 x10^3/uL (140-400) Neutrophils (%) (Auto) 70 % (31-73) Lymphocytes (%) (Auto) 17 % (24-48) Monocytes (%) (Auto) 8 % (0-9) Eosinophils (%) (Auto) 4 % (0-3) Basophils (%) (Auto) 1 % (0-3) Neutrophils # (Auto) 5.2 x10^3uL (1.8-7.7) Lymphocytes # (Auto) 1.3 x10^3/uL (1.0-4.8) Monocytes # (Auto) 0.6 x10^3/uL (0.0-1.1) Eosinophils # (Auto) 0.3 x10^3/uL (0.0-0.7) Basophils # (Auto) 0.1 x10^3/uL (0.0-0.2) Phosphorus Level 4.5 mg/dL (2.6-4.7) Magnesium Level 2.5 mg/dL (1.8-2.4) Creatine Kinase 87 U/L (26-192) Other Right kidney is present measuring up to 9.1 cm in length without collecting system dilatation or abnormal perinephric fluid collection. Left kidney is present measuring up to 9.2 cm without collecting system dilatation. Scans of the partially distended urinary bladder within normal limits. Examination is limited by body habitus, specially for contour deforming lesions. No hydronephrosis. ANDREE ARMAS MD Dec 05, 2016 10:18
[2016-12-05] MEDS ORDERED: MAGNESIUM SULFATE 2GM 50 ML IV PRN (10:30)
[2016-12-05 10:48] VITALS: BP 106/52
[2016-12-05 11:32] LABS: ALBUMIN 2.8 g/dL (3.4-5.0); CALCIUM 7.9 mg/dL (8.5-10.1); GFR 23.6; PHOSPHORUS 4.1 mg/dL (2.6-4.7); POTASSIUM 4.6 mmol/L (3.5-5.1)
[2016-12-05] MEDS ORDERED: OXYC-323 PO (12:40)
--- NOTE | 2016-12-05 13:09 | PDOC ---
PULMONARY PROGRESS NOTES Subjective PT FEELS BETTER WITH DIURESES Vitals Vital Signs Date Time Temp Pulse Resp B/P (MAP) Pulse Ox O2 Delivery O2 Flow Rate FiO2 12/05/16 12:11 96 Room Air 2.0 12/05/16 10:48 98.5 60 18 106/52 (70) 98.5 ROS: No Nausea, No Chest Pain, No Abdominal Pain, No Increase Cough General: Alert Lungs: Clear Cardiovascular: S1, S2 Abdomen: Soft, Non-tender, Other Neuro Exam: Alert Extremities: Other Skin: Warm Labs Laboratory Tests Test 12/04/16 04:50 12/04/16 14:35 12/05/16 04:10 12/05/16 09:30 White Blood Count 7.3 x10^3/uL (4.0-11.0) 7.5 x10^3/uL (4.0-11.0) Red Blood Count 4.10 x10^6/uL (3.50-5.40) 3.90 x10^6/uL (3.50-5.40) Hemoglobin 11.5 g/dL (12.0-15.5) 11.2 g/dL (12.0-15.5) Hematocrit 36.2 % (36.0-47.0) 34.3 % (36.0-47.0) Mean Corpuscular Volume 88 fL (79-100) 88 fL (79-100) Mean Corpuscular Hemoglobin 28 pg (25-35) 29 pg (25-35) Mean Corpuscular Hemoglobin Concent 32 g/dL (31-37) 33 g/dL (31-37) Red Cell Distribution Width 14.9 % (11.5-14.5) 14.9 % (11.5-14.5) Platelet Count 207 x10^3/uL (140-400) 217 x10^3/uL (140-400) Neutrophils (%) (Auto) 75 % (31-73) 70 % (31-73) Lymphocytes (%) (Auto) 12 % (24-48) 17 % (24-48) Monocytes (%) (Auto) 9 % (0-9) 8 % (0-9) Eosinophils (%) (Auto) 3 % (0-3) 4 % (0-3) Basophils (%) (Auto) 1 % (0-3) 1 % (0-3) Neutrophils # (Auto) 5.5 x10^3uL (1.8-7.7) 5.2 x10^3uL (1.8-7.7) Lymphocytes # (Auto) 0.9 x10^3/uL (1.0-4.8) 1.3 x10^3/uL (1.0-4.8) Monocytes # (Auto) 0.6 x10^3/uL (0.0-1.1) 0.6 x10^3/uL (0.0-1.1) Eosinophils # (Auto) 0.2 x10^3/uL (0.0-0.7) 0.3 x10^3/uL (0.0-0.7) Basophils # (Auto) 0.1 x10^3/uL (0.0-0.2) 0.1 x10^3/uL (0.0-0.2) Sodium Level 138 mmol/L (136-145) 142 mmol/L (136-145) Potassium Level 4.7 mmol/L (3.5-5.1) 4.6 mmol/L (3.5-5.1) Chloride Level 107 mmol/L (98-107) 108 mmol/L (98-107) Carbon Dioxide Level 22 mmol/L (21-32) 27 mmol/L (21-32) Anion Gap 9 (6-14) 7 (6-14) Blood Urea Nitrogen 93 mg/dL (7-20) 73 mg/dL (7-20) Creatinine 2.5 mg/dL (0.6-1.0) 2.0 mg/dL (0.6-1.0) Estimated GFR (Cockcroft-Gault) 18.3 23.6 Glucose Level 101 mg/dL (70-99) 105 mg/dL (70-99) Calcium Level 7.6 mg/dL (8.5-10.1) 7.9 mg/dL (8.5-10.1) Albumin 2.7 g/dL (3.4-5.0) 2.8 g/dL (3.4-5.0) 25-Hydroxy Vitamin D Total 17.1 ng/mL (30.0-100.0) Phosphorus Level 4.5 mg/dL (2.6-4.7) 4.1 mg/dL (2.6-4.7) Magnesium Level 2.5 mg/dL (1.8-2.4) Creatine Kinase 87 U/L (26-192) Laboratory Tests Test 12/04/16 14:35 12/05/16 04:10 12/05/16 09:30 Albumin 2.7 g/dL (3.4-5.0) 2.8 g/dL (3.4-5.0) 25-Hydroxy Vitamin D Total 17.1 ng/mL (30.0-100.0) White Blood Count 7.5 x10^3/uL (4.0-11.0) Red Blood Count 3.90 x10^6/uL (3.50-5.40) Hemoglobin 11.2 g/dL (12.0-15.5) Hematocrit 34.3 % (36.0-47.0) Mean Corpuscular Volume 88 fL (79-100) Mean Corpuscular Hemoglobin 29 pg (25-35) Mean Corpuscular Hemoglobin Concent 33 g/dL (31-37) Red Cell Distribution Width 14.9 % (11.5-14.5) Platelet Count 217 x10^3/uL (140-400) Neutrophils (%) (Auto) 70 % (31-73) Lymphocytes (%) (Auto) 17 % (24-48) Monocytes (%) (Auto) 8 % (0-9) Eosinophils (%) (Auto) 4 % (0-3) Basophils (%) (Auto) 1 % (0-3) Neutrophils # (Auto) 5.2 x10^3uL (1.8-7.7) Lymphocytes # (Auto) 1.3 x10^3/uL (1.0-4.8) Monocytes # (Auto) 0.6 x10^3/uL (0.0-1.1) Eosinophils # (Auto) 0.3 x10^3/uL (0.0-0.7) Basophils # (Auto) 0.1 x10^3/uL (0.0-0.2) Phosphorus Level 4.5 mg/dL (2.6-4.7) 4.1 mg/dL (2.6-4.7) Magnesium Level 2.5 mg/dL (1.8-2.4) Creatine Kinase 87 U/L (26-192) Sodium Level 142 mmol/L (136-145) Potassium Level 4.6 mmol/L (3.5-5.1) Chloride Level 108 mmol/L (98-107) Carbon Dioxide Level 27 mmol/L (21-32) Anion Gap 7 (6-14) Blood Urea Nitrogen 73 mg/dL (7-20) Creatinine 2.0 mg/dL (0.6-1.0) Estimated GFR (Cockcroft-Gault) 23.6 Glucose Level 105 mg/dL (70-99) Calcium Level 7.9 mg/dL (8.5-10.1) Medications Active Scripts Medications Dose Route/Sig Max Daily Dose Days Date Category Percocet 5-325 Mg Tablet (Oxycodone/Acetaminophen) 1 Each Tablet 1 Tab PO QID 11/13/16 Rx Lisinopril 5 Mg Tablet 1 Tab PO DAILY 01/13/16 Reported Furosemide 40 Mg Tablet 40 Mg PO DAILY 11/23/15 Rx Albuterol Sulfate Neb Soln (Albuterol Sulfate) 0.63 Mg/3 Ml Vial.neb 0.5 Mg NEB Q2HR PRN 11/09/13 Reported Polyethylene Glycol (Polyethylene Glycol 8000) 500 Gm Powder 500 Gm MC DAILY PRN 11/09/13 Reported Advair 250-50 Diskus (Fluticasone/Salmeterol) 1 Each Disk.w.dev 1 Inh IH BID 11/09/13 Reported Metoprolol Tartrate 25 Mg Tablet 12.5 Mg PO BID 11/09/13 Reported Aspir 81 (Aspirin) 81 Mg Tablet.dr 81 Mg PO DAILY 11/09/13 Reported Nitrostat (Nitroglycerin) 0.3 Mg Tab.subl 0.3 Mg SL PRN Q5MIN PRN 07/17/13 Reported Flonase (Fluticasone Propionate) 16 Gm [place].susp 16 Gm NS DAILY 07/17/13 Reported Zyrtec (Cetirizine Hcl) 10 Mg Capsule 10 Mg PO DAILY 07/17/13 Reported Atorvastatin Calcium 10 Mg Tablet 20 Mg PO DAILY 07/17/13 Reported Impression . 1. ACUTE RESP DISTRESS MULTIFACTORIAL 2. Abnormal chest x-ray. COMPATIBLE WITH CHF 3. Acute diastolic congestive heart failure. 4. Chronic obstructive pulmonary disease. 5. Secondary pulmonary hypertension 6. ASA 7. Coronary artery disease. 8. Status post pacemaker placement. 9. Acute kidney injury. 10. Chronic kidney disease. Plan . NEEDS A SLEEP STUDY GAVE MY CARD TO [employer] TO CALL MY OFFICE TO ARRANGE FOR A SLEEP STUDY 02 MURALIE 6 MIN DARVIN BELL MD Dec 05, 2016 13:09
[2016-12-05 14:30] VITALS: BP 116/44
--- NOTE | 2016-12-05 14:37 | PDOC ---
PROGRESS NOTES Chief Complaint Chief Complaint Acute hypoxic respir failure ASSESSMENT AND PLAN: CHF exacerbation: systolic; resolved Acute vasomotor nephropathy on CKD3: prob 2/2 overdiuresis. improving, not back to baseline yet. off lasix for now Hyperkalemia: off lasix and metalozone. improving Peripheral edema with stasis changes: chronic. UTI: resolved. recheck UA in 1 week OA: chronic diffuse pain, poor mobility Pickwickian syndrome: obesity induced hypoventilation/RADHA Dispo: awaiting bed at History of Present Illness History of Present Illness no breathing problems, feels ok Vitals Vitals Vital Signs Date Time Temp Pulse Resp B/P (MAP) Pulse Ox O2 Delivery O2 Flow Rate FiO2 12/05/16 13:27 96 Room Air 2.0 12/05/16 10:48 98.5 60 18 106/52 (70) 98.5 Physical Exam General: Alert, Oriented X3, Cooperative, No acute distress Heart: Regular rate, No murmurs Lungs: Clear Abdomen: Normal bowel sounds, Soft, No tenderness Extremities: No clubbing, Other (2-3+ bilat edema) Skin: No rashes, No significant lesion Labs LABS Laboratory Tests Test 12/04/16 14:35 12/05/16 04:10 12/05/16 09:30 Albumin 2.7 g/dL (3.4-5.0) 2.8 g/dL (3.4-5.0) 25-Hydroxy Vitamin D Total 17.1 ng/mL (30.0-100.0) White Blood Count 7.5 x10^3/uL (4.0-11.0) Red Blood Count 3.90 x10^6/uL (3.50-5.40) Hemoglobin 11.2 g/dL (12.0-15.5) Hematocrit 34.3 % (36.0-47.0) Mean Corpuscular Volume 88 fL (79-100) Mean Corpuscular Hemoglobin 29 pg (25-35) Mean Corpuscular Hemoglobin Concent 33 g/dL (31-37) Red Cell Distribution Width 14.9 % (11.5-14.5) Platelet Count 217 x10^3/uL (140-400) Neutrophils (%) (Auto) 70 % (31-73) Lymphocytes (%) (Auto) 17 % (24-48) Monocytes (%) (Auto) 8 % (0-9) Eosinophils (%) (Auto) 4 % (0-3) Basophils (%) (Auto) 1 % (0-3) Neutrophils # (Auto) 5.2 x10^3uL (1.8-7.7) Lymphocytes # (Auto) 1.3 x10^3/uL (1.0-4.8) Monocytes # (Auto) 0.6 x10^3/uL (0.0-1.1) Eosinophils # (Auto) 0.3 x10^3/uL (0.0-0.7) Basophils # (Auto) 0.1 x10^3/uL (0.0-0.2) Phosphorus Level 4.5 mg/dL (2.6-4.7) 4.1 mg/dL (2.6-4.7) Magnesium Level 2.5 mg/dL (1.8-2.4) Creatine Kinase 87 U/L (26-192) Sodium Level 142 mmol/L (136-145) Potassium Level 4.6 mmol/L (3.5-5.1) Chloride Level 108 mmol/L (98-107) Carbon Dioxide Level 27 mmol/L (21-32) Anion Gap 7 (6-14) Blood Urea Nitrogen 73 mg/dL (7-20) Creatinine 2.0 mg/dL (0.6-1.0) Estimated GFR (Cockcroft-Gault) 23.6 Glucose Level 105 mg/dL (70-99) Calcium Level 7.9 mg/dL (8.5-10.1) SANDRA ESPINOZA MD Dec 05, 2016 14:37
[2016-12-05 19:00] VITALS: BP 119/49
[2016-12-05] MEDS: ATORVASTATIN CALCIUM 10 MG TABLET. PO SCH (20:38)
[2016-12-05 22:21] VITALS: BP 121/57
[2016-12-06 02:46] VITALS: BP 110/58
[2016-12-06 04:31] LABS: BASO # 0.1 x10^3/uL (0.0-0.2); BASO % 1 % (0-3); EOS % 4 % (0-3); HEMOGLOBIN 10.7 g/dL (12.0-15.5); LYMPH # 1.5 x10^3/uL (1.0-4.8); LYMPH % 21 % (24-48); MEAN CORPUSCULAR HEMOGLOBIN 28 pg (25-35); MEAN CORPUSCULAR HGB CONC 32 g/dL (31-37); MEAN CORPUSCULAR VOLUME 88 fL (79-100); MONO % 9 % (0-9); NEUT % 65 % (31-73); PLATELET COUNT 208 x10^3/uL (140-400); RED BLOOD COUNT 3.76 x10^6/uL (3.50-5.40); RED CELL DISTRIBUTION WIDTH 14.9 % (11.5-14.5); WHITE BLOOD COUNT 7.4 x10^3/uL (4.0-11.0)
[2016-12-06 04:47] LABS: ALBUMIN 2.6 g/dL (3.4-5.0); CALCIUM 7.9 mg/dL (8.5-10.1); GFR 23.6; PHOSPHORUS 3.8 mg/dL (2.6-4.7); POTASSIUM 4.7 mmol/L (3.5-5.1)
[2016-12-06 05:04] LABS: MAGNESIUM 2.5 mg/dL (1.8-2.4); PHOSPHORUS 3.9 mg/dL (2.6-4.7)
[2016-12-06 05:19] LABS: PTH INTACT 194 pg/mL (15-65)
[2016-12-06] MEDS: IPRATRPIUM/ALBUTEROL 0.5/2.5MG 3 ML NEBU. NEB SCH (07:16)
[2016-12-06 07:30] VITALS: BP 142/55
[2016-12-06] MEDS: ASPIRIN ENTERIC COATED 81 MG TABLET.DR. PO SCH (08:53)
[2016-12-06 08:54] VITALS: BP 142/55
[2016-12-06] MEDS: METOPROLOL TART IMMED RELEASE 25 MG TABLET. PO SCH (08:54)
[2016-12-06] MEDS: CETIRIZINE HCL 10 MG TABLET. PO SCH (08:55)
[2016-12-06] MEDS: FLUTICASONE 50MCG/NASAL SPRAY 16GM BOTTLE. NS SCH (08:55)
[2016-12-06] MEDS: oxyCODONE/APAP 5/325 1 TAB TABLET PO SCH (09:02)
--- NOTE | 2016-12-06 10:12 | PDOC ---
PROGRESS NOTES Subjective Subjective No new complaints. Objective Objective Vital Signs Date Time Temp Pulse Resp B/P (MAP) Pulse Ox O2 Delivery O2 Flow Rate FiO2 12/06/16 09:02 20 97 Room Air 12/06/16 08:54 68 142/55 12/06/16 02:46 98.0 98.0 12/05/16 21:38 2.0 Intake and Output 12/06/16 07:00 Intake Total 840 ml Output Total 2000 ml Balance -1160 ml Intake Oral 840 ml Output Urine Total 1800 ml Stool Total 200 ml # Bowel Movements 1 Physical Exam Physical Exam She is comfortable sitting in bedside recliner and she is walking with roller walker. Assessment Assessment Problems Medical Problems: (1) CHF (congestive heart failure) Status: Acute Plan Plan of Care Agree with plans for transfer to SNF when medically stable. Comment Review of Relevant I have reviewed the following items aaliyah (where applicable) has been applied. Labs Laboratory Tests Test 12/04/16 14:35 12/05/16 04:10 12/05/16 09:30 12/06/16 02:55 Albumin 2.7 g/dL (3.4-5.0) 2.8 g/dL (3.4-5.0) 2.6 g/dL (3.4-5.0) 25-Hydroxy Vitamin D Total 17.1 ng/mL (30.0-100.0) White Blood Count 7.5 x10^3/uL (4.0-11.0) 7.4 x10^3/uL (4.0-11.0) Red Blood Count 3.90 x10^6/uL (3.50-5.40) 3.76 x10^6/uL (3.50-5.40) Hemoglobin 11.2 g/dL (12.0-15.5) 10.7 g/dL (12.0-15.5) Hematocrit 34.3 % (36.0-47.0) 33.0 % (36.0-47.0) Mean Corpuscular Volume 88 fL (79-100) 88 fL (79-100) Mean Corpuscular Hemoglobin 29 pg (25-35) 28 pg (25-35) Mean Corpuscular Hemoglobin Concent 33 g/dL (31-37) 32 g/dL (31-37) Red Cell Distribution Width 14.9 % (11.5-14.5) 14.9 % (11.5-14.5) Platelet Count 217 x10^3/uL (140-400) 208 x10^3/uL (140-400) Neutrophils (%) (Auto) 70 % (31-73) 65 % (31-73) Lymphocytes (%) (Auto) 17 % (24-48) 21 % (24-48) Monocytes (%) (Auto) 8 % (0-9) 9 % (0-9) Eosinophils (%) (Auto) 4 % (0-3) 4 % (0-3) Basophils (%) (Auto) 1 % (0-3) 1 % (0-3) Neutrophils # (Auto) 5.2 x10^3uL (1.8-7.7) 4.8 x10^3uL (1.8-7.7) Lymphocytes # (Auto) 1.3 x10^3/uL (1.0-4.8) 1.5 x10^3/uL (1.0-4.8) Monocytes # (Auto) 0.6 x10^3/uL (0.0-1.1) 0.6 x10^3/uL (0.0-1.1) Eosinophils # (Auto) 0.3 x10^3/uL (0.0-0.7) 0.3 x10^3/uL (0.0-0.7) Basophils # (Auto) 0.1 x10^3/uL (0.0-0.2) 0.1 x10^3/uL (0.0-0.2) Phosphorus Level 4.5 mg/dL (2.6-4.7) 4.1 mg/dL (2.6-4.7) 3.8 mg/dL (2.6-4.7) Magnesium Level 2.5 mg/dL (1.8-2.4) 2.5 mg/dL (1.8-2.4) Creatine Kinase 87 U/L (26-192) 49 U/L (26-192) Sodium Level 142 mmol/L (136-145) 141 mmol/L (136-145) Potassium Level 4.6 mmol/L (3.5-5.1) 4.7 mmol/L (3.5-5.1) Chloride Level 108 mmol/L (98-107) 109 mmol/L (98-107) Carbon Dioxide Level 27 mmol/L (21-32) 25 mmol/L (21-32) Anion Gap 7 (6-14) 7 (6-14) Blood Urea Nitrogen 73 mg/dL (7-20) 65 mg/dL (7-20) Creatinine 2.0 mg/dL (0.6-1.0) 2.0 mg/dL (0.6-1.0) Estimated GFR (Non- 24 (>59) Estimated GFR (Cockcroft-Gault) 23.6 23.6 Glucose Level 105 mg/dL (70-99) 93 mg/dL (70-99) Calcium Level 7.9 mg/dL (8.5-10.1) 7.9 mg/dL (8.5-10.1) EGFR 27 (>59) PTH (Intact) Specimen Description Comment (.) Parathyroid Hormone (Intact) 194 pg/mL (15-65) Calcium (PTH Intact) 8.2 mg/dL (8.7-10.3) Creatinine (PTH Intact) 1.88 mg/dL (0.57-1.00) Phosphorus (PTH Intact) 4.0 mg/dL (2.5-4.5) Laboratory Tests Test 12/06/16 02:55 White Blood Count 7.4 x10^3/uL (4.0-11.0) Red Blood Count 3.76 x10^6/uL (3.50-5.40) Hemoglobin 10.7 g/dL (12.0-15.5) Hematocrit 33.0 % (36.0-47.0) Mean Corpuscular Volume 88 fL (79-100) Mean Corpuscular Hemoglobin 28 pg (25-35) Mean Corpuscular Hemoglobin Concent 32 g/dL (31-37) Red Cell Distribution Width 14.9 % (11.5-14.5) Platelet Count 208 x10^3/uL (140-400) Neutrophils (%) (Auto) 65 % (31-73) Lymphocytes (%) (Auto) 21 % (24-48) Monocytes (%) (Auto) 9 % (0-9) Eosinophils (%) (Auto) 4 % (0-3) Basophils (%) (Auto) 1 % (0-3) Neutrophils # (Auto) 4.8 x10^3uL (1.8-7.7) Lymphocytes # (Auto) 1.5 x10^3/uL (1.0-4.8) Monocytes # (Auto) 0.6 x10^3/uL (0.0-1.1) Eosinophils # (Auto) 0.3 x10^3/uL (0.0-0.7) Basophils # (Auto) 0.1 x10^3/uL (0.0-0.2) Sodium Level 141 mmol/L (136-145) Potassium Level 4.7 mmol/L (3.5-5.1) Chloride Level 109 mmol/L (98-107) Carbon Dioxide Level 25 mmol/L (21-32) Anion Gap 7 (6-14) Blood Urea Nitrogen 65 mg/dL (7-20) Creatinine 2.0 mg/dL (0.6-1.0) Estimated GFR (Cockcroft-Gault) 23.6 Glucose Level 93 mg/dL (70-99) Calcium Level 7.9 mg/dL (8.5-10.1) Phosphorus Level 3.8 mg/dL (2.6-4.7) Magnesium Level 2.5 mg/dL (1.8-2.4) Creatine Kinase 49 U/L (26-192) Albumin 2.6 g/dL (3.4-5.0) Microbiology 11/26/16 Urine Culture - Final, Complete 11/26/16 Urine Culture Result 1 (KAELA) - Final, Complete Medications Current Medications Furosemide (Lasix) 60 mg 1X ONCE IVP Last administered on 11/26/16t 13:50; Start 11/26/16 at 13:15; Stop 11/26/16 at 13:16; Status DC Ondansetron HCl (Zofran) 4 mg PRN Q8HRS PRN IV NAUSEA/VOMITING; Start 11/26/16 at 14:00; Stop 11/27/16 at 13:59; Status DC Acetaminophen (Tylenol) 650 mg PRN Q4HRS PRN PO FEVER; Start 11/26/16 at 14:00 ; Stop 11/27/16 at 13:59; Status DC Nitroglycerin (Nitrostat) 0.4 mg PRN Q5MIN PRN SL CHEST PAIN; Start 11/26/16 at 14:00; Stop 11/27/16 at 13:59; Status DC Lisinopril (Prinivil) 5 mg 1X ONCE PO Last administered on 11/26/16 17:57; Start 11/26/16 at 14:00; Stop 11/26/16 at 14:10; Status DC Hydralazine HCl (Apresoline) 10 mg PRN Q6HRS PRN IVP HYPERTENSION, SEE COMMENTS ; Start 11/26/16 at 14:00 Aspirin (Ecotrin) 81 mg DAILYWBKFT PO Last administered on 12/06/16 08:53; Start 11/27/16 at 08:00 Atorvastatin Calcium (Lipitor) 20 mg QHS PO Last administered on 12/05/16 20:38 ; Start 11/26/16 at 21:00 Fluticasone Propionate (Flonase) 1 spray DAILY NS Last administered on 08:55; Start 11/27/16 at 09:00 Furosemide (Lasix) 40 mg DAILY PO Last administered on 11/29/16 09:04; Start 11/27/16 at 09:00; Stop 11/30/16 at 14:24; Status DC Lisinopril (Prinivil) 5 mg DAILY PO Last administered on 11/29/16 09:04; Start 11/27/16 at 09:00; Stop 12/01/16 at 09:55; Status DC Metoprolol Tartrate (Lopressor) 12.5 mg BID PO Last administered on 12/06/16 08 :54; Start 11/26/16 at 21:00 Oxycodone/ Acetaminophen (Percocet 5/325) 1 tab QID PO Last administered on 12/06 09:02; Start 11/26/16 at 21:00 Non-Formulary Medication 0.5 mg Q2HR PRN NEB SHORTNESS OF BREATH; Start at 19:00; Stop 11/26/16 at 19:23; Status DC Cetirizine HCl (ZyrTEC) 10 mg DAILY PO Last administered on 12/06/16 08:55; Start 11/27/16 at 09:00 Non-Formulary Medication 1 inh BID IH ; Start 11/26/16 at 21:00; Stop 11/26/16 at 21:00; Status DC Nitroglycerin (Nitrostat) 0.4 mg PRN Q5MIN PRN SL CHEST PAIN; Start 11/26/16 at 19:30 Polyethylene Glycol (miraLAX PACKET) 17 gm PRN DAILY PRN PO CONSTIPATION Last administered on 11/30/16 08:12; Start 11/27/16 at 09:00 Albuterol Sulfate (Ventolin Neb Soln) 2.5 mg PRN Q2HRS PRN NEB SHORTNESS OF BREATH; Start 11/26/16 at 19:30 Albuterol Sulfate (Ventolin Neb Soln) 2.5 mg QID NEB Last administered on 12:26; Start 11/26/16 at 21:00; Stop 11/27/16 at 15:21; Status DC Budesonide (Pulmicort) 0.5 mg BID NEB Last administered on 12/03/16 08:10; Start 11/26/16 at 21:00; Stop 12/03/16 at 09:17; Status DC Ceftriaxone Sodium 1 gm/ Sodium Chloride 50 ml @ 100 mls/hr Q24H IV ; Start at 10:15; Status UNV Methylprednisolone Acetate (DEPO-Medrol 40MG VIAL) 40 mg 1X ONCE IM Last administered on 11/27/16 10:30; Start 11/27/16 at 10:30; Stop 11/27/16 at 10:31 ; Status DC Bupivacaine HCl (Sensorcaine-Mpf 0.25%) 10 ml 1X ONCE IJ Last administered on 11/27/16 10:30; Start 11/27/16 at 10:30; Stop 11/27/16 at 10:31; Status DC Levofloxacin/ Dextrose 100 ml @ 100 mls/hr 1X ONCE IV Last administered on 11:04; Start 11/27/16 at 10:30; Stop 11/27/16 at 11:29; Status DC Levofloxacin (Levaquin) 250 mg DAILY06 PO Last administered on 12/06/16 05:07; Start 11/28/16 at 08:00 Metolazone (Zaroxolyn) 2.5 mg DAILY PO Last administered on 11/30/16 08:11; Start 11/27/16 at 12:30; Stop 11/30/16 at 14:24; Status DC Albuterol Sulfate (Ventolin Neb Soln) 2.5 mg BID NEB Last administered on 08:09; Start 11/27/16 at 21:00; Stop 12/03/16 at 09:17; Status DC Sodium Chloride 1,000 ml @ 60 mls/hr 1X ONCE IV Last administered on 15:03; Start 11/30/16 at 15:00; Stop 12/01/16 at 07:39; Status DC Sodium Polystyrene Sulfonate (Kayexalate) 30 gm 1X ONCE PO Last administered on 12/01/16 07:47; Start 12/01/16 at 07:30; Stop 12/01/16 at 07:31; Status DC Sodium Chloride 1,000 ml @ 100 mls/hr Q10H IV Last administered on 12/04/16 05:58; Start 12/01/16 at 07:15; Stop 12/04/16 at 12:06; Status DC Albuterol/ Ipratropium (Duoneb) 3 ml RTQID NEB Last administered on 12/06/16 07 :16; Start 12/03/16 at 12:00 Enoxaparin Sodium (Lovenox 30mg Syringe) 30 mg Q24H SQ Last administered on 07:53; Start 12/03/16 at 09:30; Stop 12/04/16 at 14:47; Status DC Magnesium Sulfate/ Dextrose 50 ml @ 25 mls/hr PRN DAILY PRN IV for Mag < 1.7 on am labs; Start 12/04/16 at 12:15 Enoxaparin Sodium (Lovenox 60mg Syringe) 60 mg DAILY SQ Last administered on 08:57; Start 12/05/16 at 09:00 Magnesium Sulfate/ Dextrose 50 ml @ 25 mls/hr PRN DAILY PRN IV for Mag < 1.7 on am labs; Start 12/05/16 at 10:30 Active Scripts Active Percocet 5-325 Mg Tablet (Oxycodone/Acetaminophen) 1 Each Tablet 1 Tab PO QID Furosemide 40 Mg Tablet 40 Mg PO DAILY Reported Lisinopril 5 Mg Tablet 1 Tab PO DAILY Albuterol Sulfate Neb Soln (Albuterol Sulfate) 0.63 Mg/3 Ml Vial.neb 0.5 Mg NEB Q2HR PRN Polyethylene Glycol (Polyethylene Glycol 8000) 500 Gm Powder 500 Gm MC DAILY PRN Advair 250-50 Diskus (Fluticasone/Salmeterol) 1 Each Disk.w.dev 1 Inh IH BID Metoprolol Tartrate 25 Mg Tablet 12.5 Mg PO BID Aspir 81 (Aspirin) 81 Mg Tablet.dr 81 Mg PO DAILY Nitrostat (Nitroglycerin) 0.3 Mg Tab.subl 0.3 Mg SL PRN Q5MIN PRN Flonase (Fluticasone Propionate) 16 Gm [place].susp 16 Gm NS DAILY Zyrtec (Cetirizine Hcl) 10 Mg Capsule 10 Mg PO DAILY Atorvastatin Calcium 10 Mg Tablet 20 Mg PO DAILY Vitals/I & O Vital Sign - Last 24 Hours 12/05/16 12/05/16 12/05/16 12/05/16 10:48 11:12 12:11 14:30 Temp 98.5 98.5 98.5 98.5 Pulse 60 61 Resp 18 18 B/P (MAP) 106/52 (70) 116/44 (68) Pulse Ox 99 96 96 95 O2 Delivery Room Air Room Air Room Air Room Air O2 Flow Rate 2.0 12/05/16 12/05/16 12/05/16 12/05/16 16:09 17:09 19:00 19:22 Temp 97.3 97.3 Pulse 64 Resp 18 B/P (MAP) 119/49 (72) Pulse Ox 95 95 95 O2 Delivery Room Air Room Air Room Air Room Air O2 Flow Rate 2.0 12/05/16 12/05/16 12/05/16 12/05/16 19:44 20:38 20:39 21:38 Pulse 64 B/P (MAP) 119/49 Pulse Ox 95 95 O2 Delivery Room Air Room Air Room Air O2 Flow Rate 2.0 2.0 12/05/16 12/06/16 12/06/16 12/06/16 22:21 02:46 07:18 08:54 Temp 97.7 98.0 97.7 98.0 Pulse 61 65 68 Resp 18 18 B/P (MAP) 121/57 (78) 110/58 (75) 142/55 Pulse Ox 95 94 97 O2 Delivery Room Air Room Air Room Air 12/06/16 09:02 Resp 20 Pulse Ox 97 O2 Delivery Room Air Intake and Output 12/05/16 12/05/16 12/06/16 15:00 23:00 07:00 Intake Total 600 ml 240 ml Output Total 800 ml 500 ml 700 ml Balance -800 ml 100 ml -460 ml MARU PARADA MD Dec 06, 2016 10:12
--- NOTE | 2016-12-06 10:17 | PDOC ---
SUBJECTIVE ROS HAFSA/ CKD III Doing well this am, No new complaints CVS: no Orthopnea, no CP RESP: no SOB, no MASSEY GI: no Nausea, no Vomiting : no Dysuria, no Urgency OBJECTIVE Vital Signs Vital Signs Date Time Temp Pulse Resp B/P (MAP) Pulse Ox O2 Delivery O2 Flow Rate FiO2 12/06/16 09:02 20 97 Room Air 12/06/16 08:54 68 142/55 12/06/16 02:46 98.0 98.0 12/05/16 21:38 2.0 I & 0 Intake and Output 12/06/16 07:00 Intake Total 840 ml Output Total 2000 ml Balance -1160 ml Intake Oral 840 ml Output Urine Total 1800 ml Stool Total 200 ml # Bowel Movements 1 PHYSICAL EXAM Physical Exam GEN: Awake, Oriented x 3, In no distress; morbidly obese EYES: Vision Unchanged, Conjunctiva Normal EN: No EN Drainage, Mucous Membranes moist NECK: no JVD, + JVP, Supple, no Thyromegaly CVS: S1S2, + Murmur, No Gallop, No Rub,Tr Edema RESP: no Rales, no Rhonchi,no Acc. Muscle Use GI: BS + ve, NO Bruit, Non Tender, Non Distended : no CVA tenderness, no Suprapubic Tenderness DIAGNOSIS/ASSESSMENT Assessment & Plan After Review of available labs/ radiology as reported - following is my Assessment and Plan ARF: better off of Diuretics and ARTURO-i.. Current fluid and E-lyte status does not necessitate emergent need for dialysis. 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 ordered Nuc Med scan but pt refused - hence leave off of ARTURO-i for now since EF is still preserved and BP are well controlled ^ed K - Pt is not sure when Arturo-i was started. Better off of ARTURO-i ANEMIA; Aranesp as ordered, Transfuse as needed for Hgb < 7 Renovascular HTN: Current BP meds as reviewed. See orders for changes. Lowish irish - barely corrects for Alb,start Vit D as ordered Vit D def - Started on Vit D as ordered ^ed PTH due to Vit D def - reval once VIT D is corrected Edema - restartt home doses of Diuretics - lasix 40 QD Discussed Plan of Care with pt at bedside - she has refused [facility] also in the past. COMMENT/RELEVANT DATA Meds Current Medications Medications (Trade) Dose Ordered Sig/Felix Start Time Stop Time Status Last Admin Dose Admin Acetaminophen (Tylenol) 650 mg PRN Q4HRS PRN 11/26/16 14:00 11/27/16 13:59 DC Albuterol Sulfate (Ventolin Neb Soln) 2.5 mg BID 11/27/16 21:00 12/03/16 09:17 DC 12/03/16 08:09 2.5 MG Albuterol/ Ipratropium (Duoneb) 3 ml RTQID 12/03/16 12:00 12/06/16 07:16 3 ML Aspirin (Ecotrin) 81 mg [id number] 11/27/16 08:00 12/06/16 08:53 81 MG Atorvastatin Calcium (Lipitor) 20 mg QHS 11/26/16 21:00 12/05/16 20:38 20 MG Budesonide (Pulmicort) 0.5 mg BID 11/26/16 21:00 12/03/16 09:17 DC 12/03/16 08:10 0.5 MG Bupivacaine HCl (Sensorcaine-Mpf 0.25%) 10 ml 1X ONCE 11/27/16 10:30 11/27/16 10:31 DC 11/27/16 10:30 10 ML Ceftriaxone Sodium 1 gm/ Sodium Chloride 50 ml @ 100 mls/hr Q24H 11/27/16 10:15 UNV Cetirizine HCl (ZyrTEC) 10 mg DAILY 11/27/16 09:00 12/06/16 08:55 10 MG Enoxaparin Sodium (Lovenox 30mg Syringe) 30 mg Q24H 12/03/16 09:30 12/04/16 14:47 DC 12/04/16 07:53 30 MG Enoxaparin Sodium (Lovenox 60mg Syringe) 60 mg DAILY 12/05/16 09:00 12/06/16 08:57 60 MG Fluticasone Propionate (Flonase) 1 spray DAILY 11/27/16 09:00 12/06/16 08:55 1 SPRAY Furosemide (Lasix) 40 mg DAILY 11/27/16 09:00 11/30/16 14:24 DC 11/29/16 09:04 40 MG Hydralazine HCl (Apresoline) 10 mg PRN Q6HRS PRN 11/26/16 14:00 Levofloxacin (Levaquin) 250 mg DAILY06 11/28/16 08:00 12/06/16 05:07 250 MG Levofloxacin/ Dextrose 100 ml @ 100 mls/hr 1X ONCE 11/27/16 10:30 11/27/16 11:29 DC 11/27/16 11:04 100 MLS/HR Lisinopril (Prinivil) 5 mg DAILY 11/27/16 09:00 12/01/16 09:55 DC 11/29/16 09:04 5 MG Magnesium Sulfate/ Dextrose 50 ml @ 25 mls/hr PRN DAILY PRN 12/05/16 10:30 Methylprednisolone Acetate (DEPO-Medrol 40MG VIAL) 40 mg 1X ONCE 11/27/16 10:30 11/27/16 10:31 DC 11/27/16 10:30 40 MG Metolazone (Zaroxolyn) 2.5 mg DAILY 11/27/16 12:30 11/30/16 14:24 DC 11/30/16 08:11 2.5 MG Metoprolol Tartrate (Lopressor) 12.5 mg BID 11/26/16 21:00 12/06/16 08:54 12.5 MG Nitroglycerin (Nitrostat) 0.4 mg PRN Q5MIN PRN 11/26/16 19:30 Non-Formulary Medication 1 inh BID 11/26/16 21:00 11/26/16 21:00 DC Ondansetron HCl (Zofran) 4 mg PRN Q8HRS PRN 11/26/16 14:00 11/27/16 13:59 DC Oxycodone/ Acetaminophen (Percocet 5/325) 1 tab QID 11/26/16 21:00 12/06/16 09:02 1 TAB Polyethylene Glycol (miraLAX PACKET) 17 gm PRN DAILY PRN 11/27/16 09:00 11/30/16 08:12 17 GM Sodium Polystyrene Sulfonate (Kayexalate) 30 gm 1X ONCE 12/01/16 07:30 12/01/16 07:31 DC 12/01/16 07:47 30 GM Sodium Chloride 1,000 ml @ 100 mls/hr Q10H 12/01/16 07:15 12/04/16 12:06 DC 12/04/16 05:58 100 MLS/HR Lab Laboratory Tests Test 12/06/16 02:55 White Blood Count 7.4 x10^3/uL (4.0-11.0) Red Blood Count 3.76 x10^6/uL (3.50-5.40) Hemoglobin 10.7 g/dL (12.0-15.5) Hematocrit 33.0 % (36.0-47.0) Mean Corpuscular Volume 88 fL (79-100) Mean Corpuscular Hemoglobin 28 pg (25-35) Mean Corpuscular Hemoglobin Concent 32 g/dL (31-37) Red Cell Distribution Width 14.9 % (11.5-14.5) Platelet Count 208 x10^3/uL (140-400) Neutrophils (%) (Auto) 65 % (31-73) Lymphocytes (%) (Auto) 21 % (24-48) Monocytes (%) (Auto) 9 % (0-9) Eosinophils (%) (Auto) 4 % (0-3) Basophils (%) (Auto) 1 % (0-3) Neutrophils # (Auto) 4.8 x10^3uL (1.8-7.7) Lymphocytes # (Auto) 1.5 x10^3/uL (1.0-4.8) Monocytes # (Auto) 0.6 x10^3/uL (0.0-1.1) Eosinophils # (Auto) 0.3 x10^3/uL (0.0-0.7) Basophils # (Auto) 0.1 x10^3/uL (0.0-0.2) Sodium Level 141 mmol/L (136-145) Potassium Level 4.7 mmol/L (3.5-5.1) Chloride Level 109 mmol/L (98-107) Carbon Dioxide Level 25 mmol/L (21-32) Anion Gap 7 (6-14) Blood Urea Nitrogen 65 mg/dL (7-20) Creatinine 2.0 mg/dL (0.6-1.0) Estimated GFR (Cockcroft-Gault) 23.6 Glucose Level 93 mg/dL (70-99) Calcium Level 7.9 mg/dL (8.5-10.1) Phosphorus Level 3.8 mg/dL (2.6-4.7) Magnesium Level 2.5 mg/dL (1.8-2.4) Creatine Kinase 49 U/L (26-192) Albumin 2.6 g/dL (3.4-5.0) ANDREE ARMAS MD Dec 06, 2016 10:17
--- NOTE | 2016-12-06 10:18 | PDOC ---
PULMONARY PROGRESS NOTES Subjective PT FEELS BETTER WITH DIURESES Vitals Vital Signs Date Time Temp Pulse Resp B/P (MAP) Pulse Ox O2 Delivery O2 Flow Rate FiO2 12/06/16 09:02 20 97 Room Air 12/06/16 08:54 68 142/55 12/06/16 02:46 98.0 98.0 12/05/16 21:38 2.0 ROS: No Nausea, No Chest Pain, No Abdominal Pain, No Increase Cough General: Alert Lungs: Clear Cardiovascular: S1, S2 Abdomen: Soft, Non-tender, Other Neuro Exam: Alert Extremities: Other Skin: Warm Labs Laboratory Tests Test 12/04/16 14:35 12/05/16 04:10 12/05/16 09:30 12/06/16 02:55 Albumin 2.7 g/dL (3.4-5.0) 2.8 g/dL (3.4-5.0) 2.6 g/dL (3.4-5.0) 25-Hydroxy Vitamin D Total 17.1 ng/mL (30.0-100.0) White Blood Count 7.5 x10^3/uL (4.0-11.0) 7.4 x10^3/uL (4.0-11.0) Red Blood Count 3.90 x10^6/uL (3.50-5.40) 3.76 x10^6/uL (3.50-5.40) Hemoglobin 11.2 g/dL (12.0-15.5) 10.7 g/dL (12.0-15.5) Hematocrit 34.3 % (36.0-47.0) 33.0 % (36.0-47.0) Mean Corpuscular Volume 88 fL (79-100) 88 fL (79-100) Mean Corpuscular Hemoglobin 29 pg (25-35) 28 pg (25-35) Mean Corpuscular Hemoglobin Concent 33 g/dL (31-37) 32 g/dL (31-37) Red Cell Distribution Width 14.9 % (11.5-14.5) 14.9 % (11.5-14.5) Platelet Count 217 x10^3/uL (140-400) 208 x10^3/uL (140-400) Neutrophils (%) (Auto) 70 % (31-73) 65 % (31-73) Lymphocytes (%) (Auto) 17 % (24-48) 21 % (24-48) Monocytes (%) (Auto) 8 % (0-9) 9 % (0-9) Eosinophils (%) (Auto) 4 % (0-3) 4 % (0-3) Basophils (%) (Auto) 1 % (0-3) 1 % (0-3) Neutrophils # (Auto) 5.2 x10^3uL (1.8-7.7) 4.8 x10^3uL (1.8-7.7) Lymphocytes # (Auto) 1.3 x10^3/uL (1.0-4.8) 1.5 x10^3/uL (1.0-4.8) Monocytes # (Auto) 0.6 x10^3/uL (0.0-1.1) 0.6 x10^3/uL (0.0-1.1) Eosinophils # (Auto) 0.3 x10^3/uL (0.0-0.7) 0.3 x10^3/uL (0.0-0.7) Basophils # (Auto) 0.1 x10^3/uL (0.0-0.2) 0.1 x10^3/uL (0.0-0.2) Phosphorus Level 4.5 mg/dL (2.6-4.7) 4.1 mg/dL (2.6-4.7) 3.8 mg/dL (2.6-4.7) Magnesium Level 2.5 mg/dL (1.8-2.4) 2.5 mg/dL (1.8-2.4) Creatine Kinase 87 U/L (26-192) 49 U/L (26-192) Sodium Level 142 mmol/L (136-145) 141 mmol/L (136-145) Potassium Level 4.6 mmol/L (3.5-5.1) 4.7 mmol/L (3.5-5.1) Chloride Level 108 mmol/L (98-107) 109 mmol/L (98-107) Carbon Dioxide Level 27 mmol/L (21-32) 25 mmol/L (21-32) Anion Gap 7 (6-14) 7 (6-14) Blood Urea Nitrogen 73 mg/dL (7-20) 65 mg/dL (7-20) Creatinine 2.0 mg/dL (0.6-1.0) 2.0 mg/dL (0.6-1.0) Estimated GFR (Non- 24 (>59) Estimated GFR (Cockcroft-Gault) 23.6 23.6 Glucose Level 105 mg/dL (70-99) 93 mg/dL (70-99) Calcium Level 7.9 mg/dL (8.5-10.1) 7.9 mg/dL (8.5-10.1) EGFR 27 (>59) PTH (Intact) Specimen Description Comment (.) Parathyroid Hormone (Intact) 194 pg/mL (15-65) Calcium (PTH Intact) 8.2 mg/dL (8.7-10.3) Creatinine (PTH Intact) 1.88 mg/dL (0.57-1.00) Phosphorus (PTH Intact) 4.0 mg/dL (2.5-4.5) Laboratory Tests Test 12/06/16 02:55 White Blood Count 7.4 x10^3/uL (4.0-11.0) Red Blood Count 3.76 x10^6/uL (3.50-5.40) Hemoglobin 10.7 g/dL (12.0-15.5) Hematocrit 33.0 % (36.0-47.0) Mean Corpuscular Volume 88 fL (79-100) Mean Corpuscular Hemoglobin 28 pg (25-35) Mean Corpuscular Hemoglobin Concent 32 g/dL (31-37) Red Cell Distribution Width 14.9 % (11.5-14.5) Platelet Count 208 x10^3/uL (140-400) Neutrophils (%) (Auto) 65 % (31-73) Lymphocytes (%) (Auto) 21 % (24-48) Monocytes (%) (Auto) 9 % (0-9) Eosinophils (%) (Auto) 4 % (0-3) Basophils (%) (Auto) 1 % (0-3) Neutrophils # (Auto) 4.8 x10^3uL (1.8-7.7) Lymphocytes # (Auto) 1.5 x10^3/uL (1.0-4.8) Monocytes # (Auto) 0.6 x10^3/uL (0.0-1.1) Eosinophils # (Auto) 0.3 x10^3/uL (0.0-0.7) Basophils # (Auto) 0.1 x10^3/uL (0.0-0.2) Sodium Level 141 mmol/L (136-145) Potassium Level 4.7 mmol/L (3.5-5.1) Chloride Level 109 mmol/L (98-107) Carbon Dioxide Level 25 mmol/L (21-32) Anion Gap 7 (6-14) Blood Urea Nitrogen 65 mg/dL (7-20) Creatinine 2.0 mg/dL (0.6-1.0) Estimated GFR (Cockcroft-Gault) 23.6 Glucose Level 93 mg/dL (70-99) Calcium Level 7.9 mg/dL (8.5-10.1) Phosphorus Level 3.8 mg/dL (2.6-4.7) Magnesium Level 2.5 mg/dL (1.8-2.4) Creatine Kinase 49 U/L (26-192) Albumin 2.6 g/dL (3.4-5.0) Medications Active Scripts Medications Dose Route/Sig Max Daily Dose Days Date Category Percocet 5-325 Mg Tablet (Oxycodone/Acetaminophen) 1 Each Tablet 1 Tab PO QID 11/13/16 Rx Lisinopril 5 Mg Tablet 1 Tab PO DAILY 01/13/16 Reported Furosemide 40 Mg Tablet 40 Mg PO DAILY 11/23/15 Rx Albuterol Sulfate Neb Soln (Albuterol Sulfate) 0.63 Mg/3 Ml Vial.neb 0.5 Mg NEB Q2HR PRN 11/09/13 Reported Polyethylene Glycol (Polyethylene Glycol 8000) 500 Gm Powder 500 Gm MC DAILY PRN 11/09/13 Reported Advair 250-50 Diskus (Fluticasone/Salmeterol) 1 Each Disk.w.dev 1 Inh IH BID 11/09/13 Reported Metoprolol Tartrate 25 Mg Tablet 12.5 Mg PO BID 11/09/13 Reported Aspir 81 (Aspirin) 81 Mg Tablet.dr 81 Mg PO DAILY 11/09/13 Reported Nitrostat (Nitroglycerin) 0.3 Mg Tab.subl 0.3 Mg SL PRN Q5MIN PRN 07/17/13 Reported Flonase (Fluticasone Propionate) 16 Gm Brimson.susp 16 Gm NS DAILY 07/17/13 Reported Zyrtec (Cetirizine Hcl) 10 Mg Capsule 10 Mg PO DAILY 07/17/13 Reported Atorvastatin Calcium 10 Mg Tablet 20 Mg PO DAILY 07/17/13 Reported Impression . 1. ACUTE RESP DISTRESS MULTIFACTORIAL 2. Abnormal chest x-ray. COMPATIBLE WITH CHF 3. Acute diastolic congestive heart failure. 4. Chronic obstructive pulmonary disease. 5. Secondary pulmonary hypertension 6. ASA 7. Coronary artery disease. 8. Status post pacemaker placement. 9. Acute kidney injury. 10. Chronic kidney disease. Plan . NEEDS A SLEEP STUDY GAVE MY CARD TO [employer] TO CALL MY OFFICE TO ARRANGE FOR A SLEEP STUDY 02 DIURESE 6 MIN WALK DARVIN RENO MD Dec 06, 2016 10:18
[2016-12-06] MEDS ORDERED: CHOLECALCIFEROL (VITAMIN D3) 5,000 UNIT CAPSULE PO SCH (11:00)
--- NOTE | 2016-12-06 23:24 | DS ---
DATE OF DISCHARGE: 12/06/2016 CHIEF COMPLAINT: Acute hypoxic respiratory failure. HISTORY OF PRESENT ILLNESS: The patient is an 86-year-old morbidly obese woman with Pickwickian syndrome (obesity induced hypoventilation and obstructive sleep apnea) as well as CHF who presented with acute hypoxic respiratory failure, etiology most likely in above combined etiologies. She received IV Lasix with improvement of her symptoms. She was started on CPAP at night. During her diuresis, she sustained acute vasomotor nephropathy on top of her chronic kidney disease stage 3, which prompted holding of Lasix and gentle rehydration with good results. Hyperkalemia required correction several times, however. Her lower extremity peripheral edema with stasis changes is chronic and should not be used a spirometer of her fluid load. She had been found with UTI at admission, which was treated with IV ceftriaxone and her UA should be checked in one week. PHYSICAL EXAMINATION: VITAL SIGNS: Blood pressure of 106/52, heart rate of 60, respiratory rate at 18. She is afebrile. GENERAL: This is a morbidly obese woman, alert and oriented, in no acute distress. LUNGS: Fairly clear with distant breath sounds. HEART: Regular rate and rhythm with distant heart sounds. ABDOMEN: Obese, positive bowel sounds. EXTREMITIES: Show no clubbing, 2-3 bilateral edema with patches of erythema, chronic. DISCHARGE DATE: 12/06/2016. DISCHARGE DISPOSITION: To rehab. DISCHARGE CONDITION: Improved. DISCHARGE MEDICATIONS: Please refer to MAR. DISCHARGE INSTRUCTIONS: The patient will receive physical, occupational, and respiratory therapy at Rehab. She will return to see her primary care physician once discharged to home. SANDRA ESPINOZA MD DR: CLARENCE/nts JOB#: [id number] / [id number] [place]
== END 2016-12-06 11:30 | DRG 291 ==
LOC: ER 10:20 → ED HOLD 12:51 → 5 NORTH 16:14
PROVIDERS: ADMIT Internal Medicine Hematology & Oncology; ATTEND Internal Medicine Hematology & Oncology
DX: I50.43 Acute on chronic combined systolic (congestive) and diastolic (congestive) heart failure (principal); N17.0 Acute kidney failure with tubular necrosis; J96.01 Acute respiratory failure with hypoxia; N39.0 Urinary tract infection, site not specified; E44.1 Mild protein-calorie malnutrition; I13.0 Hypertensive heart and chronic kidney disease with heart failure and stage 1 through stage 4 chronic kidney disease, or unspecified chronic kidney disease; Z68.44 Body mass index [BMI] 60.0-69.9, adult; E66.2 Morbid (severe) obesity with alveolar hypoventilation; J44.1 Chronic obstructive pulmonary disease with (acute) exacerbation; N18.4 Chronic kidney disease, stage 4 (severe); E78.5 Hyperlipidemia, unspecified; E78.00 Pure hypercholesterolemia, unspecified; E87.5 Hyperkalemia; G89.29 Other chronic pain; I25.10 Atherosclerotic heart disease of native coronary artery without angina pectoris; I27.2 Other secondary pulmonary hypertension; M17.11 Unilateral primary osteoarthritis, right knee; Z96.611 Presence of right artificial shoulder joint; I07.1 Rheumatic tricuspid insufficiency; G62.9 Polyneuropathy, unspecified; I73.9 Peripheral vascular disease, unspecified; E86.0 Dehydration; J30.2 Other seasonal allergic rhinitis; M19.90 Unspecified osteoarthritis, unspecified site; I95.9 Hypotension, unspecified; M54.2 Cervicalgia; I89.0 Lymphedema, not elsewhere classified; Z96.612 Presence of left artificial shoulder joint; M71.20 Synovial cyst of popliteal space [Baker], unspecified knee; T50.2X5A Adverse effect of carbonic-anhydrase inhibitors, benzothiadiazides and other diuretics, initial encounter; I87.2 Venous insufficiency (chronic) (peripheral); Z82.49 Family history of ischemic heart disease and other diseases of the circulatory system; Z86.73 Personal history of transient ischemic attack (TIA), and cerebral infarction without residual deficits; Z88.0 Allergy status to penicillin; Z88.2 Allergy status to sulfonamides; Z90.49 Acquired absence of other specified parts of digestive tract; Z87.891 Personal history of nicotine dependence; Z95.0 Presence of cardiac pacemaker; Z95.5 Presence of coronary angioplasty implant and graft; Z90.710 Acquired absence of both cervix and uterus; Z88.5 Allergy status to narcotic agent; Y92.89 Other specified places as the place of occurrence of the external cause
CPT/HCPCS: 36415; 36600; 71010; 71020; 72040; 76770; 80048; 80053; 80069; 81001; 82040; 82306; 82550; 82805; 83735; 83880; 83970; 84100; 84484; 85007; 85027; 87086; 93005; 94250; 94640; 94760; 94799; 96374; J1030; J1650; J1940; J1956; J3490; J7030; J7613; J7620; J7626; 97110; 97116; 97530; 97535; 99285-25

== ENCOUNTER 2017-06-11 11:03 | Inpatient (IN) | payer MEDICARE, BC ==
[2017-06-11] MEDS: HYDROcodone/APAP 5/325MG 1 TAB TABLET PO (13:05)
[2017-06-11] MEDS ORDERED: ONDANSETRON PF 4 MG/2 ML VIAL. IV (15:00)
[2017-06-11] MEDS ORDERED: MORPHINE SULFATE 2 MG/ML DISP.SYRIN. IV (15:00)
[2017-06-11 16:34] LABS: POC GLUCOSE 87 mg/dL (70-99)
[2017-06-11 16:40] LABS: ADD MAN DIFF? NO
[2017-06-11 16:42] LABS: BASO % 0 % (0-3); EOS # 0.4 x10^3/uL (0.0-0.7); EOS % 4 % (0-3); HEMOGLOBIN 11.1 g/dL (12.0-15.5); LYMPH # 1.3 x10^3/uL (1.0-4.8); LYMPH % 13 % (24-48); MEAN CORPUSCULAR HEMOGLOBIN 29 pg (25-35); MEAN CORPUSCULAR HGB CONC 33 g/dL (31-37); MEAN CORPUSCULAR VOLUME 89 fL (79-100); MONO # 0.8 x10^3/uL (0.0-1.1); MONO % 8 % (0-9); NEUT # 7.3 x10^3uL (1.8-7.7); NEUT % 75 % (31-73); PLATELET COUNT 272 x10^3/uL (140-400); RED BLOOD COUNT 3.83 x10^6/uL (3.50-5.40); RED CELL DISTRIBUTION WIDTH 15.1 % (11.5-14.5); WHITE BLOOD COUNT 9.8 x10^3/uL (4.0-11.0)
[2017-06-11 17:08] LABS: ANION GAP 10 (6-14); BLOOD UREA NITROGEN 47 mg/dL (7-20); BUN/CREATININE RATIO 31 (6-20); CALCIUM 9.3 mg/dL (8.5-10.1); CARBON DIOXIDE 28 mmol/L (21-32); CHLORIDE 106 mmol/L (98-107); CREATININE 1.5 mg/dL (0.6-1.0); GFR 32.9; GLUCOSE 97 mg/dL (70-99); POTASSIUM 4.3 mmol/L (3.5-5.1); SODIUM 144 mmol/L (136-145)
[2017-06-11 17:14] LABS: ALBUMIN 3.2 g/dL (3.4-5.0); ALBUMIN/GLOBULIN RATIO 0.8 (1.0-1.7); ALK PHOS 73 U/L (46-116); ALT (SGPT) 17 U/L (14-59); AST (SGOT) 15 U/L (15-37); TOTAL BILIRUBIN 0.7 mg/dL (0.2-1.0)
[2017-06-11] MEDS: ACETAMINOPHEN 325 MG TABLET. PO (22:43)
[2017-06-12 05:42] LABS: ADD MAN DIFF? NO
[2017-06-12 05:48] LABS: BASO # 0.1 x10^3/uL (0.0-0.2); BASO % 1 % (0-3); EOS # 0.5 x10^3/uL (0.0-0.7); EOS % 7 % (0-3); HEMATOCRIT 31.7 % (36.0-47.0); HEMOGLOBIN 10.4 g/dL (12.0-15.5); LYMPH # 1.2 x10^3/uL (1.0-4.8); LYMPH % 17 % (24-48); MEAN CORPUSCULAR HEMOGLOBIN 29 pg (25-35); MEAN CORPUSCULAR HGB CONC 33 g/dL (31-37); MEAN CORPUSCULAR VOLUME 89 fL (79-100); MONO # 0.6 x10^3/uL (0.0-1.1); MONO % 8 % (0-9); NEUT # 4.9 x10^3uL (1.8-7.7); NEUT % 67 % (31-73); PLATELET COUNT 243 x10^3/uL (140-400); RED BLOOD COUNT 3.54 x10^6/uL (3.50-5.40); RED CELL DISTRIBUTION WIDTH 15.6 % (11.5-14.5); WHITE BLOOD COUNT 7.4 x10^3/uL (4.0-11.0)
[2017-06-12 06:27] LABS: ALBUMIN 2.9 g/dL (3.4-5.0); ALBUMIN/GLOBULIN RATIO 0.9 (1.0-1.7); ALK PHOS 66 U/L (46-116); ALT (SGPT) 15 U/L (14-59); ANION GAP 10 (6-14); AST (SGOT) 13 U/L (15-37); BLOOD UREA NITROGEN 45 mg/dL (7-20); BUN/CREATININE RATIO 30 (6-20); CARBON DIOXIDE 26 mmol/L (21-32); CHLORIDE 108 mmol/L (98-107); CREATININE 1.5 mg/dL (0.6-1.0); GFR 32.9; GLUCOSE 96 mg/dL (70-99); POTASSIUM 4.2 mmol/L (3.5-5.1); SODIUM 144 mmol/L (136-145); TOTAL BILIRUBIN 0.6 mg/dL (0.2-1.0); TOTAL PROTEIN 6.3 g/dL (6.4-8.2)
[2017-06-12] MEDS ORDERED: NITROGLYCERIN SUBLINGUAL 0.4 MG BOTTLE OF 25. SL (08:00)
[2017-06-12] MEDS ORDERED: ALBUTEROL SULFATE 2.5 MG/3 ML NEBU. NEB (08:00)
[2017-06-12] MEDS ORDERED: NON FORMULARY ITEM (Fluticasone/Salmeterol (Advair 250-50 Diskus) 1 INH) IH (09:00)
[2017-06-12] MEDS: ALBUTEROL SULFATE 2.5 MG/3 ML NEBU. NEB ×4 (09:00→20:12)
[2017-06-12] MEDS: FLUTICASONE 50MCG/NASAL SPRAY 16GM BOTTLE. NS (09:22)
[2017-06-12] MEDS: ASPIRIN ENTERIC COATED 81 MG TABLET.DR. PO (09:23)
[2017-06-12] MEDS: LISINOPRIL 5 MG TABLET. PO (09:23)
[2017-06-12] MEDS: FUROSEMIDE 40 MG TABLET. PO (09:23)
[2017-06-12] MEDS: METOPROLOL TART IMMED RELEASE 25 MG TABLET. PO ×2 (09:24→22:03)
[2017-06-12] MEDS: CETIRIZINE HCL 10 MG TABLET. PO (09:25)
[2017-06-12] MEDS: POLYETHYLENE GLYCOL 3350 17 GM PACKET. PO (09:30)
[2017-06-12] MEDS: BUDESONIDE 0.5 MG/2 ML NEBU. NEB ×2 (12:51→20:12)
[2017-06-12] MEDS: MINERAL OIL/PETROLATUM TOPICAL CREAM 113GM JAR. TP ×2 (18:13→22:02)
[2017-06-12] MEDS: ACETAMINOPHEN 325 MG TABLET. PO (18:13)
[2017-06-12 21:22] LABS: BILIRUBIN,URINE NEGATIVE (NEG); CLARITY,URINE CLEAR; COLOR,URINE YELLOW; GLUCOSE,URINE NEGATIVE (NEG); NITRITE,URINE NEGATIVE (NEG); PROTEIN,URINE NEGATIVE (NEG-TRACE); UROBILINOGEN,URINE 0.2 mg/dL (0.2 mg/dL)
[2017-06-12 21:38] LABS: BACTERIA,URINE FEW /HPF (0-FEW); RBC,URINE 0 /HPF (0-2); SQUAMOUS EPITHELIAL CELL,UR OCC /LPF
[2017-06-12 21:39] LABS: HYALINE CASTS, URINE OCCASIONAL /HPF
[2017-06-12] MEDS: NORMAL SALINE IV (22:00)
[2017-06-12] MEDS: CLINDAMYCIN IV (22:00)
[2017-06-12] MEDS: ATORVASTATIN CALCIUM 20 MG TABLET PO (22:02)
[2017-06-13] MEDS: CLINDAMYCIN IV ×3 (05:55→20:55)
[2017-06-13] MEDS: NORMAL SALINE IV ×3 (05:55→20:55)
[2017-06-13] MEDS: BUDESONIDE 0.5 MG/2 ML NEBU. NEB ×2 (07:59→20:55)
[2017-06-13] MEDS: ALBUTEROL SULFATE 2.5 MG/3 ML NEBU. NEB ×4 (07:59→20:55)
[2017-06-13] MEDS: FUROSEMIDE 40 MG TABLET. PO (08:39)
[2017-06-13] MEDS: ASPIRIN ENTERIC COATED 81 MG TABLET.DR. PO (08:39)
[2017-06-13] MEDS: MINERAL OIL/PETROLATUM TOPICAL CREAM 113GM JAR. TP ×4 (08:39→20:55)
[2017-06-13] MEDS: CETIRIZINE HCL 10 MG TABLET. PO (08:39)
[2017-06-13] MEDS: FLUTICASONE 50MCG/NASAL SPRAY 16GM BOTTLE. NS (08:39)
[2017-06-13] MEDS: LISINOPRIL 5 MG TABLET. PO (08:40)
[2017-06-13] MEDS: METOPROLOL TART IMMED RELEASE 25 MG TABLET. PO ×2 (08:40→20:55)
[2017-06-13] MEDS: oxyCODONE/APAP 5/325 1 TAB TABLET PO ×3 (08:41→20:52)
[2017-06-13 09:54] LABS: SEDIMENTATION RATE 35 (0-25)
[2017-06-13] MEDS: LACTOBACILLUS RHAMNOSUS GG 1 CAPSULE. PO (20:52)
[2017-06-13] MEDS: ATORVASTATIN CALCIUM 20 MG TABLET PO (20:52)
[2017-06-14 05:17] LABS: ADD MAN DIFF? NO
[2017-06-14 05:30] LABS: BASO # 0.1 x10^3/uL (0.0-0.2); BASO % 1 % (0-3); EOS # 0.5 x10^3/uL (0.0-0.7); EOS % 8 % (0-3); HEMATOCRIT 31.4 % (36.0-47.0); HEMOGLOBIN 10.1 g/dL (12.0-15.5); LYMPH # 1.3 x10^3/uL (1.0-4.8); LYMPH % 19 % (24-48); MEAN CORPUSCULAR HEMOGLOBIN 29 pg (25-35); MEAN CORPUSCULAR HGB CONC 32 g/dL (31-37); MEAN CORPUSCULAR VOLUME 89 fL (79-100); MONO # 0.6 x10^3/uL (0.0-1.1); MONO % 8 % (0-9); NEUT # 4.4 x10^3uL (1.8-7.7); NEUT % 64 % (31-73); PLATELET COUNT 244 x10^3/uL (140-400); RED BLOOD COUNT 3.51 x10^6/uL (3.50-5.40); RED CELL DISTRIBUTION WIDTH 15.4 % (11.5-14.5); WHITE BLOOD COUNT 6.8 x10^3/uL (4.0-11.0)
[2017-06-14] MEDS: NORMAL SALINE IV ×2 (05:33→14:00)
[2017-06-14] MEDS: CLINDAMYCIN IV ×2 (05:33→14:00)
[2017-06-14 05:49] LABS: ALBUMIN 2.7 g/dL (3.4-5.0); ALBUMIN/GLOBULIN RATIO 0.8 (1.0-1.7); ALK PHOS 61 U/L (46-116); ALT (SGPT) 15 U/L (14-59); ANION GAP 8 (6-14); AST (SGOT) 12 U/L (15-37); BLOOD UREA NITROGEN 52 mg/dL (7-20); BUN/CREATININE RATIO 33 (6-20); CALCIUM 8.6 mg/dL (8.5-10.1); CARBON DIOXIDE 26 mmol/L (21-32); CHLORIDE 108 mmol/L (98-107); CREATININE 1.6 mg/dL (0.6-1.0); GFR 30.6; GLUCOSE 97 mg/dL (70-99); POTASSIUM 4.6 mmol/L (3.5-5.1); SODIUM 142 mmol/L (136-145); TOTAL BILIRUBIN 0.5 mg/dL (0.2-1.0); TOTAL PROTEIN 6.2 g/dL (6.4-8.2)
[2017-06-14] MEDS: BUDESONIDE 0.5 MG/2 ML NEBU. NEB (07:22)
[2017-06-14] MEDS: ALBUTEROL SULFATE 2.5 MG/3 ML NEBU. NEB ×2 (07:22→11:12)
[2017-06-14] MEDS: METOPROLOL TART IMMED RELEASE 25 MG TABLET. PO (08:23)
[2017-06-14] MEDS: LISINOPRIL 5 MG TABLET. PO (08:23)
[2017-06-14] MEDS: oxyCODONE/APAP 5/325 1 TAB TABLET PO ×2 (08:24→13:42)
[2017-06-14] MEDS: LACTOBACILLUS RHAMNOSUS GG 1 CAPSULE. PO (08:25)
[2017-06-14] MEDS: FUROSEMIDE 40 MG TABLET. PO (08:25)
[2017-06-14] MEDS: ASPIRIN ENTERIC COATED 81 MG TABLET.DR. PO (08:25)
[2017-06-14] MEDS: CETIRIZINE HCL 10 MG TABLET. PO (08:25)
[2017-06-14] MEDS: MINERAL OIL/PETROLATUM TOPICAL CREAM 113GM JAR. TP ×2 (08:25→13:42)
[2017-06-14] MEDS: FLUTICASONE 50MCG/NASAL SPRAY 16GM BOTTLE. NS (08:32)
[2017-06-14] MEDS: ACETAMINOPHEN 325 MG TABLET. PO (11:33)
== END 2017-06-14 14:45 | DRG 533 ==
LOC: ER 11:03 → 4 NORTH 14:45
PROVIDERS: Internal Medicine
DX: S72.431A Displaced fracture of medial condyle of right femur, initial encounter for closed fracture (principal); N17.0 Acute kidney failure with tubular necrosis; E46 Unspecified protein-calorie malnutrition; L03.115 Cellulitis of right lower limb; E66.01 Morbid (severe) obesity due to excess calories; I13.0 Hypertensive heart and chronic kidney disease with heart failure and stage 1 through stage 4 chronic kidney disease, or unspecified chronic kidney disease; I50.9 Heart failure, unspecified; N17.9 Acute kidney failure, unspecified; L03.116 Cellulitis of left lower limb; Z68.43 Body mass index [BMI] 50.0-59.9, adult; J44.9 Chronic obstructive pulmonary disease, unspecified; D64.9 Anemia, unspecified; E78.5 Hyperlipidemia, unspecified; I25.10 Atherosclerotic heart disease of native coronary artery without angina pectoris; M17.11 Unilateral primary osteoarthritis, right knee; N18.9 Chronic kidney disease, unspecified; J30.2 Other seasonal allergic rhinitis; M54.9 Dorsalgia, unspecified; Z60.2 Problems related to living alone; W01.0XXA Fall on same level from slipping, tripping and stumbling without subsequent striking against object, initial encounter; Z79.82 Long term (current) use of aspirin; Z79.899 Other long term (current) drug therapy; Z82.49 Family history of ischemic heart disease and other diseases of the circulatory system; Z86.73 Personal history of transient ischemic attack (TIA), and cerebral infarction without residual deficits; Z87.891 Personal history of nicotine dependence; Z90.49 Acquired absence of other specified parts of digestive tract; Z90.710 Acquired absence of both cervix and uterus; Z95.5 Presence of coronary angioplasty implant and graft; Y93.89 Activity, other specified; Y92.89 Other specified places as the place of occurrence of the external cause; Y99.8 Other external cause status; Z88.0 Allergy status to penicillin; Z88.2 Allergy status to sulfonamides; Z88.8 Allergy status to other drugs, medicaments and biological substances
CPT/HCPCS: 36415; 73562; 73590; 73610; 73700; 80053; 81001; 82306; 82962; 85025; 85651; 87086; 87186; 93970; 94640; 94760; 97161-GP; 97166-GO; 99285; 99285-25; J3490; J7613; J7626

== ENCOUNTER → 2017-08-15 | Outpatient (CLI) | payer MEDICARE ==
[2017-08-15 07:32] LABS: NT-PRO BNP 3424 pg/mL (0-449)
== END | disposition home or self-care (01) ==
LOC: SPEC 07:01
DX: I13.0 Hypertensive heart and chronic kidney disease with heart failure and stage 1 through stage 4 chronic kidney disease, or unspecified chronic kidney disease (principal); E11.22 Type 2 diabetes mellitus with diabetic chronic kidney disease; I50.9 Heart failure, unspecified; N18.4 Chronic kidney disease, stage 4 (severe); J44.9 Chronic obstructive pulmonary disease, unspecified; E78.5 Hyperlipidemia, unspecified
CPT/HCPCS: 36415; 83880

== ENCOUNTER 2017-08-20 16:00 | Inpatient (IN) | payer MEDICARE ==
[2017-08-20 16:37] LABS: ADD MAN DIFF? NO
[2017-08-20 16:38] LABS: BASO % 0 % (0-3); EOS # 0.3 x10^3/uL (0.0-0.7); EOS % 4 % (0-3); HEMATOCRIT 36.4 % (36.0-47.0); HEMOGLOBIN 11.6 g/dL (12.0-15.5); LYMPH % 11 % (24-48); MEAN CORPUSCULAR HEMOGLOBIN 28 pg (25-35); MEAN CORPUSCULAR HGB CONC 32 g/dL (31-37); MEAN CORPUSCULAR VOLUME 88 fL (79-100); MONO # 0.6 x10^3/uL (0.0-1.1); MONO % 7 % (0-9); NEUT # 6.7 x10^3uL (1.8-7.7); NEUT % 78 % (31-73); PLATELET COUNT 251 x10^3/uL (140-400); RED BLOOD COUNT 4.15 x10^6/uL (3.50-5.40); RED CELL DISTRIBUTION WIDTH 15.8 % (11.5-14.5); WHITE BLOOD COUNT 8.6 x10^3/uL (4.0-11.0)
[2017-08-20] MEDS: FUROSEMIDE 40 MG/4 ML VIAL. IVP (16:45)
[2017-08-20 16:47] LABS: INR 1.2 (0.8-1.1); PARTIAL THROMBOPLASTIN TIME 28 SEC (24-38); PROTHROMBIN TIME PATIENT 14.7 SEC (11.7-14.0)
[2017-08-20] MEDS ORDERED: ONDANSETRON PF 4 MG/2 ML VIAL. IV (17:45)
[2017-08-20 18:24] LABS: BILIRUBIN,URINE NEGATIVE (NEG); CLARITY,URINE CLEAR; COLOR,URINE YELLOW; GLUCOSE,URINE NEGATIVE (NEG); NITRITE,URINE NEGATIVE (NEG); PROTEIN,URINE NEGATIVE (NEG-TRACE); UROBILINOGEN,URINE 0.2 mg/dL (0.2 mg/dL)
[2017-08-20 18:39] LABS: BACTERIA,URINE MODERATE /HPF (0-FEW); RBC,URINE 0 /HPF (0-2); SQUAMOUS EPITHELIAL CELL,UR FEW /LPF
[2017-08-20 19:11] LABS: ANION GAP 11 (6-14); BLOOD UREA NITROGEN 66 mg/dL (7-20); BUN/CREATININE RATIO 37 (6-20); CALCIUM 8.7 mg/dL (8.5-10.1); CARBON DIOXIDE 26 mmol/L (21-32); CHLORIDE 108 mmol/L (98-107); CREATININE 1.8 mg/dL (0.6-1.0); GFR 26.6; GLUCOSE 101 mg/dL (70-99); POTASSIUM 5.1 mmol/L (3.5-5.1); SODIUM 145 mmol/L (136-145)
[2017-08-20] MEDS: IV NORMAL SALINE 500ML BAG 500 ML IV (19:15)
[2017-08-20 19:19] LABS: TROPONINI < 0.017 ng/mL (0.000-0.055)
[2017-08-20 19:20] LABS: ALBUMIN/GLOBULIN RATIO 0.8 (1.0-1.7); ALK PHOS 72 U/L (46-116); ALT (SGPT) 19 U/L (14-59); AST (SGOT) 14 U/L (15-37); MAGNESIUM 2.7 mg/dL (1.8-2.4); TOTAL BILIRUBIN 0.6 mg/dL (0.2-1.0)
[2017-08-20 19:23] LABS: NT-PRO BNP 3844 pg/mL (0-449)
[2017-08-20] MEDS ORDERED: ALBUTEROL SULFATE NEB (20:45)
[2017-08-20] MEDS ORDERED: diphenhydrAMINE HCL 25 MG CAPSULE PO (20:45)
[2017-08-20] MEDS ORDERED: NITROGLYCERIN SUBLINGUAL 0.4 MG BOTTLE OF 25. SL (21:00)
[2017-08-20] MEDS ORDERED: NON FORMULARY ITEM (Fluticasone/Salmeterol (Advair 250-50 Diskus) 1 INH) IH (21:00)
[2017-08-20] MEDS ORDERED: ALBUTEROL SULFATE 2.5 MG/3 ML NEBU. NEB (21:00)
[2017-08-20] MEDS: ATORVASTATIN CALCIUM 20 MG TABLET PO (21:09)
[2017-08-20] MEDS: oxyCODONE/APAP 5/325 1 TAB TABLET PO (21:10)
[2017-08-20] MEDS: METOPROLOL TART IMMED RELEASE 25 MG TABLET. PO (21:27)
[2017-08-20 21:43] LABS: FREE T4 0.87 ng/dL (0.76-1.46)
[2017-08-21 05:10] LABS: ADD MAN DIFF? NO
[2017-08-21 05:21] LABS: BASO % 0 % (0-3); EOS # 0.4 x10^3/uL (0.0-0.7); EOS % 5 % (0-3); HEMATOCRIT 34.1 % (36.0-47.0); HEMOGLOBIN 10.8 g/dL (12.0-15.5); LYMPH # 1.2 x10^3/uL (1.0-4.8); LYMPH % 15 % (24-48); MEAN CORPUSCULAR HEMOGLOBIN 28 pg (25-35); MEAN CORPUSCULAR HGB CONC 32 g/dL (31-37); MEAN CORPUSCULAR VOLUME 88 fL (79-100); MONO # 0.8 x10^3/uL (0.0-1.1); MONO % 10 % (0-9); NEUT # 5.6 x10^3uL (1.8-7.7); NEUT % 70 % (31-73); PLATELET COUNT 230 x10^3/uL (140-400); RED BLOOD COUNT 3.87 x10^6/uL (3.50-5.40); RED CELL DISTRIBUTION WIDTH 16.2 % (11.5-14.5); WHITE BLOOD COUNT 7.9 x10^3/uL (4.0-11.0)
[2017-08-21 05:51] LABS: ANION GAP 11 (6-14); BLOOD UREA NITROGEN 65 mg/dL (7-20); CALCIUM 8.5 mg/dL (8.5-10.1); CARBON DIOXIDE 24 mmol/L (21-32); CHLORIDE 110 mmol/L (98-107); CREATININE 1.8 mg/dL (0.6-1.0); GFR 26.6; GLUCOSE 92 mg/dL (70-99); POTASSIUM 5.1 mmol/L (3.5-5.1); SODIUM 145 mmol/L (136-145)
[2017-08-21] MEDS: ALBUTEROL SULFATE 2.5 MG/3 ML NEBU. NEB ×4 (07:35→20:24)
[2017-08-21] MEDS: BUDESONIDE 0.5 MG/2 ML NEBU. NEB ×2 (07:35→20:24)
[2017-08-21] MEDS: ASPIRIN ENTERIC COATED 81 MG TABLET.DR. PO (08:20)
[2017-08-21] MEDS: oxyCODONE/APAP 5/325 1 TAB TABLET PO ×4 (08:21→21:03)
[2017-08-21] MEDS: FLUTICASONE 50MCG/NASAL SPRAY 16GM BOTTLE. NS (08:22)
[2017-08-21] MEDS: METOPROLOL TART IMMED RELEASE 25 MG TABLET. PO ×2 (08:23→21:00)
[2017-08-21] MEDS ORDERED: POLYETHYLENE GLYCOL 3350 17 GM PACKET. PO (09:00)
[2017-08-21] MEDS: LISINOPRIL 5 MG TABLET. PO (15:24)
[2017-08-21] MEDS: BUMETANIDE 1 MG/4 ML VIAL. IV (15:25)
[2017-08-21] MEDS: ATORVASTATIN CALCIUM 20 MG TABLET PO (21:03)
[2017-08-21 22:17] LABS: MRSA BY PCR Negative (Negative)
[2017-08-22] MEDS: BUDESONIDE 0.5 MG/2 ML NEBU. NEB ×2 (07:06→19:55)
[2017-08-22] MEDS: ALBUTEROL SULFATE 2.5 MG/3 ML NEBU. NEB ×4 (07:06→19:55)
[2017-08-22] MEDS: ASPIRIN ENTERIC COATED 81 MG TABLET.DR. PO (08:57)
[2017-08-22] MEDS: oxyCODONE/APAP 5/325 1 TAB TABLET PO ×4 (08:58→20:50)
[2017-08-22] MEDS: FLUTICASONE 50MCG/NASAL SPRAY 16GM BOTTLE. NS (08:59)
[2017-08-22] MEDS: METOPROLOL TART IMMED RELEASE 25 MG TABLET. PO ×2 (09:00→20:50)
[2017-08-22 10:23] LABS: ANION GAP 7 (6-14); BLOOD UREA NITROGEN 70 mg/dL (7-20); CALCIUM 8.9 mg/dL (8.5-10.1); CARBON DIOXIDE 26 mmol/L (21-32); CHLORIDE 108 mmol/L (98-107); CREATININE 2.4 mg/dL (0.6-1.0); GFR 19.1; GLUCOSE 99 mg/dL (70-99); MAGNESIUM 2.9 mg/dL (1.8-2.4); SODIUM 141 mmol/L (136-145)
[2017-08-22 16:36] LABS: THYROID STIM HORMONE (TSH) 6.062 uIU/mL (0.358-3.74)
[2017-08-22] MEDS: ATORVASTATIN CALCIUM 20 MG TABLET PO (20:50)
[2017-08-23] MEDS: BUDESONIDE 0.5 MG/2 ML NEBU. NEB ×2 (08:27→19:56)
[2017-08-23] MEDS: ALBUTEROL SULFATE 2.5 MG/3 ML NEBU. NEB ×4 (08:27→19:56)
[2017-08-23] MEDS: ASPIRIN ENTERIC COATED 81 MG TABLET.DR. PO (08:47)
[2017-08-23] MEDS: oxyCODONE/APAP 5/325 1 TAB TABLET PO ×4 (08:48→20:48)
[2017-08-23] MEDS: METOPROLOL TART IMMED RELEASE 25 MG TABLET. PO ×2 (08:48→20:50)
[2017-08-23] MEDS: FLUTICASONE 50MCG/NASAL SPRAY 16GM BOTTLE. NS (09:00)
[2017-08-23 10:25] LABS: ANION GAP 10 (6-14); BLOOD UREA NITROGEN 73 mg/dL (7-20); CALCIUM 8.3 mg/dL (8.5-10.1); CARBON DIOXIDE 25 mmol/L (21-32); CHLORIDE 106 mmol/L (98-107); CREATININE 2.4 mg/dL (0.6-1.0); GFR 19.1; GLUCOSE 99 mg/dL (70-99); POTASSIUM 5.1 mmol/L (3.5-5.1); SODIUM 141 mmol/L (136-145)
[2017-08-23 10:25] LABS: PHOSPHORUS 4.9 mg/dL (2.6-4.7)
[2017-08-23] MEDS: FUROSEMIDE 40 MG/4 ML VIAL. IVP (13:37)
[2017-08-23] MEDS: ATORVASTATIN CALCIUM 20 MG TABLET PO (20:48)
[2017-08-24 05:39] LABS: ADD MAN DIFF? NO
[2017-08-24 06:05] LABS: BASO # 0.1 x10^3/uL (0.0-0.2); BASO % 1 % (0-3); EOS # 0.4 x10^3/uL (0.0-0.7); EOS % 4 % (0-3); HEMATOCRIT 34.7 % (36.0-47.0); HEMOGLOBIN 11.2 g/dL (12.0-15.5); LYMPH # 1.4 x10^3/uL (1.0-4.8); LYMPH % 16 % (24-48); MEAN CORPUSCULAR HEMOGLOBIN 29 pg (25-35); MEAN CORPUSCULAR HGB CONC 32 g/dL (31-37); MEAN CORPUSCULAR VOLUME 89 fL (79-100); MONO % 11 % (0-9); NEUT % 68 % (31-73); PLATELET COUNT 248 x10^3/uL (140-400); RED BLOOD COUNT 3.91 x10^6/uL (3.50-5.40); RED CELL DISTRIBUTION WIDTH 16.1 % (11.5-14.5); WHITE BLOOD COUNT 8.9 x10^3/uL (4.0-11.0)
[2017-08-24 06:11] LABS: ALBUMIN 2.5 g/dL (3.4-5.0); ALBUMIN/GLOBULIN RATIO 0.7 (1.0-1.7); ALK PHOS 64 U/L (46-116); ALT (SGPT) 19 U/L (14-59); ANION GAP 9 (6-14); AST (SGOT) 12 U/L (15-37); BLOOD UREA NITROGEN 80 mg/dL (7-20); BUN/CREATININE RATIO 28 (6-20); CALCIUM 8.3 mg/dL (8.5-10.1); CARBON DIOXIDE 26 mmol/L (21-32); CHLORIDE 105 mmol/L (98-107); CREATININE 2.9 mg/dL (0.6-1.0); GFR 15.4; GLUCOSE 87 mg/dL (70-99); SODIUM 140 mmol/L (136-145); TOTAL BILIRUBIN 0.6 mg/dL (0.2-1.0); TOTAL PROTEIN 6.2 g/dL (6.4-8.2)
[2017-08-24 06:18] LABS: POTASSIUM 5.2 mmol/L (3.5-5.1)
[2017-08-24] MEDS: BUDESONIDE 0.5 MG/2 ML NEBU. NEB ×2 (07:48→19:14)
[2017-08-24] MEDS: ALBUTEROL SULFATE 2.5 MG/3 ML NEBU. NEB ×4 (07:48→19:14)
[2017-08-24] MEDS: FUROSEMIDE 40 MG/4 ML VIAL. IVP ×2 (08:19→14:51)
[2017-08-24] MEDS: oxyCODONE/APAP 5/325 1 TAB TABLET PO ×4 (08:19→21:03)
[2017-08-24] MEDS: FLUTICASONE 50MCG/NASAL SPRAY 16GM BOTTLE. NS (08:29)
[2017-08-24] MEDS ORDERED: hydrALAZINE 20 MG/ML VIAL. IVP (11:00)
[2017-08-24] MEDS: ASPIRIN ENTERIC COATED 81 MG TABLET.DR. PO (12:04)
[2017-08-24] MEDS: METOPROLOL TART IMMED RELEASE 25 MG TABLET. PO ×2 (12:05→21:00)
[2017-08-24] MEDS: NYSTATIN TOPICAL POWDER 15GM BOTTLE. TP ×2 (14:51→21:02)
[2017-08-24] MEDS: ATORVASTATIN CALCIUM 20 MG TABLET PO (21:02)
[2017-08-25] MEDS: oxyCODONE/APAP 5/325 1 TAB TABLET PO ×4 (08:07→20:13)
[2017-08-25] MEDS: ASPIRIN ENTERIC COATED 81 MG TABLET.DR. PO (08:07)
[2017-08-25] MEDS: FLUTICASONE 50MCG/NASAL SPRAY 16GM BOTTLE. NS (08:08)
[2017-08-25] MEDS: METOPROLOL TART IMMED RELEASE 25 MG TABLET. PO ×2 (08:08→20:13)
[2017-08-25] MEDS: NYSTATIN TOPICAL POWDER 15GM BOTTLE. TP ×2 (08:09→20:19)
[2017-08-25] MEDS: ALBUTEROL SULFATE 2.5 MG/3 ML NEBU. NEB ×4 (08:42→20:00)
[2017-08-25] MEDS: BUDESONIDE 0.5 MG/2 ML NEBU. NEB ×2 (08:42→20:00)
[2017-08-25] MEDS: SODIUM POLYSTYRENE SULFONATE 15 GM/60 ML ORAL.SUSP. PO (12:23)
[2017-08-25 14:18] LABS: CREAT CLEAR 24 32 mL/min (88-128); CREATININE UR 24HR 1198 mg/24 hr (800-1800); PROTEIN 24 HR UR 303 mg/24 hr (30-150); TOTAL SERUM CREATININE 2.64 mg/dL (0.57-1.00); TOTAL URINE CREATININE 82.6 mg/dL (Not Estab.); UR PROTEIN 20.9 mg/dL (Not Estab.); eGFR AFRICAN-AMER 18 (>59); eGFR NON AFRICAN-AMER 16 (>59)
[2017-08-25] MEDS: ATORVASTATIN CALCIUM 20 MG TABLET PO (20:13)
[2017-08-25 20:34] LABS: ANION GAP 8 (6-14); BLOOD UREA NITROGEN 80 mg/dL (7-20); CALCIUM 8.5 mg/dL (8.5-10.1); CARBON DIOXIDE 24 mmol/L (21-32); CHLORIDE 102 mmol/L (98-107); CREATININE 2.7 mg/dL (0.6-1.0); GFR 16.7; GLUCOSE 114 mg/dL (70-99); POTASSIUM 4.8 mmol/L (3.5-5.1); SODIUM 134 mmol/L (136-145)
[2017-08-26] MEDS: ALBUTEROL SULFATE 2.5 MG/3 ML NEBU. NEB ×4 (07:34→20:00)
[2017-08-26] MEDS: BUDESONIDE 0.5 MG/2 ML NEBU. NEB ×2 (07:34→20:00)
[2017-08-26 08:25] LABS: ADD MAN DIFF? NO
[2017-08-26 08:28] LABS: BASO % 1 % (0-3); EOS # 0.3 x10^3/uL (0.0-0.7); EOS % 4 % (0-3); HEMATOCRIT 36.4 % (36.0-47.0); HEMOGLOBIN 11.9 g/dL (12.0-15.5); LYMPH % 13 % (24-48); MEAN CORPUSCULAR HEMOGLOBIN 29 pg (25-35); MEAN CORPUSCULAR HGB CONC 33 g/dL (31-37); MEAN CORPUSCULAR VOLUME 88 fL (79-100); MONO # 0.7 x10^3/uL (0.0-1.1); MONO % 9 % (0-9); NEUT # 5.7 x10^3uL (1.8-7.7); NEUT % 73 % (31-73); PLATELET COUNT 306 x10^3/uL (140-400); RED BLOOD COUNT 4.13 x10^6/uL (3.50-5.40); WHITE BLOOD COUNT 7.8 x10^3/uL (4.0-11.0)
[2017-08-26 08:43] LABS: ALBUMIN 2.7 g/dL (3.4-5.0); ALBUMIN/GLOBULIN RATIO 0.7 (1.0-1.7); ALK PHOS 75 U/L (46-116); ALT (SGPT) 20 U/L (14-59); ANION GAP 7 (6-14); AST (SGOT) 13 U/L (15-37); BLOOD UREA NITROGEN 83 mg/dL (7-20); BUN/CREATININE RATIO 31 (6-20); CALCIUM 8.7 mg/dL (8.5-10.1); CARBON DIOXIDE 25 mmol/L (21-32); CHLORIDE 101 mmol/L (98-107); CREATININE 2.7 mg/dL (0.6-1.0); GFR 16.7; GLUCOSE 91 mg/dL (70-99); POTASSIUM 4.7 mmol/L (3.5-5.1); SODIUM 133 mmol/L (136-145); TOTAL BILIRUBIN 0.6 mg/dL (0.2-1.0); TOTAL PROTEIN 6.8 g/dL (6.4-8.2)
[2017-08-26] MEDS: FLUTICASONE 50MCG/NASAL SPRAY 16GM BOTTLE. NS (09:42)
[2017-08-26] MEDS: ASPIRIN ENTERIC COATED 81 MG TABLET.DR. PO (09:42)
[2017-08-26] MEDS: NYSTATIN TOPICAL POWDER 15GM BOTTLE. TP ×2 (09:42→20:10)
[2017-08-26] MEDS: oxyCODONE/APAP 5/325 1 TAB TABLET PO ×4 (09:43→20:11)
[2017-08-26] MEDS: METOPROLOL TART IMMED RELEASE 25 MG TABLET. PO ×2 (09:43→21:00)
[2017-08-26] MEDS: ATORVASTATIN CALCIUM 20 MG TABLET PO (20:11)
[2017-08-27] MEDS: ALBUTEROL SULFATE 2.5 MG/3 ML NEBU. NEB ×2 (08:03→11:42)
[2017-08-27] MEDS: BUDESONIDE 0.5 MG/2 ML NEBU. NEB (08:03)
[2017-08-27] MEDS: ASPIRIN ENTERIC COATED 81 MG TABLET.DR. PO (08:52)
[2017-08-27] MEDS: oxyCODONE/APAP 5/325 1 TAB TABLET PO ×2 (08:53→14:24)
[2017-08-27] MEDS: FLUTICASONE 50MCG/NASAL SPRAY 16GM BOTTLE. NS (08:53)
[2017-08-27] MEDS: METOPROLOL TART IMMED RELEASE 25 MG TABLET. PO (08:53)
[2017-08-27] MEDS: NYSTATIN TOPICAL POWDER 15GM BOTTLE. TP (09:00)
== END 2017-08-27 15:00 | DRG 682 ==
LOC: ER 16:00 → 5 SOUTH 17:30
DX: N17.0 Acute kidney failure with tubular necrosis (principal); I50.33 Acute on chronic diastolic (congestive) heart failure; J96.01 Acute respiratory failure with hypoxia; E66.01 Morbid (severe) obesity due to excess calories; I08.1 Rheumatic disorders of both mitral and tricuspid valves; I27.20 Pulmonary hypertension, unspecified; I13.0 Hypertensive heart and chronic kidney disease with heart failure and stage 1 through stage 4 chronic kidney disease, or unspecified chronic kidney disease; J98.11 Atelectasis; Z68.43 Body mass index [BMI] 50.0-59.9, adult; N18.4 Chronic kidney disease, stage 4 (severe); N17.9 Acute kidney failure, unspecified; N30.90 Cystitis, unspecified without hematuria; E03.9 Hypothyroidism, unspecified; E78.5 Hyperlipidemia, unspecified; G47.30 Sleep apnea, unspecified; I25.10 Atherosclerotic heart disease of native coronary artery without angina pectoris; I48.91 Unspecified atrial fibrillation; I73.9 Peripheral vascular disease, unspecified; I89.0 Lymphedema, not elsewhere classified; J44.9 Chronic obstructive pulmonary disease, unspecified; K21.9 Gastro-esophageal reflux disease without esophagitis; M19.90 Unspecified osteoarthritis, unspecified site; N27.1 Small kidney, bilateral; Z79.82 Long term (current) use of aspirin; Z79.899 Other long term (current) drug therapy; Z80.0 Family history of malignant neoplasm of digestive organs; Z82.0 Family history of epilepsy and other diseases of the nervous system; Z82.49 Family history of ischemic heart disease and other diseases of the circulatory system; Z86.73 Personal history of transient ischemic attack (TIA), and cerebral infarction without residual deficits; Z90.710 Acquired absence of both cervix and uterus; Z98.61 Coronary angioplasty status; Z90.49 Acquired absence of other specified parts of digestive tract; Z88.0 Allergy status to penicillin; Z88.2 Allergy status to sulfonamides; Z88.5 Allergy status to narcotic agent
CPT/HCPCS: 36415; 71045; 71250; 74176; 78708; 80048; 80053; 81001; 82575; 83735; 83880; 84100; 84156; 84439; 84443; 84484; 85025; 85610; 85730; 87086; 87641; 93005; 93306; 94640; 94760; 96361; 96374; 96375; 97110-GP; 97162-GP; 97166-GO; 99285; 99285-25; A9562; J1650; J1940; J3490; J7040; J7613; J7626

== ENCOUNTER → 2017-08-30 | Outpatient (CLI) | payer MEDICARE ==
[2017-08-30 06:57] LABS: ANION GAP 11 (6-14); BLOOD UREA NITROGEN 80 mg/dL (7-20); CALCIUM 8.7 mg/dL (8.5-10.1); CARBON DIOXIDE 23 mmol/L (21-32); CHLORIDE 99 mmol/L (98-107); CREATININE 1.9 mg/dL (0.6-1.0); GLUCOSE 94 mg/dL (70-99); POTASSIUM 4.6 mmol/L (3.5-5.1); SODIUM 133 mmol/L (136-145)
== END | disposition home or self-care (01) ==
LOC: SPEC 00:13
DX: I13.0 Hypertensive heart and chronic kidney disease with heart failure and stage 1 through stage 4 chronic kidney disease, or unspecified chronic kidney disease (principal); E11.22 Type 2 diabetes mellitus with diabetic chronic kidney disease; I50.9 Heart failure, unspecified; N18.4 Chronic kidney disease, stage 4 (severe)
CPT/HCPCS: 36415; 80048

== ENCOUNTER → 2017-09-26 | Outpatient (CLI) | payer MEDICARE ==
[2017-09-26 06:31] LABS: ANION GAP 10 (6-14); BLOOD UREA NITROGEN 58 mg/dL (7-20); CALCIUM 8.7 mg/dL (8.5-10.1); CARBON DIOXIDE 26 mmol/L (21-32); CHLORIDE 101 mmol/L (98-107); CREATININE 2.1 mg/dL (0.6-1.0); GFR 22.3; GLUCOSE 102 mg/dL (70-99); POTASSIUM 3.1 mmol/L (3.5-5.1); SODIUM 137 mmol/L (136-145)
== END | disposition home or self-care (01) ==
LOC: SPEC 01:03
DX: I50.9 Heart failure, unspecified (principal)
CPT/HCPCS: 36415; 80048

== ENCOUNTER → 2017-12-26 | Outpatient (CLI) | payer OTHER ==
[2017-11-27 14:52] VITALS: BP 113/32
[~2017-12-26] MED LIST changes: +FURO80TA3 PO; +METO2.5T PO
== END | disposition home or self-care (01) ==
LOC: PMGWOUND 10:21 → EDSTATUS 14:38
PROVIDERS: ATTEND Preventive Medicine Undersea and Hyperbaric Medicine
DX: T81.4XXD Infection following a procedure, subsequent encounter (principal); I13.2 Hypertensive heart and chronic kidney disease with heart failure and with stage 5 chronic kidney disease, or end stage renal disease; N18.6 End stage renal disease; I50.32 Chronic diastolic (congestive) heart failure; J44.9 Chronic obstructive pulmonary disease, unspecified; I73.9 Peripheral vascular disease, unspecified; I48.91 Unspecified atrial fibrillation; I89.0 Lymphedema, not elsewhere classified; I25.10 Atherosclerotic heart disease of native coronary artery without angina pectoris; K21.9 Gastro-esophageal reflux disease without esophagitis; M19.90 Unspecified osteoarthritis, unspecified site; E03.9 Hypothyroidism, unspecified; E78.00 Pure hypercholesterolemia, unspecified; E66.01 Morbid (severe) obesity due to excess calories; Z68.44 Body mass index [BMI] 60.0-69.9, adult; Z99.2 Dependence on renal dialysis; Z90.710 Acquired absence of both cervix and uterus; Z90.49 Acquired absence of other specified parts of digestive tract; Z86.73 Personal history of transient ischemic attack (TIA), and cerebral infarction without residual deficits; Z87.891 Personal history of nicotine dependence; Z88.8 Allergy status to other drugs, medicaments and biological substances; Z88.6 Allergy status to analgesic agent; Z88.0 Allergy status to penicillin; Z88.2 Allergy status to sulfonamides; X58.XXXD Exposure to other specified factors, subsequent encounter
CPT/HCPCS: 99214; G0463

== ENCOUNTER → 2018-01-02 | Outpatient (CLI) | payer OTHER ==
[2017-11-27 14:52] VITALS: BP 113/32
== END | disposition home or self-care (01) ==
LOC: PMGWOUND 09:14 → EDSTATUS 14:43
PROVIDERS: ATTEND Preventive Medicine Undersea and Hyperbaric Medicine
DX: T81.4XXD Infection following a procedure, subsequent encounter (principal); I13.2 Hypertensive heart and chronic kidney disease with heart failure and with stage 5 chronic kidney disease, or end stage renal disease; N18.6 End stage renal disease; I50.32 Chronic diastolic (congestive) heart failure; E78.5 Hyperlipidemia, unspecified; J44.9 Chronic obstructive pulmonary disease, unspecified; I48.91 Unspecified atrial fibrillation; I89.0 Lymphedema, not elsewhere classified; M19.90 Unspecified osteoarthritis, unspecified site; I25.10 Atherosclerotic heart disease of native coronary artery without angina pectoris; K21.9 Gastro-esophageal reflux disease without esophagitis; E03.9 Hypothyroidism, unspecified; I73.9 Peripheral vascular disease, unspecified; E66.01 Morbid (severe) obesity due to excess calories; Z68.44 Body mass index [BMI] 60.0-69.9, adult; Z99.2 Dependence on renal dialysis; Z90.710 Acquired absence of both cervix and uterus; Z90.49 Acquired absence of other specified parts of digestive tract; Z86.73 Personal history of transient ischemic attack (TIA), and cerebral infarction without residual deficits; Z87.891 Personal history of nicotine dependence; X58.XXXD Exposure to other specified factors, subsequent encounter
CPT/HCPCS: 99213

== ENCOUNTER → 2018-01-16 | Outpatient (CLI) | payer MEDICARE, OTHER ==
[2017-11-27 14:52] VITALS: BP 113/32
== END | disposition home or self-care (01) ==
LOC: PMGWOUND 09:22 → EDSTATUS 12:42
PROVIDERS: ATTEND Emergency Medicine Undersea and Hyperbaric Medicine
DX: E11.622 Type 2 diabetes mellitus with other skin ulcer (principal); I87.313 Chronic venous hypertension (idiopathic) with ulcer of bilateral lower extremity; L97.211 Non-pressure chronic ulcer of right calf limited to breakdown of skin; L97.221 Non-pressure chronic ulcer of left calf limited to breakdown of skin; E11.621 Type 2 diabetes mellitus with foot ulcer; L97.521 Non-pressure chronic ulcer of other part of left foot limited to breakdown of skin; E11.51 Type 2 diabetes mellitus with diabetic peripheral angiopathy without gangrene; I13.2 Hypertensive heart and chronic kidney disease with heart failure and with stage 5 chronic kidney disease, or end stage renal disease; E11.22 Type 2 diabetes mellitus with diabetic chronic kidney disease; N18.6 End stage renal disease; I50.32 Chronic diastolic (congestive) heart failure; E78.5 Hyperlipidemia, unspecified; J44.9 Chronic obstructive pulmonary disease, unspecified; I89.0 Lymphedema, not elsewhere classified; M19.90 Unspecified osteoarthritis, unspecified site; K21.9 Gastro-esophageal reflux disease without esophagitis; E03.9 Hypothyroidism, unspecified; I48.91 Unspecified atrial fibrillation; E78.00 Pure hypercholesterolemia, unspecified; I25.10 Atherosclerotic heart disease of native coronary artery without angina pectoris; Z99.2 Dependence on renal dialysis; E66.01 Morbid (severe) obesity due to excess calories; Z68.44 Body mass index [BMI] 60.0-69.9, adult; Z87.891 Personal history of nicotine dependence; Z90.710 Acquired absence of both cervix and uterus; Z90.49 Acquired absence of other specified parts of digestive tract; Z86.73 Personal history of transient ischemic attack (TIA), and cerebral infarction without residual deficits
CPT/HCPCS: 97597